=== PATIENT | female | born 1965 | race Caucasian/White ===

== ENCOUNTER 2016-04-07 19:09 | Inpatient (IN) | payer MEDICARE, MEDICAID ==
[2016-04-07] MEDS ORDERED: NS 0.9% 1000 ML* 1,000 ML IV ONE (19:46)
[2016-04-07 20:11] LABS: Hematocrit 33 % (35-47); Hemoglobin 10.7 g/dl (12.0-16.0); Mean Corpuscular HGB Conc 33 g/dl (31-36); Mean Corpuscular Hemoglobin 26 pg (27-31); Mean Corpuscular Volume 81 fL (80-97); Mean Platelet Volume 9 um3 (7.4-10.4); Red Blood Count 4.06 10^6/ul (4.0-5.4); Red Cell Distribution Width 18 % (10.5-15); White Blood Count 7.2 10^3/ul (3.5-10.8)
[2016-04-07 20:27] LABS: Albumin 3.9 g/dL (3.2-5.2); BUN/Creatinine Ratio 15.9 (8-20); C Reactive Protein 21.51 mg/L (< 5.00); EGFR African American 42.6 (>60); EGFR Non-African American 33.2 (>60); Globulin 3.1 g/dL (2-4); Magnesium 1.8 mg/dL (1.9-2.7); Potassium 4.2 mmol/L (3.5-5.0)
[2016-04-07 20:31] LABS: Troponin I 0.07 ng/mL (<0.04)
[2016-04-07 20:59] LABS: TSH (Thyroid Stimulating Horm) 7.36 mcIU/mL (0.34-5.60)
--- NOTE | 2016-04-07 21:09 | ED ---
Complex/Multi-Sys Presentation - HPI Summary HPI Summary: Patient is a resident at the [facility] and presents after falling. She says she got up to get some water and her legs "just gave out on her" and no one would help her. She fell onto her knees and has some bruising on the knee caps. She is being treated for what appears to be a cellulitis with central necrosis on the left inner thigh. She says she is thirsty but denies other complaints. No recent illness, fever, CP, SOB or abdominal pain. She does feel like she is very shaky, which is not normal for her. - History Of Current Complaint Chief Complaint: EDExtremityLower Time Seen by Provider: 04/07/16 19:19 Hx Obtained From: Patient - Patient has mild MR and therefore her history is incomplete Onset/Duration: Sudden Onset, Still Present Timing: Constant Severity Currently: Moderate Severity Initially: Severe Character: Dull - bilateral knees Associated Signs And Symptoms: Positive: Weakness - Allergies/Home Medications Allergies/Adverse Reactions: Allergies Allergy/AdvReac Type Severity Reaction Status Date / Time No Known Allergies Allergy Verified 04/07/16 19:32 Home Medications: Home Medications Acetaminophen TAB* [Tylenol TAB*] 650 mg PO Q6HR PRN 04/07/16 [History Confirmed 04/07/16] Amantadine CAP* [Symmetrel CAP*] 1 tab PO DAILY 04/07/16 [History Confirmed 09/16] Aspirin [Aspirin Adult Low Dose] 81 mg PO DAILY 04/07/16 [History Confirmed 09/16] Atorvastatin* [Lipitor 40 MG*] 1 tab PO BEDTIME 04/07/16 [History Confirmed 09/16] Clopidogrel TAB* [Plavix TAB*] 1 tab PO DAILY 04/07/16 [History Confirmed ] Insulin Aspart [Novolog Flexpen] 6 units SUBCUT BEDTIME 04/07/16 [History Confirmed 04/07/16] Insulin GLARGINE(*) [Lantus(*)] 35 units SUBCUT BEDTIME 04/07/16 [History Confirmed 04/07/16] LORazepam INJ* [Ativan INJ*] 1 mg IM Q12HR PRN 04/07/16 [History Confirmed 04/07] LORazepam TAB(*) [Ativan TAB(*)] 1 mg PO Q6H PRN 04/07/16 [History Confirmed 09/16] Levothyroxine TAB* [Synthroid TAB*] 1 tab PO DAILY 04/07/16 [History Confirmed 04/07/16] Lisinopril TAB* [Prinivil TAB*] 2.5 mg PO DAILY 04/07/16 [History Confirmed 09/16] Methylcobalamine (NF) [B-12] 1,000 mcg SL DAILY 04/07/16 [History Confirmed 09/16] Metolazone TAB* [Zaroxolyn TAB*] 2.5 mg PO EVERY OTHER DAY 04/07/16 [History Confirmed 04/07/16] Metoprolol Tartrate TAB* [Lopressor TAB*] 1 tab PO BID 04/07/16 [History Confirmed 04/07/16] OLANzapine TAB* [Zyprexa TAB*] 2 tab PO BEDTIME 04/07/16 [History Confirmed 09/16] Potassium Chloride [K-Tab] 1 tab PO DAILY 04/07/16 [History Confirmed 04/07/16] Spironolactone TAB* [Aldactone TAB 25 MG*] 1 tab PO DAILY 04/07/16 [History Confirmed 04/07/16] Torsemide TAB* [Demadex*] 20 mg PO DAILY 04/07/16 [History Confirmed 04/07/16] Venlafaxine ER (NF) [Effexor ER (NF)] 300 mg PO DAILY 04/07/16 [History Confirmed 04/07/16] glipiZIDE TAB* [Glucotrol TAB*] 1 tab PO BID 04/07/16 [History Confirmed ] hydrOXYzine HCL TAB* [Atarax TAB*] 1 tab PO Q8HR 04/07/16 [History Confirmed 09/16] PMH/Surg Hx/FS Hx/Imm Hx Endocrine/Hematology History: Reports: Hx Diabetes, Hx Thyroid Disease Cardiovascular History: Reports: Hx Coronary Artery Disease, Hx Hypertension Psychiatric History: Reports: Hx Anxiety, Hx Depression Infectious Disease History: No Infectious Disease History: Denies: Traveled Outside the [place] in Last 30 Days - Social History Occupation: Disabled Lives: Assisted Living Alcohol Use: None Substance Use Type: Reports: None Smoking Status (MU): Never Smoked Tobacco Review of Systems Negative: Fever, Chills Negative: Chest Pain Negative: Shortness Of Breath Positive: no symptoms reported Positive: Bruising - bilateral knees have mild bruises Positive: Weakness Positive: Anxious All Other Systems Reviewed And Are Negative: Yes Physical Exam Triage Information Reviewed: Yes Vital Signs On Initial Exam: Initial Vitals Temp Pulse Resp BP Pulse Ox 98 F 103 18 119/78 98 04/07/16 19:18 04/07/16 19:18 04/07/16 19:18 04/07/16 19:18 04/07/16 19:18 Vital Signs Reviewed: Yes Appearance: Positive: Well-Appearing, Pain Distress, Obese Skin: Positive: Warm, Skin Color Reflects Adequate Perfusion, Dry, Soft, Erythema @ - left mid inner thigh has 5 cm area of erythema with 2cm central escar without drainage; multiple healing scabs on the patient's back that appear to be healing Head/Face: Positive: Normal Head/Face Inspection Eyes: Positive: EOMI, FELICITA, Conjunctiva Clear ENT: Positive: Hearing grossly normal Neck: Positive: Supple, Nontender, No Lymphadenopathy Respiratory/Lung Sounds: Positive: Clear to Auscultation, Breath Sounds Present Cardiovascular: Positive: Tachycardia Abdomen Description: Positive: Nontender, Soft Bowel Sounds: Positive: Present Musculoskeletal: Positive: Strength/ROM Intact, Pain @ - mild TTP bilateral knee caps with mild bruising. Negative: Edema Left, Edema Right Neurological: Positive: Sensory/Motor Intact, Alert, Oriented to Person Place, Time, NV Bundle Intact Distally Psychiatric: Positive: Affect/Mood Appropriate AVPU Assessment: Alert Diagnostics - Vital Signs Vital Signs Temp Pulse Resp BP Pulse Ox 04/07/16 20:40 103 97 04/07/16 20:39 115/75 04/07/16 19:18 98 F 103 18 119/78 98 - Laboratory Lab Results: Lab Results 04/07/16 04/07/16 04/07/16 Range/Units 19:55 19:55 19:55 WBC 7.2 (3.5-10.8) 10^3/ul RBC 4.06 (4.0-5.4) 10^6/ul Hgb 10.7 L (12.0-16.0) g/dl Hct 33 L (35-47) % MCV 81 (80-97) fL MCH 26 L (27-31) pg MCHC 33 (31-36) g/dl RDW 18 H (10.5-15) % Plt Count 165 (150-450) 10^3/ul MPV 9 (7.4-10.4) um3 Neut % (Auto) 63.5 (38-83) % Lymph % (Auto) 23.7 L (25-47) % Sequoyah % (Auto) 10.2 H (1-9) % Eos % (Auto) 2.1 (0-6) % Baso % (Auto) 0.5 (0-2) % Absolute Neuts (auto) 4.6 (1.5-7.7) 10^3/ul Absolute Lymphs (auto) 1.7 (1.0-4.8) 10^3/ul Absolute Monos (auto) 0.7 (0-0.8) 10^3/ul Absolute Eos (auto) 0.2 (0-0.6) 10^3/ul Absolute Basos (auto) 0 (0-0.2) 10^3/ul Absolute Nucleated RBC 0 10^3/ul Nucleated RBC % 0 Sodium 135 (133-145) mmol/L Potassium 4.2 (3.5-5.0) mmol/L Chloride 104 (101-111) mmol/L Carbon Dioxide 22 (22-32) mmol/L Anion Gap 9 (2-11) mmol/L BUN 26 H (6-24) mg/dL Creatinine 1.64 H (0.51-0.95) mg/dL Est GFR ( Amer) 42.6 (>60) Est GFR (Non-Af Amer) 33.2 (>60) BUN/Creatinine Ratio 15.9 (8-20) Glucose 186 H (70-100) mg/dL Lactic Acid 1.7 (0.5-2.0) mmol/L Calcium 10.0 (8.6-10.3) mg/dL Magnesium 1.8 L (1.9-2.7) mg/dL Total Bilirubin 1.00 (0.2-1.0) mg/dL AST 28 (13-39) U/L ALT 18 (7-52) U/L Alkaline Phosphatase 128 H (34-104) U/L Troponin I 0.07 H* (<0.04) ng/mL C-Reactive Protein 21.51 H (< 5.00) mg/L Total Protein 7.0 (6.4-8.9) g/dL Albumin 3.9 (3.2-5.2) g/dL Globulin 3.1 (2-4) g/dL Albumin/Globulin Ratio 1.3 (1-3) TSH Pending Result Diagrams: 04/07/16 19:55 04/07/16 19:55 Lab Statement: Any lab studies that have been ordered have been reviewed, and results considered in the medical decision making process. - EKG No standard instances Cardiac Rate: NL EKG Rhythm: Sinus Rhythm ST Segment: Normal Ectopy: None Complex Multi-Symp Course/Dx - Diagnoses Differential Diagnoses/HQI/PQRI: Aspiration, Cardiac Ischemia, Closed Cranial Trauma, CVA, Metabolic Abnormality, Sepsis, Urinary Tract Infection Provider Diagnoses: Weakness, Elevated troponin - Physician Notifications Discussed Care Of Patient With: Dr. Joseph, hospitalist Time Discussed With Above Provider: 09:20 Instructed by Provider To: Admit As Inpatient Discharge - Discharge Plan Condition: Good Disposition: ADMITTED TO [facility]
[2016-04-07] MEDS ORDERED: CMCS: Melatonin (NF) 3 MG TAB PO PRN (21:48)
[2016-04-07] MEDS ORDERED: traMADol TAB* 50 MG PO PRN (21:48)
[2016-04-07] MEDS ORDERED: Ondansetron INJ* 2 MG/ML VIAL IV PRN (21:48)
[2016-04-07] MEDS ORDERED: LORazepam INJ* 2 MG/ML 1 ML VIAL IM PRN (21:50)
[2016-04-07] MEDS ORDERED: hydrOXYzine HCL TAB* 25 MG ONE (21:59)
[2016-04-07] MEDS ORDERED: Magnesium Sulfate 2 GM IV* 2 GM/50 ML BAG IVPB ONE (21:59)
[2016-04-07] MEDS ORDERED: Aspirin TAB* 325 MG ONE (21:59)
[2016-04-07] MEDS: hydrOXYzine HCL TAB* 25 MG PO SCH (22:00)
[2016-04-07] MEDS: Aspirin TAB* 325 MG PO SCH (22:01)
--- NOTE | 2016-04-07 22:02 | HP ---
H&P (Free Text) History and Physical: PCP: unknown Date/Time of Evaluation: 04/07/20152114 CC: generalized weakness & falls HPI: Mrs Thao is a 51F mentally challenged female resident of [facility] who is a very non-specific poor historian. She reports several days of generalized weakness and recurrent falls. She states her legs "just give out". She reports feeling hot & shaky, but denies chills, sweats, cough, congestion, chest pain, SOB, palpitations, light-headedness, changes in bowel/bladder, headache, sore throat, earache, or other issues. Work up is notable for normocytic anemia (? baseline), CKD stg 3b (? baseline), magnesium 1.8, & troponin of 0.07 (no comparison). ECG is sinus tachycardia rate 103, old anterior Q-waves, non-specific diffuse ST-T changes. PMedHx mentally challenged HTN HLD DM2 hypothyroidism Allergies No Known Allergies Allergy (Verified 04/07/16 19:32) Ambulatory Orders Acetaminophen TAB* [Tylenol TAB*] 650 mg PO Q6HR PRN 04/07/16 Amantadine CAP* [Symmetrel CAP*] 1 tab PO DAILY 04/07/16 Aspirin [Aspirin Adult Low Dose] 81 mg PO DAILY 04/07/16 Atorvastatin* [Lipitor 40 MG*] 1 tab PO BEDTIME 04/07/16 Clopidogrel TAB* [Plavix TAB*] 1 tab PO DAILY 04/07/16 Insulin Aspart [Novolog Flexpen] 6 units SUBCUT BEDTIME 04/07/16 Insulin GLARGINE(*) [Lantus(*)] 35 units SUBCUT BEDTIME 04/07/16 LORazepam INJ* [Ativan INJ*] 1 mg IM Q12HR PRN 04/07/16 LORazepam TAB(*) [Ativan TAB(*)] 1 mg PO Q6H PRN 04/07/16 Levothyroxine TAB* [Synthroid TAB*] 1 tab PO DAILY 04/07/16 Lisinopril TAB* [Prinivil TAB*] 2.5 mg PO DAILY 04/07/16 Methylcobalamine (NF) [B-12] 1,000 mcg SL DAILY 04/07/16 Metolazone TAB* [Zaroxolyn TAB*] 2.5 mg PO EVERY OTHER DAY 04/07/16 Metoprolol Tartrate TAB* [Lopressor TAB*] 1 tab PO BID 04/07/16 OLANzapine TAB* [Zyprexa TAB*] 2 tab PO BEDTIME 04/07/16 Potassium Chloride [K-Tab] 1 tab PO DAILY 04/07/16 Spironolactone TAB* [Aldactone TAB 25 MG*] 1 tab PO DAILY 04/07/16 Torsemide TAB* [Demadex*] 20 mg PO DAILY 04/07/16 Venlafaxine ER (NF) [Effexor ER (NF)] 300 mg PO DAILY 04/07/16 glipiZIDE TAB* [Glucotrol TAB*] 1 tab PO BID 04/07/16 hydrOXYzine HCL TAB* [Atarax TAB*] 1 tab PO Q8HR 04/07/16 SocHx: no tobacco, alcohol, or recreational drugs; lives at [facility]; full code status FamHx: reviewed, patient uncertain ROS: as above, otherwise reviewed and all were negative Constitutional: NAD, normally developed, obese white female vitals: Vital Signs Temp 36.6 C 04/07/16 19:18 Pulse 103 04/07/16 20:40 Resp 18 04/07/16 19:18 BP 115/75 04/07/16 20:39 Pulse Ox 97 04/07/16 20:40 Intake & Output 04/06/16 04/07/16 04/07/16 23:59 11:59 23:59 Weight 240 lb HEENM: atraumatic; sclera/conjunctiva: non-icteric/clear; blephara: normal; hearing: intact; oropharynx: clear, mucosa moist Neck: soft tissue: non-tender; thyroid: normal Pulmonary: clear to auscultation bilaterally, good aeration, no accessory muscle use CV: RR/RR, normal S1S2, no carotid bruit, no jugular venous distention, 2+ B DP/ PT, 1+ BLE edema Abdominal: soft, non-distended, non-tender, no rebound/guarding/rigidity, normoactive bowel sounds, no hepatosplenomegaly or masses, no costovertebral angle tenderness Musculoskeletal: general: grossly intact; gait: steady Integumental: normal appearance & texture Psychiatric orientation: AA&O to PPS affect: anxious mood: cooperative eye contact: good content: unreliable responses: timely insight: fair, limited by cognitive impairment Testing: Lab Results 04/07/16 04/07/16 04/07/16 Range/Units 19:55 19:55 19:55 WBC 7.2 (3.5-10.8) 10^3/ul RBC 4.06 (4.0-5.4) 10^6/ul Hgb 10.7 L (12.0-16.0) g/dl Hct 33 L (35-47) % MCV 81 (80-97) fL MCH 26 L (27-31) pg MCHC 33 (31-36) g/dl RDW 18 H (10.5-15) % Plt Count 165 (150-450) 10^3/ul MPV 9 (7.4-10.4) um3 Neut % (Auto) 63.5 (38-83) % Lymph % (Auto) 23.7 L (25-47) % Lewis % (Auto) 10.2 H (1-9) % Eos % (Auto) 2.1 (0-6) % Baso % (Auto) 0.5 (0-2) % Absolute Neuts (auto) 4.6 (1.5-7.7) 10^3/ul Absolute Lymphs (auto) 1.7 (1.0-4.8) 10^3/ul Absolute Monos (auto) 0.7 (0-0.8) 10^3/ul Absolute Eos (auto) 0.2 (0-0.6) 10^3/ul Absolute Basos (auto) 0 (0-0.2) 10^3/ul Absolute Nucleated RBC 0 10^3/ul Nucleated RBC % 0 Sodium 135 (133-145) mmol/L Potassium 4.2 (3.5-5.0) mmol/L Chloride 104 (101-111) mmol/L Carbon Dioxide 22 (22-32) mmol/L Anion Gap 9 (2-11) mmol/L BUN 26 H (6-24) mg/dL Creatinine 1.64 H (0.51-0.95) mg/dL Est GFR ( Amer) 42.6 (>60) Est GFR (Non-Af Amer) 33.2 (>60) BUN/Creatinine Ratio 15.9 (8-20) Glucose 186 H (70-100) mg/dL Lactic Acid 1.7 (0.5-2.0) mmol/L Calcium 10.0 (8.6-10.3) mg/dL Magnesium 1.8 L (1.9-2.7) mg/dL Total Bilirubin 1.00 (0.2-1.0) mg/dL AST 28 (13-39) U/L ALT 18 (7-52) U/L Alkaline Phosphatase 128 H (34-104) U/L Troponin I 0.07 H* (<0.04) ng/mL C-Reactive Protein 21.51 H (< 5.00) mg/L Total Protein 7.0 (6.4-8.9) g/dL Albumin 3.9 (3.2-5.2) g/dL Globulin 3.1 (2-4) g/dL Albumin/Globulin Ratio 1.3 (1-3) TSH 7.36 H (0.34-5.60) mcIU/mL ECG, personally reviewed: sinus tachycardia rate 103, anterior Q-waves, non- specific diffuse ST-T changes CXR, personally reviewed: ordered, pending Impression: 51F presenting with generalized weakness, falls, indeterminate troponin, & abnormal ECG DIAGNOSIS & PLAN Primary generalized weakness, elevated troponin, r/o ACS : telemetry : check 2vCXR in AM : trend troponin : aspirin : beta-iva (took already today) : supplemental oxygen : obtain old records : supportive care CKD stg 3b, ? baseline : IVFs, trend : continue spironolactone, K Cl, metolazone, & torsemide anemia, normocytic : check anemia labs : check stool for occult blood hypoMagnesemia : replace & recheck Secondary mentally challenged : continue amantadine, olanzapine, & venlafaxine HTN : continue lisinopril & metoprolol HLD : continue atorvastatin DM2 : check A1c : insulin carb ratio diet : basal/bolus/correctional protocol hypothyroidism : continue levothyroxine anxiety : continue lorazepam Admission Rational: observation for elevated troponin, generalized weakness DVTp: SCDs Code Status: full HCP: uncertain
[2016-04-07 22:11] LABS: Corrected Retic Count 0.5 % (0.5-1.5); Maturation Factor Retic 1.5
[2016-04-07] MEDS: NS 0.9% 1000 ML* 1,000 ML IV SCH (22:16)
[2016-04-08 00:14] LABS: Folate 14.2 ng/mL (>3.99)
[2016-04-08] MEDS: Acetaminophen TAB* 325 MG PO PRN (01:25)
[2016-04-08] MEDS: LORazepam TAB(*) 1 MG PO PRN ×4 (01:25→23:14)
[2016-04-08 01:46] LABS: Urine Bilirubin Negative (Negative); Urine Glucose Negative (Negative); Urine Nitrite Negative (Negative)
[2016-04-08 05:09] LABS: Hematocrit 32 % (35-47); Hemoglobin 10.3 g/dl (12.0-16.0); Mean Corpuscular HGB Conc 32 g/dl (31-36); Mean Corpuscular Hemoglobin 26 pg (27-31); Mean Corpuscular Volume 81 fL (80-97); Mean Platelet Volume 9 um3 (7.4-10.4); Red Blood Count 3.97 10^6/ul (4.0-5.4); Red Cell Distribution Width 19 % (10.5-15); White Blood Count 6.6 10^3/ul (3.5-10.8)
[2016-04-08 05:21] LABS: Calcium 9.4 mg/dL (8.6-10.3); EGFR African American 45.2 (>60); EGFR Non-African American 35.1 (>60); Magnesium 2.1 mg/dL (1.9-2.7)
[2016-04-08 05:25] LABS: Troponin I 0.07 ng/mL (<0.04)
[2016-04-08] MEDS: hydrOXYzine HCL TAB* 25 MG PO SCH ×3 (05:31→21:20)
[2016-04-08] MEDS ORDERED: CMCS: Pantoprazole TAB (NF) 40 MG TAB PO SCH (06:00)
[2016-04-08] MEDS ORDERED: Levothyroxine TAB* 50 MCG TAB PO SCH (06:00)
--- NOTE | 2016-04-08 08:06 | RAD ---
HISTORY: Fever, malaise COMPARISONS: None VIEWS: 2: Frontal and lateral views of the chest. FINDINGS: CARDIOMEDIASTINAL SILHOUETTE: The cardiomediastinal silhouette is normal. CARLOS: The carlos are normal. PLEURA: The costophrenic angles are sharp. No pleural abnormalities are noted. LUNG PARENCHYMA: The lungs are clear. ABDOMEN: The upper abdomen is clear. There is no subphrenic gas. BONES AND SOFT TISSUES: No bone or soft tissue abnormalities are noted. OTHER: None. IMPRESSION: NO ACTIVE CARDIOPULMONARY DISEASE.
[2016-04-08] MEDS: Amantadine CAP* 100 MG PO SCH (08:52)
[2016-04-08] MEDS: Aspirin TAB* 325 MG PO SCH (08:52)
[2016-04-08] MEDS: Lisinopril TAB* 5 MG PO SCH (08:52)
[2016-04-08] MEDS: Spironolactone TAB* 25 MG PO SCH (08:54)
[2016-04-08] MEDS: Venlafaxine EXT RELEASE CAP* 75 MG PO SCH (08:54)
[2016-04-08] MEDS: Potassium Chlor TAB* 20 MEQ TAB.ER PO SCH (08:54)
[2016-04-08] MEDS: Torsemide TAB* 20 MG PO SCH (08:54)
[2016-04-08] MEDS: Clopidogrel TAB* 75 MG PO SCH (08:54)
[2016-04-08] MEDS: glipiZIDE TAB* 5 MG PO SCH ×2 (08:55→21:20)
[2016-04-08] MEDS: Metoprolol Tartrate TAB* 50 mg PO SCH ×2 (08:55→21:20)
[2016-04-08] MEDS ORDERED: Docusate CAP* 100 MG PO SCH (09:00)
--- NOTE | 2016-04-08 13:00 | PN ---
Subjective Date of Service: 04/08/16 Interval History: Pt is feeling ok. She states her L thigh is hurting her. She also c/o SOB but can not elaborate any further. Objective Active Medications: Acetaminophen (Tylenol Tab*) 650 mg PO Q6H PRN PRN Reason: FEVER/PAIN Last Admin: 04/08/16 01:25 Dose: 650 mg Amantadine HCl (Symmetrel Cap*) 100 mg PO DAILY [facility] Last Admin: 04/08/16 08:52 Dose: 100 mg Aspirin (Aspirin Tab*) 325 mg PO DAILY [facility] Last Admin: 04/08/16 08:52 Dose: 325 mg Atorvastatin Calcium (Lipitor*) 40 mg PO BEDTIME [facility] Clopidogrel Bisulfate (Plavix Tab*) 75 mg PO DAILY [facility] Last Admin: 04/08/16 08:54 Dose: 75 mg Docusate Sodium (Colace Cap*) 200 mg PO BID [facility] Last Admin: 04/08/16 08:54 Dose: 200 mg Glipizide (Glucotrol Tab*) 5 mg PO BID [facility] Last Admin: 04/08/16 08:55 Dose: 5 mg Hydroxyzine HCl (Atarax Tab*) 25 mg PO Q8HR [facility] Last Admin: 04/08/16 05:31 Dose: 25 mg Sodium Chloride (Ns 0.9% 1000 Ml*) 1,000 mls @ 100 mls/hr IV PER RATE [facility] Last Admin: 04/07/16 22:16 Dose: 100 mls/hr Levothyroxine Sodium (Synthroid Tab*) 50 mcg PO 0600 [facility] Last Admin: 04/08/16 05:32 Dose: 50 mcg Lisinopril (Prinivil Tab*) 2.5 mg PO DAILY [facility] Last Admin: 04/08/16 08:52 Dose: 2.5 mg Lorazepam (Ativan Inj*) 1 mg IM Q12HR PRN PRN Reason: ANXIETY Lorazepam (Ativan Tab(*)) 1 mg PO Q6H PRN PRN Reason: ANXIETY Last Admin: 04/08/16 08:55 Dose: 1 mg Melatonin (Melatonin (Nf)) 3 mg PO BEDTIME PRN; Protocol PRN Reason: Sleep Metolazone (Zaroxolyn Tab*) 2.5 mg PO EVERY OTHER DAY [facility] Metoprolol Tartrate (Lopressor Tab*) 50 mg PO BID [facility] Last Admin: 04/08/16 08:55 Dose: 50 mg Olanzapine (Zyprexa Tab*) 20 mg PO BEDTIME [facility] Ondansetron HCl (Zofran Inj*) 4 mg IV Q6H PRN PRN Reason: NAUSEA Pantoprazole Sodium (Protonix Tab (Nf)) 40 mg PO DAILY@0600 [facility] Last Admin: 04/08/16 05:32 Dose: 40 mg Potassium Chloride (Klor Con Er Tab*) 20 meq PO DAILY [facility] Last Admin: 04/08/16 08:54 Dose: 20 meq Spironolactone (Aldactone Tab*) 25 mg PO DAILY [facility] Last Admin: 04/08/16 08:54 Dose: 25 mg Torsemide (Demadex*) 20 mg PO DAILY [facility] Last Admin: 04/08/16 08:54 Dose: 20 mg Tramadol HCl (Ultram*) 50 mg PO Q6H PRN PRN Reason: PAIN Venlafaxine HCl (Effexor Xr Cap*) 300 mg PO DAILY [facility] Last Admin: 04/08/16 08:54 Dose: 300 mg Vital Signs 04/07/16 04/07/16 04/07/16 22:00 22:36 23:05 Temperature 97.1 F 97.8 F Pulse Rate 104 101 103 Respiratory 16 20 Rate Blood Pressure 124/76 119/77 139/72 (mmHg) O2 Sat by Pulse 97 98 Oximetry 04/08/16 04/08/16 04/08/16 01:25 03:01 03:25 Temperature 98.1 F Pulse Rate 103 Respiratory 20 20 20 Rate Blood Pressure 128/80 (mmHg) O2 Sat by Pulse 100 Oximetry 04/08/16 04/08/16 04/08/16 07:36 08:00 08:55 Temperature 97.9 F Pulse Rate 101 Respiratory 16 18 18 Rate Blood Pressure 127/78 (mmHg) O2 Sat by Pulse 95 Oximetry 04/08/16 04/08/16 10:55 11:12 Temperature 97.8 F Pulse Rate 94 Respiratory 16 16 Rate Blood Pressure 119/75 (mmHg) O2 Sat by Pulse 100 Oximetry Oxygen Devices in Use Now: None Appearance: Middle aged obese female lying in bed, NAD Eyes: No Scleral Icterus Ears/Nose/Mouth/Throat: - - tongue is wet but lips are crusted Respiratory: Symmetrical Chest Expansion and Respiratory Effort, Clear to Auscultation Cardiovascular: NL Sounds; No Murmurs; No JVD, RRR, No Edema Abdominal: NL Sounds; No Tenderness; No Distention Extremities: No Clubbing, Cyanosis Skin: No Nodules or Sclerosis, - - + scabbed over lesion L upper medial thigh with mild induration and erythema, not hot to touch Neurological: - - alert oriented to being in the hospital, very simple responses to questions Result Diagrams: 04/08/16 04:52 04/08/16 04:52 Additional Lab and Data: Lab Results 04/07/16 04/07/16 04/07/16 Range/Units 19:55 19:55 19:55 WBC 7.2 (3.5-10.8) 10^3/ul RBC 4.06 (4.0-5.4) 10^6/ul Hgb 10.7 L (12.0-16.0) g/dl Hct 33 L (35-47) % MCV 81 (80-97) fL MCH 26 L (27-31) pg MCHC 33 (31-36) g/dl RDW 18 H (10.5-15) % Plt Count 165 (150-450) 10^3/ul MPV 9 (7.4-10.4) um3 Neut % (Auto) 63.5 (38-83) % Lymph % (Auto) 23.7 L (25-47) % Andrew % (Auto) 10.2 H (1-9) % Eos % (Auto) 2.1 (0-6) % Baso % (Auto) 0.5 (0-2) % Absolute Neuts (auto) 4.6 (1.5-7.7) 10^3/ul Absolute Lymphs (auto) 1.7 (1.0-4.8) 10^3/ul Absolute Monos (auto) 0.7 (0-0.8) 10^3/ul Absolute Eos (auto) 0.2 (0-0.6) 10^3/ul Absolute Basos (auto) 0 (0-0.2) 10^3/ul Absolute Nucleated RBC 0 10^3/ul Nucleated RBC % 0 Sodium 135 (133-145) mmol/L Potassium 4.2 (3.5-5.0) mmol/L Chloride 104 (101-111) mmol/L Carbon Dioxide 22 (22-32) mmol/L Anion Gap 9 (2-11) mmol/L BUN 26 H (6-24) mg/dL Creatinine 1.64 H (0.51-0.95) mg/dL Est GFR ( Amer) 42.6 (>60) Est GFR (Non-Af Amer) 33.2 (>60) BUN/Creatinine Ratio 15.9 (8-20) Glucose 186 H (70-100) mg/dL Lactic Acid 1.7 (0.5-2.0) mmol/L Calcium 10.0 (8.6-10.3) mg/dL Magnesium 1.8 L (1.9-2.7) mg/dL Total Bilirubin 1.00 (0.2-1.0) mg/dL AST 28 (13-39) U/L ALT 18 (7-52) U/L Alkaline Phosphatase 128 H (34-104) U/L Troponin I 0.07 H* (<0.04) ng/mL C-Reactive Protein 21.51 H (< 5.00) mg/L Total Protein 7.0 (6.4-8.9) g/dL Albumin 3.9 (3.2-5.2) g/dL Globulin 3.1 (2-4) g/dL Albumin/Globulin Ratio 1.3 (1-3) TSH Pending Microbiology and Other Data: Microbiology 04/07/16 22:25 Nasal Screen MRSA (PCR)(DARRYL) - Final Nasal Mrsa Negative Assess/Plan/Problems-Billing Ms Thao is a 51 yo F who has a h/o HTN, hyperlipidemia, type II DM and hypothyroidism who presented to the ER with c/o weakness and falls and was found to have an elevated troponin. - Patient Problems (1) Weakness Current Visit: Yes Status: Acute Code(s): R53.1 - WEAKNESS SNOMED Code(s) : 24324359 Comment: PT eval is pending. No clear source of weakness identified on labs. Her troponin is elevated though no acute WI. Will get echo tomorrow. (2) Falls Current Visit: Yes Status: Acute Comment: PT kiara. (3) Elevated troponin Current Visit: Yes Status: Acute Code(s): R79.89 - OTHER SPECIFIED ABNORMAL FINDINGS OF BLOOD CHEMISTRY SNOMED Code(s): 701640800 Comment: I suspect this is chronic. Her EKG is abnormal though not acutely. Will plan on stress test 04/10/16. Monitor for symptoms. (4) Iron deficiency anemia Current Visit: Yes Status: Acute Code(s): D50.9 - IRON DEFICIENCY ANEMIA, UNSPECIFIED SNOMED Code(s): 41204226 Comment: THe patient appears to be iron deficient. Start ferrous sulfate 325mg daily. Monitor H/H intermittently. (5) Stage III chronic kidney disease Current Visit: Yes Status: Acute Code(s): N18.3 - CHRONIC KIDNEY DISEASE, STAGE 3 (MODERATE) SNOMED Code(s): 407567136 Comment: The patient's creatinine remains elevated today. I suspect this is chronic. Will repeat labs 04/10/16. (6) HTN (hypertension) Current Visit: Yes Status: Acute Code(s): I10 - ESSENTIAL (PRIMARY) HYPERTENSION SNOMED Code(s): 43997776 Comment: BP is under good control. Continue to monitor. (7) Type II diabetes mellitus Current Visit: Yes Status: Acute Comment: Check A1c. Sugars are mildly elevated. Will check finger sticks AC and continue with glipizide for now. (8) Hypothyroidism Current Visit: Yes Status: Acute Code(s): E03.9 - HYPOTHYROIDISM, UNSPECIFIED SNOMED Code(s): 87525582 Comment: TSH is elevated. Check Free T4. Reduce synthroid to 37.5mg daily. (9) DVT prophylaxis Current Visit: Yes Status: Acute Code(s): GPU0175 - SNOMED Code(s): 726656008 (10) Full code status Current Visit: Yes Status: Acute Code(s): Z78.9 - OTHER SPECIFIED HEALTH STATUS SNOMED Code(s): 466167302
[2016-04-08] MEDS: NS 0.9% 1000 ML* 1,000 ML IV SCH (13:08)
[2016-04-08 13:25] LABS: Free T4 1.23 ng/dL (0.61-1.12)
[2016-04-08] MEDS: Atorvastatin* 40 MG TAB PO SCH (21:20)
[2016-04-08] MEDS: OLANzapine TAB* 10 MG PO SCH (21:20)
[2016-04-09] MEDS ORDERED: Ziprasidone IM INJ* 20 MG/ML VIAL IM PRN (03:54)
[2016-04-09] MEDS: Levothyroxine TAB* 25 MCG TAB PO SCH (05:49)
[2016-04-09] MEDS: hydrOXYzine HCL TAB* 25 MG PO SCH ×3 (05:49→21:24)
[2016-04-09] MEDS ORDERED: LORazepam INJ* 2 MG/ML 1 ML VIAL IV PUSH ONE (10:27)
[2016-04-09] MEDS: Lisinopril TAB* 5 MG PO SCH (10:29)
[2016-04-09] MEDS: Amantadine CAP* 100 MG PO SCH (10:29)
[2016-04-09] MEDS: glipiZIDE TAB* 5 MG PO SCH ×2 (10:30→17:41)
[2016-04-09] MEDS: Metolazone TAB* 5 MG PO SCH (10:30)
[2016-04-09] MEDS: Metoprolol Tartrate TAB* 50 mg PO SCH ×2 (10:30→21:25)
[2016-04-09] MEDS ORDERED: LORazepam INJ* 2 MG/ML 1 ML VIAL ONE (10:31)
--- NOTE | 2016-04-09 10:31 | PN ---
Subjective Date of Service: 04/09/16 Interval History: Pt is very restless currently. She is unable to participate in any history. Objective Active Medications: Acetaminophen (Tylenol Tab*) 650 mg PO Q6H PRN PRN Reason: FEVER/PAIN Last Admin: 04/08/16 01:25 Dose: 650 mg Amantadine HCl (Symmetrel Cap*) 100 mg PO DAILY [facility] Last Admin: 04/08/16 08:52 Dose: 100 mg Aspirin (Aspirin Low Dose Tab*) 81 mg PO DAILY [facility] Atorvastatin Calcium (Lipitor*) 40 mg PO BEDTIME [facility] Last Admin: 04/08/16 21:20 Dose: 40 mg Clopidogrel Bisulfate (Plavix Tab*) 75 mg PO DAILY [facility] Last Admin: 04/08/16 08:54 Dose: 75 mg Glipizide (Glucotrol Tab*) 5 mg PO BID [facility] Last Admin: 04/08/16 21:20 Dose: 5 mg Hydroxyzine HCl (Atarax Tab*) 25 mg PO Q8HR [facility] Last Admin: 04/09/16 05:49 Dose: 25 mg Levothyroxine Sodium (Synthroid Tab*) 37.5 mcg PO 0600 [facility] Last Admin: 04/09/16 05:49 Dose: 37.5 mcg Lisinopril (Prinivil Tab*) 2.5 mg PO DAILY [facility] Last Admin: 04/08/16 08:52 Dose: 2.5 mg Lorazepam (Ativan Inj*) 1 mg IM Q12HR PRN PRN Reason: ANXIETY Last Admin: 04/09/16 04:00 Dose: 1 mg Lorazepam (Ativan Tab(*)) 1 mg PO Q6H PRN PRN Reason: ANXIETY Last Admin: 04/08/16 23:14 Dose: 1 mg Melatonin (Melatonin (Nf)) 3 mg PO BEDTIME PRN; Protocol PRN Reason: Sleep Last Admin: 04/08/16 23:17 Dose: 3 mg Metolazone (Zaroxolyn Tab*) 2.5 mg PO EVERY OTHER DAY [facility] Metoprolol Tartrate (Lopressor Tab*) 50 mg PO BID [facility] Last Admin: 04/08/16 21:20 Dose: 50 mg Olanzapine (Zyprexa Tab*) 20 mg PO BEDTIME [facility] Last Admin: 04/08/16 21:20 Dose: 20 mg Ondansetron HCl (Zofran Inj*) 4 mg IV Q6H PRN PRN Reason: NAUSEA Potassium Chloride (Klor Con Er Tab*) 20 meq PO DAILY [facility] Last Admin: 04/08/16 08:54 Dose: 20 meq Spironolactone (Aldactone Tab*) 25 mg PO DAILY [facility] Last Admin: 04/08/16 08:54 Dose: 25 mg Torsemide (Demadex*) 20 mg PO DAILY [facility] Last Admin: 04/08/16 08:54 Dose: 20 mg Venlafaxine HCl (Effexor Xr Cap*) 300 mg PO DAILY [facility] Last Admin: 04/08/16 08:54 Dose: 300 mg Ziprasidone (Geodon Im Inj*) 10 mg IM ONCE PRN PRN Reason: SEVERE AGITATION Stop: 04/10/16 03:53 Vital Signs 04/08/16 04/08/16 04/08/16 17:44 19:39 20:00 Temperature 97.7 F Pulse Rate 95 Respiratory 20 17 18 Rate Blood Pressure 147/69 (mmHg) O2 Sat by Pulse 98 Oximetry 04/08/16 04/08/16 04/09/16 23:14 23:53 01:14 Temperature 97.9 F Pulse Rate 138 Respiratory 22 20 18 Rate Blood Pressure 92/62 (mmHg) O2 Sat by Pulse 95 Oximetry 04/09/16 04/09/16 04/09/16 03:38 04:00 05:00 Temperature 98.0 F Pulse Rate 82 Respiratory 20 24 20 Rate Blood Pressure 100/82 (mmHg) O2 Sat by Pulse 95 Oximetry 04/09/16 07:23 Temperature 97.4 F Pulse Rate 78 Respiratory 16 Rate Blood Pressure 115/98 (mmHg) O2 Sat by Pulse 97 Oximetry Oxygen Devices in Use Now: None Appearance: Middle aged obese female lying in bed, restless, pulling off her gown multiple times while I was in the room, NAD Eyes: No Scleral Icterus Ears/Nose/Mouth/Throat: - - dry oral mucosa Respiratory: Symmetrical Chest Expansion and Respiratory Effort, Clear to Auscultation - anteriorly Cardiovascular: NL Sounds; No Murmurs; No JVD, RRR, No Edema Abdominal: NL Sounds; No Tenderness; No Distention Extremities: No Clubbing, Cyanosis Skin: - - scabbed lesion to medial L thigh, no significant surrounding erythema Neurological: - - pt keeps eyes closed during my entire history/exam, very agitated, pressured speech when she does attempt to answer questions Result Diagrams: 04/08/16 04:52 04/08/16 04:52 Additional Lab and Data: Lab Results 04/07/16 04/07/16 04/07/16 Range/Units 19:55 19:55 19:55 WBC 7.2 (3.5-10.8) 10^3/ul RBC 4.06 (4.0-5.4) 10^6/ul Hgb 10.7 L (12.0-16.0) g/dl Hct 33 L (35-47) % MCV 81 (80-97) fL MCH 26 L (27-31) pg MCHC 33 (31-36) g/dl RDW 18 H (10.5-15) % Plt Count 165 (150-450) 10^3/ul MPV 9 (7.4-10.4) um3 Neut % (Auto) 63.5 (38-83) % Lymph % (Auto) 23.7 L (25-47) % [place] % (Auto) 10.2 H (1-9) % Eos % (Auto) 2.1 (0-6) % Baso % (Auto) 0.5 (0-2) % Absolute Neuts (auto) 4.6 (1.5-7.7) 10^3/ul Absolute Lymphs (auto) 1.7 (1.0-4.8) 10^3/ul Absolute Monos (auto) 0.7 (0-0.8) 10^3/ul Absolute Eos (auto) 0.2 (0-0.6) 10^3/ul Absolute Basos (auto) 0 (0-0.2) 10^3/ul Absolute Nucleated RBC 0 10^3/ul Nucleated RBC % 0 Sodium 135 (133-145) mmol/L Potassium 4.2 (3.5-5.0) mmol/L Chloride 104 (101-111) mmol/L Carbon Dioxide 22 (22-32) mmol/L Anion Gap 9 (2-11) mmol/L BUN 26 H (6-24) mg/dL Creatinine 1.64 H (0.51-0.95) mg/dL Est GFR ( Amer) 42.6 (>60) Est GFR (Non-Af Amer) 33.2 (>60) BUN/Creatinine Ratio 15.9 (8-20) Glucose 186 H (70-100) mg/dL Lactic Acid 1.7 (0.5-2.0) mmol/L Calcium 10.0 (8.6-10.3) mg/dL Magnesium 1.8 L (1.9-2.7) mg/dL Total Bilirubin 1.00 (0.2-1.0) mg/dL AST 28 (13-39) U/L ALT 18 (7-52) U/L Alkaline Phosphatase 128 H (34-104) U/L Troponin I 0.07 H* (<0.04) ng/mL C-Reactive Protein 21.51 H (< 5.00) mg/L Total Protein 7.0 (6.4-8.9) g/dL Albumin 3.9 (3.2-5.2) g/dL Globulin 3.1 (2-4) g/dL Albumin/Globulin Ratio 1.3 (1-3) TSH Pending Microbiology and Other Data: Microbiology 04/07/16 22:25 Nasal Screen MRSA (PCR)(DARRYL) - Final Nasal Mrsa Negative Assess/Plan/Problems-Billing Ms Thao is a 51 yo F who has a h/o HTN, hyperlipidemia, type II DM and hypothyroidism who presented to the ER with c/o weakness and falls and was found to have an elevated troponin. - Patient Problems (1) Agitation Current Visit: Yes Status: Acute Code(s): R45.1 - RESTLESSNESS AND AGITATION SNOMED Code(s): 99219028 Comment: The patient is severely agitated at this time. Will try 1mg IV ativan to see if she can settle down. She reportedly is able to function pretty well at the [facility]. She does have issues with anxiety. Will try to get records from [facility] ([place] told us that she has been treated there previously). (2) Weakness Current Visit: Yes Status: Acute Code(s): R53.1 - WEAKNESS SNOMED Code(s) : 53061489 Comment: PT showed that the patient was abrupt in her movements and unsafe because of that. Continue nursing help with transfers ambulation. Echo pending. Will also get CT brain given her new severe agitation. (3) Falls Current Visit: Yes Status: Acute Comment: PT and nursing mobilization once agitation improved. (4) Elevated troponin Current Visit: Yes Status: Acute Code(s): R79.89 - OTHER SPECIFIED ABNORMAL FINDINGS OF BLOOD CHEMISTRY SNOMED Code(s): 889583951 Comment: I suspect this is chronic. Her EKG is abnormal though not acutely. Will plan on stress test 04/10/16. Monitor for symptoms. (5) Iron deficiency anemia Current Visit: Yes Status: Acute Code(s): D50.9 - IRON DEFICIENCY ANEMIA, UNSPECIFIED SNOMED Code(s): 46169394 Comment: Stool guaiac is negative. Continue ferrous sulfate. (6) Stage III chronic kidney disease Current Visit: Yes Status: Acute Code(s): N18.3 - CHRONIC KIDNEY DISEASE, STAGE 3 (MODERATE) SNOMED Code(s): 921927242 Comment: The patient's creatinine remains elevated today. I suspect this is chronic. Will repeat labs 04/10/16. (7) HTN (hypertension) Current Visit: Yes Status: Acute Code(s): I10 - ESSENTIAL (PRIMARY) HYPERTENSION SNOMED Code(s): 53636443 Comment: BP is under good control. Continue to monitor. (8) Type II diabetes mellitus Current Visit: Yes Status: Acute Comment: A1c is pending. Continue glipizide and consistent carb diet. (9) Hypothyroidism Current Visit: Yes Status: Acute Code(s): E03.9 - HYPOTHYROIDISM, UNSPECIFIED SNOMED Code(s): 64262331 Comment: TSH is elevated. Free T4 is also elevated- continue reduced synthroid dose for now and she will need recheck of TSH/Free T4 in the next 4-6 weeks. (10) DVT prophylaxis Current Visit: Yes Status: Acute Code(s): BXA0544 - SNOMED Code(s): 281278525 Comment: SQ heparin (11) Full code status Current Visit: Yes Status: Acute Code(s): Z78.9 - OTHER SPECIFIED HEALTH STATUS SNOMED Code(s): 893438137
--- NOTE | 2016-04-09 10:36 | ECHO ---
Patient: MAGO GÓMEZ [facility] Rec#: [id number] : 1965 Date: 04/09/2016 Age: 51y Height: 172.72 cm / 68.0 in Weight: 113.85 kg / 250.9 lbs Sex: F BSA: 2.25 Room#: 437 Admit Date#: 04/07/2016 Type: Inpatient Referring: Tasneem Reyes DO Reading: Simone Monsivais MD Chief Client Officer: Yelitza Kdid [facility] Transthoracic Echocardiogram Indication: Abn EKG BP: 100/82 HR: 86 Rhythm: NSR Findings History: Mentally challenged,sinus tach,nonspecific ST-T changes,HTN,HLD,DM,hypothyroid, CKD stage III,anemia. Technical Comments: The study is technically difficult. Pt agitated , combative and uncooperative. Left Ventricle: The left ventricular chamber size is normal. There is a focal wall motion abnormality present. There is mild to moderately decreased left ventricular systolic function. The estimated ejection fraction is 35-40%. The patient was unable to perform a Valsalva maneuver. The mid inferoseptal wall segment is hypokinetic (score 2). The apical septal, and apical lateral wall segments are akinetic (score 3). Overall wallmotion score index is 2.67 Left Atrium: The left atrium is mild to moderately dilated. Right Ventricle: The right ventricle is mild to moderately dilated. The right ventricular global systolic function is normal. Right Atrium: The right atrium is mildly dilated. Aortic Valve: The aortic valve is trileaflet. There is no evidence of aortic regurgitation. There is no evidence of aortic stenosis. Mitral Valve: The mitral valve leaflets are mildly thickened. There is mild to moderate mitral regurgitation. There is no evidence of mitral stenosis. Tricuspid Valve: The tricuspid valve leaflets are mildly thickened. There is moderate tricuspid regurgitation. There is evidence of mild pulmonary hypertension. There is no tricuspid stenosis. Pulmonic Valve: The pulmonic valve appears normal. There is trace to mild pulmonic regurgitation. There is no pulmonic stenosis. Pericardium: The pericardium appears normal. A pericardial fat pad is visualized. Aorta: There is no dilatation of the ascending aorta. There is no dilatation of the aortic arch. There is no dilation of the aortic root. Pulmonary Artery: The main pulmonary artery appears normal. Venous: The venous system is not well visualized. Conclusions There is a focal wall motion abnormality present. There is mild to moderately decreased left ventricular systolic function. The mid inferoseptal wall segment is hypokinetic (score 2). The apical septal, and apical lateral wall segments are akinetic (score 3). The right ventricular global systolic function is normal. There is no evidence of aortic regurgitation. There is mild to moderate mitral regurgitation. There is moderate tricuspid regurgitation. There is evidence of mild pulmonary hypertension. The pericardium appears normal. Measurements Name Value Normal Range RVIDd (AP) 2D 3.7 cm (0.9 - 2.6) RVDdMajor (2D) 5.2 cm (2.2 - 4.4) RAd ISD 4CH 6.1 cm (3.4 - 4.9) RA (A4C)W 4.3 cm (2.9 - 4.6) IVSd (2D) 1 cm (0.6 - 1) LVPWd (2D) 1 cm (0.6 - 1) LVIDd (2D) 4.7 cm (3.6 - 5.4) LVIDs (2D) 3.3 cm - LV FS (2D) 30 % (25 - 45) Aortic Annulus 2.1 cm (1.4 - 2.6) Ao root diameter (2D) 3 cm (2.1 - 3.5) Ascending Ao 3.1 cm (2.1 - 3.4) Aortic arch 2.6 cm (1.8 - 3.4) Descending Ao 0.5 cm - LA dimension (AP) 2D 4.6 cm (2.3 - 3.8) LAd ISD 4CH 6.2 cm (2.9 - 5.3) LA ISD 4CH W 3.7 cm (2.5 - 4.5) Name Value Normal Range LA ESV SP 4CH (A/L) 64 ml - LA ESV SP 2CH (A/L) 80 ml - LA ESV BP (A/L) 75 ml - LA ESV BP (A/L) index 33.3 ml/m2 - LA ESV SP 4CH (MOD) 62 ml - LA ESV SP 2CH (MOD) 77 ml - Name Value Normal Range MV E-wave Vmax 1.2 m/sec - MV deceleration time 165 msec - MV A-wave Vmax 0.6 m/sec - MV E:A ratio 1.84 ratio - LV septal e' Vmax 0.07 m/sec - LV lateral e' Vmax 0.1 m/sec - LV E:e' septal ratio 17.14 ratio - LV E:e' lateral ratio 12 ratio - Name Value Normal Range AV Vmax 1.4 m/sec - AV VTI 25.9 cm - AV peak gradient 7.97 mmHg - AV mean gradient 4 mmHg - LVOT Vmax 0.8 m/sec - LVOT VTI 14.1 cm - LVOT peak gradient 2.63 mmHg - LVOT mean gradient 1.22 mmHg - Name Value Normal Range TR Vmax 2.4 m/sec - TR peak gradient 25 mmHg - RAP 8 mmHg - RVSP 33 mmHg - Name Value Normal Range PV Vmax 0.5 m/sec - PV peak gradient 1.15 mmHg - Wallmotion BAS Not Seen BA Not Seen BAL Not Seen MYRNA Not Seen BI Not Seen BIS Not Seen MAS Not Seen MA Not Seen MAL Not Seen MIL Not Seen ND Not Seen MIS Hypokinetic Akinetic AA Not Seen AL Akinetic AI Not Seen APEX Akinetic
[2016-04-09] MEDS: Clopidogrel TAB* 75 MG PO SCH (10:43)
[2016-04-09] MEDS: Spironolactone TAB* 25 MG PO SCH (10:43)
[2016-04-09] MEDS: Potassium Chlor TAB* 20 MEQ TAB.ER PO SCH (10:43)
[2016-04-09] MEDS: Aspirin Low Dose CHEW TAB* 81 MG PO SCH (10:43)
[2016-04-09] MEDS: Torsemide TAB* 20 MG PO SCH (10:43)
[2016-04-09] MEDS: Venlafaxine EXT RELEASE CAP* 75 MG PO SCH (10:43)
--- NOTE | 2016-04-09 12:04 | RAD ---
HISTORY: Altered mental status COMPARISONS: None TECHNIQUE: Multiple contiguous axial CT scans were obtained of the head without intravenous contrast. FINDINGS: The study is limited by patient motion artifact. HEMORRHAGE/INFARCT: There is no hemorrhage or acute infarct. MASSES/SHIFT: There is no mass or shift. EXTRA-AXIAL SPACES: There are no extra-axial fluid collections. SULCI AND VENTRICLES: The sulci and ventricles are normal in size and position for the patient's stated age. CEREBRUM: There are no focal parenchymal abnormalities. BRAINSTEM: There are no focal parenchymal abnormalities. CEREBELLUM: There are no focal parenchymal abnormalities. VESSELS: The vessels are grossly normal. PARANASAL SINUSES: The paranasal sinuses are clear. ORBITS: The orbits are unremarkable. BONES AND SOFT TISSUE: No bone or soft tissue abnormalities are noted. OTHER: None IMPRESSION: NO ACUTE INTRACRANIAL PATHOLOGY.
[2016-04-09] MEDS: Heparin VIAL(*) 5000 UNITS/ML VIAL (FIVE THOUSAND) SUBCUT SCH ×2 (14:50→21:33)
[2016-04-09] MEDS: Atorvastatin* 40 MG TAB PO SCH (21:24)
[2016-04-09] MEDS: OLANzapine TAB* 10 MG PO SCH (21:25)
[2016-04-10] MEDS: Heparin VIAL(*) 5000 UNITS/ML VIAL (FIVE THOUSAND) SUBCUT SCH ×3 (05:23→20:22)
[2016-04-10] MEDS: Levothyroxine TAB* 25 MCG TAB PO SCH (05:23)
[2016-04-10] MEDS: hydrOXYzine HCL TAB* 25 MG PO SCH ×3 (05:25→20:21)
--- NOTE | 2016-04-10 08:25 | PN ---
Subjective Date of Service: 04/10/16 Interval History: Pt is still very somnolent. She does awaken to voice and light touch. Once awake she is able to states she is hungry and that she is not in pain. Objective Active Medications: Acetaminophen (Tylenol Tab*) 650 mg PO Q6H PRN PRN Reason: FEVER/PAIN Last Admin: 04/08/16 01:25 Dose: 650 mg Amantadine HCl (Symmetrel Cap*) 100 mg PO DAILY [facility] Last Admin: 04/09/16 10:29 Dose: 100 mg Aspirin (Aspirin Low Dose Tab*) 81 mg PO DAILY [facility] Last Admin: 04/09/16 10:43 Dose: 81 mg Atorvastatin Calcium (Lipitor*) 40 mg PO BEDTIME [facility] Last Admin: 04/09/16 21:24 Dose: 40 mg Clopidogrel Bisulfate (Plavix Tab*) 75 mg PO DAILY [facility] Last Admin: 04/09/16 10:43 Dose: 75 mg Ferrous Sulfate (Ferrous Sulfate Tab*) 325 mg PO DAILY [facility] Glipizide (Glucotrol Tab*) 5 mg PO BID WITH MEALS [facility] Last Admin: 04/09/16 17:41 Dose: Not Given Heparin Sodium (Porcine) (Heparin Vial(*)) 5,000 units SUBCUT Q8HR [facility] Last Admin: 04/10/16 05:23 Dose: 5,000 units Hydroxyzine HCl (Atarax Tab*) 25 mg PO Q8HR [facility] Last Admin: 04/10/16 05:25 Dose: 25 mg Sodium Chloride (Ns 0.9% 1000 Ml*) 1,000 mls @ 60 mls/hr IV .PER RATE [facility] Levothyroxine Sodium (Synthroid Tab*) 37.5 mcg PO 0600 [facility] Last Admin: 04/10/16 05:23 Dose: 37.5 mcg Lisinopril (Prinivil Tab*) 2.5 mg PO DAILY [facility] Last Admin: 04/09/16 10:29 Dose: 2.5 mg Metolazone (Zaroxolyn Tab*) 2.5 mg PO EVERY OTHER DAY [facility] Last Admin: 04/09/16 10:30 Dose: 2.5 mg Metoprolol Tartrate (Lopressor Tab*) 50 mg PO BID [facility] Last Admin: 04/09/16 21:25 Dose: 50 mg Olanzapine (Zyprexa Tab*) 20 mg PO BEDTIME [facility] Last Admin: 04/09/16 21:25 Dose: 20 mg Ondansetron HCl (Zofran Inj*) 4 mg IV Q6H PRN PRN Reason: NAUSEA Potassium Chloride (Klor Con Er Tab*) 20 meq PO DAILY [facility] Last Admin: 04/09/16 10:43 Dose: 20 meq Spironolactone (Aldactone Tab*) 25 mg PO DAILY [facility] Last Admin: 04/09/16 10:43 Dose: 25 mg Torsemide (Demadex*) 20 mg PO DAILY [facility] Last Admin: 04/09/16 10:43 Dose: 20 mg Venlafaxine HCl (Effexor Xr Cap*) 300 mg PO DAILY [facility] Last Admin: 04/09/16 10:43 Dose: 300 mg Vital Signs 04/09/16 04/09/16 04/09/16 10:35 11:17 11:35 Temperature 98.1 F Pulse Rate 82 Respiratory 20 16 24 Rate Blood Pressure 127/64 (mmHg) O2 Sat by Pulse 81 Oximetry 04/09/16 04/09/16 04/09/16 15:37 19:57 20:00 Temperature 98.0 F 97.6 F Pulse Rate 118 Respiratory 20 16 28 Rate Blood Pressure 129/92 (mmHg) O2 Sat by Pulse 90 Oximetry 04/09/16 04/10/16 04/10/16 21:25 00:08 04:03 Temperature 96.8 F Pulse Rate 76 65 110 Respiratory 30 20 20 Rate Blood Pressure 120/84 96/50 107/81 (mmHg) O2 Sat by Pulse 99 96 91 Oximetry 04/10/16 04:59 Temperature 97.6 F Pulse Rate Respiratory Rate Blood Pressure (mmHg) O2 Sat by Pulse Oximetry Oxygen Devices in Use Now: None Appearance: Middle aged female sitting up in bed, awakens to voice and light touch but then falls back asleep easily, NAD Eyes: No Scleral Icterus Ears/Nose/Mouth/Throat: - - dry oral mucosa Respiratory: Symmetrical Chest Expansion and Respiratory Effort, Clear to Auscultation - anteriorly Cardiovascular: NL Sounds; No Murmurs; No JVD, RRR, No Edema Abdominal: NL Sounds; No Tenderness; No Distention Extremities: No Clubbing, Cyanosis Skin: No Nodules or Sclerosis, - - L medial thigh lesion unchanged Neurological: - - somnolent but arousable Result Diagrams: 04/08/16 04:52 04/08/16 04:52 Additional Lab and Data: Lab Results 04/07/16 04/07/16 04/07/16 Range/Units 19:55 19:55 19:55 WBC 7.2 (3.5-10.8) 10^3/ul RBC 4.06 (4.0-5.4) 10^6/ul Hgb 10.7 L (12.0-16.0) g/dl Hct 33 L (35-47) % MCV 81 (80-97) fL MCH 26 L (27-31) pg MCHC 33 (31-36) g/dl RDW 18 H (10.5-15) % Plt Count 165 (150-450) 10^3/ul MPV 9 (7.4-10.4) um3 Neut % (Auto) 63.5 (38-83) % Lymph % (Auto) 23.7 L (25-47) % [place] % (Auto) 10.2 H (1-9) % Eos % (Auto) 2.1 (0-6) % Baso % (Auto) 0.5 (0-2) % Absolute Neuts (auto) 4.6 (1.5-7.7) 10^3/ul Absolute Lymphs (auto) 1.7 (1.0-4.8) 10^3/ul Absolute Monos (auto) 0.7 (0-0.8) 10^3/ul Absolute Eos (auto) 0.2 (0-0.6) 10^3/ul Absolute Basos (auto) 0 (0-0.2) 10^3/ul Absolute Nucleated RBC 0 10^3/ul Nucleated RBC % 0 Sodium 135 (133-145) mmol/L Potassium 4.2 (3.5-5.0) mmol/L Chloride 104 (101-111) mmol/L Carbon Dioxide 22 (22-32) mmol/L Anion Gap 9 (2-11) mmol/L BUN 26 H (6-24) mg/dL Creatinine 1.64 H (0.51-0.95) mg/dL Est GFR ( Amer) 42.6 (>60) Est GFR (Non-Af Amer) 33.2 (>60) BUN/Creatinine Ratio 15.9 (8-20) Glucose 186 H (70-100) mg/dL Lactic Acid 1.7 (0.5-2.0) mmol/L Calcium 10.0 (8.6-10.3) mg/dL Magnesium 1.8 L (1.9-2.7) mg/dL Total Bilirubin 1.00 (0.2-1.0) mg/dL AST 28 (13-39) U/L ALT 18 (7-52) U/L Alkaline Phosphatase 128 H (34-104) U/L Troponin I 0.07 H* (<0.04) ng/mL C-Reactive Protein 21.51 H (< 5.00) mg/L Total Protein 7.0 (6.4-8.9) g/dL Albumin 3.9 (3.2-5.2) g/dL Globulin 3.1 (2-4) g/dL Albumin/Globulin Ratio 1.3 (1-3) TSH Pending Microbiology and Other Data: Microbiology 04/07/16 22:25 Nasal Screen MRSA (PCR)(DARRYL) - Final Nasal Mrsa Negative Assess/Plan/Problems-Billing Ms Thao is a 51 yo F who has a h/o HTN, hyperlipidemia, type II DM and hypothyroidism who presented to the ER with c/o weakness and falls and was found to have an elevated troponin. - Patient Problems (1) Agitation Current Visit: Yes Status: Acute Code(s): R45.1 - RESTLESSNESS AND AGITATION SNOMED Code(s): 86671826 Comment: Agitation has improved though overnight she reportedly pulled off the tele monitor several times. She received a dose of geodon yesterday and is still somnolent. Records were obtained from the [facility] ([facility] facility) indicate that the patient had an episode of psychosis while residing there. I will try to touch base with the patient's usual psychiatrist Dr. Chao. (2) Weakness Current Visit: Yes Status: Acute Code(s): R53.1 - WEAKNESS SNOMED Code(s) : 20537595 Comment: THe patient was unable to get up yesterday due to somnolence secondary to geodon administration. Echo shows an EF of 35-40%, a focal wall motion abnormalilty (apical septal and apical lateral saha are akinetic and mid inferoseptal wall is hypokinetic) and no significant valvular issues were noted. Records from [facility] indicate the patient has baseline ataxia and went to rehab there secondary to recurrent falls. I suspect she is not going to be able to return to the [facility] at this time. CT brain yeterday was negative for any acute findings. (3) Falls Current Visit: Yes Status: Acute Comment: Chronic issue per previous records. Continue PT/nursing mobilization. (4) Elevated troponin Current Visit: Yes Status: Acute Code(s): R79.89 - OTHER SPECIFIED ABNORMAL FINDINGS OF BLOOD CHEMISTRY SNOMED Code(s): 244329178 Comment: I suspect this is chronic. She reportedly has a h/o CAD and ischemic CM, hyperlipidemia and HTN. Her EKG is abnormal though not acutely. I am cancelling the stress test at this time as the patient is too somnolent to participate and I will try to get records from [facility] (that is the hospital the patient was discharged from when she went to [facility]) . (5) Iron deficiency anemia Current Visit: Yes Status: Acute Code(s): D50.9 - IRON DEFICIENCY ANEMIA, UNSPECIFIED SNOMED Code(s): 13481341 Comment: Stool guaiac is negative. Continue ferrous sulfate. Will try to get old lab records from prior hospitalizations. (6) Stage III chronic kidney disease Current Visit: Yes Status: Acute Code(s): N18.3 - CHRONIC KIDNEY DISEASE, STAGE 3 (MODERATE) SNOMED Code(s): 412381133 Comment: The patient's creatinine remains elevated today. I suspect this is chronic-will ask for records from prior hospitalizations. (7) HTN (hypertension) Current Visit: Yes Status: Acute Code(s): I10 - ESSENTIAL (PRIMARY) HYPERTENSION SNOMED Code(s): 74123345 Comment: BP is under good control. Continue to monitor. (8) Type II diabetes mellitus Current Visit: Yes Status: Acute Comment: A1c is elevated at 8.3%. Continue glipizide (if eating and able to swallow) and consistent carb diet. Will likely increase glipizide for better control once it is clear she is eating well. (9) Hypothyroidism Current Visit: Yes Status: Acute Code(s): E03.9 - HYPOTHYROIDISM, UNSPECIFIED SNOMED Code(s): 27707742 Comment: TSH is elevated. Free T4 is also elevated- continue reduced synthroid dose for now and she will need recheck of TSH/Free T4 in the next 4-6 weeks. (10) DVT prophylaxis Current Visit: Yes Status: Acute Code(s): DYS0588 - SNOMED Code(s): 890111246 Comment: SQ heparin (11) Full code status Current Visit: Yes Status: Acute Code(s): Z78.9 - OTHER SPECIFIED HEALTH STATUS SNOMED Code(s): 377651091
[2016-04-10] MEDS: NS 0.9% 1000 ML* 1,000 ML IV SCH (09:45)
[2016-04-10] MEDS: Venlafaxine EXT RELEASE CAP* 75 MG PO SCH (09:47)
[2016-04-10] MEDS: Amantadine CAP* 100 MG PO SCH (09:48)
[2016-04-10] MEDS: Clopidogrel TAB* 75 MG PO SCH (10:02)
[2016-04-10] MEDS: glipiZIDE TAB* 5 MG PO SCH ×2 (10:03→20:21)
[2016-04-10] MEDS: Torsemide TAB* 20 MG PO SCH (10:28)
[2016-04-10] MEDS: Aspirin Low Dose CHEW TAB* 81 MG PO SCH (10:28)
[2016-04-10] MEDS: Acetaminophen TAB* 325 MG PO PRN (10:28)
[2016-04-10] MEDS: Lisinopril TAB* 5 MG PO SCH (10:29)
[2016-04-10] MEDS: Metoprolol Tartrate TAB* 50 mg PO SCH ×2 (10:29→20:21)
[2016-04-10] MEDS: Spironolactone TAB* 25 MG PO SCH (10:29)
[2016-04-10] MEDS: Ferrous Sulfate TAB* 325 MG PO SCH (10:29)
[2016-04-10] MEDS: Potassium Chlor TAB* 20 MEQ TAB.ER PO SCH (10:29)
[2016-04-10 11:28] LABS: Hematocrit 35 % (35-47); Hemoglobin 10.9 g/dl (12.0-16.0); Mean Corpuscular HGB Conc 31 g/dl (31-36); Mean Corpuscular Hemoglobin 26 pg (27-31); Mean Corpuscular Volume 83 fL (80-97); Mean Platelet Volume 10 um3 (7.4-10.4); Red Blood Count 4.22 10^6/ul (4.0-5.4); Red Cell Distribution Width 18 % (10.5-15); White Blood Count 13.2 10^3/ul (3.5-10.8)
[2016-04-10 11:44] LABS: BUN/Creatinine Ratio 16.6 (8-20); Calcium 9.3 mg/dL (8.6-10.3); EGFR African American 22.7 (>60); EGFR Non-African American 17.7 (>60); Potassium 5.1 mmol/L (3.5-5.0)
[2016-04-10] MEDS: Atorvastatin* 40 MG TAB PO SCH (20:21)
[2016-04-10] MEDS: OLANzapine TAB* 10 MG PO SCH (20:22)
[2016-04-11] MEDS: hydrOXYzine HCL TAB* 25 MG PO SCH ×3 (05:30→20:05)
[2016-04-11] MEDS: Levothyroxine TAB* 25 MCG TAB PO SCH (05:30)
[2016-04-11] MEDS: Heparin VIAL(*) 5000 UNITS/ML VIAL (FIVE THOUSAND) SUBCUT SCH ×3 (05:30→20:05)
[2016-04-11] MEDS: Potassium Chlor TAB* 20 MEQ TAB.ER PO SCH (08:39)
[2016-04-11] MEDS: Torsemide TAB* 20 MG PO SCH (08:39)
[2016-04-11] MEDS: Metolazone TAB* 5 MG PO SCH (08:39)
[2016-04-11] MEDS: Lisinopril TAB* 5 MG PO SCH (08:39)
[2016-04-11] MEDS: Metoprolol Tartrate TAB* 50 mg PO SCH ×2 (08:39→20:45)
[2016-04-11] MEDS: Spironolactone TAB* 25 MG PO SCH (08:39)
[2016-04-11] MEDS: Venlafaxine EXT RELEASE CAP* 75 MG PO SCH (08:47)
[2016-04-11] MEDS: Amantadine CAP* 100 MG PO SCH (08:47)
[2016-04-11] MEDS: Aspirin Low Dose CHEW TAB* 81 MG PO SCH (08:48)
[2016-04-11] MEDS: glipiZIDE TAB* 5 MG PO SCH (08:48)
[2016-04-11] MEDS: Clopidogrel TAB* 75 MG PO SCH (08:48)
[2016-04-11] MEDS: Ferrous Sulfate TAB* 325 MG PO SCH (08:48)
[2016-04-11] MEDS: NS 0.9% 1000 ML* 1,000 ML IV SCH ×2 (10:57→13:45)
--- NOTE | 2016-04-11 11:55 | PN ---
Subjective Date of Service: 04/11/16 Interval History: Pt is sleepy this AM but arousable. She states she has no pain and no SOB. Objective Active Medications: Acetaminophen (Tylenol Tab*) 650 mg PO Q6H PRN PRN Reason: FEVER/PAIN Last Admin: 04/10/16 10:28 Dose: 650 mg Amantadine HCl (Symmetrel Cap*) 100 mg PO DAILY [facility] Last Admin: 04/11/16 08:47 Dose: 100 mg Aspirin (Aspirin Low Dose Tab*) 81 mg PO DAILY [facility] Last Admin: 04/11/16 08:48 Dose: 81 mg Atorvastatin Calcium (Lipitor*) 40 mg PO BEDTIME [facility] Last Admin: 04/10/16 20:21 Dose: 40 mg Clopidogrel Bisulfate (Plavix Tab*) 75 mg PO DAILY [facility] Last Admin: 04/11/16 08:48 Dose: 75 mg Ferrous Sulfate (Ferrous Sulfate Tab*) 325 mg PO DAILY [facility] Last Admin: 04/11/16 08:48 Dose: 325 mg Heparin Sodium (Porcine) (Heparin Vial(*)) 5,000 units SUBCUT Q8HR [facility] Last Admin: 04/11/16 05:30 Dose: 5,000 units Hydroxyzine HCl (Atarax Tab*) 25 mg PO Q8HR [facility] Last Admin: 04/11/16 05:30 Dose: 25 mg Sodium Chloride (Ns 0.9% 1000 Ml*) 1,000 mls @ 100 mls/hr IV .PER RATE [facility] Levothyroxine Sodium (Synthroid Tab*) 37.5 mcg PO 0600 [facility] Last Admin: 04/11/16 05:30 Dose: 37.5 mcg Metoprolol Tartrate (Lopressor Tab*) 50 mg PO BID [facility] Last Admin: 04/11/16 08:39 Dose: Not Given Olanzapine (Zyprexa Tab*) 20 mg PO BEDTIME [facility] Last Admin: 04/10/16 20:22 Dose: 20 mg Ondansetron HCl (Zofran Inj*) 4 mg IV Q6H PRN PRN Reason: NAUSEA Venlafaxine HCl (Effexor Xr Cap*) 300 mg PO DAILY [facility] Last Admin: 04/11/16 08:47 Dose: 300 mg Vital Signs 04/10/16 04/10/16 04/10/16 16:14 20:00 20:25 Temperature 97.5 F 97.5 F Pulse Rate 58 55 Respiratory 16 17 16 Rate Blood Pressure 94/64 129/112 (mmHg) O2 Sat by Pulse 100 100 Oximetry 04/10/16 04/11/16 04/11/16 23:05 03:30 07:43 Temperature 97.5 F 97.4 F Pulse Rate 58 62 64 Respiratory 18 16 Rate Blood Pressure 88/66 93/60 93/63 (mmHg) O2 Sat by Pulse 98 98 Oximetry 04/11/16 08:15 Temperature Pulse Rate Respiratory 20 Rate Blood Pressure (mmHg) O2 Sat by Pulse Oximetry Oxygen Devices in Use Now: None Appearance: Middle aged female lying in bed, awakens to voice, NAD Eyes: No Scleral Icterus Ears/Nose/Mouth/Throat: Mucous Membranes Moist Respiratory: Symmetrical Chest Expansion and Respiratory Effort, Clear to Auscultation - anteriorly, diminished at the posterior bases but pt gives poor effort Cardiovascular: NL Sounds; No Murmurs; No JVD, RRR, - - trace LE edema Abdominal: NL Sounds; No Tenderness; No Distention Extremities: No Clubbing, Cyanosis Skin: No Nodules or Sclerosis Neurological: - - sleepy-tells me it is 2015 and March but states "oh yeah" when I tell her we just celebrated the new year Result Diagrams: 04/10/16 11:21 04/10/16 11:21 Additional Lab and Data: Lab Results 04/07/16 04/07/16 04/07/16 Range/Units 19:55 19:55 19:55 WBC 7.2 (3.5-10.8) 10^3/ul RBC 4.06 (4.0-5.4) 10^6/ul Hgb 10.7 L (12.0-16.0) g/dl Hct 33 L (35-47) % MCV 81 (80-97) fL MCH 26 L (27-31) pg MCHC 33 (31-36) g/dl RDW 18 H (10.5-15) % Plt Count 165 (150-450) 10^3/ul MPV 9 (7.4-10.4) um3 Neut % (Auto) 63.5 (38-83) % Lymph % (Auto) 23.7 L (25-47) % [place] % (Auto) 10.2 H (1-9) % Eos % (Auto) 2.1 (0-6) % Baso % (Auto) 0.5 (0-2) % Absolute Neuts (auto) 4.6 (1.5-7.7) 10^3/ul Absolute Lymphs (auto) 1.7 (1.0-4.8) 10^3/ul Absolute Monos (auto) 0.7 (0-0.8) 10^3/ul Absolute Eos (auto) 0.2 (0-0.6) 10^3/ul Absolute Basos (auto) 0 (0-0.2) 10^3/ul Absolute Nucleated RBC 0 10^3/ul Nucleated RBC % 0 Sodium 135 (133-145) mmol/L Potassium 4.2 (3.5-5.0) mmol/L Chloride 104 (101-111) mmol/L Carbon Dioxide 22 (22-32) mmol/L Anion Gap 9 (2-11) mmol/L BUN 26 H (6-24) mg/dL Creatinine 1.64 H (0.51-0.95) mg/dL Est GFR ( Amer) 42.6 (>60) Est GFR (Non-Af Amer) 33.2 (>60) BUN/Creatinine Ratio 15.9 (8-20) Glucose 186 H (70-100) mg/dL Lactic Acid 1.7 (0.5-2.0) mmol/L Calcium 10.0 (8.6-10.3) mg/dL Magnesium 1.8 L (1.9-2.7) mg/dL Total Bilirubin 1.00 (0.2-1.0) mg/dL AST 28 (13-39) U/L ALT 18 (7-52) U/L Alkaline Phosphatase 128 H (34-104) U/L Troponin I 0.07 H* (<0.04) ng/mL C-Reactive Protein 21.51 H (< 5.00) mg/L Total Protein 7.0 (6.4-8.9) g/dL Albumin 3.9 (3.2-5.2) g/dL Globulin 3.1 (2-4) g/dL Albumin/Globulin Ratio 1.3 (1-3) TSH Pending Microbiology and Other Data: Microbiology 04/07/16 22:25 Nasal Screen MRSA (PCR)(DARRYL) - Final Nasal Mrsa Negative Assess/Plan/Problems-Billing Ms Thao is a 51 yo F who has a h/o HTN, hyperlipidemia, type II DM and hypothyroidism who presented to the ER with c/o weakness and falls and was found to have an elevated troponin. - Patient Problems (1) Acute renal failure Current Visit: Yes Status: Acute Comment: The patient's previous creatinine was found to be around 1-1.3. She now has a creatinine of 2.83. She was taking her medications intermittently over the weekend but not really eating. I suspect she is pre-renal. Will increase IVF rate to 100ml/hr after a midline gets placed. Her PIV access is poor. Will repeat labs today (fluids were started yestserday and creatinine read was from yesterday). (2) Agitation Current Visit: Yes Status: Acute Code(s): R45.1 - RESTLESSNESS AND AGITATION SNOMED Code(s): 50057166 Comment: Agitation has resolved. She is still sleepy today but awakens and interacts appropriately. She follow commands appropriately. Holding ativan for now. Monitor mental status-overall trending towards improvment. (3) Weakness Current Visit: Yes Status: Acute Code(s): R53.1 - WEAKNESS SNOMED Code(s) : 34295165 Comment: The patient did not work with PT yesterday. Try again today. She is needing 3 assist by nursing to get up. Piter is interested in the patient but we have not been able to get ahold of him for guidance. (4) Falls Current Visit: Yes Status: Acute Comment: Chronic issue per previous records. Continue PT/nursing mobilization. 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 She was found to have single vessel CAD based on cath and she had a drug eluting stent placed. She was hospitalized 01/13/16-01/20/16 for an acute on chronic congestive heart failure exacerbation. Echo from that admission showed an EF of 30-35% with the mid-distal anterior septum and entire apex are severely hypokinetic. Diastolic function was also moderately impaired. No further testing at this time. (6) Iron deficiency anemia Current Visit: Yes Status: Acute Code(s): D50.9 - IRON DEFICIENCY ANEMIA, UNSPECIFIED SNOMED Code(s): 41861227 Comment: Pt has not been anemic routinely in the past. Will continue to follow. (7) HTN (hypertension) Current Visit: Yes Status: Acute Code(s): I10 - ESSENTIAL (PRIMARY) HYPERTENSION SNOMED Code(s): 87307319 Comment: BP is under good control. Continue to monitor. (8) Type II diabetes mellitus Current Visit: Yes Status: Acute Comment: A1c is elevated at 8.3%. Continue glipizide (if eating and able to swallow) and consistent carb diet. Will likely increase glipizide for better control once it is clear she is eating well. (9) Hypothyroidism Current Visit: Yes Status: Acute Code(s): E03.9 - HYPOTHYROIDISM, UNSPECIFIED SNOMED Code(s): 84746852 Comment: TSH is elevated. Free T4 is also elevated- continue reduced synthroid dose for now and she will need recheck of TSH/Free T4 in the next 4-6 weeks. (10) DVT prophylaxis Current Visit: Yes Status: Acute Code(s): YNP8805 - SNOMED Code(s): 250139528 Comment: SQ heparin (11) Full code status Current Visit: Yes Status: Acute Code(s): Z78.9 - OTHER SPECIFIED HEALTH STATUS SNOMED Code(s): 237141042
[2016-04-11 14:17] LABS: BUN/Creatinine Ratio 15.4 (8-20); Calcium 8.9 mg/dL (8.6-10.3); EGFR African American 16.3 (>60); EGFR Non-African American 12.7 (>60); Potassium 4.6 mmol/L (3.5-5.0)
[2016-04-11] MEDS: OLANzapine TAB* 10 MG PO SCH (20:05)
[2016-04-11] MEDS: Atorvastatin* 40 MG TAB PO SCH (20:05)
[2016-04-11] MEDS: Acetaminophen TAB* 325 MG PO PRN (21:42)
[2016-04-12] MEDS: NS 0.9% 1000 ML* 1,000 ML IV SCH ×2 (02:14→13:02)
[2016-04-12] MEDS: Heparin VIAL(*) 5000 UNITS/ML VIAL (FIVE THOUSAND) SUBCUT SCH ×3 (05:28→21:44)
[2016-04-12] MEDS: hydrOXYzine HCL TAB* 25 MG PO SCH ×3 (05:28→21:44)
[2016-04-12] MEDS: Levothyroxine TAB* 25 MCG TAB PO SCH (05:28)
[2016-04-12 06:43] LABS: BUN/Creatinine Ratio 17.4 (8-20); Calcium 8.7 mg/dL (8.6-10.3); EGFR African American 16.8 (>60); EGFR Non-African American 13.1 (>60); Potassium 4.5 mmol/L (3.5-5.0)
[2016-04-12] MEDS: Amantadine CAP* 100 MG PO SCH (10:33)
[2016-04-12] MEDS: Aspirin Low Dose CHEW TAB* 81 MG PO SCH (10:33)
[2016-04-12] MEDS: Clopidogrel TAB* 75 MG PO SCH (10:33)
[2016-04-12] MEDS: Ferrous Sulfate TAB* 325 MG PO SCH (10:33)
[2016-04-12] MEDS: Venlafaxine EXT RELEASE CAP* 75 MG PO SCH (10:34)
[2016-04-12] MEDS ORDERED: LORazepam TAB(*) 0.5 MG PO PRN (12:13)
--- NOTE | 2016-04-12 12:14 | PN ---
Subjective Date of Service: 04/12/16 Interval History: Pt is feeling well. No pain or SOB. Objective Active Medications: Acetaminophen (Tylenol Tab*) 650 mg PO Q6H PRN PRN Reason: FEVER/PAIN Last Admin: 04/11/16 21:42 Dose: 650 mg Amantadine HCl (Symmetrel Cap*) 100 mg PO DAILY [facility] Last Admin: 04/12/16 10:33 Dose: 100 mg Aspirin (Aspirin Low Dose Tab*) 81 mg PO DAILY [facility] Last Admin: 04/12/16 10:33 Dose: 81 mg Atorvastatin Calcium (Lipitor*) 40 mg PO BEDTIME [facility] Last Admin: 04/11/16 20:05 Dose: 40 mg Clopidogrel Bisulfate (Plavix Tab*) 75 mg PO DAILY [facility] Last Admin: 04/12/16 10:33 Dose: 75 mg Ferrous Sulfate (Ferrous Sulfate Tab*) 325 mg PO DAILY [facility] Last Admin: 04/12/16 10:33 Dose: 325 mg Heparin Sodium (Porcine) (Heparin Vial(*)) 5,000 units SUBCUT Q8HR [facility] Last Admin: 04/12/16 05:28 Dose: 5,000 units Hydroxyzine HCl (Atarax Tab*) 25 mg PO Q8HR ON [facility] Last Admin: 04/12/16 05:28 Dose: 25 mg Sodium Chloride (Ns 0.9% 1000 Ml*) 1,000 mls @ 100 mls/hr IV .PER RATE [facility] Last Admin: 04/12/16 02:14 Dose: 100 mls/hr Levothyroxine Sodium (Synthroid Tab*) 37.5 mcg PO 0600 [facility] Last Admin: 04/12/16 05:28 Dose: 37.5 mcg Metoprolol Tartrate (Lopressor Tab*) 50 mg PO BID [facility] Last Admin: 04/11/16 20:45 Dose: Not Given Olanzapine (Zyprexa Tab*) 20 mg PO BEDTIME ON [facility] Last Admin: 04/11/16 20:05 Dose: 20 mg Ondansetron HCl (Zofran Inj*) 4 mg IV Q6H PRN PRN Reason: NAUSEA Venlafaxine HCl (Effexor Xr Cap*) 300 mg PO DAILY [facility] Last Admin: 04/12/16 10:34 Dose: 300 mg Vital Signs 04/11/16 04/11/16 04/11/16 15:20 15:27 19:43 Temperature 97.1 F 97.8 F Pulse Rate 145 70 72 Respiratory 20 24 Rate Blood Pressure 64/42 100/51 93/63 (mmHg) O2 Sat by Pulse 98 95 95 Oximetry 04/11/16 04/11/16 04/12/16 20:00 23:58 00:00 Temperature 97.5 F Pulse Rate 75 Respiratory 17 20 Rate Blood Pressure 97/75 (mmHg) O2 Sat by Pulse 94 95 Oximetry 04/12/16 04/12/16 04/12/16 03:31 07:32 08:00 Temperature 97.7 F 97.5 F Pulse Rate 76 77 Respiratory 20 16 16 Rate Blood Pressure 101/55 102/60 (mmHg) O2 Sat by Pulse 96 100 Oximetry 04/12/16 11:19 Temperature 97.4 F Pulse Rate 74 Respiratory 16 Rate Blood Pressure 103/64 (mmHg) O2 Sat by Pulse 92 Oximetry Oxygen Devices in Use Now: None Appearance: Middle aged female sitting in a chair, NAD Eyes: No Scleral Icterus Ears/Nose/Mouth/Throat: Mucous Membranes Moist Respiratory: Symmetrical Chest Expansion and Respiratory Effort, Clear to Auscultation - decreased at the bases, otherwise clear Cardiovascular: NL Sounds; No Murmurs; No JVD, RRR, No Edema Abdominal: NL Sounds; No Tenderness; No Distention Extremities: No Clubbing, Cyanosis Skin: No Nodules or Sclerosis, - - scabbed over lesion medial L thigh unchanged , still with mild surrounding erythema Neurological: - - oriented to being in the hospital, thought it was 2016 Result Diagrams: 04/10/16 11:21 04/12/16 05:40 Additional Lab and Data: Lab Results 04/07/16 04/07/16 04/07/16 Range/Units 19:55 19:55 19:55 WBC 7.2 (3.5-10.8) 10^3/ul RBC 4.06 (4.0-5.4) 10^6/ul Hgb 10.7 L (12.0-16.0) g/dl Hct 33 L (35-47) % MCV 81 (80-97) fL MCH 26 L (27-31) pg MCHC 33 (31-36) g/dl RDW 18 H (10.5-15) % Plt Count 165 (150-450) 10^3/ul MPV 9 (7.4-10.4) um3 Neut % (Auto) 63.5 (38-83) % Lymph % (Auto) 23.7 L (25-47) % [place] % (Auto) 10.2 H (1-9) % Eos % (Auto) 2.1 (0-6) % Baso % (Auto) 0.5 (0-2) % Absolute Neuts (auto) 4.6 (1.5-7.7) 10^3/ul Absolute Lymphs (auto) 1.7 (1.0-4.8) 10^3/ul Absolute Monos (auto) 0.7 (0-0.8) 10^3/ul Absolute Eos (auto) 0.2 (0-0.6) 10^3/ul Absolute Basos (auto) 0 (0-0.2) 10^3/ul Absolute Nucleated RBC 0 10^3/ul Nucleated RBC % 0 Sodium 135 (133-145) mmol/L Potassium 4.2 (3.5-5.0) mmol/L Chloride 104 (101-111) mmol/L Carbon Dioxide 22 (22-32) mmol/L Anion Gap 9 (2-11) mmol/L BUN 26 H (6-24) mg/dL Creatinine 1.64 H (0.51-0.95) mg/dL Est GFR ( Amer) 42.6 (>60) Est GFR (Non-Af Amer) 33.2 (>60) BUN/Creatinine Ratio 15.9 (8-20) Glucose 186 H (70-100) mg/dL Lactic Acid 1.7 (0.5-2.0) mmol/L Calcium 10.0 (8.6-10.3) mg/dL Magnesium 1.8 L (1.9-2.7) mg/dL Total Bilirubin 1.00 (0.2-1.0) mg/dL AST 28 (13-39) U/L ALT 18 (7-52) U/L Alkaline Phosphatase 128 H (34-104) U/L Troponin I 0.07 H* (<0.04) ng/mL C-Reactive Protein 21.51 H (< 5.00) mg/L Total Protein 7.0 (6.4-8.9) g/dL Albumin 3.9 (3.2-5.2) g/dL Globulin 3.1 (2-4) g/dL Albumin/Globulin Ratio 1.3 (1-3) TSH Pending Microbiology and Other Data: Microbiology 04/07/16 22:25 Nasal Screen MRSA (PCR)(DARRYL) - Final Nasal Mrsa Negative Assess/Plan/Problems-Billing Ms Thao is a 51 yo F who has a h/o HTN, hyperlipidemia, type II DM and hypothyroidism who presented to the ER with c/o weakness and falls and was found to have an elevated troponin. - Patient Problems (1) Acute renal failure Current Visit: Yes Status: Acute Comment: Creatinine was up to 3.77 yesterday and now down to 3.67. Continue gentle IVF hydration. Need to monitor for signs of fluid overload given her reduced EF. I suspect her renal failure is on the basis of not eating/drinking and receiving her diuretics. (2) Agitation Current Visit: Yes Status: Acute Code(s): R45.1 - RESTLESSNESS AND AGITATION SNOMED Code(s): 14144797 Comment: Resolved and pt is much more alert today. (3) Weakness Current Visit: Yes Status: Acute Code(s): R53.1 - WEAKNESS SNOMED Code(s) : 88355868 Comment: The patient did not work with PT yesterday. Try again today. She is needing 3 assist by nursing to get up. Piter is interested in the patient but we have not been able to get ahold of him for guidance. (4) Falls Current Visit: Yes Status: Acute Comment: Chronic issue per previous records. Continue PT/nursing mobilization. 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 She was found to have single vessel CAD based on cath and she had a drug eluting stent placed. She was hospitalized 01/13/16-01/20/16 for an acute on chronic congestive heart failure exacerbation. Echo from that admission showed an EF of 30-35% with the mid-distal anterior septum and entire apex are severely hypokinetic. Diastolic function was also moderately impaired. No further testing at this time. (6) Iron deficiency anemia Current Visit: Yes Status: Acute Code(s): D50.9 - IRON DEFICIENCY ANEMIA, UNSPECIFIED SNOMED Code(s): 14102842 Comment: Pt has not been anemic routinely in the past. Repeat labs tomorrow AM. (7) HTN (hypertension) Current Visit: Yes Status: Acute Code(s): I10 - ESSENTIAL (PRIMARY) HYPERTENSION SNOMED Code(s): 77893014 Comment: BP was quite soft yesterday but somewhat improved today. Continue IVF-hold meds for now. (8) Type II diabetes mellitus Current Visit: Yes Status: Acute Comment: Sugars yesterday and this AM were very low-glipizide stopped. Monitor sugars and resume if they become elevated. (9) Hypothyroidism Current Visit: Yes Status: Acute Code(s): E03.9 - HYPOTHYROIDISM, UNSPECIFIED SNOMED Code(s): 67302066 Comment: TSH is elevated. Free T4 is also elevated- continue reduced synthroid dose for now and she will need recheck of TSH/Free T4 in the next 4-6 weeks. (10) DVT prophylaxis Current Visit: Yes Status: Acute Code(s): NCI4074 - SNOMED Code(s): 992606065 Comment: SQ heparin (11) Full code status Current Visit: Yes Status: Acute Code(s): Z78.9 - OTHER SPECIFIED HEALTH STATUS SNOMED Code(s): 080143625 Status and Disposition: d/c once renal failure resolved
[2016-04-12] MEDS: Metoprolol Tartrate TAB* 50 mg PO SCH ×2 (12:31→20:45)
[2016-04-12] MEDS: Atorvastatin* 40 MG TAB PO SCH (20:44)
[2016-04-12] MEDS: OLANzapine TAB* 10 MG PO SCH (20:45)
[2016-04-13] MEDS: Levothyroxine TAB* 25 MCG TAB PO SCH (05:37)
[2016-04-13] MEDS: hydrOXYzine HCL TAB* 25 MG PO SCH ×3 (05:38→21:21)
[2016-04-13] MEDS: Heparin VIAL(*) 5000 UNITS/ML VIAL (FIVE THOUSAND) SUBCUT SCH ×3 (05:40→21:26)
[2016-04-13 05:48] LABS: Hematocrit 31 % (35-47); Hemoglobin 9.9 g/dl (12.0-16.0); Mean Corpuscular HGB Conc 32 g/dl (31-36); Mean Corpuscular Hemoglobin 27 pg (27-31); Mean Corpuscular Volume 83 fL (80-97); Mean Platelet Volume 10 um3 (7.4-10.4); Red Blood Count 3.71 10^6/ul (4.0-5.4); Red Cell Distribution Width 19 % (10.5-15)
[2016-04-13 06:06] LABS: Comments Flag Yes
[2016-04-13 06:07] LABS: Add Diff/Slide Review? Slide Review Added; BUN/Creatinine Ratio 23.4 (8-20); Calcium 8.8 mg/dL (8.6-10.3); EGFR African American 20.9 (>60); EGFR Non-African American 16.3 (>60); Potassium 4.8 mmol/L (3.5-5.0)
[2016-04-13] MEDS: Clopidogrel TAB* 75 MG PO SCH (08:30)
[2016-04-13] MEDS: Amantadine CAP* 100 MG PO SCH (08:30)
[2016-04-13] MEDS: Ferrous Sulfate TAB* 325 MG PO SCH (08:30)
[2016-04-13] MEDS: Aspirin Low Dose CHEW TAB* 81 MG PO SCH (08:30)
[2016-04-13] MEDS: Venlafaxine EXT RELEASE CAP* 75 MG PO SCH (08:31)
[2016-04-13] MEDS: Metoprolol Tartrate TAB* 50 mg PO SCH ×2 (08:31→23:13)
[2016-04-13] MEDS ORDERED: Dextrose 50% Syringe 50 ML* 25 GM/50 ML SYRINGE IV PUSH PRN (09:29)
[2016-04-13] MEDS: Insulin LISPRO* 1 UNITS UNIT SUBCUT SCH ×3 (12:33→21:24)
--- NOTE | 2016-04-13 15:07 | PN ---
Subjective Date of Service: 04/13/16 Interval History: HOSPITALIST PROGRESS NOTE Patient seen and examined at bedside. She offers no complaints today. Family History: Unchanged from Admission Social History: Unchanged from Admission Past Medical History: Unchanged from Admission Objective Active Medications: Acetaminophen (Tylenol Tab*) 650 mg PO Q6H PRN PRN Reason: FEVER/PAIN Last Admin: 04/11/16 21:42 Dose: 650 mg Amantadine HCl (Symmetrel Cap*) 100 mg PO DAILY [facility] Last Admin: 04/13/16 08:30 Dose: 100 mg Aspirin (Aspirin Low Dose Tab*) 81 mg PO DAILY [facility] Last Admin: 04/13/16 08:30 Dose: 81 mg Atorvastatin Calcium (Lipitor*) 40 mg PO BEDTIME [facility] Last Admin: 04/12/16 20:44 Dose: 40 mg Clopidogrel Bisulfate (Plavix Tab*) 75 mg PO DAILY [facility] Last Admin: 04/13/16 08:30 Dose: 75 mg Dextrose (D50w Syringe 50 Ml*) 12.5 gm IV PUSH .FOR FS < 60 - SS PRN PRN Reason: FS < 60 Ferrous Sulfate (Ferrous Sulfate Tab*) 325 mg PO DAILY [facility] Last Admin: 04/13/16 08:30 Dose: 325 mg Heparin Sodium (Porcine) (Heparin Vial(*)) 5,000 units SUBCUT Q8HR [facility] Last Admin: 04/13/16 13:56 Dose: 5,000 units Hydroxyzine HCl (Atarax Tab*) 25 mg PO Q8HR [facility] Last Admin: 04/13/16 13:57 Dose: 25 mg Insulin Human Lispro (Humalog*) 0 units SUBCUT ACHS [facility] PRN Reason: Protocol Last Admin: 04/13/16 12:33 Dose: 8 units Levothyroxine Sodium (Synthroid Tab*) 37.5 mcg PO 0600 [facility] Last Admin: 04/13/16 05:37 Dose: 37.5 mcg Lorazepam (Ativan Tab(*)) 0.5 mg PO Q6H PRN PRN Reason: ANXIETY Metoprolol Tartrate (Lopressor Tab*) 50 mg PO BID [facility] Last Admin: 04/13/16 08:31 Dose: 50 mg Olanzapine (Zyprexa Tab*) 20 mg PO BEDTIME [facility] Last Admin: 04/12/16 20:45 Dose: 20 mg Venlafaxine HCl (Effexor Xr Cap*) 300 mg PO DAILY [facility] Last Admin: 04/13/16 08:31 Dose: 300 mg Vital Signs 04/13/16 04/13/16 04/13/16 00:00 03:49 07:40 Temperature 97.6 F 98.1 F Pulse Rate 79 72 Respiratory 20 16 Rate Blood Pressure 100/59 123/65 (mmHg) O2 Sat by Pulse 98 100 98 Oximetry Oxygen Devices in Use Now: None Appearance: Middle aged female sitting up in a chair in [facility]. Eyes: No Scleral Icterus Ears/Nose/Mouth/Throat: Mucous Membranes Moist Neck: Trachea Midline Respiratory: Symmetrical Chest Expansion and Respiratory Effort, Clear to Auscultation Cardiovascular: RRR - Normal S1 and S2 Abdominal: NL Sounds; No Tenderness; No Distention Skin: - - Left medial thigh scabbed lesion with mild surrounding erythema. Neurological: - - AAOx2 (self and place) Lines/Tubes/Other Access: Clean, Dry and Intact Peripheral IV Nutrition: Taking PO's Result Diagrams: 04/13/16 04:56 04/13/16 04:56 Assess/Plan/Problems-Billing Ms Thao is a 51 yo F who has a h/o HTN, hyperlipidemia, type II DM, CAD, and hypothyroidism who presented to the ER with c/o weakness and falls and was found to have an elevated troponin. - Patient Problems (1) Acute renal failure Comment: - Likely pre renal in the setting of poor PO intake and diuretic use. - Creatinine is trending down - continue to monitor. (2) Weakness Comment: - Continue PT as tolerated. (3) Falls Comment: - Chronic issue per previous records. Continue PT/nursing mobilization. (4) Elevated troponin Comment: - Records from the patient's tube drawer reveal she had a stent to her LAD 10/2015 when she presented with an anterior wall STEMI to [facility]. She was found to have single vessel CAD based on cath and she had a drug eluting stent placed. She was hospitalized 01/13/16-01/20/16 for an acute on chronic congestive heart failure exacerbation. Echo from that admission showed an EF of 30-35% with the mid-distal anterior septum and entire apex are severely hypokinetic. Diastolic function was also moderately impaired. - No further work up indicated at this time. (5) HTN (hypertension) Comment: - Continue Metoprolol. (6) Type II diabetes mellitus Comment: - Glipizide discontinued due to hypoglycemia and FS now >300. - Start Lantus and Lispro SS. (7) DVT prophylaxis Comment: - SQ heparin. (8) Full code status Status and Disposition: Inpatient. Will need [place].
[2016-04-13] MEDS ORDERED: Insulin GLARGINE(*) 1 UNITS UNIT SUBCUT SCH (16:00)
[2016-04-13] MEDS: Atorvastatin* 40 MG TAB PO SCH (21:22)
[2016-04-13] MEDS: OLANzapine TAB* 10 MG PO SCH (21:31)
[2016-04-14] MEDS: Heparin VIAL(*) 5000 UNITS/ML VIAL (FIVE THOUSAND) SUBCUT SCH (05:57)
[2016-04-14] MEDS: Levothyroxine TAB* 25 MCG TAB PO SCH (05:57)
[2016-04-14] MEDS: hydrOXYzine HCL TAB* 25 MG PO SCH ×2 (05:57→12:33)
[2016-04-14] MEDS: Ferrous Sulfate TAB* 325 MG PO SCH (08:37)
[2016-04-14] MEDS: Aspirin Low Dose CHEW TAB* 81 MG PO SCH (08:37)
[2016-04-14] MEDS: Amantadine CAP* 100 MG PO SCH (08:37)
[2016-04-14] MEDS: Clopidogrel TAB* 75 MG PO SCH (08:37)
[2016-04-14] MEDS: Venlafaxine EXT RELEASE CAP* 75 MG PO SCH (08:37)
[2016-04-14] MEDS: Metoprolol Tartrate TAB* 50 mg PO SCH (08:37)
[2016-04-14] MEDS: Insulin LISPRO* 1 UNITS UNIT SUBCUT SCH ×2 (08:38→12:32)
[2016-04-14 08:48] VITALS: BP 108/62
[2016-04-14] MEDS ORDERED: glipiZIDE TAB.XL* 2.5 MG PO SCH (09:00)
[2016-04-14 10:11] LABS: BUN/Creatinine Ratio 28.3 (8-20); Calcium 9.3 mg/dL (8.6-10.3); EGFR African American 24.1 (>60); EGFR Non-African American 18.7 (>60); Potassium 4.8 mmol/L (3.5-5.0)
--- NOTE | 2016-04-14 14:17 | DS ---
CC: Dr. Karine Patel; Dr. Benito Scales; Dr. Haim Vernon; [facility] DISCHARGE SUMMARY: DATE OF ADMISSION: 04/07/16 DATE OF DISCHARGE: 04/14/16 PRIMARY CARE PROVIDER: Dr. Karine Patel, [facility], [place], phone number is [phone]. NEUROLOGIST: Dr. Benito Scales, [facility], [place], phone number is . MOISTURE METER READER: Dr. Haim Vernon, [facility], [place], phone number is [phone]. DISCHARGE DIAGNOSES: 1. Acute kidney injury, likely prerenal in the setting of poor oral intake and diuretic use. 2. Weakness with frequent falls. 3. Possible multiple sclerosis. 4. Systolic congestive heart failure. 5. Type 2 diabetes with hypoglycemia. 6. Mild hyperkalemia. 7. Mildly elevated troponins. 8. Psychiatric disorder (the patient is on antidepressant and antipsychotics as outpatient and she is followed by a psychiatrist named Dr. Chao, but I was unable to find any specific diagnosis beyond d epression in her records). SECONDARY DIAGNOSES: 1. Hypertension. 2. Hyperlipidemia. 3. Type 2 diabetes. 4. Coronary artery disease. 5. Hypothyroidism. 6. Eschar to inner left thigh, present on admission, with no signs of current infection. MEDICATION LIST: 1. Atorvastatin 40 mg p.o. daily. 2. Olanzapine 20 mg p.o. at bedtime. 3. Metoprolol tartrate 50 mg p.o. b.i.d. 4. Amantadine 100 mg p.o. daily. 5. Vitamin B12 1000 mcg sublingual daily. 6. Levothyroxine 50 mcg p.o. daily. 7. Plavix 75 mg p.o. daily. 8. Effexor 300 mg p.o. daily. 9. Aspirin 81 mg p.o. daily. 10. Lorazepam 1 mg p.o. q.6 hours p.r.n. anxiety. 11. Acetaminophen 650 mg p.o. q.6 hours p.r.n. pain or fever. 12. Hydroxyzine 25 mg p.o. q.8 hours. Medication change: 1. Glipizide was reduced to 2.5 mg p.o. daily. 2. Lantus was reduced to 10 units subcutaneously daily. 3. Ferrous sulfate 325 mg p.o. daily. 4. Lispro sliding scale as follows, fingersticks 131 to 150, 1 unit; 151 to 200, 2 units; 201 to 25 0, 4 units; 251 to 300, 6 units; 301 to 350, 8 units; 351 to 400, 10 units; greater than 400, call M D. Her diuretics (metolazone, spironolactone, and torsemide) and lisinopril were held in the setting of acute kidney injury. HOSPITAL COURSE: Ms. Castorena is a 51-year-old lady with the past medical history as stated above that resides at [facility], who was referred to the emergency room for generalized weakness and recurre nt falls. For more details about her presentation, I refer you to her history and physical. She had initial CT of the brain that showed no acute intracranial pathology and a transthoracic echo cardiogram that showed mild to moderately decreased left ventricular systolic function with mid infe rior septal wall segment hypokinesis, apical septal and apical lateral wall akinesis, moderate TR, m [id number] MR, and ejection fraction of 35% to 40%. Records were obtained from the patient's c ardiologist and the patient has a known history of coronary artery disease. An echo done in January 2016 showed similar findings with ejection fraction of 30% to 35% with [id number] anterior septu m and entire apex severely hypokinetic with no LV thrombus. She had been seen in December by a [facility] ologist and at that time, her issue seemed to be fluid overload. Weight at that time was 266 pounds . The impression was that she had persistent and progressive fluid retention and the decision at at time was for admission at [facility] for IV dieresis and she seems to be on a hefty diuretic regimen as outpatient including metolazone 2.5 mg every other day, spironolactone 25 mg p.o. daily, and torsemide 20 mg p.o. daily. On this admission, the patient was found to have a creatinine of 1. 6 that peaked at 3.7. This was felt to be prerenal in the setting of diuretic use. On her records, her creatinine in December was 1.4. Her diuretics and DENISE inhibitor were held and she received gent le IV hydration and her creatinine on the day of discharge is 2.69. At this point, her medications continued to be on hold and she should have another BMP checked on April 17. If her creatinine continues to trend down, I believe at least one of her diuretics should be resumed to try and avoid an episode of congestive heart failure exacerbation. Her records also included a cardiac cath report done at [facility] in August 2015. He r echo showed the LAD had 100% occlusion and 70% disease was seen at the distal segment after establ ishing flow. The patient had a stent placed to the LAD at that time. It appears that the patient's weakness and frequent falls are a chronic issue. Actually, when she wa s admitted to [facility] in January 2016, she had an MRI of the brain that showed few areas of abnormal increased T2 signal and FLAIR hyperintensity in the periventricular and deep white matter, some of which are perpendicular to the callososeptal interface with no associated enhancements. Find ings were suspicious for auto-demyelinating process such as multiple sclerosis. At that time, neurol ogist, Dr. Scales, was consulted and the plan was to evaluate as outpatient about the suspicious f or MS and I believe this should be pursued after she is done with her rehabilitation process. While at [facility], the patient was noted to have a troponin of 0.07 that stayed flat for 3 measurements. This is likely associated with her history of CAD and CHF. It was felt that she did not have acute coronary syndrome at this time. The patient also had episodes of hypoglycemia down to 43, so her glipizide was initially stopped and was now resumed at a lower dose. Her Lantus was also reduced from 35 to 10 units a day but her fin gersticks should be monitored and her medications should be adjusted accordingly. The patient was seen by Physical Therapy and felt to have acute needs. [facility] has offered a bed, so she can continue her rehabilitation process and the patient was felt to be medically stable for discharge at this time but she will need followup as outpatient with her primary care doctor, with h [employer], and her neurologist to continue her workup. PHYSICAL EXAMINATION: Vital Signs: Temperature 97.3, heart rate is 70, respiratory rate is 16, oxy gen saturation is 100% on room air, blood pressure is 108/62. General: The patient is a middle-age d, obese lady, sitting up in the chair in no acute distress. CVS: Normal S1, S2. Regular rate and rhythm. Chest: Breath sounds present bilaterally, decreased in based but no added sounds. Abdomen: Soft, obese, bowel sounds are present. Extremities: There is mild bilateral lower extremity lencho a. The patient has eschar to the left inner thigh but no erythema or drainage. Neuro: She is aler t, awake, oriented x2 to self and place. She is able to move all 4 extremities. DIET: Heart-healthy diet. ACTIVITIES: Continue PT as tolerated. DISPOSITION: To [facility]. STATUS WHILE IN THE HOSPITAL: Inpatient. Please keep in mind that this is a summarized version of this patient's hospital stay. She has a co mplex past medical history and has received most of her care in [place] and she will need follow up especially with Neurology, considering this possible diagnosis of multiple sclerosis that could e xplain her gait changes and frequent falls. She will also need followup with her [employer] as it appears her fluid balance has been an issue. So, she has had issues with CHF/fluid overload at [facility] since December but I believe this regime of metolazone, spironolactone, and torsemide although eff ective for her fluid overload is likely the cause of this episode of acute kidney injury. Her fluid status and renal function will have to be closely monitored as outpatient. As mentioned above, [place] up a BMP is indicated on April 17 and if her creatinine continues to trend down, I believe a t least one of those diuretics should be resumed to try and avoid an episode of CHF exacerbation. If you need more information about this case, please feel free to call me at [phone] or please obtain the full medical records. TIME SPENT: Approximately 50 minutes was spent to complete this discharge. [id number]/[facility] #: [id number]
== END 2016-04-14 14:24 | DRG 948 ==
LOC: ED 19:09 → MEDTELE 21:45 → OBSVTOIN 04-08 17:40
PROVIDERS: ADMIT Hospitalist; ATTEND Internal Medicine
PROC: 05H633Z Insertion of Infusion Device into Left Subclavian Vein, Percutaneous Approach (ICD-10-PCS; principal; 2016-04-11)
DX: R53.1 Weakness (principal); E11.22 Type 2 diabetes mellitus with diabetic chronic kidney disease; N17.9 Acute kidney failure, unspecified; I13.0 Hypertensive heart and chronic kidney disease with heart failure and stage 1 through stage 4 chronic kidney disease, or unspecified chronic kidney disease; E83.42 Hypomagnesemia; I50.20 Unspecified systolic (congestive) heart failure; I08.1 Rheumatic disorders of both mitral and tricuspid valves; N18.3 Chronic kidney disease, stage 3 (moderate); I25.10 Atherosclerotic heart disease of native coronary artery without angina pectoris; I10 Essential (primary) hypertension; D50.9 Iron deficiency anemia, unspecified; F41.9 Anxiety disorder, unspecified; F32.9 Major depressive disorder, single episode, unspecified; D64.9 Anemia, unspecified; E78.5 Hyperlipidemia, unspecified; E03.9 Hypothyroidism, unspecified; W19.XXXA Unspecified fall, initial encounter; R79.89 Other specified abnormal findings of blood chemistry; F79 Unspecified intellectual disabilities; R45.1 Restlessness and agitation; T50.2X5A Adverse effect of carbonic-anhydrase inhibitors, benzothiadiazides and other diuretics, initial encounter; R29.6 Repeated falls; G35 Multiple sclerosis; E11.649 Type 2 diabetes mellitus with hypoglycemia without coma; E87.5 Hyperkalemia; Y92.199 Unspecified place in other specified residential institution as the place of occurrence of the external cause; Z79.02 Long term (current) use of antithrombotics/antiplatelets; Z79.82 Long term (current) use of aspirin; Z79.4 Long term (current) use of insulin; Z95.5 Presence of coronary angioplasty implant and graft
CPT/HCPCS: 36415; 70450; 71020; 80048; 80053; 81003; 82272; 82607; 82728; 82746; 82947; 83036; 83540; 83550; 83605; 83615; 83735; 84439; 84443; 84484; 85025; 85027; 85045; 86140; 87641; 93005; 93306; A9270-GY; G8978-GP-CM; G8979-GP-CI; J1644; J2060; J3475

== ENCOUNTER 2016-06-16 16:00 | Inpatient (IN) | payer MEDICARE, MEDICAID ==
--- NOTE | 2016-06-16 17:26 | RAD ---
INDICATION: Shortness of breath. COMPARISON: Comparison is made with a prior chest x-ray study from April 08, 2016. TECHNIQUE: AP and lateral views of the chest were obtained. FINDINGS: The heart is moderately enlarged and unchanged from the prior study. The lungs are clear. No pleural effusion is present. IMPRESSION: CARDIOMEGALY, NO EVIDENCE FOR ACUTE FINDING.
[2016-06-16 18:13] LABS: Hematocrit 35 % (35-47); Mean Corpuscular HGB Conc 32 g/dl (31-36); Mean Corpuscular Hemoglobin 26 pg (27-31); Mean Corpuscular Volume 83 fL (80-97); Mean Platelet Volume 9 um3 (7.4-10.4); Red Cell Distribution Width 17 % (10.5-15)
[2016-06-16 18:31] LABS: Albumin 3.4 g/dL (3.2-5.2); BUN/Creatinine Ratio 12.1 (8-20); Calcium 8.9 mg/dL (8.6-10.3); EGFR African American 63.6 (>60); EGFR Non-African American 49.5 (>60); Globulin 3.4 g/dL (2-4); Potassium 3.4 mmol/L (3.5-5.0); Total Bilirubin 1.2 mg/dL (0.2-1.0); Total Protein 6.8 g/dL (6.4-8.9)
[2016-06-16 18:32] LABS: Troponin I 0.01 ng/mL (<0.04)
[2016-06-16] MEDS ORDERED: Acetaminophen TAB* 325 MG PO ONE (18:40)
[2016-06-16] MEDS ORDERED: Iodixanol* (CONTRAST) 320 MG/ML 100 ML SDV IV ONE (19:17)
--- NOTE | 2016-06-16 22:36 | RAD ---
INDICATION: Shortness of breath and abdominal distention. COMPARISON: Comparison is made with a prior chest x-ray study from June 16, 2016. TECHNIQUE: A CT angiogram of the chest and a CT of the abdomen and pelvis was performed with intravenous contrast following intravenous injection of 100 ml of Visipaque 320 nonionic contrast. Contiguous axial sections were obtained from the lung apices through the symphysis pubis. Images were reconstructed in the coronal and sagittal planes. The study is limited due to the patient's body habitus. FINDINGS: CT ANGIOGRAM OF THE CHEST: Examination of the pulmonary arteries is limited due to motion artifact especially at the lung bases. No central pulmonary embolism is seen. The heart is moderately enlarged. No pericardial effusion is seen. The thoracic aorta is normal in caliber and demonstrates homogeneous contrast opacification without evidence for dissection. There are enlarged mediastinal lymph nodes in the pretracheal and subcarinal regions measuring up to 1.6 cm in size. There is an enlarged right hilar lymph node measuring 1.8 cm in size. There is diffuse prominence of the interstitial markings and small bilateral pleural effusions suggestive of congestive heart failure. There are mild dependent bilateral lower lobe infiltrates most consistent with subsegmental atelectasis. CT OF THE ABDOMEN AND PELVIS: The liver and spleen are moderately enlarged. The liver is decreased in attenuation consistent with fatty infiltration. No significant focal abnormality is seen. No calcified gallstones are noted. The pancreas appears to be within normal limits. The kidneys and adrenal glands are normal in size. No hydronephrosis is seen. There are a couple small subcentimeter cysts present within the left kidney. The abdominal aorta is normal in caliber. There is mild calcific plaque present. No significant enlarged retroperitoneal lymph nodes are seen. The stomach, small and large bowel appear nondistended. The appendix appears to be within normal limits. There is a moderate to large amount retained stool. There is no evidence for diverticulitis or colitis. The uterus is anteverted and normal in size. There is a moderate to large amount of free intraperitoneal fluid present throughout the abdomen and pelvis. There is also diffuse body wall edema. There is more prominent edema within the left breast and axilla compared to the right side. Recommend clinical correlation. No free intraperitoneal air is seen. No significant focal osseous abnormality is seen. IMPRESSION: 1. LIMITED STUDY, NO EVIDENCE FOR CENTRAL PULMONARY EMBOLISM. 2. MEDIASTINAL AND RIGHT HILAR LYMPHADENOPATHY. 3. FINDINGS SUGGESTIVE OF CONGESTIVE HEART FAILURE. 4. MODERATE TO LARGE AMOUNT OF ASCITES. 5. HEPATOSPLENOMEGALY AND HEPATIC STEATOSIS. 6. ANASARCA.
[2016-06-16] MEDS ORDERED: Furosemide IV* 10 MG/ML VIAL (40 MG) IV SLOW PU ONE (23:17)
[2016-06-16] MEDS ORDERED: Nitroglycerin TAB 0.4 MG* 0.4 MG TAB SL ONE (23:22)
[2016-06-16] MEDS ORDERED: Dextrose 50% Syringe 50 ML* 25 GM/50 ML SYRINGE IV PUSH PRN (23:36)
[2016-06-17] MEDS ORDERED: Insulin GLARGINE(*) 1 UNITS UNIT ONE (06:31)
[2016-06-17] MEDS: Insulin GLARGINE(*) 1 UNITS UNIT SUBCUT SCH (06:32)
[2016-06-17] MEDS: Heparin VIAL(*) 5000 UNITS/ML VIAL (FIVE THOUSAND) SUBCUT SCH ×3 (06:33→21:05)
--- NOTE | 2016-06-17 08:40 | ED ---
Joselito Pinzon Matthew, scribed for Hugo Sanders MD on 06/16/16 at 1631 . Shortness of Breath - HPI Summary HPI Summary: A 51 y/o female presents to the ED with gradually worsening SOB since a week ago. The pain is rated 4/10 in severity. Associated symptoms include dizziness and pedal edema. The patient denies pain. Today, the patient couldn't get out of bed, because every time she sat up she felt dizzy. The patient also c/o of right leg pain. - History of Current Complaint Time Seen by Provider: 06/16/16 16:21 Hx Obtained From: Patient Onset/Duration: Gradual Onset, Lasting Weeks - 1, Still Present Timing: Constant Current Severity: Moderate Dyspnea At: Rest Associated Signs & Symptoms: Edema - pedal Related History: Obesity - Allergy/Home Medications Allergies/Adverse Reactions: Allergies Allergy/AdvReac Type Severity Reaction Status Date / Time No Known Allergies Allergy Verified 04/07/16 19:32 PMH/Surg Hx/FS Hx/Imm Hx Endocrine/Hematology History: Reports: Hx Diabetes, Hx Thyroid Disease Cardiovascular History: Reports: Hx Coronary Artery Disease, Hx Hypercholesterolemia, Hx Hypertension Sensory History: Reports: Hx Contacts or Glasses Opthamlomology History: Reports: Hx Contacts or Glasses Neurological History: Reports: Other Neuro Impairments/Disorders - Mentally challenged Psychiatric History: Reports: Hx Anxiety, Hx Depression - Family History Known Family History: Positive: Unknown - The patient is a poor historian - Social History Alcohol Use: None Substance Use Type: Reports: None Smoking Status (MU): Never Smoked Tobacco Review of Systems Constitutional: Negative Eyes: Negative ENT: Negative Cardiovascular: Negative Positive: Shortness Of Breath Gastrointestinal: Negative Genitourinary: Negative Positive: Myalgia - right leg pain Skin: Negative Neurological: Other - Dizziness Psychological: Normal All Other Systems Reviewed And Are Negative: Yes Physical Exam Triage Information Reviewed: Yes Vital Signs On Initial Exam: Initial Vitals Temp Pulse Resp BP Pulse Ox 97.9 F 73 18 108/59 98 06/16/16 16:26 06/16/16 16:26 06/16/16 16:26 06/16/16 16:26 06/16/16 16:26 Vital Signs Reviewed: Yes Appearance: Positive: Obese Skin: Positive: Warm, Dry Head/Face: Positive: Normal Head/Face Inspection Eyes: Positive: Normal ENT: Positive: Normal ENT inspection Neck: Positive: Supple, Nontender, Other: - No JVD Respiratory/Lung Sounds: Positive: Other - unable to hear breath sounds Cardiovascular: Positive: RRR Abdomen Description: Positive: Nontender, Other: - distended and tense abdomen Bowel Sounds: Positive: Present Musculoskeletal: Positive: Other - Pitting edema of the LE Neurological: Positive: Alert, Oriented to Person Place, Time Psychiatric: Positive: Affect/Mood Appropriate Diagnostics - Vital Signs Vital Signs Temp Pulse Resp BP Pulse Ox 06/17/16 00:00 78 121/72 97 06/16/16 23:56 117/68 06/16/16 23:00 78 97 06/16/16 22:20 79 20 97 06/16/16 21:30 78 25 133/83 99 06/16/16 21:20 25 124/70 06/16/16 21:00 21 06/16/16 20:00 75 21 99 06/16/16 19:00 18 138/81 06/16/16 18:30 104 18 132/74 82 06/16/16 18:00 71 17 132/77 99 06/16/16 17:30 17 124/74 06/16/16 17:19 71 97 06/16/16 17:18 71 100 06/16/16 17:17 132/57 06/16/16 16:26 97.9 F 73 18 108/59 98 - Laboratory Lab Results: Lab Results 06/16/16 06/16/16 06/16/16 Range/Units 18:00 18:00 18:00 WBC 6.0 (3.5-10.8) 10^3/ul RBC 4.20 (4.0-5.4) 10^6/ul Hgb 11.0 L (12.0-16.0) g/dl Hct 35 (35-47) % MCV 83 (80-97) fL MCH 26 L (27-31) pg MCHC 32 (31-36) g/dl RDW 17 H (10.5-15) % Plt Count 174 (150-450) 10^3/ul MPV 9 (7.4-10.4) um3 Neut % (Auto) 55.8 (38-83) % Lymph % (Auto) 28.8 (25-47) % [place] % (Auto) 11.1 H (1-9) % Eos % (Auto) 3.6 (0-6) % Baso % (Auto) 0.7 (0-2) % Absolute Neuts (auto) 3.3 (1.5-7.7) 10^3/ul Absolute Lymphs (auto) 1.7 (1.0-4.8) 10^3/ul Absolute Monos (auto) 0.7 (0-0.8) 10^3/ul Absolute Eos (auto) 0.2 (0-0.6) 10^3/ul Absolute Basos (auto) 0 (0-0.2) 10^3/ul Absolute Nucleated RBC 0.01 10^3/ul Nucleated RBC % 0.1 D-Dimer, Quantitative (Less Than 230) ng/mL Sodium 135 (133-145) mmol/L Potassium 3.4 L (3.5-5.0) mmol/L Chloride 100 L (101-111) mmol/L Carbon Dioxide 30 (22-32) mmol/L Anion Gap 5 (2-11) mmol/L BUN 14 (6-24) mg/dL Creatinine 1.16 H (0.51-0.95) mg/dL Est GFR ( Amer) 63.6 (>60) Est GFR (Non-Af Amer) 49.5 (>60) BUN/Creatinine Ratio 12.1 (8-20) Glucose 146 H (70-100) mg/dL Lactic Acid 1.7 (0.5-2.0) mmol/L Calcium 8.9 (8.6-10.3) mg/dL Total Bilirubin 1.20 H (0.2-1.0) mg/dL AST 13 (13-39) U/L ALT 8 (7-52) U/L Alkaline Phosphatase 139 H (34-104) U/L Troponin I 0.01 (<0.04) ng/mL B-Natriuretic Peptide ( - 100) pg/mL Total Protein 6.8 (6.4-8.9) g/dL Albumin 3.4 (3.2-5.2) g/dL Globulin 3.4 (2-4) g/dL Albumin/Globulin Ratio 1.0 (1-3) 06/16/16 06/16/16 Range/Units 18:00 18:00 WBC (3.5-10.8) 10^3/ul RBC (4.0-5.4) 10^6/ul Hgb (12.0-16.0) g/dl Hct (35-47) % MCV (80-97) fL MCH (27-31) pg MCHC (31-36) g/dl RDW (10.5-15) % Plt Count (150-450) 10^3/ul MPV (7.4-10.4) um3 Neut % (Auto) (38-83) % Lymph % (Auto) (25-47) % [place] % (Auto) (1-9) % Eos % (Auto) (0-6) % Baso % (Auto) (0-2) % Absolute Neuts (auto) (1.5-7.7) 10^3/ul Absolute Lymphs (auto) (1.0-4.8) 10^3/ul Absolute Monos (auto) (0-0.8) 10^3/ul Absolute Eos (auto) (0-0.6) 10^3/ul Absolute Basos (auto) (0-0.2) 10^3/ul Absolute Nucleated RBC 10^3/ul Nucleated RBC % D-Dimer, Quantitative 487 H (Less Than 230) ng/mL Sodium (133-145) mmol/L Potassium (3.5-5.0) mmol/L Chloride (101-111) mmol/L Carbon Dioxide (22-32) mmol/L Anion Gap (2-11) mmol/L BUN (6-24) mg/dL Creatinine (0.51-0.95) mg/dL Est GFR ( Amer) (>60) Est GFR (Non-Af Amer) (>60) BUN/Creatinine Ratio (8-20) Glucose (70-100) mg/dL Lactic Acid (0.5-2.0) mmol/L Calcium (8.6-10.3) mg/dL Total Bilirubin (0.2-1.0) mg/dL AST (13-39) U/L ALT (7-52) U/L Alkaline Phosphatase (34-104) U/L Troponin I (<0.04) ng/mL B-Natriuretic Peptide 268 H ( - 100) pg/mL Total Protein (6.4-8.9) g/dL Albumin (3.2-5.2) g/dL Globulin (2-4) g/dL Albumin/Globulin Ratio (1-3) Result Diagrams: 06/16/16 18:00 06/16/16 18:00 Lab Statement: Any lab studies that have been ordered have been reviewed, and results considered in the medical decision making process. - Radiology CXR Xray Interpretation: No Acute Changes - IMPRESSION: CARDIOMEGALY, NO EVIDENCE FOR ACUTE FINDING. Radiology Interpretation Completed By: Radiologist - EKG 16:26 Cardiac Rate: NL - ~75 bpm EKG Rhythm: Sinus Rhythm EKG Interpretation: Low voltage EKG Re-Evaluation - Re-Evaluation First Eval Re-Evaluation Time: 18:42 Change: Improved Comment: The patient states that she is breathing fine. Course/Dx - Course Course Of Treatment: Ms. Thao with a reported C/O SOB but denied it for me here Here labs were good except a slightly elevated d-dimer and BNP. I ordered a CTA (her GFR is about 50). - Diagnoses Provider Diagnoses: Bronchospasm - Physician Notifications Discussed Care of Patient With: Dr. Sandoval Time Discussed With Above Provider: 19:00 - change of shift Discharge - Discharge Plan Condition: Stable Disposition: ADMITTED TO [facility] The documentation as recorded by the Joselito mercer Matthew accurately reflects the service I personally performed and the decisions made by me, Hugo Sanders MD.
--- NOTE | 2016-06-17 08:51 | HP ---
HISTORY AND PHYSICAL: DATE OF ADMISSION: 06/17/16 PRIMARY CARE PHYSICIAN: The patient does not know the exact name of her PCP. CHIEF COMPLAINT: Shortness of breath. HISTORY OF PRESENT ILLNESS: The patient is a 51-year-old woman who says she is a resident of [facility] and had increased shortness of breath today and increased swelling in her legs. The swelling has been going on for some time, approximately a week. She denies any chest pain. She has no cough. She thinks her sugars have been going up as well but have been mostly in the 100s. She says [facility], so she does not have a lot salt in her diet. She noticed an increased weight gain as well today. She, otherwise, feels well but was found to be somewhat hypoxic in the ED. PAST MEDICAL HISTORY: Mental disability, hypertension, hyperlipidemia, type 2 diabetes, hypothyroidism. CURRENT MEDICATIONS: 1. Torsemide 20 mg twice daily. 2. Lantus insulin 10 units subcu q.24. 3. Glipizide 2.5 mg daily. 4. Effexor ER 300 mg daily. 5. Zyprexa 2 tabs at bedtime. 6. Metoprolol tartrate 1 tablet twice daily. 7. Levothyroxine 1 tablet daily. 8. Ferrous sulfate 325 mg daily. 9. Plavix 75 mg daily. 10. Lipitor 40 mg daily. 11. Aspirin 81 mg daily. 12. Amantadine 1 tablet daily. 13. Acetaminophen 650 mg every 6 hours as needed. ALLERGIES: She has no known drug allergies. FAMILY HISTORY: The patient does not know. SOCIAL HISTORY: No tobacco, alcohol, or recreational drugs. Resident of [facility]. Unknown healthcare proxy. REVIEW OF SYSTEMS: A 14-point review of systems is completed with the patient as best as possible. All pertinent positives and negatives are in the history of present illness, otherwise negative. PHYSICAL EXAMINATION GENERAL: A very pleasant woman lying in bed, in no acute distress. VITAL SIGNS: Temperature is 97.9 degrees, heart rate 78 beats per minute, respiratory rate 20 breaths per minute, pulse ox 97%. HEENT: Normocephalic and atraumatic. Pupils are equal, round, and reactive to light. Moist mucous membranes. NECK: Supple. No JVD, bruits, palpable thyroid, or lymphadenopathy. CHEST: Clear to auscultation and percussion bilaterally. CARDIOVASCULAR: S1, S2 appreciated. ABDOMEN: Positive bowel sounds in all 4 quadrants. Soft, nontender, and nondistended. EXTREMITIES: No cyanosis or clubbing. She has got bilateral edema. +2 pulses bilaterally. NEURO: Alert and oriented x3. Moves all extremities. SKIN: No distinct rashes, no abnormalities. DIAGNOSTIC STUDIES/LAB DATA: White count 6, hemoglobin 11, hematocrit 35, platelets 174. Sodium is 135, potassium 3.4, chloride 100, CO2 30, BUN 14, creat 1.16, glucose 146. BNP is 268. D-dimer is 487. Chest x-ray was interpreted by Radiology as cardiomegaly, no evidence for acute findings. CTA of the chest, abdomen, and pelvis was interpreted as limited study, no evidence for essential pulmonary embolism, mediastinal right hilar lymphadenopathy, findings suggestive of congestive heart failure, moderate-to- large amount of ascites, hepatomegaly, and hepatic steatosis, anasarca. EKG showed accelerated junctional rhythm, low voltage, normal axis. ASSESSMENT AND PLAN: 1. Possible congestive heart failure exacerbation. BNP is not that elevated but is somewhat elevated, signs and symptoms and she has an ejection fraction of 35% to 40% on the last echo done in April. She is supposed to have torsemide 20 mg twice a day, but I questioned if she is getting this appropriately. I will put her on Lasix 40 mg IV q.12, strict I's and O's, daily weights, low-salt diet, and I will repeat her echocardiogram. 2. Hypothyroidism. Stable. Continue Synthroid. We will check TSH. 3. Diabetes mellitus. Continue Lantus insulin, glipizide, fingersticks with sliding scale insulin. 4. Hypertension. Adequately controlled. Monitor and adjust any medications accordingly. 5. FEN. Consistent carb diet. 6. DVT prophylaxis. Heparin subcu. 7. The patient is a full code. TIME SPENT: Over 75 minutes was spent on this H and P; more than 40 minutes was spent in direct [id number] contact with the patient in evaluation, physical exam, counseling, and coordination of care. [id number]/[facility] #: [id number]
[2016-06-17] MEDS: Ferrous Sulfate TAB* 325 MG PO SCH (09:02)
[2016-06-17] MEDS: Venlafaxine EXT RELEASE CAP* 75 MG PO SCH (09:02)
[2016-06-17] MEDS: Clopidogrel TAB* 75 MG PO SCH (09:02)
[2016-06-17] MEDS: Aspirin EC Low Dose* 81 MG TAB.EC PO SCH (09:02)
[2016-06-17] MEDS: Metoprolol Tartrate TAB* 50 mg PO SCH ×2 (09:02→21:05)
[2016-06-17] MEDS: Furosemide IV* 10 MG/ML VIAL (40 MG) IV SLOW PU SCH ×2 (09:03→18:46)
[2016-06-17] MEDS: Levothyroxine TAB* 50 MCG TAB PO SCH (09:03)
[2016-06-17] MEDS: Insulin LISPRO* 1 UNITS UNIT SUBCUT SCH ×4 (09:03→22:34)
[2016-06-17] MEDS: Amantadine CAP* 100 MG PO SCH (09:15)
--- NOTE | 2016-06-17 13:50 | PN ---
Subjective Date of Service: 06/17/16 Interval History: pt c/o leg edema and SOB for several days prirot o admission. Unaware of weight increase. Fell 2 weeks ago and injured her nose. She has been "picking at" her wound on nose. Objective Active Medications: Acetaminophen (Tylenol Tab*) 650 mg PO Q6HR PRN PRN Reason: FEVER/PAIN Amantadine HCl (Symmetrel Cap*) 100 mg PO DAILY [facility] Last Admin: 06/17/16 09:15 Dose: 100 mg Aspirin (Aspirin Ec Low Dose*) 81 mg PO DAILY [facility] Last Admin: 06/17/16 09:02 Dose: 81 mg Atorvastatin Calcium (Lipitor*) 40 mg PO BEDTIME [facility] Clopidogrel Bisulfate (Plavix Tab*) 75 mg PO DAILY [facility] Last Admin: 06/17/16 09:02 Dose: 75 mg Dextrose (D50w Syringe 50 Ml*) 12.5 gm IV PUSH .FOR FS < 60 - SS PRN PRN Reason: FS < 60 Ferrous Sulfate (Ferrous Sulfate Tab*) 325 mg PO DAILY [facility] Last Admin: 06/17/16 09:02 Dose: 325 mg Furosemide (Lasix Iv*) 40 mg IV SLOW PU 0800,1700 [facility] Last Admin: 06/17/16 09:03 Dose: 40 mg Heparin Sodium (Porcine) (Heparin Vial(*)) 5,000 units SUBCUT Q8HR [facility] Last Admin: 06/17/16 13:04 Dose: 5,000 units Insulin Glargine (Lantus(*)) 10 units SUBCUT Q24H [facility] Last Admin: 06/17/16 06:32 Dose: 10 units Insulin Human Lispro (Humalog*) 0 units SUBCUT ACHS [facility] PRN Reason: Protocol Last Admin: 06/17/16 13:03 Dose: 3 units Levothyroxine Sodium (Synthroid Tab*) 50 mcg PO 0600 [facility] Last Admin: 06/17/16 09:03 Dose: 50 mcg Metoprolol Tartrate (Lopressor Tab*) 50 mg PO BID [facility] Last Admin: 06/17/16 09:02 Dose: 50 mg Olanzapine (Zyprexa Tab*) 20 mg PO BEDTIME [facility] Pneumococcal Polyvalent Vaccine (Pneumococcal Vac Polyvalent*) 0.5 ml IM .ONCE ONE Stop: 06/18/16 09:01 Venlafaxine HCl (Effexor Xr Cap*) 300 mg PO DAILY [facility] Last Admin: 06/17/16 09:02 Dose: 300 mg Vital Signs 06/17/16 06/17/16 06/17/16 00:05 00:10 00:13 Temperature Pulse Rate 80 82 82 Respiratory Rate Blood Pressure 113/63 124/72 (mmHg) O2 Sat by Pulse 99 95 95 Oximetry 06/17/16 06/17/16 06/17/16 00:30 01:00 02:31 Temperature 96.7 F Pulse Rate 81 81 82 Respiratory 16 Rate Blood Pressure 125/63 135/83 117/60 (mmHg) O2 Sat by Pulse 98 97 100 Oximetry 06/17/16 06/17/16 06/17/16 02:36 02:53 07:41 Temperature 96.7 F 97.4 F Pulse Rate 82 84 Respiratory 16 16 16 Rate Blood Pressure 117/60 122/84 (mmHg) O2 Sat by Pulse 100 97 Oximetry 06/17/16 08:00 Temperature Pulse Rate Respiratory 20 Rate Blood Pressure (mmHg) O2 Sat by Pulse Oximetry Oxygen Devices in Use Now: Nasal Cannula Appearance: 51 yo F in nAd, AAOx3, poor historian Eyes: No Scleral Icterus, PERRLA Ears/Nose/Mouth/Throat: NL Teeth, Lips, Gums, Mucous Membranes Moist Neck: NL Appearance and Movements; NL JVP, Trachea Midline Respiratory: Symmetrical Chest Expansion and Respiratory Effort, Clear to Auscultation Cardiovascular: NL Sounds; No Murmurs; No JVD, RRR Abdominal: NL Sounds; No Tenderness; No Distention, No Hepatosplenomegaly Lymphatic: No Cervical Adenopathy Extremities: No Clubbing, Cyanosis, - - +2 pitting pedal edema b/l Skin: No Nodules or Sclerosis, - - abrasion on nose, covered with eschar Neurological: NL Muscle Strength and Tone Result Diagrams: 06/16/16 18:00 06/16/16 18:00 Additional Lab and Data: Lab Results 06/16/16 06/16/16 06/16/16 Range/Units 18:00 18:00 18:00 WBC 6.0 (3.5-10.8) 10^3/ul RBC 4.20 (4.0-5.4) 10^6/ul Hgb 11.0 L (12.0-16.0) g/dl Hct 35 (35-47) % MCV 83 (80-97) fL MCH 26 L (27-31) pg MCHC 32 (31-36) g/dl RDW 17 H (10.5-15) % Plt Count 174 (150-450) 10^3/ul MPV 9 (7.4-10.4) um3 Neut % (Auto) 55.8 (38-83) % Lymph % (Auto) 28.8 (25-47) % [place] % (Auto) 11.1 H (1-9) % Eos % (Auto) 3.6 (0-6) % Baso % (Auto) 0.7 (0-2) % Absolute Neuts (auto) 3.3 (1.5-7.7) 10^3/ul Absolute Lymphs (auto) 1.7 (1.0-4.8) 10^3/ul Absolute Monos (auto) 0.7 (0-0.8) 10^3/ul Absolute Eos (auto) 0.2 (0-0.6) 10^3/ul Absolute Basos (auto) 0 (0-0.2) 10^3/ul Absolute Nucleated RBC 0.01 10^3/ul Nucleated RBC % 0.1 D-Dimer, Quantitative (Less Than 230) ng/mL Sodium 135 (133-145) mmol/L Potassium 3.4 L (3.5-5.0) mmol/L Chloride 100 L (101-111) mmol/L Carbon Dioxide 30 (22-32) mmol/L Anion Gap 5 (2-11) mmol/L BUN 14 (6-24) mg/dL Creatinine 1.16 H (0.51-0.95) mg/dL Est GFR ( Amer) 63.6 (>60) Est GFR (Non-Af Amer) 49.5 (>60) BUN/Creatinine Ratio 12.1 (8-20) Glucose 146 H (70-100) mg/dL Lactic Acid 1.7 (0.5-2.0) mmol/L Calcium 8.9 (8.6-10.3) mg/dL Total Bilirubin 1.20 H (0.2-1.0) mg/dL AST 13 (13-39) U/L ALT 8 (7-52) U/L Alkaline Phosphatase 139 H (34-104) U/L Troponin I 0.01 (<0.04) ng/mL B-Natriuretic Peptide ( - 100) pg/mL Total Protein 6.8 (6.4-8.9) g/dL Albumin 3.4 (3.2-5.2) g/dL Globulin 3.4 (2-4) g/dL Albumin/Globulin Ratio 1.0 (1-3) 06/16/16 06/16/16 Range/Units 18:00 18:00 WBC (3.5-10.8) 10^3/ul RBC (4.0-5.4) 10^6/ul Hgb (12.0-16.0) g/dl Hct (35-47) % MCV (80-97) fL MCH (27-31) pg MCHC (31-36) g/dl RDW (10.5-15) % Plt Count (150-450) 10^3/ul MPV (7.4-10.4) um3 Neut % (Auto) (38-83) % Lymph % (Auto) (25-47) % [place] % (Auto) (1-9) % Eos % (Auto) (0-6) % Baso % (Auto) (0-2) % Absolute Neuts (auto) (1.5-7.7) 10^3/ul Absolute Lymphs (auto) (1.0-4.8) 10^3/ul Absolute Monos (auto) (0-0.8) 10^3/ul Absolute Eos (auto) (0-0.6) 10^3/ul Absolute Basos (auto) (0-0.2) 10^3/ul Absolute Nucleated RBC 10^3/ul Nucleated RBC % D-Dimer, Quantitative 487 H (Less Than 230) ng/mL Sodium (133-145) mmol/L Potassium (3.5-5.0) mmol/L Chloride (101-111) mmol/L Carbon Dioxide (22-32) mmol/L Anion Gap (2-11) mmol/L BUN (6-24) mg/dL Creatinine (0.51-0.95) mg/dL Est GFR ( Amer) (>60) Est GFR (Non-Af Amer) (>60) BUN/Creatinine Ratio (8-20) Glucose (70-100) mg/dL Lactic Acid (0.5-2.0) mmol/L Calcium (8.6-10.3) mg/dL Total Bilirubin (0.2-1.0) mg/dL AST (13-39) U/L ALT (7-52) U/L Alkaline Phosphatase (34-104) U/L Troponin I (<0.04) ng/mL B-Natriuretic Peptide 268 H ( - 100) pg/mL Total Protein (6.4-8.9) g/dL Albumin (3.2-5.2) g/dL Globulin (2-4) g/dL Albumin/Globulin Ratio (1-3) Assess/Plan/Problems-Billing Assessment: Ms Thao is a 51 yo F who has a h/o HTN, hyperlipidemia, type II DM , CAD, and hypothyroidism who presented to the ER with c/o leg edema and SOB with acute CHF - Patient Problems (1) Acute systolic (congestive) heart failure Comment: on chronic CHF. H/o low EF, Echo pending cont daily weights and IV Lasix. Pt has limited understanding of her castro issues and may not be able to follow with recommendations to check her weight daily. will ask SW to see pt. (2) CAD (coronary artery disease) Comment: Records from the patient's quality control microbiologist reveal she had a stent to her LAD 10/2015 when she presented with an anterior wall STEMI to [facility]. She was found to have single vessel CAD based on cath and she had a drug eluting stent placed. She was hospitalized 01/13/16-01/20/16 for an acute on chronic congestive heart failure exacerbation. Echo from that admission showed an EF of 30-35% with the mid-distal anterior septum and entire apex are severely hypokinetic. Diastolic function was also moderately impaired. - No further work up indicated at this time. (3) Falls Comment: - Chronic issue per previous records. Continue PT/nursing mobilization. (4) Hypothyroidism Comment: continue synthroid, will check TSH (5) HTN (hypertension) Comment: Continue Metoprolol, controlled (6) Type II diabetes mellitus Comment: Glipizide held at admission cont Lantus and Lispro SS. (7) DVT prophylaxis Comment: - SQ heparin.
[2016-06-17] MEDS: OLANzapine TAB* 10 MG PO SCH (21:05)
[2016-06-17] MEDS: Atorvastatin* 40 MG TAB PO SCH (21:05)
[2016-06-18] MEDS: Acetaminophen TAB* 325 MG PO PRN (00:51)
[2016-06-18] MEDS: Levothyroxine TAB* 50 MCG TAB PO SCH (06:02)
[2016-06-18] MEDS: Insulin GLARGINE(*) 1 UNITS UNIT SUBCUT SCH (06:03)
[2016-06-18] MEDS: Heparin VIAL(*) 5000 UNITS/ML VIAL (FIVE THOUSAND) SUBCUT SCH ×3 (06:04→21:07)
[2016-06-18 07:58] LABS: BUN/Creatinine Ratio 14.3 (8-20); EGFR African American 77.3 (>60); EGFR Non-African American 60.1 (>60); Potassium 3.2 mmol/L (3.5-5.0)
[2016-06-18] MEDS ORDERED: Potassium Chlor TAB* 20 MEQ TAB.ER PO ONE (08:09)
[2016-06-18 08:20] LABS: TSH (Thyroid Stimulating Horm) 12.64 mcIU/mL (0.34-5.60)
[2016-06-18] MEDS ORDERED: Pneumococcal Vac Polyvalent* 0.5 ML VIAL IM ONE (09:00)
--- NOTE | 2016-06-18 09:27 | ED ---
Rupesh Pinzon Aidan, scribed for Davonte Sandoval MD on 06/16/16 at 2329 . Progress - Progress Note Progress Note: 51 y/o female presents to the ED with SOB and CHF exacerbation. She notices weight gain. On examination by Dr. Sandoval, she had rales and wheezes. Course/Dx - Diagnoses Provider Diagnoses: Acute exacerbation of CHF (congestive heart failure) The documentation as recorded by the Rupesh mercer Aidan accurately reflects the service I personally performed and the decisions made by Lori modi Jerry, MD.
[2016-06-18] MEDS: Insulin LISPRO* 1 UNITS UNIT SUBCUT SCH ×4 (10:37→21:07)
[2016-06-18] MEDS: Furosemide IV* 10 MG/ML VIAL (40 MG) IV SLOW PU SCH ×3 (11:13→16:33)
[2016-06-18] MEDS: Venlafaxine EXT RELEASE CAP* 75 MG PO SCH (11:14)
[2016-06-18] MEDS: Ferrous Sulfate TAB* 325 MG PO SCH (11:14)
[2016-06-18] MEDS: Metoprolol Tartrate TAB* 50 mg PO SCH ×2 (11:14→21:07)
[2016-06-18] MEDS: Amantadine CAP* 100 MG PO SCH (11:14)
[2016-06-18] MEDS: Aspirin EC Low Dose* 81 MG TAB.EC PO SCH (11:15)
[2016-06-18] MEDS: Clopidogrel TAB* 75 MG PO SCH (11:15)
--- NOTE | 2016-06-18 14:33 | ECHO ---
Patient: MAGO GÓMEZ [facility] Rec#: [id number] : 1965 Date: 06/18/2016 Age: 51y Height: 170.18 cm / 67.0 in Weight: 132.9 kg / 292.9 lbs Sex: F BSA: 2.38 Room#: 444 Admit Date#: 06/17/2016 Type: Inpatient Referring: Jakob Dominguez MD Reading: Crescencio Banuelos DO Installment Dealer: Yelitza Kidd [facility] Transthoracic Echocardiogram Indication: CHF BP: 115/70 HR: 78 Rhythm: NSR with PACs Findings History: Obesity,mental disability,HTN,HLD,DM. Technical Comments: The study is technically limited due to patient body habitus. Completed at 1135. Left Ventricle: The left ventricular chamber size is normal. Mild concentric left ventricular hypertrophy is observed. There is moderately decreased left ventricular systolic function. Left Atrium: The left atrium is mild to moderately dilated. Right Ventricle: The right ventricle is mildly dilated. The right ventricular global systolic function is mildly to moderately reduced. Right Atrium: The right atrium is mildly dilated. Aortic Valve: The aortic valve is trileaflet. There is no evidence of aortic regurgitation. There is no evidence of aortic stenosis. Mitral Valve: The mitral valve leaflets are mildly thickened. There is mild mitral regurgitation. There is no evidence of mitral stenosis. Tricuspid Valve: The tricuspid valve leaflets are normal. There is mild to moderate tricuspid regurgitation. There is evidence of mild pulmonary hypertension. There is no tricuspid stenosis. Pulmonic Valve: The pulmonic valve appears normal. There is a trace pulmonic regurgitation. There is no pulmonic stenosis. Pericardium: There is no significant pericardial effusion. Aorta: There is no dilatation of the ascending aorta. There is no dilatation of the aortic arch. There is no dilation of the aortic root. Pulmonary Artery: The main pulmonary artery is not well visualized. Venous: The venous system is not well visualized. Conclusions The left ventricular chamber size is normal. Mild concentric left ventricular hypertrophy is observed. There is probably at least mild to moderately decreased left ventricular systolic function. This study is non-diagnostic to evaluate for LVEF or segmental wall motion abnormalities due to poor endocardial visualization. If clinically indicated, would repeat limited study with echo imaging enhancement agent definity or optison. The left atrium is mild to moderately dilated. The right ventricle is mildly dilated. The right ventricular global systolic function is mildly to moderately reduced. There is mild to moderate tricuspid regurgitation. There is evidence of mild pulmonary hypertension. There is no significant pericardial effusion. Compared to prior study from 04/2016, this study is now non-diagnostic (previously LVEF was 35-40% with segmental wall motion abnormalities) Measurements Name Value Normal Range RVIDd (AP) 2D 4.4 cm (0.9 - 2.6) RVDdMajor (2D) 4.7 cm (2.2 - 4.4) RAd ISD 4CH 6.6 cm (3.4 - 4.9) RA (A4C)W 3.9 cm (2.9 - 4.6) IVSd (2D) 1.1 cm (0.6 - 1) LVPWd (2D) 1.1 cm (0.6 - 1) LVIDd (2D) 4.4 cm (3.6 - 5.4) LVIDs (2D) 3.3 cm - LV FS (2D) 25 % (25 - 45) Aortic Annulus 2 cm (1.4 - 2.6) Ao root diameter (2D) 3.2 cm (2.1 - 3.5) Ascending Ao 3.1 cm (2.1 - 3.4) Aortic arch 2.7 cm (1.8 - 3.4) Descending Ao 0.7 cm - LA dimension (AP) 2D 5 cm (2.3 - 3.8) LAd ISD 4CH 7.2 cm (2.9 - 5.3) LA ISD 4CH W 5.1 cm (2.5 - 4.5) Name Value Normal Range LA ESV SP 4CH (A/L) 80 ml - LA ESV SP 2CH (A/L) 47 ml - LA ESV BP (A/L) 64 ml - LA ESV BP (A/L) index 26.81 ml/m2 - LA ESV SP 4CH (MOD) 74 ml - LA ESV SP 2CH (MOD) 44 ml - Name Value Normal Range MV E-wave Vmax 1.1 m/sec - MV deceleration time 149 msec - MV A-wave Vmax 0.7 m/sec - MV E:A ratio 1.67 ratio - LV septal e' Vmax 0.07 m/sec - LV lateral e' Vmax 0.1 m/sec - LV E:e' septal ratio 15.71 ratio - LV E:e' lateral ratio 11 ratio - Name Value Normal Range AV Vmax 1.3 m/sec - AV VTI 26.9 cm - AV peak gradient 7.13 mmHg - AV mean gradient 4.8 mmHg - LVOT diameter 2 cm - LVOT Vmax 0.8 m/sec - LVOT VTI 17.1 cm - LVOT peak gradient 2.46 mmHg - LVOT mean gradient 1.25 mmHg - Name Value Normal Range TR Vmax 2.6 m/sec - TR peak gradient 28 mmHg - RAP 8 mmHg - RVSP 36 mmHg - Name Value Normal Range PV Vmax 0.5 m/sec - PV peak gradient 1 mmHg -
--- NOTE | 2016-06-18 14:59 | PN ---
Subjective Date of Service: 06/18/16 Interval History: pt feels better. Leg edema less prominent. Still requires 02. Objective Active Medications: Acetaminophen (Tylenol Tab*) 650 mg PO Q6HR PRN PRN Reason: FEVER/PAIN Last Admin: 06/18/16 00:51 Dose: 650 mg Amantadine HCl (Symmetrel Cap*) 100 mg PO DAILY [facility] Last Admin: 06/18/16 11:14 Dose: 100 mg Aspirin (Aspirin Ec Low Dose*) 81 mg PO DAILY [facility] Last Admin: 06/18/16 11:15 Dose: 81 mg Atorvastatin Calcium (Lipitor*) 40 mg PO BEDTIME [facility] Last Admin: 06/17/16 21:05 Dose: 40 mg Clopidogrel Bisulfate (Plavix Tab*) 75 mg PO DAILY [facility] Last Admin: 06/18/16 11:15 Dose: 75 mg Dextrose (D50w Syringe 50 Ml*) 12.5 gm IV PUSH .FOR FS < 60 - SS PRN PRN Reason: FS < 60 Ferrous Sulfate (Ferrous Sulfate Tab*) 325 mg PO DAILY [facility] Last Admin: 06/18/16 11:14 Dose: 325 mg Furosemide (Lasix Iv*) 60 mg IV SLOW PU 0800,1700 [facility] Last Admin: 06/18/16 11:13 Dose: 60 mg Heparin Sodium (Porcine) (Heparin Vial(*)) 5,000 units SUBCUT Q8HR [facility] Last Admin: 06/18/16 13:48 Dose: 5,000 units Insulin Glargine (Lantus(*)) 10 units SUBCUT Q24H [facility] Last Admin: 06/18/16 06:03 Dose: 10 units Insulin Human Lispro (Humalog*) 0 units SUBCUT ACHS [facility] PRN Reason: Protocol Last Admin: 06/18/16 12:07 Dose: Not Given Levothyroxine Sodium (Synthroid Tab*) 50 mcg PO 0600 [facility] Last Admin: 06/18/16 06:02 Dose: 50 mcg Metoprolol Tartrate (Lopressor Tab*) 50 mg PO BID [facility] Last Admin: 06/18/16 11:14 Dose: 50 mg Olanzapine (Zyprexa Tab*) 20 mg PO BEDTIME [facility] Last Admin: 06/17/16 21:05 Dose: 20 mg Venlafaxine HCl (Effexor Xr Cap*) 300 mg PO DAILY [facility] Last Admin: 06/18/16 11:14 Dose: 300 mg Vital Signs 06/17/16 06/17/16 06/17/16 15:11 19:18 19:49 Temperature 97.4 F 97.3 F Pulse Rate 78 82 Respiratory 17 19 19 Rate Blood Pressure 116/64 107/67 (mmHg) O2 Sat by Pulse 99 100 Oximetry 06/17/16 06/18/16 06/18/16 23:44 02:57 07:32 Temperature 97.9 F 98.4 F 97.9 F Pulse Rate 72 24 77 Respiratory 18 16 20 Rate Blood Pressure 100/56 115/70 107/65 (mmHg) O2 Sat by Pulse 100 95 95 Oximetry 06/18/16 06/18/16 08:00 11:37 Temperature Pulse Rate 80 Respiratory 18 18 Rate Blood Pressure 125/73 (mmHg) O2 Sat by Pulse 100 Oximetry Oxygen Devices in Use Now: Nasal Cannula - at 2l Appearance: 51 yo F in nAD, AAOx3, poor historian Eyes: No Scleral Icterus, PERRLA Ears/Nose/Mouth/Throat: NL Teeth, Lips, Gums, Mucous Membranes Moist Neck: NL Appearance and Movements; NL JVP, Trachea Midline Respiratory: Symmetrical Chest Expansion and Respiratory Effort, Clear to Auscultation Cardiovascular: NL Sounds; No Murmurs; No JVD, RRR Abdominal: NL Sounds; No Tenderness; No Distention Lymphatic: No Cervical Adenopathy Extremities: No Clubbing, Cyanosis, - - +2 pitting pedal edema Skin: No Nodules or Sclerosis, - - eschar on nose Neurological: Alert and Oriented x 3, NL Muscle Strength and Tone Result Diagrams: 06/16/16 18:00 06/18/16 07:17 Additional Lab and Data: Lab Results 06/16/16 06/16/16 06/16/16 Range/Units 18:00 18:00 18:00 WBC 6.0 (3.5-10.8) 10^3/ul RBC 4.20 (4.0-5.4) 10^6/ul Hgb 11.0 L (12.0-16.0) g/dl Hct 35 (35-47) % MCV 83 (80-97) fL MCH 26 L (27-31) pg MCHC 32 (31-36) g/dl RDW 17 H (10.5-15) % Plt Count 174 (150-450) 10^3/ul MPV 9 (7.4-10.4) um3 Neut % (Auto) 55.8 (38-83) % Lymph % (Auto) 28.8 (25-47) % [place] % (Auto) 11.1 H (1-9) % Eos % (Auto) 3.6 (0-6) % Baso % (Auto) 0.7 (0-2) % Absolute Neuts (auto) 3.3 (1.5-7.7) 10^3/ul Absolute Lymphs (auto) 1.7 (1.0-4.8) 10^3/ul Absolute Monos (auto) 0.7 (0-0.8) 10^3/ul Absolute Eos (auto) 0.2 (0-0.6) 10^3/ul Absolute Basos (auto) 0 (0-0.2) 10^3/ul Absolute Nucleated RBC 0.01 10^3/ul Nucleated RBC % 0.1 D-Dimer, Quantitative (Less Than 230) ng/mL Sodium 135 (133-145) mmol/L Potassium 3.4 L (3.5-5.0) mmol/L Chloride 100 L (101-111) mmol/L Carbon Dioxide 30 (22-32) mmol/L Anion Gap 5 (2-11) mmol/L BUN 14 (6-24) mg/dL Creatinine 1.16 H (0.51-0.95) mg/dL Est GFR ( Amer) 63.6 (>60) Est GFR (Non-Af Amer) 49.5 (>60) BUN/Creatinine Ratio 12.1 (8-20) Glucose 146 H (70-100) mg/dL Lactic Acid 1.7 (0.5-2.0) mmol/L Calcium 8.9 (8.6-10.3) mg/dL Total Bilirubin 1.20 H (0.2-1.0) mg/dL AST 13 (13-39) U/L ALT 8 (7-52) U/L Alkaline Phosphatase 139 H (34-104) U/L Troponin I 0.01 (<0.04) ng/mL B-Natriuretic Peptide ( - 100) pg/mL Total Protein 6.8 (6.4-8.9) g/dL Albumin 3.4 (3.2-5.2) g/dL Globulin 3.4 (2-4) g/dL Albumin/Globulin Ratio 1.0 (1-3) 06/16/16 06/16/16 Range/Units 18:00 18:00 WBC (3.5-10.8) 10^3/ul RBC (4.0-5.4) 10^6/ul Hgb (12.0-16.0) g/dl Hct (35-47) % MCV (80-97) fL MCH (27-31) pg MCHC (31-36) g/dl RDW (10.5-15) % Plt Count (150-450) 10^3/ul MPV (7.4-10.4) um3 Neut % (Auto) (38-83) % Lymph % (Auto) (25-47) % [place] % (Auto) (1-9) % Eos % (Auto) (0-6) % Baso % (Auto) (0-2) % Absolute Neuts (auto) (1.5-7.7) 10^3/ul Absolute Lymphs (auto) (1.0-4.8) 10^3/ul Absolute Monos (auto) (0-0.8) 10^3/ul Absolute Eos (auto) (0-0.6) 10^3/ul Absolute Basos (auto) (0-0.2) 10^3/ul Absolute Nucleated RBC 10^3/ul Nucleated RBC % D-Dimer, Quantitative 487 H (Less Than 230) ng/mL Sodium (133-145) mmol/L Potassium (3.5-5.0) mmol/L Chloride (101-111) mmol/L Carbon Dioxide (22-32) mmol/L Anion Gap (2-11) mmol/L BUN (6-24) mg/dL Creatinine (0.51-0.95) mg/dL Est GFR ( Amer) (>60) Est GFR (Non-Af Amer) (>60) BUN/Creatinine Ratio (8-20) Glucose (70-100) mg/dL Lactic Acid (0.5-2.0) mmol/L Calcium (8.6-10.3) mg/dL Total Bilirubin (0.2-1.0) mg/dL AST (13-39) U/L ALT (7-52) U/L Alkaline Phosphatase (34-104) U/L Troponin I (<0.04) ng/mL B-Natriuretic Peptide 268 H ( - 100) pg/mL Total Protein (6.4-8.9) g/dL Albumin (3.2-5.2) g/dL Globulin (2-4) g/dL Albumin/Globulin Ratio (1-3) Assess/Plan/Problems-Billing Assessment: Ms Thao is a 51 yo F who has a h/o HTN, hyperlipidemia, type II DM , CAD, and hypothyroidism who presented to the ER with c/o leg edema and SOB with acute CHF - Patient Problems (1) Acute systolic (congestive) heart failure Comment: on chronic CHF. H/o low EF, Echo poor quality, unable to estimate EF. cont daily weights and IV Lasix. Pt has limited understanding of her castro issues and may not be able to follow with recommendations to check her weight daily. SW consult pending (2) CAD (coronary artery disease) Comment: Records from the patient's photo engraver reveal she had a stent to her LAD 10/2015 when she presented with an anterior wall STEMI to [facility]. She was found to have single vessel CAD based on cath and she had a drug eluting stent placed. She was hospitalized 01/13/16-01/20/16 for an acute on chronic congestive heart failure exacerbation. Echo from that admission showed an EF of 30-35% with the mid-distal anterior septum and entire apex are severely hypokinetic. Diastolic function was also moderately impaired. - No further work up indicated at this time. cont ASA/Plavix, statin (3) Falls Comment: - Chronic issue per previous records. Continue PT/nursing mobilization. (4) Hypothyroidism Comment: TSH high. will increase synthroid from 50 to 75 mcg. (5) HTN (hypertension) Comment: Continue Metoprolol, controlled (6) Type II diabetes mellitus Comment: Glipizide held at admission cont Lantus and Lispro SS. (7) DVT prophylaxis Comment: - SQ heparin. Status and Disposition: inpatient, cont IV diuresis for CHF
[2016-06-18] MEDS: Atorvastatin* 40 MG TAB PO SCH (21:07)
[2016-06-18] MEDS: OLANzapine TAB* 10 MG PO SCH (21:07)
[2016-06-19] MEDS: Heparin VIAL(*) 5000 UNITS/ML VIAL (FIVE THOUSAND) SUBCUT SCH ×3 (05:27→21:23)
[2016-06-19] MEDS: Insulin GLARGINE(*) 1 UNITS UNIT SUBCUT SCH (05:27)
[2016-06-19] MEDS: Levothyroxine TAB* 75 MCG TAB PO SCH (05:27)
[2016-06-19 06:41] LABS: BUN/Creatinine Ratio 15.5 (8-20); EGFR African American 72.9 (>60); EGFR Non-African American 56.7 (>60); Potassium 3.5 mmol/L (3.5-5.0)
[2016-06-19] MEDS: Insulin LISPRO* 1 UNITS UNIT SUBCUT SCH ×4 (08:28→21:22)
[2016-06-19] MEDS: Furosemide IV* 10 MG/ML VIAL (40 MG) IV SLOW PU SCH ×2 (08:51→17:10)
[2016-06-19] MEDS: Amantadine CAP* 100 MG PO SCH (08:51)
[2016-06-19] MEDS: Aspirin EC Low Dose* 81 MG TAB.EC PO SCH (08:51)
[2016-06-19] MEDS: Metoprolol Tartrate TAB* 50 mg PO SCH ×2 (08:52→21:22)
[2016-06-19] MEDS: Clopidogrel TAB* 75 MG PO SCH (08:52)
[2016-06-19] MEDS: Venlafaxine EXT RELEASE CAP* 75 MG PO SCH (08:52)
[2016-06-19] MEDS: Ferrous Sulfate TAB* 325 MG PO SCH (08:52)
--- NOTE | 2016-06-19 14:56 | PN ---
Subjective Date of Service: 06/19/16 Interval History: Pt accidentally took off her 02 and became quite dyspneic. overall feels well. Leg edema slowly improving Objective Active Medications: Acetaminophen (Tylenol Tab*) 650 mg PO Q6HR PRN PRN Reason: FEVER/PAIN Last Admin: 06/18/16 00:51 Dose: 650 mg Amantadine HCl (Symmetrel Cap*) 100 mg PO DAILY [facility] Last Admin: 06/19/16 08:51 Dose: 100 mg Aspirin (Aspirin Ec Low Dose*) 81 mg PO DAILY [facility] Last Admin: 06/19/16 08:51 Dose: 81 mg Atorvastatin Calcium (Lipitor*) 40 mg PO BEDTIME [facility] Last Admin: 06/18/16 21:07 Dose: 40 mg Clopidogrel Bisulfate (Plavix Tab*) 75 mg PO DAILY [facility] Last Admin: 06/19/16 08:52 Dose: 75 mg Dextrose (D50w Syringe 50 Ml*) 12.5 gm IV PUSH .FOR FS < 60 - SS PRN PRN Reason: FS < 60 Ferrous Sulfate (Ferrous Sulfate Tab*) 325 mg PO DAILY [facility] Last Admin: 06/19/16 08:52 Dose: 325 mg Furosemide (Lasix Iv*) 60 mg IV SLOW PU 0800,1700 [facility] Last Admin: 06/19/16 08:51 Dose: 60 mg Heparin Sodium (Porcine) (Heparin Vial(*)) 5,000 units SUBCUT Q8HR [facility] Last Admin: 06/19/16 14:33 Dose: 5,000 units Insulin Glargine (Lantus(*)) 8 units SUBCUT Q24H [facility] Insulin Human Lispro (Humalog*) 0 units SUBCUT ACHS [facility] PRN Reason: Protocol Last Admin: 06/19/16 12:53 Dose: 3 units Levothyroxine Sodium (Synthroid Tab*) 75 mcg PO DAILY@0600 [facility] Last Admin: 06/19/16 05:27 Dose: 75 mcg Metoprolol Tartrate (Lopressor Tab*) 50 mg PO BID [facility] Last Admin: 06/19/16 08:52 Dose: 50 mg Olanzapine (Zyprexa Tab*) 20 mg PO BEDTIME [facility] Last Admin: 06/18/16 21:07 Dose: 20 mg Venlafaxine HCl (Effexor Xr Cap*) 300 mg PO DAILY [facility] Last Admin: 06/19/16 08:52 Dose: 300 mg Vital Signs 06/18/16 06/18/16 06/18/16 15:04 19:28 20:00 Temperature 97.7 F 96.5 F Pulse Rate 76 79 Respiratory 20 18 18 Rate Blood Pressure 108/68 121/71 (mmHg) O2 Sat by Pulse 94 93 Oximetry 06/18/16 06/19/16 06/19/16 23:47 03:31 07:31 Temperature 98.2 F 98.3 F Pulse Rate 76 72 76 Respiratory 18 Rate Blood Pressure 105/59 103/67 127/66 (mmHg) O2 Sat by Pulse 98 98 79 Oximetry 06/19/16 06/19/16 06/19/16 08:00 08:02 11:22 Temperature 97.8 F Pulse Rate 79 72 Respiratory 20 18 Rate Blood Pressure 125/75 (mmHg) O2 Sat by Pulse 95 95 71 Oximetry 06/19/16 12:07 Temperature Pulse Rate Respiratory Rate Blood Pressure (mmHg) O2 Sat by Pulse 97 Oximetry Oxygen Devices in Use Now: Nasal Cannula - at 2l Appearance: 51 yo F in nAd, aAOx3, poor historian Eyes: No Scleral Icterus, PERRLA Ears/Nose/Mouth/Throat: NL Teeth, Lips, Gums, Mucous Membranes Moist Neck: NL Appearance and Movements; NL JVP, Trachea Midline Respiratory: Symmetrical Chest Expansion and Respiratory Effort, Clear to Auscultation, - - crackles at b/l bases Cardiovascular: NL Sounds; No Murmurs; No JVD, RRR Lymphatic: No Cervical Adenopathy Extremities: No Clubbing, Cyanosis, - - entire b/l LE edema +2 Skin: No Nodules or Sclerosis, - - eschar on nose Neurological: Alert and Oriented x 3, NL Muscle Strength and Tone Result Diagrams: 06/16/16 18:00 06/19/16 05:27 Additional Lab and Data: Lab Results 06/16/16 06/16/16 06/16/16 Range/Units 18:00 18:00 18:00 WBC 6.0 (3.5-10.8) 10^3/ul RBC 4.20 (4.0-5.4) 10^6/ul Hgb 11.0 L (12.0-16.0) g/dl Hct 35 (35-47) % MCV 83 (80-97) fL MCH 26 L (27-31) pg MCHC 32 (31-36) g/dl RDW 17 H (10.5-15) % Plt Count 174 (150-450) 10^3/ul MPV 9 (7.4-10.4) um3 Neut % (Auto) 55.8 (38-83) % Lymph % (Auto) 28.8 (25-47) % Lyman % (Auto) 11.1 H (1-9) % Eos % (Auto) 3.6 (0-6) % Baso % (Auto) 0.7 (0-2) % Absolute Neuts (auto) 3.3 (1.5-7.7) 10^3/ul Absolute Lymphs (auto) 1.7 (1.0-4.8) 10^3/ul Absolute Monos (auto) 0.7 (0-0.8) 10^3/ul Absolute Eos (auto) 0.2 (0-0.6) 10^3/ul Absolute Basos (auto) 0 (0-0.2) 10^3/ul Absolute Nucleated RBC 0.01 10^3/ul Nucleated RBC % 0.1 D-Dimer, Quantitative (Less Than 230) ng/mL Sodium 135 (133-145) mmol/L Potassium 3.4 L (3.5-5.0) mmol/L Chloride 100 L (101-111) mmol/L Carbon Dioxide 30 (22-32) mmol/L Anion Gap 5 (2-11) mmol/L BUN 14 (6-24) mg/dL Creatinine 1.16 H (0.51-0.95) mg/dL Est GFR ( Amer) 63.6 (>60) Est GFR (Non-Af Amer) 49.5 (>60) BUN/Creatinine Ratio 12.1 (8-20) Glucose 146 H (70-100) mg/dL Lactic Acid 1.7 (0.5-2.0) mmol/L Calcium 8.9 (8.6-10.3) mg/dL Total Bilirubin 1.20 H (0.2-1.0) mg/dL AST 13 (13-39) U/L ALT 8 (7-52) U/L Alkaline Phosphatase 139 H (34-104) U/L Troponin I 0.01 (<0.04) ng/mL B-Natriuretic Peptide ( - 100) pg/mL Total Protein 6.8 (6.4-8.9) g/dL Albumin 3.4 (3.2-5.2) g/dL Globulin 3.4 (2-4) g/dL Albumin/Globulin Ratio 1.0 (1-3) 06/16/16 06/16/16 Range/Units 18:00 18:00 WBC (3.5-10.8) 10^3/ul RBC (4.0-5.4) 10^6/ul Hgb (12.0-16.0) g/dl Hct (35-47) % MCV (80-97) fL MCH (27-31) pg MCHC (31-36) g/dl RDW (10.5-15) % Plt Count (150-450) 10^3/ul MPV (7.4-10.4) um3 Neut % (Auto) (38-83) % Lymph % (Auto) (25-47) % Lyman % (Auto) (1-9) % Eos % (Auto) (0-6) % Baso % (Auto) (0-2) % Absolute Neuts (auto) (1.5-7.7) 10^3/ul Absolute Lymphs (auto) (1.0-4.8) 10^3/ul Absolute Monos (auto) (0-0.8) 10^3/ul Absolute Eos (auto) (0-0.6) 10^3/ul Absolute Basos (auto) (0-0.2) 10^3/ul Absolute Nucleated RBC 10^3/ul Nucleated RBC % D-Dimer, Quantitative 487 H (Less Than 230) ng/mL Sodium (133-145) mmol/L Potassium (3.5-5.0) mmol/L Chloride (101-111) mmol/L Carbon Dioxide (22-32) mmol/L Anion Gap (2-11) mmol/L BUN (6-24) mg/dL Creatinine (0.51-0.95) mg/dL Est GFR ( Amer) (>60) Est GFR (Non-Af Amer) (>60) BUN/Creatinine Ratio (8-20) Glucose (70-100) mg/dL Lactic Acid (0.5-2.0) mmol/L Calcium (8.6-10.3) mg/dL Total Bilirubin (0.2-1.0) mg/dL AST (13-39) U/L ALT (7-52) U/L Alkaline Phosphatase (34-104) U/L Troponin I (<0.04) ng/mL B-Natriuretic Peptide 268 H ( - 100) pg/mL Total Protein (6.4-8.9) g/dL Albumin (3.2-5.2) g/dL Globulin (2-4) g/dL Albumin/Globulin Ratio (1-3) Assess/Plan/Problems-Billing Assessment: Ms Thao is a 51 yo F who has a h/o HTN, hyperlipidemia, type II DM , CAD, and hypothyroidism who presented to the ER with c/o leg edema and SOB with acute CHF - Patient Problems (1) Acute systolic (congestive) heart failure Comment: on chronic CHF. H/o low EF, Echo poor quality, unable to estimate EF. cont daily weights and IV Lasix. Pt has limited understanding of her castro issues and may not be able to follow with recommendations . apparently a resident of [facility] where they will be able to to follow recommendations to check weight daily (2) CAD (coronary artery disease) Comment: Records from the patient's cad application support specialist reveal she had a stent to her LAD 10/2015 when she presented with an anterior wall STEMI to [facility]. She was found to have single vessel CAD based on cath and she had a drug eluting stent placed. She was hospitalized 01/13/16-01/20/16 for an acute on chronic congestive heart failure exacerbation. Echo from that admission showed an EF of 30-35% with the mid-distal anterior septum and entire apex are severely hypokinetic. Diastolic function was also moderately impaired. - No further work up indicated at this time. cont ASA/Plavix, statin (3) Falls Comment: - Chronic issue per previous records. Continue PT/nursing mobilization. (4) Hypothyroidism Comment: TSH high. Synthroid from 50 to 75 mcg on 06/18/16 (5) HTN (hypertension) Comment: Continue Metoprolol, controlled (6) Type II diabetes mellitus Comment: Glipizide held at admission cont Lantus (due to BG at 52 this AM, will lower the dose to 8 U from 10) cont Lispro SS. (7) DVT prophylaxis Comment: - SQ heparin. Status and Disposition: inpatient, cont IV diuresis for CHF
[2016-06-19] MEDS: Atorvastatin* 40 MG TAB PO SCH (21:21)
[2016-06-19] MEDS: OLANzapine TAB* 10 MG PO SCH (21:22)
[2016-06-20] MEDS: Levothyroxine TAB* 75 MCG TAB PO SCH (05:55)
[2016-06-20] MEDS: Heparin VIAL(*) 5000 UNITS/ML VIAL (FIVE THOUSAND) SUBCUT SCH ×3 (05:55→20:33)
[2016-06-20] MEDS: Insulin LISPRO* 1 UNITS UNIT SUBCUT SCH ×4 (07:14→20:33)
[2016-06-20] MEDS: Aspirin EC Low Dose* 81 MG TAB.EC PO SCH (07:25)
[2016-06-20] MEDS: Venlafaxine EXT RELEASE CAP* 75 MG PO SCH (07:26)
[2016-06-20] MEDS: Amantadine CAP* 100 MG PO SCH (07:27)
[2016-06-20] MEDS: Clopidogrel TAB* 75 MG PO SCH (07:27)
[2016-06-20] MEDS: Metoprolol Tartrate TAB* 50 mg PO SCH ×2 (07:27→20:32)
[2016-06-20] MEDS: Ferrous Sulfate TAB* 325 MG PO SCH (07:27)
[2016-06-20] MEDS: Furosemide IV* 10 MG/ML VIAL (40 MG) IV SLOW PU SCH ×2 (07:28→16:08)
[2016-06-20] MEDS: Insulin GLARGINE(*) 1 UNITS UNIT SUBCUT SCH (08:44)
--- NOTE | 2016-06-20 11:30 | PN ---
Subjective Date of Service: 06/20/16 Interval History: Patient seen this morning. Says she feels SOB after just returning from the bathroom. Notes edema is asymmetric as she lays on her R side at all times. Thinks LE edema is about the same. Family History: Unchanged from Admission Social History: Unchanged from Admission Past Medical History: Unchanged from Admission Objective Active Medications: Acetaminophen (Tylenol Tab*) 650 mg PO Q6HR PRN Amantadine HCl (Symmetrel Cap*) 100 mg PO DAILY [facility] Aspirin (Aspirin Ec Low Dose*) 81 mg PO DAILY [facility] Atorvastatin Calcium (Lipitor*) 40 mg PO BEDTIME [facility] Clopidogrel Bisulfate (Plavix Tab*) 75 mg PO DAILY [facility] Dextrose (D50w Syringe 50 Ml*) 12.5 gm IV PUSH .FOR FS < 60 - SS PRN Ferrous Sulfate (Ferrous Sulfate Tab*) 325 mg PO DAILY [facility] Furosemide (Lasix Iv*) 60 mg IV SLOW PU 0800,1700 [facility] Heparin Sodium (Porcine) (Heparin Vial(*)) 5,000 units SUBCUT Q8HR [facility] Insulin Glargine (Lantus(*)) 8 units SUBCUT Q24H [facility] Insulin Human Lispro (Humalog*) 0 units SUBCUT ACHS [facility] Levothyroxine Sodium (Synthroid Tab*) 75 mcg PO DAILY@0600 [facility] Metoprolol Tartrate (Lopressor Tab*) 50 mg PO BID [facility] Olanzapine (Zyprexa Tab*) 20 mg PO BEDTIME [facility] Venlafaxine HCl (Effexor Xr Cap*) 300 mg PO DAILY [facility] Vital Signs 06/19/16 06/19/16 06/19/16 12:07 15:12 19:41 Temperature 97.5 F 98.2 F Pulse Rate 74 77 Respiratory 26 16 Rate Blood Pressure 106/81 127/84 (mmHg) O2 Sat by Pulse 97 100 93 Oximetry 06/19/16 06/19/16 06/20/16 20:00 23:24 03:23 Temperature 97.8 F 98.2 F Pulse Rate 79 75 Respiratory 16 22 18 Rate Blood Pressure 115/63 149/85 (mmHg) O2 Sat by Pulse 99 97 Oximetry 06/20/16 06/20/16 06:41 07:23 Temperature 98.1 F Pulse Rate 77 Respiratory 18 18 Rate Blood Pressure 134/80 (mmHg) O2 Sat by Pulse 98 Oximetry Oxygen Devices in Use Now: None Appearance: Middle-aged, obese, F, laying in bed in mild distress Eyes: No Scleral Icterus Ears/Nose/Mouth/Throat: Mucous Membranes Moist Neck: NL Appearance and Movements; NL JVP Respiratory: Symmetrical Chest Expansion and Respiratory Effort, - - Diminshed BS in B/L bases Cardiovascular: NL Sounds; No Murmurs; No JVD, RRR Abdominal: - - Tense edema, BS+, no tenderness to palpation Lymphatic: No Cervical Adenopathy Extremities: - - Tense B/L LE edema to below knees Skin: No Rash or Ulcers Neurological: Alert and Oriented x 3 Result Diagrams: 06/16/16 18:00 06/19/16 05:27 Assess/Plan/Problems-Billing Assessment: Ms Thao is a 51 yo F who has a h/o HTN, hyperlipidemia, type II DM , CAD, and hypothyroidism who presented to the ER with c/o leg edema and SOB with acute CHF - Patient Problems (1) Acute systolic (congestive) heart failure Current Visit: Yes Comment: on chronic CHF. H/o low EF, Echo poor quality, unable to estimate EF. cont daily weights and IV Lasix 60 mg BID Has had significant weight gain from 04/2016 Pt has limited understanding of her castro issues and may not be able to follow with recommendations . 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 She was found to have single vessel CAD based on cath and she had a drug eluting stent placed. She was hospitalized 01/13/16-01/20/16 for an acute on chronic congestive heart failure exacerbation. Echo from that admission showed an EF of 30-35% with the mid-distal anterior septum and entire apex are severely hypokinetic. Diastolic function was also moderately impaired. - No further work up indicated at this time. cont ASA/Plavix, statin (3) Falls Current Visit: No Comment: - Chronic issue per previous records. Continue PT/ nursing mobilization. (4) HTN (hypertension) Current Visit: No Comment: Continue Metoprolol, controlled (5) Hypothyroidism Current Visit: No Comment: TSH high. Synthroid from 50 to 75 mcg on 06/18/16 (6) Type II diabetes mellitus Current Visit: No Comment: Glipizide held at admission cont Lantus 8 units cont Lispro SS. (7) DVT prophylaxis Current Visit: No Comment: - SQ heparin. Status and Disposition: inpatient, cont IV diuresis for CHF
[2016-06-20] MEDS: Atorvastatin* 40 MG TAB PO SCH (20:32)
[2016-06-20] MEDS: OLANzapine TAB* 10 MG PO SCH (20:33)
[2016-06-20] MEDS: Acetaminophen TAB* 325 MG PO PRN (22:36)
[2016-06-21] MEDS: Levothyroxine TAB* 75 MCG TAB PO SCH (05:46)
[2016-06-21] MEDS: Heparin VIAL(*) 5000 UNITS/ML VIAL (FIVE THOUSAND) SUBCUT SCH ×3 (05:46→20:35)
[2016-06-21 07:29] LABS: EGFR African American 69.8 (>60); EGFR Non-African American 54.3 (>60); Potassium 3.5 mmol/L (3.5-5.0)
[2016-06-21] MEDS: Insulin LISPRO* 1 UNITS UNIT SUBCUT SCH ×4 (07:53→20:02)
[2016-06-21] MEDS: Ferrous Sulfate TAB* 325 MG PO SCH (08:12)
[2016-06-21] MEDS: Metoprolol Tartrate TAB* 50 mg PO SCH ×2 (08:12→20:01)
[2016-06-21] MEDS: Venlafaxine EXT RELEASE CAP* 75 MG PO SCH (08:12)
[2016-06-21] MEDS: Amantadine CAP* 100 MG PO SCH (08:12)
[2016-06-21] MEDS: Aspirin EC Low Dose* 81 MG TAB.EC PO SCH (08:12)
[2016-06-21] MEDS: Insulin GLARGINE(*) 1 UNITS UNIT SUBCUT SCH (08:13)
[2016-06-21] MEDS: Furosemide IV* 10 MG/ML VIAL (40 MG) IV SLOW PU SCH ×2 (08:13→18:02)
[2016-06-21] MEDS: Clopidogrel TAB* 75 MG PO SCH (08:13)
--- NOTE | 2016-06-21 13:25 | PN ---
Subjective Date of Service: 06/21/16 Interval History: Patient seen early afternoon. Says she has noted improvement in LE edema. Feels that she has been urinating frequently. Still gets [place] to bathroom and back. Family History: Unchanged from Admission Social History: Unchanged from Admission Past Medical History: Unchanged from Admission Objective Active Medications: Acetaminophen (Tylenol Tab*) 650 mg PO Q6HR PRN Amantadine HCl (Symmetrel Cap*) 100 mg PO DAILY [facility] Aspirin (Aspirin Ec Low Dose*) 81 mg PO DAILY [facility] Atorvastatin Calcium (Lipitor*) 40 mg PO BEDTIME [facility] Clopidogrel Bisulfate (Plavix Tab*) 75 mg PO DAILY [facility] Dextrose (D50w Syringe 50 Ml*) 12.5 gm IV PUSH .FOR FS < 60 - SS PRN Ferrous Sulfate (Ferrous Sulfate Tab*) 325 mg PO DAILY [facility] Furosemide (Lasix Iv*) 60 mg IV SLOW PU 0800,1700 [facility] Heparin Sodium (Porcine) (Heparin Vial(*)) 5,000 units SUBCUT Q8HR [facility] Insulin Glargine (Lantus(*)) 8 units SUBCUT Q24H [facility] Insulin Human Lispro (Humalog*) 0 units SUBCUT ACHS [facility] Levothyroxine Sodium (Synthroid Tab*) 75 mcg PO DAILY@0600 [facility] Metoprolol Tartrate (Lopressor Tab*) 50 mg PO BID [facility] Olanzapine (Zyprexa Tab*) 20 mg PO BEDTIME [facility] Venlafaxine HCl (Effexor Xr Cap*) 300 mg PO DAILY [facility] Vital Signs 06/20/16 06/20/16 06/21/16 15:36 20:00 00:22 Temperature 97.6 F 97.4 F Pulse Rate 75 73 Respiratory 16 22 Rate Blood Pressure 102/72 108/59 (mmHg) O2 Sat by Pulse 98 100 Oximetry 06/21/16 00:50 Temperature 97.4 F Pulse Rate 73 Respiratory 22 Rate Blood Pressure 108/59 (mmHg) O2 Sat by Pulse 100 Oximetry Oxygen Devices in Use Now: None Appearance: Middle-aged, obese, F, laying in bed in NAD Eyes: No Scleral Icterus Ears/Nose/Mouth/Throat: Mucous Membranes Moist Neck: NL Appearance and Movements; NL JVP Respiratory: Symmetrical Chest Expansion and Respiratory Effort, - - Diminshed BS in bases Cardiovascular: NL Sounds; No Murmurs; No JVD, RRR Abdominal: - - Tense edema in abdomen, soft, non-tender, BS+ Lymphatic: No Cervical Adenopathy Extremities: - - tense B/L LE edema, seems to be some improvement Skin: No Rash or Ulcers Neurological: Alert and Oriented x 3 Result Diagrams: 06/16/16 18:00 06/21/16 06:17 Additional Lab and Data: Lab Results 06/16/16 06/16/16 06/16/16 Range/Units 18:00 18:00 18:00 WBC 6.0 (3.5-10.8) 10^3/ul RBC 4.20 (4.0-5.4) 10^6/ul Hgb 11.0 L (12.0-16.0) g/dl Hct 35 (35-47) % MCV 83 (80-97) fL MCH 26 L (27-31) pg MCHC 32 (31-36) g/dl RDW 17 H (10.5-15) % Plt Count 174 (150-450) 10^3/ul MPV 9 (7.4-10.4) um3 Neut % (Auto) 55.8 (38-83) % Lymph % (Auto) 28.8 (25-47) % Early % (Auto) 11.1 H (1-9) % Eos % (Auto) 3.6 (0-6) % Baso % (Auto) 0.7 (0-2) % Absolute Neuts (auto) 3.3 (1.5-7.7) 10^3/ul Absolute Lymphs (auto) 1.7 (1.0-4.8) 10^3/ul Absolute Monos (auto) 0.7 (0-0.8) 10^3/ul Absolute Eos (auto) 0.2 (0-0.6) 10^3/ul Absolute Basos (auto) 0 (0-0.2) 10^3/ul Absolute Nucleated RBC 0.01 10^3/ul Nucleated RBC % 0.1 D-Dimer, Quantitative (Less Than 230) ng/mL Sodium 135 (133-145) mmol/L Potassium 3.4 L (3.5-5.0) mmol/L Chloride 100 L (101-111) mmol/L Carbon Dioxide 30 (22-32) mmol/L Anion Gap 5 (2-11) mmol/L BUN 14 (6-24) mg/dL Creatinine 1.16 H (0.51-0.95) mg/dL Est GFR ( Amer) 63.6 (>60) Est GFR (Non-Af Amer) 49.5 (>60) BUN/Creatinine Ratio 12.1 (8-20) Glucose 146 H (70-100) mg/dL Lactic Acid 1.7 (0.5-2.0) mmol/L Calcium 8.9 (8.6-10.3) mg/dL Total Bilirubin 1.20 H (0.2-1.0) mg/dL AST 13 (13-39) U/L ALT 8 (7-52) U/L Alkaline Phosphatase 139 H (34-104) U/L Troponin I 0.01 (<0.04) ng/mL B-Natriuretic Peptide ( - 100) pg/mL Total Protein 6.8 (6.4-8.9) g/dL Albumin 3.4 (3.2-5.2) g/dL Globulin 3.4 (2-4) g/dL Albumin/Globulin Ratio 1.0 (1-3) 06/16/16 06/16/16 Range/Units 18:00 18:00 WBC (3.5-10.8) 10^3/ul RBC (4.0-5.4) 10^6/ul Hgb (12.0-16.0) g/dl Hct (35-47) % MCV (80-97) fL MCH (27-31) pg MCHC (31-36) g/dl RDW (10.5-15) % Plt Count (150-450) 10^3/ul MPV (7.4-10.4) um3 Neut % (Auto) (38-83) % Lymph % (Auto) (25-47) % Early % (Auto) (1-9) % Eos % (Auto) (0-6) % Baso % (Auto) (0-2) % Absolute Neuts (auto) (1.5-7.7) 10^3/ul Absolute Lymphs (auto) (1.0-4.8) 10^3/ul Absolute Monos (auto) (0-0.8) 10^3/ul Absolute Eos (auto) (0-0.6) 10^3/ul Absolute Basos (auto) (0-0.2) 10^3/ul Absolute Nucleated RBC 10^3/ul Nucleated RBC % D-Dimer, Quantitative 487 H (Less Than 230) ng/mL Sodium (133-145) mmol/L Potassium (3.5-5.0) mmol/L Chloride (101-111) mmol/L Carbon Dioxide (22-32) mmol/L Anion Gap (2-11) mmol/L BUN (6-24) mg/dL Creatinine (0.51-0.95) mg/dL Est GFR ( Amer) (>60) Est GFR (Non-Af Amer) (>60) BUN/Creatinine Ratio (8-20) Glucose (70-100) mg/dL Lactic Acid (0.5-2.0) mmol/L Calcium (8.6-10.3) mg/dL Total Bilirubin (0.2-1.0) mg/dL AST (13-39) U/L ALT (7-52) U/L Alkaline Phosphatase (34-104) U/L Troponin I (<0.04) ng/mL B-Natriuretic Peptide 268 H ( - 100) pg/mL Total Protein (6.4-8.9) g/dL Albumin (3.2-5.2) g/dL Globulin (2-4) g/dL Albumin/Globulin Ratio (1-3) Assess/Plan/Problems-Billing Assessment: Ms Thao is a 51 yo F who has a h/o HTN, hyperlipidemia, type II DM , CAD, and hypothyroidism who presented to the ER with c/o leg edema and SOB with acute CHF - Patient Problems (1) Acute systolic (congestive) heart failure Current Visit: Yes Comment: on chronic CHF. Has had significant weight gain from 04/2016 H/o low EF, Echo poor quality, unable to estimate EF. Weight down a bit today cont daily weights and IV Lasix 60 mg BID, strict I/Os. Creatinine stable Pt has limited understanding of her castro issues and may not be able to follow with recommendations . apparently a resident of [facility] where they will be able to to follow recommendations to check weight daily (2) CAD (coronary artery disease) Current Visit: Yes Comment: Records from the patient's reveal she had a stent to her LAD 10/2015 when she presented with an anterior wall STEMI to [facility]. She was found to have single vessel CAD based on cath and she had a drug eluting stent placed. She was hospitalized 01/13/16-01/20/16 for an acute on chronic congestive heart failure exacerbation. Echo from that admission showed an EF of 30-35% with the mid-distal anterior septum and entire apex are severely hypokinetic. Diastolic function was also moderately impaired. - No further work up indicated at this time. cont ASA/Plavix, statin (3) Falls Current Visit: No Comment: - Chronic issue per previous records. Continue PT/ nursing mobilization. (4) HTN (hypertension) Current Visit: No Comment: Continue Metoprolol, controlled (5) Hypothyroidism Current Visit: No Comment: TSH high. Synthroid from 50 to 75 mcg on 06/18/16 (6) Type II diabetes mellitus Current Visit: No Comment: Glipizide held at admission cont Lantus 8 units cont Lispro SS. (7) DVT prophylaxis Current Visit: No Comment: - SQ heparin. Status and Disposition: inpatient, cont IV diuresis for CHF
[2016-06-21] MEDS: Atorvastatin* 40 MG TAB PO SCH (20:00)
[2016-06-21] MEDS: Acetaminophen TAB* 325 MG PO PRN (20:00)
[2016-06-21] MEDS: OLANzapine TAB* 10 MG PO SCH (20:01)
[2016-06-22] MEDS: Levothyroxine TAB* 75 MCG TAB PO SCH (05:37)
[2016-06-22] MEDS: Heparin VIAL(*) 5000 UNITS/ML VIAL (FIVE THOUSAND) SUBCUT SCH ×3 (05:37→21:55)
[2016-06-22 07:16] LABS: BUN/Creatinine Ratio 15.2 (8-20); EGFR African American 71.3 (>60); EGFR Non-African American 55.5 (>60); Potassium 3.7 mmol/L (3.5-5.0)
[2016-06-22] MEDS: Furosemide IV* 10 MG/ML VIAL (40 MG) IV SLOW PU SCH ×2 (07:42→17:47)
[2016-06-22] MEDS: Insulin LISPRO* 1 UNITS UNIT SUBCUT SCH ×4 (07:43→21:55)
[2016-06-22] MEDS: Metolazone TAB* 5 MG PO SCH (08:54)
[2016-06-22] MEDS: Clopidogrel TAB* 75 MG PO SCH (08:54)
[2016-06-22] MEDS: Aspirin EC Low Dose* 81 MG TAB.EC PO SCH (08:54)
[2016-06-22] MEDS: Ferrous Sulfate TAB* 325 MG PO SCH (08:54)
[2016-06-22] MEDS: Metoprolol Tartrate TAB* 50 mg PO SCH ×2 (08:55→21:52)
[2016-06-22] MEDS: Venlafaxine EXT RELEASE CAP* 75 MG PO SCH (08:55)
[2016-06-22] MEDS: Insulin GLARGINE(*) 1 UNITS UNIT SUBCUT SCH (08:56)
--- NOTE | 2016-06-22 09:42 | PN ---
Subjective Date of Service: 06/22/16 Interval History: Patient seen this morning. Continues to have DE LA PAZ although feels like it is improving. Feels LE edema is also improving. Looks more comfortable today. Family History: Unchanged from Admission Social History: Unchanged from Admission Past Medical History: Unchanged from Admission Objective Active Medications: Acetaminophen (Tylenol Tab*) 650 mg PO Q6HR PRN Amantadine HCl (Symmetrel Cap*) 100 mg PO DAILY [facility] Aspirin (Aspirin Ec Low Dose*) 81 mg PO DAILY [facility] Atorvastatin Calcium (Lipitor*) 40 mg PO BEDTIME [facility] Clopidogrel Bisulfate (Plavix Tab*) 75 mg PO DAILY [facility] Dextrose (D50w Syringe 50 Ml*) 12.5 gm IV PUSH .FOR FS < 60 - SS PRN Ferrous Sulfate (Ferrous Sulfate Tab*) 325 mg PO DAILY [facility] Furosemide (Lasix Iv*) 60 mg IV SLOW PU 0800,1700 [facility] Heparin Sodium (Porcine) (Heparin Vial(*)) 5,000 units SUBCUT Q8HR [facility] Insulin Glargine (Lantus(*)) 8 units SUBCUT Q24H [facility] Insulin Human Lispro (Humalog*) 0 units SUBCUT ACHS [facility] Levothyroxine Sodium (Synthroid Tab*) 75 mcg PO DAILY@0600 [facility] Metolazone (Zaroxolyn Tab*) 5 mg PO DAILY [facility] Metoprolol Tartrate (Lopressor Tab*) 50 mg PO BID [facility] Olanzapine (Zyprexa Tab*) 20 mg PO BEDTIME [facility] Venlafaxine HCl (Effexor Xr Cap*) 300 mg PO DAILY [facility] Vital Signs 06/21/16 06/21/16 06/21/16 15:59 19:57 20:15 Temperature 97.3 F 97.9 F 97.3 F Pulse Rate 70 74 106 Respiratory 20 24 26 Rate Blood Pressure 107/62 127/65 148/91 (mmHg) O2 Sat by Pulse 99 99 86 Oximetry 06/21/16 06/21/16 06/21/16 20:42 21:52 22:46 Temperature 97.4 F 97.0 F 96.3 F Pulse Rate 72 65 67 Respiratory 16 24 16 Rate Blood Pressure 100/61 112/94 104/61 (mmHg) O2 Sat by Pulse 100 82 94 Oximetry 06/21/16 06/22/16 06/22/16 23:32 00:32 02:39 Temperature 97.3 F 97.4 F Pulse Rate 69 67 Respiratory 18 18 18 Rate Blood Pressure 109/76 103/71 (mmHg) O2 Sat by Pulse 98 99 Oximetry 06/22/16 06/22/16 06:34 07:33 Temperature 97.5 F Pulse Rate 71 68 Respiratory 20 18 Rate Blood Pressure 109/66 123/75 (mmHg) O2 Sat by Pulse 99 99 Oximetry Oxygen Devices in Use Now: None Appearance: Middle-aged, obese, F, laying in bed in NAD Eyes: No Scleral Icterus Ears/Nose/Mouth/Throat: Mucous Membranes Moist Neck: NL Appearance and Movements; NL JVP Respiratory: Symmetrical Chest Expansion and Respiratory Effort, - - Diminshed BS in bases Cardiovascular: NL Sounds; No Murmurs; No JVD, RRR Abdominal: NL Sounds; No Tenderness; No Distention Lymphatic: No Cervical Adenopathy Extremities: - - Diffuse tense edema to low back Neurological: Alert and Oriented x 3 Result Diagrams: 06/16/16 18:00 06/22/16 06:02 Additional Lab and Data: Lab Results 06/16/16 06/16/16 06/16/16 Range/Units 18:00 18:00 18:00 WBC 6.0 (3.5-10.8) 10^3/ul RBC 4.20 (4.0-5.4) 10^6/ul Hgb 11.0 L (12.0-16.0) g/dl Hct 35 (35-47) % MCV 83 (80-97) fL MCH 26 L (27-31) pg MCHC 32 (31-36) g/dl RDW 17 H (10.5-15) % Plt Count 174 (150-450) 10^3/ul MPV 9 (7.4-10.4) um3 Neut % (Auto) 55.8 (38-83) % Lymph % (Auto) 28.8 (25-47) % [place] % (Auto) 11.1 H (1-9) % Eos % (Auto) 3.6 (0-6) % Baso % (Auto) 0.7 (0-2) % Absolute Neuts (auto) 3.3 (1.5-7.7) 10^3/ul Absolute Lymphs (auto) 1.7 (1.0-4.8) 10^3/ul Absolute Monos (auto) 0.7 (0-0.8) 10^3/ul Absolute Eos (auto) 0.2 (0-0.6) 10^3/ul Absolute Basos (auto) 0 (0-0.2) 10^3/ul Absolute Nucleated RBC 0.01 10^3/ul Nucleated RBC % 0.1 D-Dimer, Quantitative (Less Than 230) ng/mL Sodium 135 (133-145) mmol/L Potassium 3.4 L (3.5-5.0) mmol/L Chloride 100 L (101-111) mmol/L Carbon Dioxide 30 (22-32) mmol/L Anion Gap 5 (2-11) mmol/L BUN 14 (6-24) mg/dL Creatinine 1.16 H (0.51-0.95) mg/dL Est GFR ( Amer) 63.6 (>60) Est GFR (Non-Af Amer) 49.5 (>60) BUN/Creatinine Ratio 12.1 (8-20) Glucose 146 H (70-100) mg/dL Lactic Acid 1.7 (0.5-2.0) mmol/L Calcium 8.9 (8.6-10.3) mg/dL Total Bilirubin 1.20 H (0.2-1.0) mg/dL AST 13 (13-39) U/L ALT 8 (7-52) U/L Alkaline Phosphatase 139 H (34-104) U/L Troponin I 0.01 (<0.04) ng/mL B-Natriuretic Peptide ( - 100) pg/mL Total Protein 6.8 (6.4-8.9) g/dL Albumin 3.4 (3.2-5.2) g/dL Globulin 3.4 (2-4) g/dL Albumin/Globulin Ratio 1.0 (1-3) 06/16/16 06/16/16 Range/Units 18:00 18:00 WBC (3.5-10.8) 10^3/ul RBC (4.0-5.4) 10^6/ul Hgb (12.0-16.0) g/dl Hct (35-47) % MCV (80-97) fL MCH (27-31) pg MCHC (31-36) g/dl RDW (10.5-15) % Plt Count (150-450) 10^3/ul MPV (7.4-10.4) um3 Neut % (Auto) (38-83) % Lymph % (Auto) (25-47) % Oxford % (Auto) (1-9) % Eos % (Auto) (0-6) % Baso % (Auto) (0-2) % Absolute Neuts (auto) (1.5-7.7) 10^3/ul Absolute Lymphs (auto) (1.0-4.8) 10^3/ul Absolute Monos (auto) (0-0.8) 10^3/ul Absolute Eos (auto) (0-0.6) 10^3/ul Absolute Basos (auto) (0-0.2) 10^3/ul Absolute Nucleated RBC 10^3/ul Nucleated RBC % D-Dimer, Quantitative 487 H (Less Than 230) ng/mL Sodium (133-145) mmol/L Potassium (3.5-5.0) mmol/L Chloride (101-111) mmol/L Carbon Dioxide (22-32) mmol/L Anion Gap (2-11) mmol/L BUN (6-24) mg/dL Creatinine (0.51-0.95) mg/dL Est GFR ( Amer) (>60) Est GFR (Non-Af Amer) (>60) BUN/Creatinine Ratio (8-20) Glucose (70-100) mg/dL Lactic Acid (0.5-2.0) mmol/L Calcium (8.6-10.3) mg/dL Total Bilirubin (0.2-1.0) mg/dL AST (13-39) U/L ALT (7-52) U/L Alkaline Phosphatase (34-104) U/L Troponin I (<0.04) ng/mL B-Natriuretic Peptide 268 H ( - 100) pg/mL Total Protein (6.4-8.9) g/dL Albumin (3.2-5.2) g/dL Globulin (2-4) g/dL Albumin/Globulin Ratio (1-3) Assess/Plan/Problems-Billing Assessment: Ms Thao is a 51 yo F who has a h/o HTN, hyperlipidemia, type II DM , CAD, and hypothyroidism who presented to the ER with c/o leg edema and SOB with acute CHF - Patient Problems (1) Acute systolic (congestive) heart failure Current Visit: Yes Comment: on chronic CHF. Has had significant weight gain from 04/2016 H/o low EF, Echo poor quality, unable to estimate EF. Weight trending down cont daily weights and IV Lasix 60 mg BID, will add metolazone 5 mg daily, strict I/Os. Creatinine stable Pt has limited understanding of her castro issues and may not be able to follow with recommendations . 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 She was found to have single vessel CAD based on cath and she had a drug eluting stent placed. She was hospitalized 01/13/16-01/20/16 for an acute on chronic congestive heart failure exacerbation. Echo from that admission showed an EF of 30-35% with the mid-distal anterior septum and entire apex are severely hypokinetic. Diastolic function was also moderately impaired. - No further work up indicated at this time. cont ASA/Plavix, statin (3) Falls Current Visit: No Comment: - Chronic issue per previous records. Continue PT/ nursing mobilization. (4) HTN (hypertension) Current Visit: No Comment: Continue Metoprolol, controlled (5) Hypothyroidism Current Visit: No Comment: TSH high. Synthroid from 50 to 75 mcg on 06/18/16 (6) Type II diabetes mellitus Current Visit: No Comment: Glipizide held at admission cont Lantus 8 units cont Lispro SS. (7) DVT prophylaxis Current Visit: No Comment: - SQ heparin. Status and Disposition: inpatient, cont IV diuresis for CHF
[2016-06-22] MEDS: Amantadine CAP* 100 MG PO SCH (09:50)
[2016-06-22] MEDS: Atorvastatin* 40 MG TAB PO SCH (21:52)
[2016-06-22] MEDS: OLANzapine TAB* 10 MG PO SCH (22:04)
[2016-06-23] MEDS: Levothyroxine TAB* 75 MCG TAB PO SCH (05:44)
[2016-06-23] MEDS: Heparin VIAL(*) 5000 UNITS/ML VIAL (FIVE THOUSAND) SUBCUT SCH ×2 (05:45→14:30)
[2016-06-23 07:38] LABS: BUN/Creatinine Ratio 14.7 (8-20); Calcium 9.2 mg/dL (8.6-10.3); EGFR African American 68.3 (>60); EGFR Non-African American 53.1 (>60); Potassium 3.6 mmol/L (3.5-5.0)
[2016-06-23] MEDS: Insulin GLARGINE(*) 1 UNITS UNIT SUBCUT SCH (09:03)
[2016-06-23] MEDS: Insulin LISPRO* 1 UNITS UNIT SUBCUT SCH ×2 (09:04→13:23)
[2016-06-23] MEDS: Amantadine CAP* 100 MG PO SCH (09:07)
[2016-06-23] MEDS: Venlafaxine EXT RELEASE CAP* 75 MG PO SCH (09:07)
[2016-06-23] MEDS: Metolazone TAB* 5 MG PO SCH (09:08)
[2016-06-23] MEDS: Clopidogrel TAB* 75 MG PO SCH (09:09)
[2016-06-23] MEDS: Aspirin EC Low Dose* 81 MG TAB.EC PO SCH (09:09)
[2016-06-23] MEDS: Ferrous Sulfate TAB* 325 MG PO SCH (09:09)
[2016-06-23] MEDS: Metoprolol Tartrate TAB* 50 mg PO SCH (09:16)
[2016-06-23] MEDS: Furosemide IV* 10 MG/ML VIAL (40 MG) IV SLOW PU SCH (10:41)
--- NOTE | 2016-06-23 13:03 | PN ---
Subjective Date of Service: 06/23/16 Interval History: Patient seen this afternoon. Feels like she has improved, not noticing DE LA PAZ any longer. Has been urinating frequently. No fever or chills, no cough. Family History: Unchanged from Admission Social History: Unchanged from Admission Past Medical History: Unchanged from Admission Objective Active Medications: Acetaminophen (Tylenol Tab*) 650 mg PO Q6HR PRN Amantadine HCl (Symmetrel Cap*) 100 mg PO DAILY [facility] Aspirin (Aspirin Ec Low Dose*) 81 mg PO DAILY [facility] Atorvastatin Calcium (Lipitor*) 40 mg PO BEDTIME [facility] Clopidogrel Bisulfate (Plavix Tab*) 75 mg PO DAILY [facility] Dextrose (D50w Syringe 50 Ml*) 12.5 gm IV PUSH .FOR FS < 60 - SS PRN Ferrous Sulfate (Ferrous Sulfate Tab*) 325 mg PO DAILY [facility] Furosemide (Lasix Iv*) 60 mg IV SLOW PU 0800,1700 [facility] Heparin Sodium (Porcine) (Heparin Vial(*)) 5,000 units SUBCUT Q8HR [facility] Insulin Glargine (Lantus(*)) 8 units SUBCUT Q24H [facility] Insulin Human Lispro (Humalog*) 0 units SUBCUT ACHS [facility] Levothyroxine Sodium (Synthroid Tab*) 75 mcg PO DAILY@0600 [facility] Metolazone (Zaroxolyn Tab*) 5 mg PO DAILY [facility] Metoprolol Tartrate (Lopressor Tab*) 50 mg PO BID [facility] Olanzapine (Zyprexa Tab*) 20 mg PO BEDTIME [facility] Venlafaxine HCl (Effexor Xr Cap*) 300 mg PO DAILY [facility] Vital Signs 06/22/16 06/22/16 06/22/16 15:49 20:00 21:52 Temperature 97.4 F Pulse Rate 69 73 Respiratory 20 18 Rate Blood Pressure 124/65 125/111 (mmHg) O2 Sat by Pulse 98 99 Oximetry 06/22/16 06/23/16 06/23/16 23:52 03:03 03:21 Temperature Pulse Rate 72 71 76 Respiratory 16 20 Rate Blood Pressure 105/50 99/52 102/59 (mmHg) O2 Sat by Pulse 98 94 Oximetry 06/23/16 07:37 Temperature 97.5 F Pulse Rate 143 Respiratory 18 Rate Blood Pressure 102/61 (mmHg) O2 Sat by Pulse 100 Oximetry Oxygen Devices in Use Now: None Appearance: Middle-aged, F, sitting in chair in NAD Eyes: No Scleral Icterus Ears/Nose/Mouth/Throat: Mucous Membranes Moist Neck: NL Appearance and Movements; NL JVP Respiratory: Symmetrical Chest Expansion and Respiratory Effort, Clear to Auscultation Cardiovascular: NL Sounds; No Murmurs; No JVD, RRR Abdominal: - - Tense abdomen, no tenderness, BS+ Lymphatic: No Cervical Adenopathy Extremities: - - Tense B/L LE edema, slowly improving Skin: No Rash or Ulcers Neurological: Alert and Oriented x 3 Result Diagrams: 06/16/16 18:00 06/23/16 06:48 Assess/Plan/Problems-Billing Assessment: Ms Thao is a 51 yo F who has a h/o HTN, hyperlipidemia, type II DM , CAD, and hypothyroidism who presented to the ER with c/o leg edema and SOB with acute CHF - Patient Problems (1) Acute systolic (congestive) heart failure Current Visit: Yes Comment: on chronic CHF. Has had significant weight gain from 04/2016 H/o low EF, Echo poor quality, unable to estimate EF. Weight trending down Check ambulatory O2 Consider discharge on Torsemide with addition of metolazone. strict I/Os. Creatinine stable Pt has limited understanding of her castro issues and may not be able to follow with recommendations . apparently a resident of [facility] where they will be able to to follow recommendations to check weight daily. 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 She was found to have single vessel CAD based on cath and she had a drug eluting stent placed. She was hospitalized 01/13/16-01/20/16 for an acute on chronic congestive heart failure exacerbation. Echo from that admission showed an EF of 30-35% with the mid-distal anterior septum and entire apex are severely hypokinetic. Diastolic function was also moderately impaired. - No further work up indicated at this time. cont ASA/Plavix, statin (3) Falls Current Visit: No Comment: - Chronic issue per previous records. Continue PT/ nursing mobilization. (4) HTN (hypertension) Current Visit: No Comment: Continue Metoprolol, controlled (5) Hypothyroidism Current Visit: No Comment: TSH high. Synthroid from 50 to 75 mcg on 06/18/16 (6) Type II diabetes mellitus Current Visit: No Comment: Glipizide held at admission cont Lantus 8 units cont Lispro SS. (7) DVT prophylaxis Current Visit: No Comment: - SQ heparin. Status and Disposition: inpatient, cont IV diuresis for CHF
--- NOTE | 2016-06-23 14:51 | DS ---
DATE OF ADMISSION: 06/16/2016. DATE OF DISCHARGE: 06/23/2016. Patient is a resident of [facility]. PRINCIPAL DISCHARGE DIAGNOSIS: CHF exacerbation. SECONDARY DIAGNOSES: Hypothyroidism, diabetes, hypertension, underlying psych diagnoses. STUDIES DONE DURING HOSPITALIZATION: 1. Chest x-ray: Impression: Cardiomegaly. No evidence for acute finding. 2. CTA chest, abdomen and pelvis with contrast: Impression: Limited study. No evidence for centr al pulmonary embolism. Mediastinal and right hilar lymphadenopathy. Findings suggestive of congest hunter heart failure. Moderate to large amount of ascites. Hepatosplenomegaly and hepatic steatosis. Anasarca. 3. Transthoracic echocardiogram: Conclusion: The left ventricular chamber size is normal. Mild c oncentric LVH. Probably at least mild to moderately decreased LV systolic function. This study is non-diagnostic due to poor endocardial visualization. The left atrium is mild to moderately dilated . The right ventricle is mildly dilated. The right ventricular global systolic function is mildly to moderately reduced. Mild to moderate tricuspid regurgitation. Mild pulmonary hypertension. No significant pericardial effusion. Previously EF from April 2016 was 35 to 40 percent. DISCHARGE MEDICATION REGIMEN: 1. Synthroid 75 mcg by mouth daily which is an increase in dose from 50. 2. Metolazone 5 mg by mouth 3 times weekly. 3. Tylenol 650 mg by mouth every 6 hours as needed for pain. 4. Amantadine one tablet by mouth daily. 5. Aspirin 81 mg by mouth daily. 6. Atorvastatin one tablet by mouth at bedtime. 7. Plavix one tablet by mouth daily. 8. Ferrous Sulfate 325 mg by mouth daily. 9. Metoprolol Tartrate one tablet by mouth 2 times daily. 10. Zyprexa two tablets by mouth at bedtime. 11. Effexor 300 mg by mouth daily. 12. Glipizide 2.5 mg by mouth daily. 13. Lantus 10 units subcutaneous daily. 14. Torsemide 20 mg by mouth 2 times daily. HISTORY OF PRESENT ILLNESS AND HOSPITAL SUMMARY: Please see the full history and physical by Dr. Itz Dominguez for full details. Briefly, Ms. Thao is a 51-year-old female with the past medical histo ry as above who presented to the hospital with increased lower extremity swelling and some shortness of breath. The patient was found to be significantly fluid overloaded on admission and was started on IV Lasix. Echo was done as above that was nondiagnostic. CT chest, abdomen and pelvis showed n o evidence of PE, but did show some significant ascites. Attempts were made to manage this with diu retics alone. During the hospitalization the patient was diuresed quite a bit and felt that her sym ptoms have improved significantly. She had dyspnea on exertion which resolved by the day of dischar ge. She has ambulated with no decrease in oxygen. The patient will need continued diuresis as an ou tpatient. I will add Metolazone to her previous regimen to be taken three times weeks. Will need t o keep an eye on her basic metabolic panel, may need increase in her dose of diuretics as an outpati ent, and a close eye on her weights, but also ensure that the patient is on a low sodium diet. Total time spent on this discharge was 45 minutes. This is a summary of the hospitalization. Torrie shelton see the full medical record for further details. [id number]/[id number] #: [id number]
[2016-06-23 16:08] VITALS: BP 127/79
== END 2016-06-23 16:00 | DRG 292 ==
LOC: ED 16:00 → MEDTELE 06-17 00:01 → MED 06-21 00:20
PROVIDERS: ADMIT Internal Medicine; ATTEND Hospitalist
DX: I11.0 Hypertensive heart disease with heart failure (principal); Z68.42 Body mass index [BMI] 45.0-49.9, adult; I50.23 Acute on chronic systolic (congestive) heart failure; E03.9 Hypothyroidism, unspecified; I25.10 Atherosclerotic heart disease of native coronary artery without angina pectoris; E78.5 Hyperlipidemia, unspecified; E66.9 Obesity, unspecified; I25.2 Old myocardial infarction; E11.9 Type 2 diabetes mellitus without complications; Z91.81 History of falling; Z95.5 Presence of coronary angioplasty implant and graft; Z79.82 Long term (current) use of aspirin; Z79.4 Long term (current) use of insulin; Z23 Encounter for immunization
CPT/HCPCS: 36415; 71020; 71275; 74177; 80048; 80053; 83605; 83880; 84443; 84484; 85025; 85379; 90732; 93005; 93306; A9270-GY; J1644; J1940; Q9967

== ENCOUNTER → 2016-09-21 13:20 | Emergency (ER) | payer MEDICARE, MEDICAID ==
[~2016-09-21 13:20] MED LIST: Iodixanol* (CONTRAST) 320 MG/ML 100 ML SDV IV ONE; NS 0.9% 1000 ML* 1,000 ML IV SCH
--- NOTE | 2016-09-21 15:20 | RAD ---
INDICATION: Epigastric and lower chest pain. COMPARISON: Comparison is made with a prior chest x-ray study from June 16, 2016. TECHNIQUE: A portable view of the chest was obtained. FINDINGS: The heart appears mildly prominent for this portable study and unchanged from the prior exam. The lungs are clear. No pleural effusion is seen. IMPRESSION: MILD CARDIOMEGALY, UNCHANGED.
[2016-09-21 15:24] LABS: Hematocrit 35 % (35-47); Hemoglobin 11.2 g/dl (12.0-16.0); Mean Corpuscular HGB Conc 32 g/dl (31-36); Mean Corpuscular Hemoglobin 28 pg (27-31); Mean Corpuscular Volume 85 fL (80-97); Mean Platelet Volume 9 um3 (7.4-10.4); Red Blood Count 4.08 10^6/ul (4.0-5.4); Red Cell Distribution Width 16 % (10.5-15); White Blood Count 5.9 10^3/ul (3.5-10.8)
--- NOTE | 2016-09-21 15:27 | RAD ---
Indication: Epigastric pain. Real-time sonography of the right upper quadrant was performed. Liver measures 16 cm in length in width heterogeneous echotexture. Ascites is noted. The hepatic vein demonstrates bidirectional flow which may be due to vascular congestion. The portal vein appears patent with hepatopedal flow. The gallbladder demonstrates nonshadowing echogenic foci consistent with a gallbladder polyp. Gallbladder wall measures 3.5 mm. Right kidney measures 10.6 x 6.3 x 5.6 cm with no hydronephrosis. The pancreas head, neck and proximal body demonstrates no mass or pancreatic duct dilatation. IMPRESSION: Ascites. Bidirectional flow in the hepatic veins may represent CHF. Likely gallbladder polyp.
[2016-09-21 15:42] LABS: Troponin I 0.02 ng/mL (<0.04)
[2016-09-21 15:47] LABS: Albumin 3.8 g/dL (3.2-5.2); BUN/Creatinine Ratio 31.2 (8-20); C Reactive Protein 15.81 mg/L (< 5.00); Calcium 9.4 mg/dL (8.6-10.3); EGFR Non-African American 40.5 (>60); Globulin 3.7 g/dL (2-4); Magnesium 2.2 mg/dL (1.9-2.7); Total Bilirubin 0.9 mg/dL (0.2-1.0); Total Protein 7.5 g/dL (6.4-8.9)
[2016-09-21 16:08] LABS: TSH (Thyroid Stimulating Horm) 7.3 mcIU/mL (0.34-5.60)
--- NOTE | 2016-09-21 19:26 | RAD ---
Indication: Abdominal pain, elevated d-dimer. CT of the abdomen and pelvis was performed without oral or IV contrast menstruation. No prior study is available for comparison. Prior ultrasound was reviewed. Lung bases demonstrate no pleural fluid, nodules or masses. The heart demonstrates no prior cardiac perfusion. Liver is normal in size. No focal lesions or intrahepatic ductal dilatation is noted. The spleen is normal in size. The pancreas where visualized is unremarkable. The stomach demonstrates contrast. Small bowel demonstrates no abnormal dilatation. Contrast is noted in the descending colon. No adrenal masses are noted. The kidneys demonstrates no hydronephrosis of either kidney. Atherosclerotic aorta is noted. Vena cava is unremarkable. No retroperitoneal adenopathy is noted. CT of the pelvis demonstrates uterus and ovaries to be unremarkable. There is a large amount of ascites noted. There is diffuse subcutaneous edema noted. This is especially true in the left lower quadrant of the abdomen wall. This is consistent with cellulitis. IMPRESSION: LARGE AMOUNT OF ASCITES IS NOTED. THERE IS DIFFUSE SUBCUTANEOUS EDEMA IN THE LOWER ABDOMEN INVOLVING THE SUBCUTANEOUS FAT. INDURATION IS NOTED. THIS IS SUSPICIOUS FOR CELLULITIS. NO DRAINABLE FLUID COLLECTIONS ARE NOTED IN THE SUBCUTANEOUS FAT.
--- NOTE | 2016-09-21 19:29 | ED ---
Jemima Pinzon Edward, scribed for Benito Dixon MD on 09/21/16 at 1415 . HPI Chest Pain - HPI Summary HPI Summary: 51 y/o female presents to ED c/o intermittent CP in the patient's mid-chest. Pain started 2 days ago, rated at a 5/10, with no radiation. Pain is aggravated by deep breaths but not by touch. Associated sx: bilateral LE edema. Denies nausea, SOB, diaphoresis, and ABD pain. PMHx stent (last year). Patient was recommended to come to the ED by her nurse at the [facility]. - History of Current Complaint Chief Complaint: EDChestPainROMI Time Seen by Provider: 09/21/16 14:09 Hx Obtained From: Patient Onset/Duration: Started Days Ago - 2 days ago Timing: Intermittent Initial Severity: Moderate Current Severity: Moderate Pain Intensity: 5 Pain Scale Used: 0-10 Numeric Chest Pain Location: Diffuse Chest Pain Radiates: No Aggravating Factor(s): Deep Breaths, Other: - Touch does not aggravate pain Associated Signs and Symptoms: Positive: Chest Pain, Edema - Bilateral LE. Negative: Shortness of Breath, Diaphoresis, Nausea, Abdominal Pain - Additional Pertinent History Primary Care Physician: [id number] - Allergy/Home Medications Allergies/Adverse Reactions: Allergies Allergy/AdvReac Type Severity Reaction Status Date / Time Adhesive Tape Allergy Rash Verified 06/23/16 13:54 Home Medications: Home Medications Acetaminophen [Acetaminophen Extra Stren] 1,000 mg PO BID PRN 09/21/16 [History Confirmed 09/21/16] Aluminum & Magnesium Hydroxide [Mag-Al] 30 ml PO Q4HR PRN 09/21/16 [History Confirmed 09/21/16] Aspirin EC Low Dose* [Ecotrin EC Low Dose 81 MG*] 81 mg PO DAILY 09/21/16 [ History Confirmed 09/21/16] Cephalexin CAP* [Keflex CAP*] 500 mg PO TID 09/21/16 [History Confirmed 09/21/16 ] Cetirizine* [ZyrTEC 10 MG TAB*] 10 mg PO DAILY 09/21/16 [History Confirmed 09/21] Clopidogrel TAB* [Plavix TAB*] 75 mg PO QAM 09/21/16 [History Confirmed 09/21/16 ] Cyanocobalamin [Vitamin B-12] 1,000 mcg SL QAM 09/21/16 [History Confirmed 09/21] Insulin GLARGINE(*) [Lantus(*)] 10 units SUBCUT QAM 09/21/16 [History Confirmed 09/21/16] Levothyroxine TAB* [Synthroid TAB*] 100 mcg PO DAILY 09/21/16 [History Confirmed 09/21/16] Metolazone TAB* [Zaroxolyn TAB*] 5 mg PO MOWEFR 09/21/16 [History Confirmed ] Miconazole Nitrate (Topical) [Athletes Foot Powder] 2 % TOPICAL DAILY PRN [History Confirmed 09/21/16] Olanzapine [Zyprexa Zydis 20 MG] 40 mg PO BEDTIME 09/21/16 [History Confirmed ] Torsemide TAB* [Demadex*] 20 mg PO BID 09/21/16 [History Confirmed 09/21/16] Venlafaxine EXT RELEASE CAP* [Effexor Xr CAP*] 150 mg PO QAM 09/21/16 [History Confirmed 09/21/16] PMH/Surg Hx/FS Hx/Imm Hx Previously Healthy: No Endocrine/Hematology History: Reports: Hx Diabetes, Hx Thyroid Disease Cardiovascular History: Reports: Hx Coronary Artery Disease, Hx Hypercholesterolemia, Hx Hypertension Musculoskeletal History: Reports: Hx Arthritis - knees Sensory History: Reports: Hx Contacts or Glasses Opthamlomology History: Reports: Hx Contacts or Glasses Neurological History: Reports: Other Neuro Impairments/Disorders - Mentally challenged Psychiatric History: Reports: Hx Anxiety, Hx Depression Infectious Disease History: No Infectious Disease History: Denies: Traveled Outside the [place] in Last 30 Days - Family History Known Family History: Positive: Unknown - The patient is a poor historian - Social History Alcohol Use: None Substance Use Type: Reports: None Smoking Status (MU): Never Smoked Tobacco Review of Systems Constitutional: Negative Negative: Fever, Skin Diaphoresis Eyes: Negative ENT: Negative Positive: Chest Pain Respiratory: Negative Negative: Shortness Of Breath Gastrointestinal: Negative Negative: Abdominal Pain, Nausea Genitourinary: Negative Positive: Edema - Bilateral LE Skin: Negative Neurological: Negative Psychological: Normal All Other Systems Reviewed And Are Negative: Yes Physical Exam Triage Information Reviewed: Yes Vital Signs On Initial Exam: Initial Vitals Temp Pulse Resp BP Pulse Ox 96.9 F 65 19 128/65 100 09/21/16 13:31 09/21/16 13:31 09/21/16 13:31 09/21/16 13:31 09/21/16 13:31 Vital Signs Reviewed: Yes Appearance: Positive: Well-Appearing, No Pain Distress, Well-Nourished Skin: Positive: Warm, Skin Color Reflects Adequate Perfusion, Dry Head/Face: Positive: Normal Head/Face Inspection Eyes: Positive: Normal, EOMI, FELICITA ENT: Positive: Normal ENT inspection Neck: Positive: Supple, Nontender Respiratory/Lung Sounds: Positive: Clear to Auscultation, Breath Sounds Present Cardiovascular: Positive: RRR Abdomen Description: Positive: Soft, Other: - Mildly tender in the epigastrium Bowel Sounds: Positive: Present Musculoskeletal: Positive: Strength/ROM Intact, Other - Bilateral pedal edema Neurological: Positive: Normal, Sensory/Motor Intact, Alert, Oriented to Person Place, Time Psychiatric: Positive: Normal, Affect/Mood Appropriate Diagnostics - Vital Signs Vital Signs Temp Pulse Resp BP Pulse Ox 09/21/16 13:31 96.9 F 65 19 128/65 100 - Laboratory Lab Results: Lab Results 09/21/16 09/21/16 09/21/16 Range/Units 15:15 15:15 15:15 WBC 5.9 (3.5-10.8) 10^3/ul RBC 4.08 (4.0-5.4) 10^6/ul Hgb 11.2 L (12.0-16.0) g/dl Hct 35 (35-47) % MCV 85 (80-97) fL MCH 28 (27-31) pg MCHC 32 (31-36) g/dl RDW 16 H (10.5-15) % Plt Count 150 (150-450) 10^3/ul MPV 9 (7.4-10.4) um3 Neut % (Auto) 48.5 (38-83) % Lymph % (Auto) 37.4 (25-47) % [place] % (Auto) 9.9 H (1-9) % Eos % (Auto) 2.8 (0-6) % Baso % (Auto) 1.4 (0-2) % Absolute Neuts (auto) 2.8 (1.5-7.7) 10^3/ul Absolute Lymphs (auto) 2.2 (1.0-4.8) 10^3/ul Absolute Monos (auto) 0.6 (0-0.8) 10^3/ul Absolute Eos (auto) 0.2 (0-0.6) 10^3/ul Absolute Basos (auto) 0.1 (0-0.2) 10^3/ul Absolute Nucleated RBC 0 10^3/ul Nucleated RBC % 0 INR (Anticoag Therapy) 1.22 H (0.89-1.11) APTT 17.4 L (26.0-36.3) seconds D-Dimer, Quantitative 310 H (Less Than 230) ng/mL Sodium (133-145) mmol/L Potassium (3.5-5.0) mmol/L Chloride (101-111) mmol/L Carbon Dioxide (22-32) mmol/L Anion Gap (2-11) mmol/L BUN (6-24) mg/dL Creatinine (0.51-0.95) mg/dL Est GFR ( Amer) (>60) Est GFR (Non-Af Amer) (>60) BUN/Creatinine Ratio (8-20) Glucose (70-100) mg/dL Lactic Acid (0.5-2.0) mmol/L Calcium (8.6-10.3) mg/dL Magnesium (1.9-2.7) mg/dL Total Bilirubin (0.2-1.0) mg/dL AST (13-39) U/L ALT (7-52) U/L Alkaline Phosphatase (34-104) U/L Total Creatine Kinase (10-223) U/L CK-MB (CK-2) (0.6-6.3) ng/mL Troponin I (<0.04) ng/mL C-Reactive Protein (< 5.00) mg/L B-Natriuretic Peptide 137 H ( - 100) pg/mL Total Protein (6.4-8.9) g/dL Albumin (3.2-5.2) g/dL Globulin (2-4) g/dL Albumin/Globulin Ratio (1-3) Lipase (11.0-82.0) U/L TSH (0.34-5.60) mcIU/mL 09/21/16 09/21/16 Range/Units 15:15 15:15 WBC (3.5-10.8) 10^3/ul RBC (4.0-5.4) 10^6/ul Hgb (12.0-16.0) g/dl Hct (35-47) % MCV (80-97) fL MCH (27-31) pg MCHC (31-36) g/dl RDW (10.5-15) % Plt Count (150-450) 10^3/ul MPV (7.4-10.4) um3 Neut % (Auto) (38-83) % Lymph % (Auto) (25-47) % [place] % (Auto) (1-9) % Eos % (Auto) (0-6) % Baso % (Auto) (0-2) % Absolute Neuts (auto) (1.5-7.7) 10^3/ul Absolute Lymphs (auto) (1.0-4.8) 10^3/ul Absolute Monos (auto) (0-0.8) 10^3/ul Absolute Eos (auto) (0-0.6) 10^3/ul Absolute Basos (auto) (0-0.2) 10^3/ul Absolute Nucleated RBC 10^3/ul Nucleated RBC % INR (Anticoag Therapy) (0.89-1.11) APTT (26.0-36.3) seconds D-Dimer, Quantitative (Less Than 230) ng/mL Sodium 137 (133-145) mmol/L Potassium 3.0 L (3.5-5.0) mmol/L Chloride 98 L (101-111) mmol/L Carbon Dioxide 29 (22-32) mmol/L Anion Gap 10 (2-11) mmol/L BUN 43 H (6-24) mg/dL Creatinine 1.38 H (0.51-0.95) mg/dL Est GFR ( Amer) 52.0 (>60) Est GFR (Non-Af Amer) 40.5 (>60) BUN/Creatinine Ratio 31.2 H (8-20) Glucose 83 (70-100) mg/dL Lactic Acid 1.7 (0.5-2.0) mmol/L Calcium 9.4 (8.6-10.3) mg/dL Magnesium 2.2 (1.9-2.7) mg/dL Total Bilirubin 0.90 (0.2-1.0) mg/dL AST 20 (13-39) U/L ALT 14 (7-52) U/L Alkaline Phosphatase 141 H (34-104) U/L Total Creatine Kinase 39 (10-223) U/L CK-MB (CK-2) 1.5 (0.6-6.3) ng/mL Troponin I 0.02 (<0.04) ng/mL C-Reactive Protein 15.81 H (< 5.00) mg/L B-Natriuretic Peptide ( - 100) pg/mL Total Protein 7.5 (6.4-8.9) g/dL Albumin 3.8 (3.2-5.2) g/dL Globulin 3.7 (2-4) g/dL Albumin/Globulin Ratio 1.0 (1-3) Lipase 47 (11.0-82.0) U/L TSH 7.30 H (0.34-5.60) mcIU/mL Result Diagrams: 09/21/16 15:15 09/21/16 15:15 Lab Statement: Any lab studies that have been ordered have been reviewed, and results considered in the medical decision making process. - Radiology CHEST XRAY Xray Interpretation: No Acute Changes - MILD CARDIOMEGALY, UNCHANGED Radiology Interpretation Completed By: Radiologist - Ultrasound No standard instances Ultrasound Interpretation: Positive (See Comments) - GALLBLADDER US - Ascites. Bidirectional flow in the hepatic veins may represent CHF. Likely gallbladder polyp. Ultrasound Interpretation Completed By: Radiologist - EKG 1 EKG Interpretation: 13:41 - NSR @ 92 bpm. Diffuse low voltage EKG Comparison: No Significant Change - from EKG on 06/16/16 Chest Pain Course/Dx - Course Course Of Treatment: NO CRITICAL CARE TIME. PPOSITIVE DDIMER; 310. THIS IS LOWER THAN THE 06/16 DDIMER WHEN NO PE WAS FOUND ON CTA. TODAY NO TACHYCARDIA, NO HYPOXIA. RATHER THAN RE CTA HER, PATIENT IS A DIFFICULT IV ACCESS, WILL B/L VENOUS DOPPLER HER LEGS AND RE CHECK A TROPONIN. DISPOSITION PENDING AT SHIFT CHANGE, STABLE. - Diagnoses Provider Diagnoses: Chest pain, Abdominal pain Discharge - Discharge Plan Condition: Stable Disposition: HOME Discharge Disposition Comment: Patient is signed out from Dr. Dixon to Dr. Fraser at 19:15. Patient Education Materials: Chest Pain (ED), Acute Abdominal Pain (ED) Referrals: Piter, [Primary Care Provider] - Additional Instructions: FOLLOW UP WITH YOUR DOCTOR. RETURN TO THE EMERGENCY DEPARTMENT FOR ANY WORSENING OF YOUR CONDITION OR QUESTIONS OR CONCERNS. The documentation as recorded by the Jemima mercer Edward accurately reflects the service I personally performed and the decisions made by me, Benito Dixon MD.
--- NOTE | 2016-09-21 20:36 | RAD ---
Indication: Bilateral leg edema. Duplex Doppler sonography of the deep venous system of both lower extremities was performed. Bilaterally the common femoral veins, proximal greater saphenous veins, proximal deep femoral veins, femoral veins, popliteal veins, appear patent and compressible. Limited evaluation of the calf vessels due to edema. IMPRESSION: NO EVIDENCE OF DEEP VENOUS THROMBOSIS OF EITHER LOWER EXTREMITY IS PRESENT. POSTERIOR TIBIAL AND PERONEAL VEINS ARE NOT VISUALIZED BILATERALLY.
[2016-09-21 21:13] LABS: Urine Bacteria Absent (Absent); Urine Bilirubin Negative (Negative); Urine Glucose Negative (Negative); Urine Nitrite Negative (Negative)
[2016-09-21 21:39] VITALS: BP 123/82
== END | disposition home or self-care (01) ==
LOC: ED 13:20
DX: R07.9 Chest pain, unspecified (principal); R10.9 Unspecified abdominal pain; R60.9 Edema, unspecified
CPT/HCPCS: 36415; 71010; 74176; 76705; 80053; 81003; 81015; 82550; 82553; 83605; 83690; 83735; 83880; 84443; 84484; 85025; 85379; 85610; 85730; 86140; 87086; 93005; 93970; 99284

== ENCOUNTER 2017-02-12 14:07 | Inpatient (IN) | payer MEDICARE, MEDICAID ==
--- NOTE | 2017-02-12 15:38 | RAD ---
Indication: Increased shortness of breath and increased ascites. Abdominal pain RIGHT upper quadrant. Multiple falls. Comparison: September 21, 2016 CT abdomen. Technique: Sitting AP and lateral chest views. Report: Suboptimal inspiration versus elevation of the diaphragm due to abdominal distention. Morbid obesity limits assessment. Bilateral pulmonary opacities may represent atelectasis however inflammatory infiltrates or pulmonary edema is not excluded. Cardiomegaly. Ill-defined central pulmonary vasculature. Grossly clear pleural spaces. Negative for pneumothorax. No thoracic fractures evident. IMPRESSION: Limited exam due to morbid obesity and suboptimal inspiration or diaphragmatic elevation. Bilateral pulmonary opacities may represent atelectasis however inflammatory infiltrates or pulmonary edema is not excluded.
[2017-02-12] MEDS ORDERED: Vancomycin(*) 1,000 MG in NS 0.9% 250 ML* 250 ML IVPB ONE (16:44)
--- NOTE | 2017-02-12 17:02 | RAD ---
Indication: RIGHT upper quadrant abdominal pain. Comparison: September 21, 2016 CT and ultrasound. Technique: RIGHT upper quadrant ultrasound. Report: Bidirectional flow visualized at the hepatic veins as on the prior exam indicating elevated RIGHT atrial pressures/passive congestion. Appropriate direction flow documented at the portal vein. 14.6 cm liver is mildly increased in echogenicity. Negative for focal hepatic lesions. Negative for intrahepatic biliary dilatation. 2.8 mm common bile duct. The gallbladder is largely decompressed limiting assessment. Suggestion of calcification of the gallbladder wall. The gallbladder wall measures 3.8 mm mildly thickened however this may reflect incomplete distention. Approximate 1.0 cm isoechoic nodular shadowing polypoid lesion at the neck of the gallbladder similar to the prior exam. No visualized gallstones. Negative for sonographic Williamson's sign. The pancreas could not be visualized due to body habitus and bowel gas limiting acoustic window. Large volume of diffuse ascites. 10.4 cm RIGHT kidney is unremarkable. IMPRESSION: 1. Bidirectional flow visualized at the hepatic veins as on the prior exam indicating elevated RIGHT atrial pressures/passive congestion. Appropriate direction flow documented at the portal vein. 2. Increased echogenicity of the liver consistent with fatty infiltration. 3. No significant change in 1 cm probable gallbladder polyp at the neck of the gallbladder. 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 In absence of cholecystectomy reassessment with ultrasound in 6 months time would be suggested. 4. Large ascites.
[2017-02-12 17:10] LABS: ABS Basophils 0.1 10^3/ul (0-0.2); ABS Eosinophils 0.2 10^3/ul (0-0.6); ABS Lymphocytes 1.5 10^3/ul (1.0-4.8); ABS Monocytes 0.6 10^3/ul (0-0.8); ABS Nucleated RBC 0 10^3/ul; Eosinophil % 2.9 % (0-6); Hematocrit 34 % (35-47); Hemoglobin 10.9 g/dl (12.0-16.0); Mean Corpuscular HGB Conc 32 g/dl (31-36); Mean Corpuscular Hemoglobin 29 pg (27-31); Mean Corpuscular Volume 88 fL (80-97); Mean Platelet Volume 9 um3 (7.4-10.4); Nucleated Red Blood Cells % 0.1; Platelet Count 145 10^3/ul (150-450); Red Blood Count 3.81 10^6/ul (4.0-5.4); Red Cell Distribution Width 16 % (10.5-15); White Blood Count 6.4 10^3/ul (3.5-10.8)
[2017-02-12 17:22] LABS: INR 1.23 (0.89-1.11)
[2017-02-12 17:25] LABS: EGFR Non-African American 37.6 (>60)
[2017-02-12] MEDS ORDERED: Potassium Chlor TAB* 20 MEQ TAB.ER PO ONE ×2 (17:45→19:45)
[2017-02-12 17:56] LABS: Urine Appearance Cloudy; Urine Blood 3+ (Negative); Urine Color Yellow; Urine Ketones Negative (Negative); Urine Protein Negative (Negative); Urine Specific Gravity 1.009 (1.010-1.030); Urine Urobilinogen Negative (Negative)
--- NOTE | 2017-02-12 18:26 | RAD ---
Indication: Increased shortness of breath and increased ascites. RIGHT upper quadrant pain. Multiple falls this week. Comparison: 1530 hours exam of the same date. Technique: Upright AP chest 1800 hours Report: Low lung volumes as on the prior exam resulting crowding of the pulmonary markings and subsegmental atelectasis. Cardiomegaly. Prominent ill-defined central pulmonary vasculature. While low lung volumes limits assessment pulmonary vascular congestion and interstitial edema is not excluded. Grossly clear pleural spaces. IMPRESSION: Limited exam due to low lung volumes. Pulmonary edema not excluded. Correlate with clinical assessment.
--- NOTE | 2017-02-12 18:39 | ED ---
Compa Pinzon Angela, scribed for Ashlee Alcala MD on 02/12/17 at 1643 . Shortness of Breath - HPI Summary HPI Summary: This pt is a 51 y/o female presenting to [facility] via EMS from [place] c/o increased SOB. Pt has a PMHx of ascites. Pt reports she has increased SOB with ambulation. She states that she fell today at 1500. Per EMS, pt has had increased falls recently. Pt additionally c/o left leg pain. Pt was put on 4 L NC of O2 as pt is SOB. Pt is currently on 97-100%. - History of Current Complaint Chief Complaint: EDAbdPain Hx Obtained From: Patient Onset/Duration: Lasting Hours, Still Present Timing: Constant Dyspnea At: Exertion Aggrevating Factors: Other - ambulating Alleviating Factors: Oxygen - Allergy/Home Medications Allergies/Adverse Reactions: Allergies Allergy/AdvReac Type Severity Reaction Status Date / Time Adhesive Tape Allergy Rash Verified 06/23/16 13:54 Home Medications: Home Medications Ferrous Sulfate TAB* 325 mg PO QAM 02/12/17 [History Confirmed 02/12/17] Magnesium Oxide TAB* [MagOx 400 TAB*] 400 mg PO QAM 02/12/17 [History Confirmed 02/12/17] Metoprolol Tartrate TAB* [Lopressor TAB*] 50 mg PO Q12HR 02/12/17 [History Confirmed 02/12/17] Potassium Chlor TAB* [Klor Con ER TAB*] 20 meq PO BID 02/12/17 [History Confirmed 02/12/17] Senna/Docusate (NF) [Sennokot-S] 1 tab PO BEDTIME 02/12/17 [History Confirmed ] Venlafaxine ER (NF) [Effexor ER (NF)] 300 mg PO QAM 02/12/17 [History Confirmed 02/12/17] PMH/Surg Hx/FS Hx/Imm Hx Endocrine/Hematology History: Reports: Hx Diabetes, Hx Thyroid Disease Cardiovascular History: Reports: Hx Coronary Artery Disease, Hx Hypercholesterolemia, Hx Hypertension Musculoskeletal History: Reports: Hx Arthritis - knees Sensory History: Reports: Hx Contacts or Glasses Opthamlomology History: Reports: Hx Contacts or Glasses Neurological History: Reports: Other Neuro Impairments/Disorders - Mentally challenged Psychiatric History: Reports: Hx Anxiety, Hx Depression Infectious Disease History: No Infectious Disease History: Denies: Traveled Outside the [place] in Last 30 Days - Family History Known Family History: Positive: Unknown - The patient is a poor historian - Social History Alcohol Use: None Substance Use Type: Reports: None Smoking Status (MU): Never Smoked Tobacco Review of Systems Negative: Fever, Chills Positive: Shortness Of Breath Musculoskeletal: Other - left leg pain Neurological: Other - increased falls All Other Systems Reviewed And Are Negative: Yes Physical Exam Triage Information Reviewed: Yes Vital Signs On Initial Exam: Initial Vitals Temp Pulse Resp BP Pulse Ox 97.7 F 65 22 113/68 98 02/12/17 14:30 02/12/17 14:30 02/12/17 14:30 02/12/17 14:30 02/12/17 14:30 Vital Signs Reviewed: Yes Appearance: Positive: Obese Skin: Positive: Warm, Dry, Other - Left thigh: 2 inches x 3 inches area of induration and erythema. Head/Face: Positive: Normal Head/Face Inspection Eyes: Positive: Normal ENT: Positive: Normal ENT inspection, Hearing grossly normal Neck: Positive: Nontender, Other: - JVD bilaterally up to her neck Respiratory/Lung Sounds: Positive: Clear to Auscultation, Decreased Breath Sounds - bilaterally Cardiovascular: Positive: Normal, RRR Abdomen Description: Positive: Soft, Distended Musculoskeletal: Positive: Strength/ROM Intact, Edema Left - +1-2, Edema Right - +1-2 Neurological: Positive: Normal, Sensory/Motor Intact, Alert, Oriented to Person Place, Time Psychiatric: Positive: Normal Diagnostics - Vital Signs Vital Signs Temp Pulse Resp BP Pulse Ox 02/12/17 14:30 97.7 F 65 22 113/68 98 - Laboratory Result Diagrams: 02/12/17 16:55 02/12/17 16:55 Lab Statement: Any lab studies that have been ordered have been reviewed, and results considered in the medical decision making process. - Radiology Chest XR Xray Interpretation: Positive (See Comments) - IMPRESSION: Limited exam due to morbid obesity and suboptimal inspiration or diaphragmatic elevation. Bilateral pulmonary opacities may represent atelectasis however inflammatory infiltrates or pulmonary edema is not excluded. ED physician has reviewed this radiology report and agrees. Radiology Interpretation Completed By: Radiologist Chest XR 1 view Xray Interpretation: Positive (See Comments) - IMPRESSION: Limited exam due to low lung volumes. Pulmonary edema not excluded. Correlate with clinical assessment. ED physician has reviewed this radiology report and agrees. Radiology Interpretation Completed By: Radiologist - Ultrasound No standard instances Ultrasound Interpretation: Positive (See Comments) - Abdomen US IMPRESSION: 1. Bidirectional flow visualized at the hepatic veins as on the prior exam indicating elevated RIGHT atrial pressures/passive congestion. Appropriate direction flow documented at the portal vein. 2. Increased echogenicity of the liver consistent with fatty infiltration. 3. No significant change in 1 cm probably gallbladder polyp at the neck of the gallbladder. 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 In absence of cholecystectomy reassessment with ultrasound in 6 months time would be suggested. 4. Large ascites. ED physician has reviewed this radiology report and agrees. Ultrasound Interpretation Completed By: Radiologist - EKG 1726 Cardiac Rate: NL EKG Rhythm: Sinus Rhythm - at 65 bpm EKG Interpretation: Normal axis, normal interval. No acute ischemic changes. Low voltage Course/Dx - Course Assessment/Plan: Pt is a 51 y/o female, with PMHx of ascites, who presents with increased SOB and falls. Blood work, chest XR, abdomen US, and EKG were obtained. Lab work shows INR of 1.23, creatinine of 1.47, glucose of 115, CRP of 21.89, BNP of 336. Abdomen US shows 1. Bidirectional flow visualized at the hepatic veins as on the prior exam indicating elevated RIGHT atrial pressures/ passive congestion. Appropriate direction flow documented at the portal vein. 2. Increased echogenicity of the liver consistent with fatty infiltration. 3. No significant change in 1 cm probably gallbladder polyp at the neck of the gallbladder. 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 In absence of cholecystectomy reassessment with ultrasound in 6 months time would be suggested. 4. Large ascites. Chest XR reveals Limited exam due to morbid obesity and suboptimal inspiration or diaphragmatic elevation. Bilateral pulmonary opacities may represent atelectasis however inflammatory infiltrates or pulmonary edema is not excluded. In the ED course, the pt was given potassium chloride and vancomycin. I discussed the case with Dr. Bahena, hospitalist, who admitted the pt. - Diagnoses Provider Diagnoses: Cellulitis of left thigh, large ascites - Physician Notifications Discussed Care of Patient With: Chana Bahena Time Discussed With Above Provider: 17:55 Instructed by Provider To: Other - I discussed the pt's case with Dr. Bahena, who accepted the pt for admission. Discharge - Discharge Plan Condition: Stable Disposition: ADMITTED TO [facility] Referrals: No Primary Care Phys,NOPCP [Primary Care Provider] - The documentation as recorded by the Compa mercer Angela accurately reflects the service I personally performed and the decisions made by me, Ashlee Alcala MD.
[2017-02-12] MEDS ORDERED: Furosemide IV* 10 MG/ML VIAL (40 MG) IV SLOW PU ONE (19:37)
[2017-02-12] MEDS ORDERED: Dextrose 50% Syringe 50 ML* 25 GM/50 ML SYRINGE IV PUSH PRN (19:43)
[2017-02-12] MEDS: Docusate CAP* 100 MG PO SCH (21:59)
[2017-02-12] MEDS: Heparin VIAL(*) 5000 UNITS/ML VIAL (FIVE THOUSAND) SUBCUT SCH (21:59)
[2017-02-12] MEDS: Metoprolol Tartrate TAB* 50 mg PO SCH (21:59)
[2017-02-12] MEDS: Senna TAB PO SCH (21:59)
[2017-02-12] MEDS: OLANzapine TAB*ODT* 10 MG TAB PO SCH (22:00)
[2017-02-12] MEDS: Insulin LISPRO* 1 UNITS UNIT SUBCUT SCH (22:00)
--- NOTE | 2017-02-12 23:28 | HP ---
CC: [facility]* HISTORY AND PHYSICAL: DATE OF ADMISSION: 02/12/17 PRIMARY CARE PROVIDER: [facility]. CHIEF COMPLAINT: Fall and abdominal pain. HISTORY OF PRESENT ILLNESS: Ms. Thao is a 51-year-old female who has a history of systolic CHF, coronary artery disease, type 2 diabetes, hyperlipidemia, hypertension, hypothyroidism, and possibly intellectual developmental delay, who is currently residing at [facility], who presents to the emergency room after sustaining a fall at [facility] on the day of admission. The patient states that she was walking to the bathroom and her walker got too far out ahead of her and she fell. She states that she fell and hit her bottom. The patient states in general she feels like she always does. When probing further, she does admit to abdominal pain and increased abdominal girth as well as increased lower extremity edema. The patient also admits to shortness of breath that is worse than usual. PAST MEDICAL HISTORY: 1. Hypertension. 2. Intellectual developmental delay. 3. Hyperlipidemia. 4. Type 2 diabetes. 5. Hypothyroidism. 6. Coronary artery disease. 7. History of breast cancer. MEDICATIONS: 1. Effexor ER 300 mg p.o. daily. 2. Levothyroxine 100 mcg p.o. daily. 3. Amantadine 100 mg p.o. daily. 4. Magnesium oxide 400 mg p.o. daily. 5. Potassium chloride 20 mEq p.o. b.i.d. 6. Torsemide 20 mg p.o. b.i.d. 7. Senna/docusate 1 tab p.o. q.h.s. 8. Zyprexa 240 mg p.o. q.h.s. 9. Cetirizine 10 mg p.o. daily. 10. Metolazone 5 mg p.o. Sunday, Sunday, Sunday. 11. Acetaminophen 1000 mg p.o. b.i.d. p.r.n. pain. 12. Glipizide XL 2.5 mg p.o. daily. 13. Lantus 10 units subcutaneous daily. 14. Metoprolol tartrate 50 mg p.o. twice daily. 15. Ferrous sulfate 325 mg p.o. daily. 16. Vitamin B12, 1000 mcg p.o., try to change it to SL daily. 17. Plavix 75 mg p.o. daily. 18. Aspirin 81 mg p.o. daily. ALLERGIES: No known drug allergies. FAMILY HISTORY: Both parents are . The patient states her mom had Alzheimer's and her dad her diabetes. SOCIAL HISTORY: The patient is a lifelong nonsmoker. She does not drink alcohol. She states that she works at the [employer]. She is not . She has no children. She indicates that her brother, Kedar, is her healthcare proxy. REVIEW OF SYSTEMS: The patient denies any fevers, chills, or anorexia. No chest pain. She admits to chronic lower extremity edema that is perhaps slightly worse than usual. No significant cough. She does admit to shortness of breath that is worse than usual. No nausea or vomiting. She does have abdominal pain and increased abdominal girth. No diarrhea, constipation, or hematochezia. No hematuria or dysuria. No focal weakness or sensory loss. No sudden changes in vision. She states that she occasionally has issues with swallowing pills. No joints pains or muscle pains out of the ordinary. No rashes. No anxiety or depression. PHYSICAL EXAMINATION GENERAL: The patient is a well-developed middle-aged obese female, lying in the stretcher, in no acute distress. VITAL SIGNS: Blood pressure 121/76, pulse 25, respirations 17, temp 97.7, O2 sat 100% on room air. HEENT: Pupils are equal. They are round. There is evidence of prior cataract extraction. Extraocular muscles are intact. Oropharynx is clear. Oral mucosa is moist. There is no submandibular, cervical or supraclavicular adenopathy. Thyroid is not enlarged. No thyroid nodules are noted, but again this is a difficult exam. NECK: Exam is difficult due to the patient's body habitus. PULMONARY: Lungs are clear to auscultation anteriorly and at the lateral bases. CARDIAC: Normal S1, S2. Regular rate and rhythm. I do not appreciate any murmurs. There is 1 to 2+ bilateral lower extremity pitting edema. ABDOMEN: Bowel sounds present. Abdomen is markedly distended, it is tense, it is nontender to palpation. MUSCULOSKELETAL: There is no cyanosis or clubbing in the digits. There is full active range of motion of upper extremities, lower extremity range of motion is limited due to her massive abdominal girth and lower extremity edema. NEURO: Cranial nerves II through XII are grossly intact. Sensation is intact to light touch throughout. Strength is 5/5 and symmetric in the upper extremities. Lower extremity strength is slightly reduced due to her edema. PSYCH: The patient is alert. She is oriented x3. Affect appears appropriate. SKIN: Warm and dry. There are no rashes. The patient does have what appears to be several groupings of petechiae on her upper chest. She has an area of bruising to her right upper chest. She has a small scabbed over ulceration to the left medial thigh. DIAGNOSTIC STUDIES/LAB DATA: WBC 6.4, hemoglobin 10.9, hematocrit 34, platelets 145,000. INR 1.23. Sodium 138, potassium 3.1, chloride 97, CO2 32, BUN 41, creatinine 1.47, glucose 115, lactic acid 2.0, calcium 9.6, bilirubin 0.9, AST 13, ALT 9, alk phos 120. Troponin 0.03. CRP 21.89. BNP 336. Albumin 3.7. Lipase 43. Urinalysis reveals cloudy urine with a specific gravity of 1.009, 3+ blood, 2+ leukocyte esterase, 3+ wbc's, absent bacteria, positive for hyaline casts. EKG is being read as atrial fibrillation, but appears to be regular and I suspect normal sinus rhythm. She has low voltage. Chest x-ray is a limited exam due to low lung volumes, pulmonary edema is not excluded. Abdominal ultrasound reveals bidirectional flow, visualized at the hepatic veins indicating elevated right atrial pressure/passive congestion. Appropriate direction flow documented at the portal vein. Increased echogenicity of the liver consistent with fatty infiltration. 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 Reassessment with ultrasound in 6 months' time will be suggested. Large ascites is noted. ASSESSMENT AND PLAN: Ms. Thao is a 51-year-old female, who has a known history of systolic congestive heart failure with the last documented EF of 35% to 40% in April 2016, coronary artery disease, hypertension, type 2 diabetes and hypothyroidism as well as past history of breast cancer who presented to the emergency room with complaints of fall at [facility], but is noted to have increased abdominal girth and lower extremity edema as well and therefore, the hospitalist services was asked to admit the patient for evaluation and management. 1. Fall. This sounds to be purely mechanical. The patient denies hitting her head. She did not lose consciousness. PT eval will be requested; however, she is already at [facility] where she can receive physical therapy services. 2. Increasing ascites. The differential diagnosis is broad for this. I suspect the patient's systolic congestive heart failure may be playing a role. Her BNP is higher than usual. She has known reduced EF. Unfortunately, her last echo in May of this year was nondiagnostic for determining her ejection fraction. I will go ahead and order repeat echo for now. Echo contrast will be utilized to improve the quality of the study. She will receive Lasix 40 mg IV x1 tonight and again 40 mg in the morning. Decision after that dose will need to be made on whether or not to continue the IV Lasix. Other potential causes would be liver disease. The patient's LFTs (AST, ALT and bilirubin) are normal; however, her alkaline phosphatase is mildly elevated. It has been chronically elevated since April 2016, which was the first time we had labs on this patient. She does not give a history of significant alcohol use, therefore I suspect this is not alcoholic liver disease. Fatty infiltration of the liver was noted on abdominal ultrasound, so perhaps this could be leading to her ascites. The patient's albumin level is normal making hypoalbuminemia unlikely. I am concerned that this could be malignant ascites. I will go ahead and check a TSH level. For now, we will attempt diuresis; however, she may require a diagnostic paracentesis to better identify the cause of her significant ascites. While the patient states that she is in pain from this, she does not appear to be in overt pain. I am concerned; however, that her massive ascites is impairing her ability to walk safely. 3. Type 2 diabetes. The patient will be maintained on her usual dose of Lantus and I will add a lispro sliding scale with fingersticks a.c. and h.s. A hemoglobin A1c has been added to the labs drawn in the emergency room. Her last A1c was in April of this year and mildly elevated at 8.0%. 4. Coronary artery disease. The patient will be maintained on her usual doses of metoprolol, aspirin, and Plavix. She denies any cardiac complaints at this point and her troponin is normal. 5. Hypertension. The patient's blood pressure is under good control on her usual home medication regimen, which will be continued. 6. Hypothyroidism. The patient will continue on her usual dose of Synthroid and again the TSH level is pending. 7. DVT prophylaxis. According to the Adult Thrombosis Prophylaxis Risk Factor Assessment Guide, the patient has a total risk factor score of 4 making her high risk. She will be placed on heparin 5000 units subcutaneous q.8 hours. 8. Code status is full and again the patient indicates that her brother, Kedar , is her surrogate decision maker. TIME SPENT: 65 minutes was spent admitting this patient. [id number]/[facility] #: [id number] AZEEM
[2017-02-13] MEDS: Heparin VIAL(*) 5000 UNITS/ML VIAL (FIVE THOUSAND) SUBCUT SCH ×3 (05:40→21:58)
[2017-02-13] MEDS: Levothyroxine TAB* 100 MCG TAB PO SCH (05:40)
[2017-02-13 07:10] LABS: EGFR Non-African American 40.8 (>60)
[2017-02-13] MEDS ORDERED: Furosemide IV* 10 MG/ML VIAL (40 MG) IV SLOW PU SCH ×2 (08:00)
[2017-02-13] MEDS ORDERED: Perflutren Lipid Microsphere* 3 ML VIAL ONE (08:02)
[2017-02-13] MEDS ORDERED: Pneumococcal *Vac Polyvalent 0.5 ML VIAL IM ONE (09:00)
[2017-02-13] MEDS ORDERED: Influenza VAC *QUAD* 2017-18* 0.5 ML SYRINGE IM ONE (09:00)
[2017-02-13] MEDS: Venlafaxine EXT RELEASE CAP* 75 MG PO SCH (09:33)
[2017-02-13] MEDS: Metoprolol Tartrate TAB* 50 mg PO SCH ×2 (09:33→21:57)
[2017-02-13] MEDS: Aspirin EC Low Dose* 81 MG TAB.EC PO SCH (09:33)
[2017-02-13] MEDS: Clopidogrel TAB* 75 MG PO SCH (09:33)
[2017-02-13] MEDS: Amantadine CAP* 100 MG PO SCH (09:33)
[2017-02-13] MEDS: Metolazone TAB* 5 MG PO SCH (09:33)
[2017-02-13] MEDS: Magnesium Oxide TAB* 400 MG PO SCH (09:34)
[2017-02-13] MEDS: Insulin LISPRO* 1 UNITS UNIT SUBCUT SCH ×4 (09:34→22:14)
[2017-02-13] MEDS: Insulin GLARGINE(*) 1 UNITS UNIT SUBCUT SCH (09:34)
[2017-02-13] MEDS ORDERED: Potassium Chlor TAB* 20 MEQ TAB.ER PO ONE (10:03)
--- NOTE | 2017-02-13 10:58 | ECHO ---
Patient: MAGO GÓMEZ [facility] Rec#: [id number] : 1965 Date: 02/13/2017 Age: 51y Height: 157.48 cm / 62.0 in Weight: 136.08 kg / 299.9 lbs Sex: F BSA: 2.27 Room#: [facility] Admit Date#: 02/12/2017 Type: Inpatient Referring: Tasneem Reyes DO Reading: Simone Monsivais MD Managing Partner: [facility] Transthoracic Echocardiogram Indication: CHF BP: 127/68 HR: 73 Rhythm: NSR Findings History: Morbid obesity, CHF, CAD, DM, HTN, HLD, breast cancer Technical Comments: The study is technically limited due to poor acoustic windows. Completed 0910 Left Ventricle: The left ventricular chamber size is normal. There is no left ventricular hypertrophy. There is global hypokinesis of the left ventricle with minor regional variation. There is moderately decreased left ventricular systolic function. The estimated ejection fraction is 35-40%. There is septal flattening of the interventricular septum consistent with right ventricular volume or pressure overload. There is a left ventricular septal wall motion abnormality observed, possibly due to the presence of a left bundle branch block. Abnormal left ventricular diastolic function is observed. Left Atrium: The left atrium is mild to moderately dilated. Right Ventricle: The right ventricle is moderately dilated. The right ventricular global systolic function is mildly to moderately reduced. Right Atrium: The right atrium is mild to moderately dilated. Aortic Valve: The aortic valve is trileaflet. The aortic valve leaflets are mildly thickened. There is no evidence of aortic regurgitation. There is no evidence of aortic stenosis. Mitral Valve: There is mitral annular calcification. The mitral valve leaflets are mildly thickened. There is mild mitral regurgitation. There is mild mitral stenosis. Tricuspid Valve: The tricuspid valve leaflets are not thickened. There is mild to moderate tricuspid regurgitation. Unable to estimate the right ventricular systolic pressure. Pulmonic Valve: There is no evidence of pulmonic valve thickening. There is trace to mild pulmonic regurgitation. Pericardium: There is no significant pericardial effusion. Aorta: The aortic root appears normal. The aortic arch is not well visualized. Pulmonary Artery: The main pulmonary artery appears normal. Venous: The inferior vena cava is not visualized. Contrast: Definity was used to optimize study. A total of 3 ml was used Conclusions There is moderately decreased left ventricular systolic function. The estimated ejection fraction is 35-40%. There is global hypokinesis of the left ventricle with minor regional variation. There is a left ventricular septal wall motion abnormality observed, possibly due to the presence of a left bundle branch block. The right ventricular global systolic function is mildly to moderately reduced. The aortic valve leaflets are mildly thickened. There is no evidence of aortic stenosis. There is mild mitral regurgitation. There is mild to moderate tricuspid regurgitation. Unable to estimate the right ventricular systolic pressure. There is no significant pericardial effusion. Measurements Name Value Normal Range RVIDd (AP) 2D 4 cm (0.9 - 2.6) RVDdMajor (2D) 3.5 cm (2.2 - 4.4) RAd ISD 4CH 6.5 cm (3.4 - 4.9) RA (A4C)W 4.6 cm (2.9 - 4.6) IVSd (2D) 0.9 cm (0.6 - 1) LVPWd (2D) 0.9 cm (0.6 - 1) LVIDd (2D) 4.5 cm (3.6 - 5.4) LVIDs (2D) 3.5 cm - LV FS (2D) 22 % (25 - 45) Aortic Annulus 1.8 cm (1.4 - 2.6) Ao root diameter (2D) 2.9 cm (2.1 - 3.5) Ascending Ao 2.9 cm (2.1 - 3.4) LA dimension (AP) 2D 4.7 cm (2.3 - 3.8) LAd ISD 4CH 6.5 cm (2.9 - 5.3) LA ISD 4CH W 4.2 cm (2.5 - 4.5) Name Value Normal Range MV E-wave Vmax 1.3 m/sec - MV deceleration time 200 msec - MV A-wave Vmax 0.6 m/sec - MV E:A ratio 2.2 ratio - LV septal e' Vmax 0.06 m/sec - LV lateral e' Vmax 0.09 m/sec - LV E:e' septal ratio 22 ratio - LV E:e' lateral ratio 14.4 ratio - Name Value Normal Range AV Vmax 1.3 m/sec - AV VTI 30 cm - AV peak gradient 7 mmHg - AV mean gradient 4.6 mmHg - LVOT diameter 2 cm - LVOT Vmax 0.6 m/sec - LVOT VTI 11 cm - LVOT peak gradient 1.4 mmHg - LVOT mean gradient 0.8 mmHg - Name Value Normal Range MV Vmax 1.6 m/sec - MV VTI 35 cm - MV peak gradient 10 mmHg - MV mean gradient 3 mmHg - MV PHT 83 msec - MVA (PHT) 2.7 cm2 - MVA (continuity VTI) 1 cm2 - Name Value Normal Range TR Vmax 2.3 m/sec - TR peak gradient 21 mmHg - RAP 8 mmHg - RVSP 29 mmHg - Name Value Normal Range PV Vmax 0.6 m/sec - PV peak gradient 1.4 mmHg -
[2017-02-13] MEDS ORDERED: Lidocaine 1% INJ* 10 MG/ML 30 ML SDV ONE (13:42)
[2017-02-13] MEDS: Sulfamethox/Trimethoprim DS 800/160* TAB PO SCH ×2 (13:48→21:57)
--- NOTE | 2017-02-13 15:50 | PN ---
Progress Note - Progress Note Date of Service: 02/13/17 Note: PRE/POST DX: ASCITES PROC: PARACENTESIS SURG: MECENAS ANES: LOCAL EBL: MIN SPEC: ASCITES DRAIN/COMPL: NONE COND: STABLE FINDINGS: 2.3 L CLEAR, STRAW COLORED ASCITES REMOVED. SPECIMEN SENT TO LAB.
[2017-02-13] MEDS: Furosemide IV* 10 MG/ML VIAL (40 MG) IV SLOW PU SCH (17:26)
--- NOTE | 2017-02-13 17:27 | PN ---
Subjective Date of Service: 02/13/17 Interval History: Patient complains of a decrease in SOB and abdominal pain with diuresis. Patient also complains of pain in the left medial thigh corresponding to an open are with a crust and surrounding erythema consistent with staphylococcal cellulitis. Patient states this has been going on for months and that they only treat it with medihoney and dressing changes at [facility]. Patient denies and other complaints including CP, N/V, F/C, diarrhea, constipation, dysuria, or other pain. Family History: Unchanged from Admission Social History: Unchanged from Admission Past Medical History: Unchanged from Admission Objective Active Medications: Amantadine HCl (Symmetrel Cap*) 100 mg PO DAILY@0800 [facility] Last Admin: 02/13/17 09:33 Dose: 100 mg Aspirin (Aspirin Ec Low Dose*) 81 mg PO DAILY [facility] Last Admin: 02/13/17 09:33 Dose: 81 mg Clopidogrel Bisulfate (Plavix Tab*) 75 mg PO QAM [facility] Last Admin: 02/13/17 09:33 Dose: 75 mg Dextrose (D50w Syringe 50 Ml*) 12.5 gm IV PUSH .FOR FS < 60 - SS PRN PRN Reason: FS < 60 Docusate Sodium (Colace Cap*) 100 mg PO BEDTIME [facility] Last Admin: 02/12/17 21:59 Dose: 100 mg Furosemide (Lasix Iv*) 40 mg IV SLOW PU 0800,1700 [facility] Heparin Sodium (Porcine) (Heparin Vial(*)) 5,000 units SUBCUT Q8HR [facility] Last Admin: 02/13/17 13:48 Dose: 5,000 units Insulin Glargine (Lantus(*)) 10 units SUBCUT [facility] Last Admin: 02/13/17 09:34 Dose: 10 unit Insulin Human Lispro (Humalog*) 0 units SUBCUT ACHS [facility] PRN Reason: Protocol Last Admin: 02/13/17 11:40 Dose: Not Given Levothyroxine Sodium (Synthroid Tab*) 100 mcg PO 0600 [facility] Last Admin: 02/13/17 05:40 Dose: 100 mcg Magnesium Oxide (Magox 400 Tab*) [facility] Last Admin: 02/13/17 09:34 Dose: 400 mg Metolazone (Zaroxolyn Tab*) 5 mg PO DAILY [facility] Last Admin: 02/13/17 09:33 Dose: 5 mg Metoprolol Tartrate (Lopressor Tab*) 50 mg PO Q12HR [facility] Last Admin: 02/13/17 09:33 Dose: 50 mg Olanzapine (Zyprexa *Odt*) 40 mg PO BEDTIME [facility] Last Admin: 02/12/17 22:00 Dose: 40 mg Senna (Senokot Tab*) 1 tab PO BEDTIME [facility] Last Admin: 02/12/17 21:59 Dose: 1 tab Trimethoprim/Sulfamethoxazole (Bactrim Ds 800/160 Tab*) 1 tab PO BID [facility] Last Admin: 02/13/17 13:48 Dose: 1 tab Venlafaxine HCl (Effexor Xr Cap*) 300 mg PO QAM [facility] Last Admin: 02/13/17 09:33 Dose: 300 mg Vital Signs 02/12/17 02/12/17 02/12/17 20:00 20:16 20:45 Temperature 98.9 F 97.6 F Pulse Rate 70 70 Respiratory 17 18 Rate Blood Pressure 123/80 132/78 (mmHg) O2 Sat by Pulse 100 100 Oximetry 02/12/17 02/12/17 02/12/17 20:55 23:27 23:37 Temperature 97.6 F 97.3 F 97.3 F Pulse Rate 70 73 73 Respiratory 18 16 16 Rate Blood Pressure 132/78 102/65 102/65 (mmHg) O2 Sat by Pulse 100 100 100 Oximetry 02/13/17 02/13/17 02/13/17 03:09 08:00 09:31 Temperature 97.2 F Pulse Rate 73 88 Respiratory 16 20 22 Rate Blood Pressure 127/68 116/64 (mmHg) O2 Sat by Pulse 100 Oximetry 02/13/17 02/13/17 02/13/17 10:09 11:18 15:48 Temperature 97.4 F 97.5 F Pulse Rate 72 68 Respiratory 20 22 Rate Blood Pressure 115/70 110/53 (mmHg) O2 Sat by Pulse 92 100 99 Oximetry Oxygen Devices in Use Now: Nasal Cannula - 4L Appearance: Patient is a 51yo female who appears stated age and is sitting in the bed in NAD. Eyes: No Scleral Icterus, PERRLA Ears/Nose/Mouth/Throat: NL Teeth, Lips, Gums, Clear Oropharnyx, Mucous Membranes Moist Neck: NL Appearance and Movements; NL JVP, Trachea Midline Respiratory: Symmetrical Chest Expansion and Respiratory Effort, - - Decreased BS in B/L LL. Dull to percussion in lower lobes. Crackles in lower lobes B/L. Cardiovascular: NL Sounds; No Murmurs; No JVD, RRR, - - 3+ pitting edema in B/L LE. Abdominal: - - Normal sounds, No tenderness. Tense and very protruberant abdomen , tympanic to percussion throughout. Unable to palpate liver or spleen. Lymphatic: No Cervical Adenopathy Extremities: - - Azlu's Nails. Skin: - - Approximately 4cm/4cm area of erythema with induration on left medial thigh with scabbed area in the center. Neurological: Alert and Oriented x 3, NL Muscle Strength and Tone, - - CN II- XII intact. Answers to questions show lack of insight consistent with developmental delay. Result Diagrams: 02/12/17 16:55 02/13/17 06:28 Assess/Plan/Problems-Billing Assessment: Patient is a 51yo female with a PMH significant for CHF, CKD, DMII, CAD, Breast Cancer, Hypothyroidism, and developmental delay who presents with worsening SOB and ascites. SOB is improving on diuretics and had a paracentesis with 2.3L removed with chemistries and cytology pending. - Patient Problems (1) CHF (congestive heart failure) Current Visit: Yes Status: Acute Code(s): I50.9 - HEART FAILURE, UNSPECIFIED SNOMED Code(s): 55366392 Comment: Patient presents with SOB, lower leg edema, and anasarca consistent with CHF exacerbation. Lasix at 40mg IV BID Increased from Torsemide 20mg BID at home and Metolazone Daily up from home every other day. Edema likely contributing to fall risk. Legs Wrapped and elevated. Strict I/O and Daily Weights. (2) Ascites Current Visit: Yes Status: Acute Code(s): R18.8 - OTHER ASCITES SNOMED Code(s): 797232342 Comment: Ascites increased per patient. Present on CT scan from previous admission. Concern for Possible malignant ascites due to disproportion with other edema. Appreciate Surgery performing Paracentesis. 2.7L removed and pending chemistries and cytology. (3) Falls Current Visit: No Status: Acute Comment: Patient presented with mechanical fall. Chronic issue per previous records. Did not hit head, no evidence of injury. (4) CAD (coronary artery disease) Current Visit: No Status: Acute Code(s): I25.10 - ATHSCL HEART DISEASE OF [place] CORONARY ARTERY W/O ANG PCTRS SNOMED Code(s): 27587814 Comment: Records from the patient's dredge engineer reveal she had a stent to her LAD 10/2015 post STEMI. Troponin Negative at admission. EF 35-40 on Echo. No further work up indicated at this time. cont ASA/Plavix Will investigate why patient is not on a statin. (5) HTN (hypertension) Current Visit: No Status: Acute Code(s): I10 - ESSENTIAL (PRIMARY) HYPERTENSION SNOMED Code(s): 47723346 Comment: Continue Metoprolol, controlled (6) Hypothyroidism Current Visit: No Status: Acute Code(s): E03.9 - HYPOTHYROIDISM, UNSPECIFIED SNOMED Code(s): 49581693 Comment: TSH 10.91. Will check T3/T4 in morning and increase levothyroxine if indicated. (7) Iron deficiency anemia Current Visit: No Status: Acute Code(s): D50.9 - IRON DEFICIENCY ANEMIA, UNSPECIFIED SNOMED Code(s): 32706913 Comment: Chronic anemia with elevated RDW, on Iron. Will continue to monitor. (8) Stage III chronic kidney disease Current Visit: No Status: Acute Code(s): N18.3 - CHRONIC KIDNEY DISEASE, STAGE 3 (MODERATE) SNOMED Code(s): 476948408 Comment: Creatinine elevated, at baseline from previous hospitalizations. Will monitor due to high dose lasix. (9) Type II diabetes mellitus Current Visit: No Status: Acute Comment: Hold glipizide, Lantus 10u and SSI. Good control in hospital, HbA1c 5.8%. Consider decreasing basal insulin at discharge if hypoglycemic outpatient. 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 Pending cytology for ascites. LFTs normal except for elevated Alkaline Phosphatase at 120. Concern for predisposition to gall bladder cancer and ascites. Consider cholecystectomy pending ascites evaluation. (11) Gallbladder polyp Current Visit: Yes Status: Acute Code(s): K82.4 - CHOLESTEROLOSIS OF GALLBLADDER SNOMED Code(s): 153629119 Comment: Detected on Gallbladder US from August,. (12) DVT prophylaxis Current Visit: No Status: Acute Code(s): QHC5675 - SNOMED Code(s): 265931106 Comment: - SQ heparin. (13) Full code status Current Visit: No Status: Acute Code(s): Z78.9 - OTHER SPECIFIED HEALTH STATUS SNOMED Code(s): 795107832 Status and Disposition: Patient is admitted inpatient, will discharge when medically stable.
[2017-02-13] MEDS: OLANzapine TAB*ODT* 10 MG TAB PO SCH (21:57)
[2017-02-13] MEDS: Docusate CAP* 100 MG PO SCH (21:57)
[2017-02-13] MEDS: Senna TAB PO SCH (21:57)
--- NOTE | 2017-02-13 22:10 | RAD ---
Indication: Pulmonary edema. Systolic congestive heart failure. Comparison: February 12, 2017 Technique: Upright AP 2146 hours Report: Cardiomegaly. Diffuse prominence of interstitial markings prominent central pulmonary vasculature. Small RIGHT pleural effusion. Negative for pneumothorax. IMPRESSION: Pulmonary vascular congestion and interstitial edema improving compared with the February 12, 2017 exam. Probable small associated RIGHT pleural effusion.
--- NOTE | 2017-02-14 06:00 | OP ---
DATE OF OPERATION: 02/13/17 - ROOM #411 DATE OF : 67 SURGEON: Taz Bernstein MD. ELASTIC TAPE INSERTER: None. ANESTHESIA: 1% lidocaine plain, local. PREPROCEDURE DIAGNOSIS: Ascites. POSTOPERATIVE DIAGNOSIS: Ascites. OPERATIVE PROCEDURE: Paracentesis. ESTIMATED BLOOD LOSS: Minimal. SPECIMENS: Peritoneal fluid. DRAINS: None. COMPLICATIONS: None. DESCRIPTION OF PROCEDURE: The patient was positioned on the stretcher, supine. She was marked under ultra-sound guidance in the accessible area in the left upper quadrant. A time-out was performed. The site was prepped and draped in sterile fashion and local anesthetic was infiltrated into the skin and soft tissue. Aspiration confirmed clear straw-colored ascites fluid. The 8-Czech paracentesis catheter over needle was advanced into the peritoneal cavity. The catheter was advanced and needle withdrawn and fluid was aspirated. A total of 2.3 L of fluid was able to be removed before the patient started to complain of discomfort due to her position and therefore the procedure was concluded. The catheter was removed. Direct pressure was applied to the site to achieve hemostasis and dressing applied. The patient tolerated this well. The specimen was submitted to Pathology. I confirmed with hospitalist service that appropriate testing would be ordered by them. [id number]/[id number] #: [id number] MTDD
[2017-02-14] MEDS: Levothyroxine TAB* 100 MCG TAB PO SCH (06:19)
[2017-02-14] MEDS: Heparin VIAL(*) 5000 UNITS/ML VIAL (FIVE THOUSAND) SUBCUT SCH (06:19)
[2017-02-14 07:53] LABS: ABS Basophils 0 10^3/ul (0-0.2); ABS Eosinophils 0.2 10^3/ul (0-0.6); ABS Lymphocytes 1.4 10^3/ul (1.0-4.8); ABS Monocytes 0.8 10^3/ul (0-0.8); ABS Neutrophils 3.1 10^3/ul (1.5-7.7); ABS Nucleated RBC 0.01 10^3/ul; Eosinophil % 3.1 % (0-6); Hematocrit 31 % (35-47); Lymphocyte % 25.2 % (25-47); Mean Corpuscular HGB Conc 33 g/dl (31-36); Mean Corpuscular Hemoglobin 29 pg (27-31); Mean Corpuscular Volume 88 fL (80-97); Mean Platelet Volume 8 um3 (7.4-10.4); Nucleated Red Blood Cells % 0.1; Platelet Count 120 10^3/ul (150-450); Red Blood Count 3.51 10^6/ul (4.0-5.4); Red Cell Distribution Width 17 % (10.5-15); White Blood Count 5.6 10^3/ul (3.5-10.8)
[2017-02-14 07:59] LABS: EGFR Non-African American 41.9 (>60)
[2017-02-14] MEDS: Insulin LISPRO* 1 UNITS UNIT SUBCUT SCH ×4 (08:10→22:49)
[2017-02-14] MEDS: Venlafaxine EXT RELEASE CAP* 75 MG PO SCH (09:45)
[2017-02-14] MEDS: Metoprolol Tartrate TAB* 50 mg PO SCH ×2 (09:46→22:49)
[2017-02-14] MEDS: Amantadine CAP* 100 MG PO SCH (09:46)
[2017-02-14] MEDS: Aspirin EC Low Dose* 81 MG TAB.EC PO SCH (09:46)
[2017-02-14] MEDS: Magnesium Oxide TAB* 400 MG PO SCH (09:46)
[2017-02-14] MEDS: Sulfamethox/Trimethoprim DS 800/160* TAB PO SCH ×2 (09:46→22:49)
[2017-02-14] MEDS: Clopidogrel TAB* 75 MG PO SCH (09:46)
[2017-02-14] MEDS: Metolazone TAB* 5 MG PO SCH (09:46)
[2017-02-14] MEDS: Insulin GLARGINE(*) 1 UNITS UNIT SUBCUT SCH (09:47)
[2017-02-14] MEDS: Furosemide IV* 10 MG/ML VIAL (40 MG) IV SLOW PU SCH ×2 (09:47→17:14)
[2017-02-14 11:49] LABS: ABS Basophils 0 10^3/ul (0-0.2); ABS Eosinophils 0.2 10^3/ul (0-0.6); ABS Lymphocytes 1.5 10^3/ul (1.0-4.8); ABS Monocytes 0.7 10^3/ul (0-0.8); ABS Neutrophils 3.3 10^3/ul (1.5-7.7); ABS Nucleated RBC 0 10^3/ul; Eosinophil % 3.2 % (0-6); Hematocrit 32 % (35-47); Hemoglobin 10.3 g/dl (12.0-16.0); Lymphocyte % 26.3 % (25-47); Mean Corpuscular HGB Conc 32 g/dl (31-36); Mean Corpuscular Hemoglobin 28 pg (27-31); Mean Corpuscular Volume 88 fL (80-97); Mean Platelet Volume 9 um3 (7.4-10.4); Nucleated Red Blood Cells % 0; Platelet Count 124 10^3/ul (150-450); Red Blood Count 3.62 10^6/ul (4.0-5.4); Red Cell Distribution Width 17 % (10.5-15); White Blood Count 5.6 10^3/ul (3.5-10.8)
[2017-02-14 11:59] LABS: EGFR Non-African American 42.2 (>60)
--- NOTE | 2017-02-14 16:32 | PN ---
Subjective Date of Service: 02/14/17 Interval History: Patient states that pain from cellulitis is decreasing, as are abdominal pain and SOB. Patient has large area of ecchymosis on right shoulder that was not present yesterday. Patient also has numerous small non-blanching purple spots on back consistent with petichiae. Patient also developed a nose bleed this morning and had clots in urinary bag which is now draining orange. Patient had 3 + blood in urine yesterday as well. Platelet count 120 and 124 on lab work. ASA , Plavix and heparin stopped for now. Patient denies any pain from area of ecchymosis or anywhere besides inner thigh. Patient denies constipation, diarrhea, F/C, N/V or other complaints. Patient is A/Ox3 but exhibits limited insight. Patient had 7 beat run of Vtach while sleeping and hypoxic at 89%. Oxygen reapplied. Family History: Unchanged from Admission Social History: Unchanged from Admission Past Medical History: Unchanged from Admission Objective Active Medications: Amantadine HCl (Symmetrel Cap*) 100 mg PO DAILY@0800 [facility] Last Admin: 02/14/17 09:46 Dose: 100 mg Dextrose (D50w Syringe 50 Ml*) 12.5 gm IV PUSH .FOR FS < 60 - SS PRN PRN Reason: FS < 60 Docusate Sodium (Colace Cap*) 100 mg PO BEDTIME [facility] Last Admin: 02/13/17 21:57 Dose: 100 mg Furosemide (Lasix Iv*) 40 mg IV SLOW PU 0800,1700 [facility] Last Admin: 02/14/17 09:47 Dose: 40 mg Insulin Glargine (Lantus(*)) [facility] [place] [facility] [place] Admin: 02/14/17 09:47 Dose: 10 unit Insulin Human Lispro (Humalog*) 0 units SUBCUT ACHS [facility] PRN Reason: Protocol Last Admin: 02/14/17 12:27 Dose: 2 units Levothyroxine Sodium (Synthroid Tab*) 100 mcg PO 0600 [facility] Last Admin: 02/14/17 06:19 Dose: 100 mcg Magnesium Oxide (Magox 400 Tab*) 400 mg PO QAM [facility] Last Admin: 02/14/17 09:46 Dose: 400 mg Metolazone (Zaroxolyn Tab*) 5 mg PO DAILY [facility] Last Admin: 02/14/17 09:46 Dose: 5 mg Metoprolol Tartrate (Lopressor Tab*) 50 mg PO Q12HR [facility] Last Admin: 02/14/17 09:46 Dose: 50 mg Olanzapine (Zyprexa *Odt*) 40 mg PO BEDTIME [facility] Last Admin: 02/13/17 21:57 Dose: 40 mg Senna (Senokot Tab*) 1 tab PO BEDTIME [facility] Last Admin: 02/13/17 21:57 Dose: 1 tab Trimethoprim/Sulfamethoxazole (Bactrim Ds 800/160 Tab*) 1 tab PO BID [facility] Last Admin: 02/14/17 09:46 Dose: 1 tab Venlafaxine HCl (Effexor Xr Cap*) 300 mg PO QAM [facility] Last Admin: 02/14/17 09:45 Dose: 300 mg Vital Signs 02/13/17 02/13/17 02/14/17 19:41 20:00 00:15 Temperature 97.8 F 97.6 F Pulse Rate 74 73 Respiratory 24 23 18 Rate Blood Pressure 118/63 90/42 (mmHg) O2 Sat by Pulse 97 100 Oximetry 02/14/17 02/14/17 02/14/17 00:35 04:03 08:00 Temperature 97.2 F Pulse Rate 73 Respiratory 16 22 Rate Blood Pressure 92/50 96/57 (mmHg) O2 Sat by Pulse 98 Oximetry 02/14/17 02/14/17 02/14/17 08:06 11:43 11:55 Temperature 97.4 F Pulse Rate 73 69 Respiratory 18 14 Rate Blood Pressure 108/54 119/81 (mmHg) O2 Sat by Pulse 97 89 94 Oximetry 02/14/17 02/14/17 14:43 15:00 Temperature 97.7 F Pulse Rate 69 Respiratory Rate Blood Pressure 102/58 (mmHg) O2 Sat by Pulse 90 100 Oximetry Oxygen Devices in Use Now: Nasal Cannula Appearance: Patient is a 51yo female who appears stated age and is sitting in the bad in [facility]. Eyes: No Scleral Icterus, PERRLA Ears/Nose/Mouth/Throat: NL Teeth, Lips, Gums, Clear Oropharnyx, Mucous Membranes Moist Neck: NL Appearance and Movements; NL JVP, Trachea Midline Respiratory: Symmetrical Chest Expansion and Respiratory Effort, - - Slight crackles in LL. Dramatically improved aeration and decreased crackles from previous exam. Percussion resonant almost down to CVA. Cardiovascular: NL Sounds; No Murmurs; No JVD, RRR, No Edema Abdominal: - - Dramatically rotund abdomen not visibly decreased from previous day. Tense, non-tender. Unable to palpate liver or spleen. Exam limited by body habitus. Lymphatic: No Cervical Adenopathy Extremities: - - 1+ edema in B/L LE. Azul's nails. Skin: - - Large area of eccymosis on left anterior chest. Slightly decreased area of erythma consistent with cellulitis on left thigh. Petechial rash over entire back but not elsewhere. Neurological: Alert and Oriented x 3, NL Sensation, NL Muscle Strength and Tone Lines/Tubes/Other Access: Clean, Dry and Intact Wade - Draining orange urine with clots that improved over the course of the day. Result Diagrams: 02/14/17 11:28 02/14/17 11:28 Microbiology and Other Data: Microbiology 02/13/17 15:08 Sterile Body Fluid Culture - Preliminary Ascites Fluid No Growth Day 1 Sterile Body Fluid Culture - Preliminary No Growth Day 1 Assess/Plan/Problems-Billing Assessment: Patient is a 51yo female with a PMH significant for CHF, CKD, DMII, CAD, Breast Cancer, Hypothyroidism, and developmental delay who presents with worsening SOB and ascites. SOB is improving on diuretics and had a paracentesis with 2.3L removed and cytology pending. - Patient Problems (1) CHF (congestive heart failure) Current Visit: Yes Status: Acute Code(s): I50.9 - HEART FAILURE, UNSPECIFIED SNOMED Code(s): 59445388 Comment: Patient presents with SOB, lower leg edema, and anasarca consistent with CHF exacerbation. Lasix at 40mg IV BID Increased from Torsemide 20mg BID at home and Metolazone Daily up from home every other day. Edema likely contributing to fall risk. Legs Wrapped and elevated. 1500mL Fluid restriction. Strict I/O and Daily Weights. Only slightly negative urinary fluid balance. Down 2.7L from paracentesis. (2) Ascites Current Visit: Yes Status: Acute Code(s): R18.8 - OTHER ASCITES SNOMED Code(s): 598846068 Comment: Ascites increased per patient. Present on CT scan from previous admission. Concern for Possible malignant ascites due to disproportion with other edema. Appreciate Surgery performing Paracentesis. 2.7L removed, cytology pending. Chemistries and cell counts unremarkable except slightly elevated protein at 4.2 and slightly elevated cholesterol at 50. Albumin pending for SAAG. LDH pending. Triglycerides pending. Indicative of possible malignant effusion pending complete laboratory results. (3) Falls Current Visit: No Status: Acute Comment: Patient presented with mechanical fall. Chronic issue per previous records. Did not hit head. Bruise today on shoulder may be a consequence of most recent fall, though does not match mechanism of fall described by patient. Patient denies other trauma. 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 Troponin Negative at admission. EF 35-40 on Echo. No further work up indicated at this time. Stop ASA/plavix due to bleeding. Consider resuming tomorrow. Will check lipid panel. Recommend starting on Statin therapy outpatient. (5) HTN (hypertension) Current Visit: No Status: Acute Code(s): I10 - ESSENTIAL (PRIMARY) HYPERTENSION SNOMED Code(s): 36947494 Comment: Continue Metoprolol, controlled (6) Hypothyroidism Current Visit: No Status: Acute Code(s): E03.9 - HYPOTHYROIDISM, UNSPECIFIED SNOMED Code(s): 86130253 Comment: TSH 10.91. Will check T3/T4 in morning and increase levothyroxine if indicated. (7) Iron deficiency anemia Current Visit: No Status: Acute Code(s): D50.9 - IRON DEFICIENCY ANEMIA, UNSPECIFIED SNOMED Code(s): 06521871 Comment: Chronic anemia with elevated RDW, on Iron. Will continue to monitor. (8) Stage III chronic kidney disease Current Visit: No Status: Acute Code(s): N18.3 - CHRONIC KIDNEY DISEASE, STAGE 3 (MODERATE) SNOMED Code(s): 791814253 Comment: Creatinine elevated, at baseline from previous hospitalizations. Will monitor due to high dose lasix. (9) Type II diabetes mellitus Current Visit: No Status: Acute Comment: Hold glipizide, Lantus 10u and SSI. Good control in hospital, HbA1c 5.8%. Consider decreasing basal insulin at discharge if hypoglycemic outpatient. 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 Pending cytology for ascites. LFTs normal except for elevated Alkaline Phosphatase at 120. Concern for predisposition to gall bladder cancer and ascites. Consider cholecystectomy pending ascites evaluation. (11) Gallbladder polyp Current Visit: Yes Status: Acute Code(s): K82.4 - CHOLESTEROLOSIS OF GALLBLADDER SNOMED Code(s): 977780529 Comment: Detected on Gallbladder US from August,. (12) DVT prophylaxis Current Visit: No Status: Acute Code(s): FBY7317 - SNOMED Code(s): 548665976 Comment: - SQ heparin. (13) Full code status Current Visit: No Status: Acute Code(s): Z78.9 - OTHER SPECIFIED HEALTH STATUS SNOMED Code(s): 954003245 Status and Disposition: Patient is admitted inpatient, will discharge when medically stable.
[2017-02-14] MEDS: Docusate CAP* 100 MG PO SCH (22:49)
[2017-02-14] MEDS: OLANzapine TAB*ODT* 10 MG TAB PO SCH (22:49)
[2017-02-14] MEDS: Senna TAB PO SCH (22:49)
[2017-02-15] MEDS: Levothyroxine TAB* 100 MCG TAB PO SCH (05:34)
[2017-02-15 06:31] LABS: ABS Basophils 0 10^3/ul (0-0.2); ABS Eosinophils 0.2 10^3/ul (0-0.6); ABS Lymphocytes 1.5 10^3/ul (1.0-4.8); ABS Monocytes 0.6 10^3/ul (0-0.8); ABS Neutrophils 2.9 10^3/ul (1.5-7.7); ABS Nucleated RBC 0 10^3/ul; Eosinophil % 3.5 % (0-6); Hematocrit 30 % (35-47); Hemoglobin 9.9 g/dl (12.0-16.0); Lymphocyte % 28.9 % (25-47); Mean Corpuscular HGB Conc 33 g/dl (31-36); Mean Corpuscular Hemoglobin 29 pg (27-31); Mean Corpuscular Volume 87 fL (80-97); Mean Platelet Volume 8 um3 (7.4-10.4); Nucleated Red Blood Cells % 0.1; Platelet Count 119 10^3/ul (150-450); Red Blood Count 3.37 10^6/ul (4.0-5.4); Red Cell Distribution Width 16 % (10.5-15); White Blood Count 5.2 10^3/ul (3.5-10.8)
[2017-02-15 06:44] LABS: EGFR Non-African American 44.9 (>60)
--- NOTE | 2017-02-15 07:35 | PN ---
Subjective Date of Service: 02/15/17 Interval History: Ms. Thao states that she is feeling a bit better today though she remains short of breath and her abdomen is distended. She denies nausea or abdominal pain. She denies chest pain. Family History: Unchanged from Admission Social History: Unchanged from Admission Past Medical History: Unchanged from Admission Objective Active Medications: Amantadine HCl (Symmetrel Cap*) 100 mg PO DAILY@0800 [facility] Dextrose (D50w Syringe 50 Ml*) 12.5 gm IV PUSH .FOR FS < 60 - SS PRN Docusate Sodium (Colace Cap*) 100 mg PO BEDTIME [facility] Furosemide (Lasix Iv*) 40 mg IV SLOW PU 0800,1700 [facility] Insulin Glargine (Lantus(*)) 10 units SUBCUT QAM [facility] Insulin Human Lispro (Humalog*) 0 units SUBCUT ACHS [facility] Levothyroxine Sodium (Synthroid Tab*) 100 mcg PO 0600 [facility] Magnesium Oxide (Magox 400 Tab*) 400 mg PO QAM [facility] Metolazone (Zaroxolyn Tab*) 5 mg PO DAILY [facility] Metoprolol Tartrate (Lopressor Tab*) 50 mg PO Q12HR [facility] Olanzapine (Zyprexa *Odt*) 40 mg PO BEDTIME [facility] Senna (Senokot Tab*) 1 tab PO BEDTIME [facility] Trimethoprim/Sulfamethoxazole (Bactrim Ds 800/160 Tab*) 1 tab PO BID [facility] Venlafaxine HCl (Effexor Xr Cap*) 300 mg PO QAM [facility] Vital Signs: Temp Pulse Resp BP Pulse Ox 97.6 F 72 20 102/59 99 02/14/17 23:13 02/14/17 23:13 02/14/17 23:13 02/14/17 23:13 02/14/17 23:13 Oxygen Devices in Use Now: Nasal Cannula Appearance: Female lying in bed in NAD Eyes: No Scleral Icterus Ears/Nose/Mouth/Throat: Mucous Membranes Moist Neck: NL Appearance and Movements; NL JVP Respiratory: Symmetrical Chest Expansion and Respiratory Effort, Clear to Auscultation Cardiovascular: NL Sounds; No Murmurs; No JVD, No Edema Abdominal: - - Severe abd distention, no tenderness Lymphatic: No Cervical Adenopathy Extremities: No Edema Skin: No Rash or Ulcers Neurological: Alert and Oriented x 3, NL Muscle Strength and Tone Nutrition: Taking PO's Result Diagrams: 02/15/17 06:13 02/15/17 06:13 Microbiology and Other Data: Microbiology 02/13/17 15:08 Sterile Body Fluid Culture - Preliminary Ascites Fluid No Growth Day 1 Sterile Body Fluid Culture - Preliminary No Growth Day 1 Assess/Plan/Problems-Billing Assessment: Ms. Thao is a 51yo female with a PMH significant for CHF, CKD, DMII, CAD, Breast Cancer, Hypothyroidism, and developmental delay who presents with worsening SOB and ascites suspected to be secondary to CHF but with concern for malignancy now s/p paracentesis with removal of 2.3L, cytology pending. - Patient Problems (1) Ascites Comment: - Concern for possible malignant ascites due to disproportion with other edema. - Appreciate Surgery performing Paracentesis. 2.7L removed, cytology pending. Chemistries and cell counts unremarkable except slightly elevated protein at 4.2 and slightly elevated cholesterol at 50. Albumin pending for SAAG. LDH pending. Triglycerides pending. (2) CHF (congestive heart failure) SNOMED Code(s): 38269759 Comment: - I/Os down by 1.2 L. Remains on 2L NC and SOB at rest, appears LE edema has improved. Persistent significant abdominal distention s/p paracentesis for 2.7 L. - Continue lasix at 40mg IV BID Increased from Torsemide 20mg BID at home and Metolazone Daily up from home every other day. Legs Wrapped and elevated. 1500mL Fluid restriction. Strict I/O and Daily Weights. (3) Gallbladder polyp Comment: Detected on Gallbladder US from August,. (4) Porcelain gallbladder Comment: - Possible porcelain gallbladder on US. Pending cytology for ascites. LFTs normal except for elevated Alkaline Phosphatase at 120. Concern for predisposition to gall bladder cancer and ascites. Consider cholecystectomy pending ascites evaluation. (5) Hypothyroidism Comment: - TSH 10.91 but T4 normal. - Continue levothyroxine. (6) CAD (coronary artery disease) Comment: - Troponin negative at admission. EF 35-40 on Echo. - Stent to her LAD 10/2015 post STEMI. - Stop ASA/plavix due to bleeding. - Lipids at goal. (7) HTN (hypertension) Comment: - Continue Metoprolol, controlled. (8) Falls Comment: - Patient presented with mechanical fall. Chronic issue per previous records. Did not hit head. Bruise today on shoulder may be a consequence of most recent fall, though does not match mechanism of fall described by patient. Patient denies other trauma. (9) Iron deficiency anemia Comment: - Chronic anemia at baseline. - Continue iron supplementation. (10) Stage III chronic kidney disease Comment: - Creatinine at baseline. Will monitor due to high dose lasix. (11) Type II diabetes mellitus Comment: - BGs well controlled. - Hold glipizide. Continue lantus 10u and SSI. HbA1c 5.8%. (12) DVT prophylaxis Comment: - SQ heparin. (13) Full code status Status and Disposition: Patient is admitted inpatient, will discharge when medically stable.
[2017-02-15] MEDS: Insulin LISPRO* 1 UNITS UNIT SUBCUT SCH ×4 (07:40→21:40)
[2017-02-15] MEDS: Amantadine CAP* 100 MG PO SCH (08:45)
[2017-02-15] MEDS: Metolazone TAB* 5 MG PO SCH (08:45)
[2017-02-15] MEDS: Magnesium Oxide TAB* 400 MG PO SCH (08:46)
[2017-02-15] MEDS: Metoprolol Tartrate TAB* 50 mg PO SCH ×2 (08:46→21:40)
[2017-02-15] MEDS: Venlafaxine EXT RELEASE CAP* 75 MG PO SCH (08:46)
[2017-02-15] MEDS: Furosemide IV* 10 MG/ML VIAL (40 MG) IV SLOW PU SCH ×2 (08:46→17:32)
[2017-02-15] MEDS: Sulfamethox/Trimethoprim DS 800/160* TAB PO SCH ×2 (08:46→21:40)
[2017-02-15] MEDS: Insulin GLARGINE(*) 1 UNITS UNIT SUBCUT SCH (08:47)
[2017-02-15] MEDS: Heparin VIAL(*) 5000 UNITS/ML VIAL (FIVE THOUSAND) SUBCUT SCH ×2 (15:10→21:41)
[2017-02-15] MEDS ORDERED: oxyCODONE/Acetamin 5/325 MG* TAB PO ONE (21:22)
[2017-02-15] MEDS: Senna TAB PO SCH (21:40)
[2017-02-15] MEDS: OLANzapine TAB*ODT* 10 MG TAB PO SCH (21:40)
[2017-02-15] MEDS: Docusate CAP* 100 MG PO SCH (21:40)
[2017-02-16 02:32] LABS: Hematocrit 25 % (35-47); Hemoglobin 8.4 g/dl (12.0-16.0)
[2017-02-16 02:46] LABS: EGFR Non-African American 44.5 (>60)
[2017-02-16] MEDS: Levothyroxine TAB* 100 MCG TAB PO SCH (05:41)
[2017-02-16] MEDS: Heparin VIAL(*) 5000 UNITS/ML VIAL (FIVE THOUSAND) SUBCUT SCH (05:41)
[2017-02-16] MEDS: Acetaminophen TAB* 325 MG PO PRN (05:46)
[2017-02-16 06:33] LABS: Hematocrit 26 % (35-47); Hemoglobin 8.7 g/dl (12.0-16.0)
--- NOTE | 2017-02-16 07:19 | RAD ---
INDICATION: Trauma, bruising to flank. COMPARISON: Comparison is made with a prior CT of the abdomen and pelvis from June 16, 2016. TECHNIQUE: A CT scan of the abdomen and pelvis was performed without intravenous or oral contrast. Contiguous axial sections were obtained from the lung bases through the symphysis pubis. Images were reconstructed in the coronal and sagittal planes. FINDINGS: There is mild dependent bilateral lower lobe subsegmental atelectasis. No pleural effusion is present. The heart is enlarged. There are calcifications within the coronary arteries. The liver and spleen are within normal limits in size without significant focal abnormality on this noncontrast study. No calcified gallstones are seen. The pancreas appears to be within normal limits in size. The adrenal glands and kidneys are normal in size. No renal calculi or hydronephrosis is seen. There is a Wade catheter within the urinary bladder. The aorta is normal in caliber without significant calcific plaque. No significant enlarged retroperitoneal lymph nodes are seen. The stomach, small and large bowel appear nondistended. The appendix is within normal limits. There is no evidence for diverticulitis or colitis. The uterus is normal in size and shape. There is a large amount of ascites present throughout the abdomen and pelvis which is increased in amount from the prior study. No free intraperitoneal air is seen. There is a hematoma in the subcutaneous tissues in the right flank measuring 14.0 x 3.1 x 12.4 cm in size. There is edema throughout the subcutaneous tissues most consistent with anasarca. No fracture or significant focal osseous abnormality is seen. IMPRESSION: 1. HEMATOMA IN THE SUBCUTANEOUS TISSUES IN THE RIGHT FLANK REGION. 2. LARGE AMOUNT OF ASCITES INCREASED FROM THE PRIOR STUDY. 3. ANASARCA.
[2017-02-16] MEDS: Insulin LISPRO* 1 UNITS UNIT SUBCUT SCH ×4 (07:31→21:57)
[2017-02-16] MEDS: Metoprolol Tartrate TAB* 50 mg PO SCH (07:57)
[2017-02-16] MEDS: Metolazone TAB* 5 MG PO SCH (08:21)
[2017-02-16] MEDS: Furosemide IV* 10 MG/ML VIAL (40 MG) IV SLOW PU SCH (08:21)
[2017-02-16] MEDS: Amantadine CAP* 100 MG PO SCH (08:21)
[2017-02-16] MEDS: Venlafaxine EXT RELEASE CAP* 75 MG PO SCH (08:21)
[2017-02-16] MEDS: Magnesium Oxide TAB* 400 MG PO SCH (08:21)
[2017-02-16] MEDS: Sulfamethox/Trimethoprim DS 800/160* TAB PO SCH ×2 (08:21→22:00)
[2017-02-16] MEDS: Insulin GLARGINE(*) 1 UNITS UNIT SUBCUT SCH (08:22)
[2017-02-16] MEDS ORDERED: Metoprolol Tartrate TAB* 50 mg PO SCH (09:26)
--- NOTE | 2017-02-16 09:30 | PN ---
Subjective Date of Service: 02/16/17 Interval History: Ms. Thao complains of right sided abdominal pain but otherwise feels that she is doing well. She denies chest pain or SOB. She continues to have significant abdominal distention. Family History: Unchanged from Admission Social History: Unchanged from Admission Past Medical History: Unchanged from Admission Objective Active Medications: Acetaminophen (Tylenol Tab*) 650 mg PO Q6H PRN Amantadine HCl (Symmetrel Cap*) 100 mg PO DAILY@0800 [facility] Dextrose (D50w Syringe 50 Ml*) 12.5 gm IV PUSH .FOR FS < 60 - SS PRN Docusate Sodium (Colace Cap*) 100 mg PO BEDTIME [facility] Furosemide (Lasix Iv*) 40 mg IV SLOW PU 0800,1700 [facility] Insulin Glargine (Lantus(*)) 10 units SUBCUT QAM [facility] Insulin Human Lispro (Humalog*) 0 units SUBCUT ACHS [facility] Levothyroxine Sodium (Synthroid Tab*) 100 mcg PO 0600 [facility] Magnesium Oxide (Magox 400 Tab*) 400 mg PO QAM [facility] Metolazone (Zaroxolyn Tab*) 5 mg PO DAILY [facility] Metoprolol Tartrate (Lopressor Tab*) 50 mg PO Q12HR [facility] Olanzapine (Zyprexa *Odt*) 40 mg PO BEDTIME [facility] Senna (Senokot Tab*) 1 tab PO BEDTIME [facility] Trimethoprim/Sulfamethoxazole (Bactrim Ds 800/160 Tab*) 1 tab PO BID [facility] Venlafaxine HCl (Effexor Xr Cap*) 300 mg PO QAM [facility] Vital Signs: Temp Pulse Resp BP Pulse Ox 97.6 F 80 16 103/44 100 02/16/17 07:43 02/16/17 11:11 02/16/17 08:00 02/16/17 07:43 02/16/17 07:43 Oxygen Devices in Use Now: Nasal Cannula Appearance: Female sitting up in chair in NAD Eyes: No Scleral Icterus Ears/Nose/Mouth/Throat: Mucous Membranes Moist Neck: Trachea Midline Respiratory: Symmetrical Chest Expansion and Respiratory Effort, Clear to Auscultation Cardiovascular: NL Sounds; No Murmurs; No JVD, - - Minimal LE edema Abdominal: - - Severe abdominal distention, BS + Extremities: - - Minimal LE edema Skin: No Rash or Ulcers, No Nodules or Sclerosis Neurological: Alert and Oriented x 3, NL Muscle Strength and Tone Nutrition: Taking PO's Result Diagrams: 02/16/17 06:11 02/16/17 02:17 Microbiology and Other Data: Microbiology 02/13/17 15:08 Sterile Body Fluid Culture - Preliminary Ascites Fluid No Growth Day 1 Sterile Body Fluid Culture - Preliminary No Growth Day 1 Assess/Plan/Problems-Billing Assessment: Ms. Thao is a 51yo female with a PMH significant for CHF, CKD, DMII, CAD, Breast Cancer, Hypothyroidism, and developmental delay who presents with worsening SOB and ascites suspected to be secondary to CHF but with concern for malignancy now s/p paracentesis with removal of 2.3L, cytology pending. - Patient Problems (1) CHF (congestive heart failure) Comment: - Patient with minimal improvement overall. Note is made of two other admissions this year for CHF. - Appreciate cardiology consultation. Dr. Banuelos interprets the echo to show severe restrictive diastolic dysfunction with moderate to severe reduction in RV function and EF 30%. - Optimizing medication regimen now with increase of lasix to 80mg BID, continuing metolazone, adding spironolactone, reducing metoprolol. Not adding at ACEI at this point due to relative hypotension and need for further diuresis. - Continue 1.5 L fluid restriction, I/Os and daily weights. - Concern for FOREST as contributor to heart failure, overnight pulse oximetry ordered. - Dr. Banuelos notes a poor prognosis, palliative consult appreciated. (2) Ascites Comment: - Initial concern for possible malignant ascites due to disproportion with other edema, however at this point, I suspect that it is likely related to CHF with noted severe right heart failure. Also supported by ascitic fluid analysis , based on SAAG < 1.4 and total protein > 4. - Appreciate Surgery performing Paracentesis. 2.7L removed, cytology pending. (3) Stage III chronic kidney disease Comment: - Creatinine at baseline now. - Will monitor due to need for high dose lasix. (4) HTN (hypertension) Comment: - SBP 90-100s. - Continue to monitor closely with additional diuretics for CHF. (5) CAD (coronary artery disease) Comment: - Troponin negative at admission. EF 35-40 on Echo. - Stent to her LAD 10/2015 post STEMI. - Hold plavix but resume aspirin. - Lipids at goal, atorvastatin added per cardiology. (6) Type II diabetes mellitus Comment: - BGs well controlled. - Hold glipizide. Continue lantus 10u and SSI. HbA1c 5.8%. (7) Gallbladder polyp Comment: - Detected on Gallbladder US from August,. 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 - Patient asymptomatic but severely ill from end stage CHF, surgery not indicated. (8) Iron deficiency anemia Comment: - Chronic anemia at baseline. - Continue iron supplementation. (9) Hypothyroidism Comment: - TSH 10.91 but T4 normal. - Continue levothyroxine. (10) Falls Comment: - Patient had fall prior to arrival and another witnessed fall last evening where she slid from the bed on to the floor. - CT abd ordered as patient complaint of R flank pain, shows R flank hematoma only. (11) DVT prophylaxis Comment: - SCDs given hematoma and hematuria for now. (12) Full code status Status and Disposition: Patient is admitted inpatient. Patient with poor prognosis. Requesting psych consult for evaluation of capacity regarding resuscitation status and overall plan of care. Palliative care consult appreciated. SW also providing support.
[2017-02-16] MEDS ORDERED: Digoxin IV* 0.5 MG/2 ML AMP (0.25 MG/ML) IV SLOW PU ONE ×2 (09:43→16:00)
[2017-02-16] MEDS ORDERED: Furosemide IV* 10 MG/ML VIAL (40 MG) IV ONE (10:05)
[2017-02-16] MEDS ORDERED: Potassium Chlor TAB* 10 MEQ TAB.ER PO ONE (10:08)
--- NOTE | 2017-02-16 10:21 | CONSULT ---
Subjective Date of Service: 02/16/17 Interval History: Admission Date: 02/12/17 consult date 02/16/2018 Service: Hospitalist PRIMARY CARE PROVIDER: [facility]. CHIEF COMPLAINT: Fall and abdominal pain. Reason for consult: Decompensated R>L congestive heart failure HISTORY OF PRESENT ILLNESS: Ms. Thao is a 51-year-old woman who has a history of diabetes and an anterior wall STEMI 08/2015 s/p PCI to LAD with resultant ischemic cardiomyopathy and systolic heart failure LVEF 30-35% and subsequent development of right sided heart failure with ascites, hypothyroidism, CKD and intellectual disability. She was admitted for ADHF 01/2016. She was admitted to [facility] 04/2015 [facility] weakness and falls (which she is very prone to) and found with acute kidney injury with a peak creatinine of 3.7 while taking torsemide 20 mg PO daily, aldactone 25 mg po dialy and metolazone 2.5 mg every other day. She was re-admitted 05/2016 with chf exacerbation. I think last saw her manager analytical Dr. Haim Vernon 2015 and was noted to have primarily intra-abdominal accumulation of fluid which prompted that hospital admission. She currently residing at [facility]. Does not eat any food other than what is provided there. Does not use salt shaker. Was admitted with worsening abdomen distension, edema, dyspnea and a fall. She says she will not be short of breath while sitting still but is dyspneic with any activity. She had an over 2 liter paracentesis this admission. Echo done 02/13/2017 I reviewed: LVEF 30% Moderate LA dilation Grade III restrictive severe diastolic dysfunction. Mild-moderate TR Moderate RV dilation with moderate-severe reduced function Abnormal septal motion appears more consistent with RV pressure/volume overload than conduction system disease. Unable to estimate PASP PAST MEDICAL HISTORY: 1. Hypertension. 2. Intellectual developmental delay. 3. Hyperlipidemia. 4. Type 2 diabetes. 5. Hypothyroidism. 6. Coronary artery disease/MS/PCI 7. History of breast cancer. 8. Ischemic cardiomyopathy, systolic HF, right sided HF 9. Frequent falls, possibility of multiple sclerosis has been raised in the past. ALLERGIES: No known drug allergies. FAMILY HISTORY: Both parents are . The patient states her mom had Alzheimer's and her dad her diabetes. SOCIAL HISTORY: The patient is a lifelong nonsmoker. She does not drink alcohol. She states that she works at the [employer]. She is not . She has no children. She indicates that her brother, Kdear, is her healthcare proxy. Medications Active Medications: Acetaminophen (Tylenol Tab*) 650 mg PO Q6H PRN PRN Reason: FEVER/PAIN Last Admin: 02/16/17 05:46 Dose: 650 mg Amantadine HCl (Symmetrel Cap*) 100 mg PO DAILY@0800 [facility] Last Admin: 02/16/17 08:21 Dose: 100 mg Atorvastatin Calcium (Lipitor*) 40 mg PO 1700 [facility] Dextrose (D50w Syringe 50 Ml*) 12.5 gm IV PUSH .FOR FS < 60 - SS PRN PRN Reason: FS < 60 Digoxin (Digoxin Iv*) 0.25 mg IV SLOW PU ONCE ONE Stop: 02/16/17 16:01 Digoxin (Lanoxin Tab*) 0.125 mg PO EVERY OTHER DAY [facility] Docusate Sodium (Colace Cap*) 100 mg PO BEDTIME [facility] Last Admin: 02/15/17 21:40 Dose: 100 mg Furosemide (Lasix Iv*) 80 mg IV BID [facility] Insulin Glargine (Lantus(*)) 10 units SUBCUT QAM [facility] Last Admin: 02/16/17 08:22 Dose: 10 unit Insulin Human Lispro (Humalog*) 0 units SUBCUT ACHS [facility] PRN Reason: Protocol Last Admin: 02/16/17 07:31 Dose: Not Given Levothyroxine Sodium (Synthroid Tab*) 100 mcg PO 0600 [facility] Last Admin: 02/16/17 05:41 Dose: 100 mcg Magnesium Oxide (Magox 400 Tab*) 400 mg PO QAM [facility] Last Admin: 02/16/17 08:21 Dose: 400 mg Metolazone (Zaroxolyn Tab*) 5 mg PO DAILY [facility] Last Admin: 02/16/17 08:21 Dose: 5 mg Metoprolol Succinate (Toprol Xl Tab*) 12.5 mg PO DAILY [facility] Olanzapine (Zyprexa *Odt*) 40 mg PO BEDTIME [facility] Last Admin: 02/15/17 21:40 Dose: 40 mg Potassium Chloride (Klor Con Er Tab*) 40 meq PO ONCE ONE Stop: 02/16/17 10:09 Senna (Senokot Tab*) 1 tab PO BEDTIME [facility] Last Admin: 02/15/17 21:40 Dose: 1 tab Spironolactone (Aldactone Tab*) 25 mg PO DAILY [facility] Trimethoprim/Sulfamethoxazole (Bactrim Ds 800/160 Tab*) 1 tab PO BID [facility] Last Admin: 02/16/17 08:21 Dose: 1 tab Venlafaxine HCl (Effexor Xr Cap*) 300 mg PO QAM [facility] Last Admin: 02/16/17 08:21 Dose: 300 mg Home Medications: Amantadine CAP* [Symmetrel CAP*] 100 mg PO DAILY@0800 04/07/16 [History Confirmed 02/12/17] glipiZIDE TAB.XL* [Glucotrol Xl*] 2.5 mg PO DAILY tab.xl 04/14/16 [Rx Confirmed 02/12/17] Acetaminophen [Acetaminophen Extra Stren] 1,000 mg PO BID PRN 09/21/16 [History Confirmed 02/12/17] Aspirin EC Low Dose* [Ecotrin EC Low Dose 81 MG*] 81 mg PO DAILY 09/21/16 [ History Confirmed 02/12/17] Cetirizine* [ZyrTEC 10 MG TAB*] 10 mg PO DAILY 09/21/16 [History Confirmed 02/12] Clopidogrel TAB* [Plavix TAB*] 75 mg PO QAM 09/21/16 [History Confirmed 02/12/17 ] Cyanocobalamin [Vitamin B-12] 1,000 mcg SL QAM 09/21/16 [History Confirmed 02/12] Insulin GLARGINE(*) [Lantus(*)] 10 units SUBCUT QAM 09/21/16 [History Confirmed 02/12/17] Levothyroxine TAB* [Synthroid TAB*] 100 mcg PO DAILY 09/21/16 [History Confirmed 02/12/17] Metolazone TAB* [Zaroxolyn TAB*] 5 mg PO MOWEFR 09/21/16 [History Confirmed ] Olanzapine [Zyprexa Zydis 20 MG] 40 mg PO BEDTIME 09/21/16 [History Confirmed ] Torsemide TAB* [Demadex*] 20 mg PO BID 09/21/16 [History Confirmed 02/12/17] Ferrous Sulfate TAB* 325 mg PO QAM 02/12/17 [History Confirmed 02/12/17] Magnesium Oxide TAB* [MagOx 400 TAB*] 400 mg PO QAM 02/12/17 [History Confirmed 02/12/17] Metoprolol Tartrate TAB* [Lopressor TAB*] 50 mg PO Q12HR 02/12/17 [History Confirmed 02/12/17] Potassium Chlor TAB* [Klor Con ER TAB*] 20 meq PO BID 02/12/17 [History Confirmed 02/12/17] Senna/Docusate (NF) [Sennokot-S] 1 tab PO BEDTIME 02/12/17 [History Confirmed ] Venlafaxine ER (NF) [Effexor ER (NF)] 300 mg PO QAM 02/12/17 [History Confirmed 02/12/17] Review of Systems - Measurements Intake and Output: Intake and Output Last 24 Hours 02/14/17 02/15/17 02/16/17 02/17/17 06:59 06:59 06:59 06:59 Intake Total 2410 1670 990 120 Output Total 2200 2900 1950 1000 Balance 210 -1230 -960 -880 Weight 310 lb 300 lb 11.2 oz 298 lb 8 oz Intake: IV Fluids 0 0 NS (0.9%) 0 0 Oral 2410 1670 990 120 Output: Urine 1000 Wade 1700 2900 1950 Residual 500 Wade 16 Fr 500 Other: Estimated Void Medium Medium # Bowel Movements 0 0 0 # Voids 3 - Review of Systems Constitutional Symptoms: Positive: Weight Gain, Weakness, Fatigue, Unexplained Falls Dermatology: Negative: Rash, Skin Lesions HEENT: Negative: Change in Hearing, Vertigo Eyes: Negative: Change in Vision, Double Vision Thyroid: Positive: Weight Gain Negative: Goiter, Thyroid Nodule, Cold Intolerance, Heat Intolerance, Sweatiness, Tremor, Palpitations Pulmonary: Positive: Respiratory Distress, Shortness of Breath, Exercise Intolerance Negative: Cough, Sputum, Hemoptysis, Wheezing, COPD, Asthma Cardiology: Positive: Shortness of Breath, Swelling of Ankles, Edema, Orthopnea Negative: Chest Pain, Palpitations, Peripheral Vascular Dis, Faintness, Syncope, Claudication Gastroenterology: Negative: Vomiting, Anorexia, Indigestion, Difficulty Swallowing, Heartburn, Constipation, Diarrhea, Blood in Stools, Change in Bowel Habits, Haematemesis, Melena Genital - Urinary: Negative: Dysuria, Hematuria, Nocturia Genitourinay - Female: Negative: Menses Normal, Menopause Musculoskeletal: Negative: Joint Pain, Joint Stiffness, Arthritis Endocrinology: Positive: Obesity, Diabetes Negative: Adrenal Problems, Polydipsia, Polyuria Hematologic/Lymphatic: Positive: Anemia, Easy Brusing, Use of Antiplatelet Drugs Negative: Hx Leukemia, Hx Lymphoma, Use of Anticoagulant Neurology: Negative: Headaches, Migraines, Change in Vision, Diplopia, Dizziness, Change in Speech, Change in Sphincter Function, Numbness\Paresthesiae, Hx of Stroke\TIA, Hx Seizures Psychiatry: Negative: Adhedonia, Tearfulness Allergic/Immunologic: Negative: Hx Anaphylaxis, Hx Angioedema, Hx HIV, Immunocompromise Review of Systems Statement: All other review of systems negative, unless stated above. Objective Vital Signs: Temp Pulse Resp BP Pulse Ox 97.6 F 73 16 103/44 100 02/16/17 07:43 02/16/17 07:43 02/16/17 08:00 02/16/17 07:43 02/16/17 07:43 Oxygen Devices in Use Now: Nasal Cannula Appearance: not acutely distressed, pleasant, Ears/Nose/Mouth/Throat: Clear Oropharnyx Neck: Trachea Midline, - - uncertain jvp Respiratory: Symmetrical Chest Expansion and Respiratory Effort, - - distant breath sounds Cardiovascular: RRR, - - distant heart sounds Abdominal: - - tense ascites, not tender Extremities: No Clubbing, Cyanosis, - - 1+ edema Skin: No Rash or Ulcers Neurological: Alert and Oriented x 3 Laboratory Results: 02/16/17 06:11 02/16/17 02:17 INR (Anticoag Therapy) 1.23 (0.89-1.11) H 02/12/17 16:55 APTT 33.2 seconds (26.0-36.3) 02/12/17 16:55 Total Bilirubin 1.00 mg/dL (0.2-1.0) 02/14/17 07:37 AST 15 U/L (13-39) 02/14/17 07:37 ALT 9 U/L (7-52) 02/14/17 07:37 Alkaline Phosphatase 120 U/L (34-104) H 02/14/17 07:37 B-Natriuretic Peptide 336 pg/mL (-100) H 02/12/17 16:55 Total Protein 6.9 g/dL (6.4-8.9) 02/14/17 07:37 Albumin 3.5 g/dL (3.2-5.2) 02/14/17 07:37 Globulin 3.4 g/dL (2-4) 02/14/17 07:37 Albumin/Globulin Ratio 1.0 (1-3) 02/14/17 07:37 Triglycerides 57 mg/dL 02/15/17 06:13 Cholesterol 90 mg/dL 02/15/17 06:13 LDL Cholesterol 54 mg/dL 02/15/17 06:13 HDL Cholesterol 25.1 mg/dL 02/15/17 06:13 TSH 10.91 mcIU/mL (0.34-5.60) H 02/12/17 16:55 02/12/17 16:55 Troponin I 0.03 02/15/2017: tri 57, tchol 90, ldl 54, hdl 25 t4 7.43, free 53 2.1 02/13/2017: Yellow clear fluid labs 02/12/2017: INR 1.23 PTT 33.2 total protein 7.6, albumin 3.7 hgba1c 5.8 02/16/2017 2L 02: ABG 7.5 ph, pc02 45, -02 104, bicarb 34 Paracentesis this admission SAAG 1.4 with total protein 4.2 g/dl most consistent with cardiac ascites 01/24/2016 hgb 13.1 01/04/2016 creatinine 1.4 01/22/2017: NT-pro BNP 2815 Diagnostic Imaging: TTE 01/2016 (definity used) LVEF 30-35%, RV size and function reportedly normal , unable to estimate PASP EKG 01/2016: NSR, old anterior MS with IVCD 02/12/2017: US abdomen: Findings suggestive of elevated right atrial pressure with passive congestion, large amount of ascites CT abdomen 02/16/2017: right lower flank hematoma, large amount of ascites increased from 06/16/2016 study, anasarca. Lungs with no pleural effusion noted. Cardiac catheterization 08/31/2015 (Anterior wall STEMI at [facility] right femoral) : Non-dominant RCA no significant disease Lcx no significant disease LM patent Occluded prox-mid LAD s/p KRISTINA/PCI (residual 70% distal disease) LVEF 35-40% EKG Data: ekg on admission very low voltage, old anterior mi/ivcd, likely sinus rhythm given telemetry [facility] sinus rhythm Assessment/Plan Ms. Thao is a 51-year-old woman with a history of ischemic cardiomyopathy LVEF 30% with severe right sided heart failure, multiple CHF admissions admitted with severe right sided CHF exacerbation and massive ascites, BP has been on low side. Medication or dietary non-adherence not factors as patient is in a monitored facility. She would not be a good candidate for advanced heart failure treatments due to psychological comorbidities and poor social support. My estimation is that her life expectancy may be less than 6 months. - Will increase lasix from 40 mg IV BID to 80 mg IV bid (ordered). Would transition once more stable back to oral torsemide likely at a higher home dose that what she came in. - Continue metolazone 5 mg PO daily may need to decrease frequency at discharge as had prior overdiuresis episode - Start aldactone 25 mg PO daily (ordered), may be able to increase to 50 mg PO daily pending results of BMP with diuresis. - Would check daily BMP, mg, i/o, weights - Given digoxin IV 500 mg x 1 now and then IV 250 mg later today followed by oral 125 mg PO every other day start tomorrow (ordered) - Change beta-iva to 12.5 mg PO toprol daily (ordered) - Not on AceI due to labile BP and prior acute renal failure - Has been on statin in the past, unsure why not on currently, restart 40 mg of atorvastatin daily, lipid panel noted. - Restart aspirin 81 mg PO daily MAYNOR - Has been a year since PCI, ok to discontinue plavix especially in light of falls and anemia. - Decompensation is mostly right sided. In addtion to LV failure, suspect there may also be an additional component from obesity and/or sleep apnea. ABG without signficant c02 retention or hypoxemia. Would check an overnight nocturnal oximetry. - Check iron studies with AM labs (ordered). If deficient would give IV iron replacement Her creatinine may rise significantly while we remove enough fluid to make her comfortable. Longer term prognosis guarded. I discussed with Dr. Winters from Palliative medicine, at the very least would address code status. I do not think that it would be in patients best interest to receive CPR. She may ultimately benefit from serial paracentesis as an outpatient if ascites cannot be adequately controlled with oral diuretics. Thank you for allowing me to participate in the cardiovascular care of this patient. Please do not hesitate to contact me with questions or concerns.
[2017-02-16] MEDS: Spironolactone TAB* 25 MG PO SCH (11:06)
[2017-02-16] MEDS ORDERED: Polyethylene Glycol 3350* 17 GM PACKET PO PRN (11:19)
[2017-02-16] MEDS: Furosemide IV* 10 MG/ML 10 ML VIAL (100 MG) IV SCH ×2 (16:49→21:55)
[2017-02-16] MEDS: Atorvastatin* 40 MG TAB PO SCH (16:49)
--- NOTE | 2017-02-16 21:44 | CONSULT ---
Consult Consult: Consultation for Medical Decision Making Capacity: S: Psychiatry is asked to see 56yo white female with hx of developmental delay, severe CHF and medical comorbidities to assess capacity to make decisions regarding code status. According to EMR, she is residing at [facility] and is often hospitalized for weakness and fall. She has received an extensive cardiology consult with poor prognosis. At this time, she is full code status. On exam the patient in lying in bed with HOB elevated. She denies pain or discomfort. She states understanding that her heart is "weak" and that much fluid was drained (abdominal ascites) today. She A+Ox3 and is able to give brief social history. She brightens when speaking about her work experience of 18 years through [employer]. She also likes discussing sports, specifically [employer] teams and [place] basketball. When asked about her health and code status, she is able to articulate the desire for resuscitative efforts. She states understanding that palliative care is being discussed by her medical team and expresses interest in hospice. She states understanding that if a patient of hospice, then CPR or intubation is not a part of treatment. Angélica states she will speak with her brother, who is her health care proxy, in the morning. O: mildly developmentally delayed white female, pleasant and cooperative. She is euthymic with bright affect upon approach. She denies passive wish. She is cognitively intact, A+Ox3. Psychiatry feels that the patient is capable to make informed medical decisions.
[2017-02-16] MEDS: OLANzapine TAB*ODT* 10 MG TAB PO SCH (21:59)
[2017-02-16] MEDS: Docusate CAP* 100 MG PO SCH (22:00)
[2017-02-16] MEDS: Senna TAB PO SCH (22:00)
--- NOTE | 2017-02-16 22:23 | CONS ---
CC: Primary Care Physician, [facility]; Margarita Sapp NP; Crescencio Banuelos DO * PALLIATIVE CARE CONSULTATION: REFERRING PHYSICIAN: Margarita Sapp NP DATE OF CONSULT: 02/16/17 REASON FOR CONSULT: Discuss goals of care and hospice eligibility. HOSPITAL COURSE: This is a a 51-year-old female with a past medical history of ischemic cardiomyopathy and coronary artery disease with intellectual developmental disability, who presented from [facility] on 02/12/17 after having a fall with abdominal pain. On admission, it was felt that her fall was secondary to mechanical injury. She was also noted on admission to have an increase in ascites, thought to be secondary to her heart failure and the patient was admitted to telemetry and started on aggressive diuresis. She had a paracentesis done on 02/13/17 and the cytology of her ascitic fluid is pending. She was also consulted by Dr. Banuelos from Cardiology. On my encounter, I asked the patient if she knows why she is here, she states she does not. I asked her if knew where she was, she states she is at [facility]. She denies any pain. No shortness of breath. No nausea. She states she has a good appetite and she is looking for more food currently. She did tell me that her brother, Kedar, is her health care proxy. Otherwise, the patient had little insight into her medical illness and was unable to give me any detailed history of her medical problems; therefore, the review of systems is limited. I did speak with Dr. Banuelos regarding the patient's heart failure issues, predominantly right heart failure with recurrent refractory ascites despite recent paracentesis during this admission and he feels that she is eligible for hospice based on her heart failure. This is also of note her third admission this year for heart failure. The concern with this patient is her history of intellectual developmental disability and if she is within the system of [facility]. I did speak with her brother. The connection was poor, with difficulty understanding him. He was not aware of her developmental disability , states that she has bipolar disorder. However, he has not seen her in over a year and does not seem to be very involved in her care as he was not aware that she was hospitalized. PAST MEDICAL HISTORY: 1. Ischemic cardiomyopathy with an ejection fraction of 35% to 40%. 2. Coronary artery disease, status post PCI. 3. History of right-sided heart failure with recurrent ascites. 4. Diabetes. 5. Hyperlipidemia. 6. Hypertension. 7. Hypothyroidism. 8. Intellectual developmental disability. 9. ? bipolar disorder. 10. This is her third admission for heart failure in 2017. 11. History of breast cancer. INPATIENT MEDICATIONS: 1. Tylenol 650 mg every 6 hours as needed. 2. Amantadine 100 mg p.o. daily. 3. Atorvastatin 40 mg daily. 4. Digoxin 0.125 mg every other day. 5. Colace 100 mg at bedtime. 6. Lasix 80 mg IV b.i.d. 7. Lantus 10 units in the morning. 8. Lispro sliding scale. 9. Synthroid 100 mcg daily. 10. Magnesium oxide 400 mg daily. 11. Metolazone 5 mg daily. 12. Metoprolol succinate 12.5 mg p.o. daily. 13. Zyprexa 40 mg at bedtime. 14. Percocet 1 tab once. 15. Potassium. 16. Senna 1 tab at bedtime. 17. Spironolactone 25 mg p.o. daily. 18. Bactrim 1 tab p.o. b.i.d. 19. Effexor 300 mg p.o. q.a.m. ALLERGIES: ADHESIVE TAPE. FAMILY HISTORY: Mother from Alzheimer's. Father from complications of diabetes. SOCIAL HISTORY: The patient was residing at [place] up until May of 2016. During that admission, she went over to [facility]. Her parents are . As mentioned, her healthcare proxy is her brother, Kedar Thao, who lives in [place]. Currently, her code status is full code. No history of alcohol, tobacco use, or illicit drug use. REVIEW OF SYSTEMS: A 14-point review of systems reviewed. All pertinent positives and negatives as mentioned in the HPI, otherwise negative. PHYSICAL EXAMINATION: Vitals: Temp 97.6, pulse rate 80, respiratory rate 16, oxygen saturation 100% on 2 L, blood pressure 103/44. General: Morbidly obese female in no acute distress. HEENT: Head is normocephalic. Pupils are equal and reactive, anicteric. Oropharynx: Mucous membranes are moist. Neck: Supple. No lymphadenopathy. Cardiac: Regular rate and rhythm. Harsh systolic murmur, most prominently at the right sternal base. Respiratory: Diminished breath sounds. Poor aeration. Abdomen: Hypoactive bowel sounds with a markedly distended abdomen that is tense, nontender. Extremities: +2 pretibial edema, distal pulses. Neurologic: The patient is alert and oriented x1, oriented to self only. No gross focal neurologic deficits. LABORATORY DATA: White count 5.2, hemoglobin 8.7, hematocrit 26. INR is 1.23. Sodium 138, potassium 3.5, chloride 99, bicarb 34, BUN 42, creatinine 1.27. Albumin is 3.7. RADIOGRAPHIC DATA: As mentioned, regarding her echocardiogram, that states an ejection fraction between 35% to 40%. Abdominal and pelvis CT on the shows hematoma in the subcutaneous tissue in the right flank region, large amount of ascites increased from the prior study. ASSESSMENT: This is a 51-year-old female with a past medical history of biventricular heart failure, more prominently right heart failure with refractory ascites despite optimized medical therapy and recent paracentesis, who presents for the third time this year for admission of congestive heart failure decompensation. I spoke with Dr. Banuelos as mentioned who states she is eligible for hospice based on the principal diagnosis of right-sided heart failure, secondary diagnosis of refractory ascites awaiting pathology on her ascitic fluid. I do recommend the patient be discharged back to the [facility] with hospice. I also recommended that she become a DNR/DNI. On my encounter, the patient did not have capacity to make medical decisions. My concern is that with her question of intellectual developmental disability, if she is registered through [facility] and thus would need to get mental health legal services involved to agree with end-of-life decision making. If she is not registered through the [facility], then having a psych eval regardless to determine capacity and having the brother weigh in on medical decision making if psych feels that she does not have the capacity to make these decisions. Due to the fact that she lacks any insight in my discussion, I did not bring up end-of-life decision making with her. I relayed my recommendations to Margarita Sapp. We will have Social Work involved as well. I also put a call out to mental health legal services to see if they were aware of this person. I also increased her bowel regimen as the patient is complaining of constipation. Thank you for this consultation. I will follow along with you. Consider further evaluation for her drop in her H and H. PATIENT TIME: Greater than 90 minutes spent doing the consultation, more than half the time was spent in direct patient contact. [id number]/[facility] #: [id number]
[2017-02-17] MEDS: Acetaminophen TAB* 325 MG PO PRN ×4 (00:40→20:54)
[2017-02-17] MEDS: Levothyroxine TAB* 100 MCG TAB PO SCH (05:44)
[2017-02-17] MEDS: Insulin GLARGINE(*) 1 UNITS UNIT SUBCUT SCH (08:53)
[2017-02-17] MEDS: Insulin LISPRO* 1 UNITS UNIT SUBCUT SCH ×4 (08:53→20:50)
[2017-02-17] MEDS: Furosemide IV* 10 MG/ML 10 ML VIAL (100 MG) IV SCH ×2 (08:55→20:49)
[2017-02-17] MEDS: Amantadine CAP* 100 MG PO SCH (08:55)
[2017-02-17] MEDS ORDERED: Spironolactone TAB* 25 MG PO SCH (09:00)
[2017-02-17] MEDS: Sulfamethox/Trimethoprim DS 800/160* TAB PO SCH ×2 (09:02→20:53)
[2017-02-17] MEDS: Magnesium Oxide TAB* 400 MG PO SCH (09:04)
[2017-02-17] MEDS: Digoxin TAB* 0.125 MG PO SCH (09:04)
[2017-02-17] MEDS: Venlafaxine EXT RELEASE CAP* 75 MG PO SCH (09:04)
[2017-02-17] MEDS: Spironolactone TAB* 25 MG PO SCH (09:05)
[2017-02-17] MEDS: Metoprolol Succinate XL TAB* 25 MG PO SCH (09:05)
[2017-02-17] MEDS: Metolazone TAB* 5 MG PO SCH (09:05)
[2017-02-17] MEDS: Aspirin Low Dose CHEW TAB* 81 MG PO SCH (09:07)
--- NOTE | 2017-02-17 09:51 | PN ---
Subjective Date of Service: 02/17/17 Interval History: Ms. Thao continues to report some pain in her right side at times. She denies other complaint including chest pain, SOB, or nausea. Family History: Unchanged from Admission Social History: Unchanged from Admission Past Medical History: Unchanged from Admission Objective Active Medications: Acetaminophen (Tylenol Tab*) 650 mg PO Q6H PRN Amantadine HCl (Symmetrel Cap*) 100 mg PO DAILY@0800 [facility] Aspirin (Aspirin Low Dose Tab*) 81 mg PO DAILY [facility] Atorvastatin Calcium (Lipitor*) 40 mg PO 1700 [facility] Dextrose (D50w Syringe 50 Ml*) 12.5 gm IV PUSH .FOR FS < 60 - SS PRN Digoxin (Lanoxin Tab*) 0.125 mg PO EVERY OTHER DAY [facility] Docusate Sodium (Colace Cap*) 100 mg PO BEDTIME [facility] Furosemide (Lasix Iv*) 80 mg IV BID [facility] Insulin Glargine (Lantus(*)) 10 units SUBCUT QAM [facility] Insulin Human Lispro (Humalog*) 0 units SUBCUT ACHS [facility] Levothyroxine Sodium (Synthroid Tab*) 100 mcg PO 0600 [facility] Magnesium Oxide (Magox 400 Tab*) 400 mg PO QAM [facility] Metolazone (Zaroxolyn Tab*) 5 mg PO DAILY [facility] Metoprolol Succinate (Toprol Xl Tab*) 12.5 mg PO DAILY [facility] Olanzapine (Zyprexa *Odt*) 40 mg PO BEDTIME [facility] Polyethylene Glycol/Electrolytes (Miralax*) 17 gm PO DAILY PRN Senna (Senokot Tab*) 1 tab PO BEDTIME [facility] Spironolactone (Aldactone Tab*) 25 mg PO DAILY [facility] Trimethoprim/Sulfamethoxazole (Bactrim Ds 800/160 Tab*) 1 tab PO BID [facility] Venlafaxine HCl (Effexor Xr Cap*) 300 mg PO QAM [facility] Vital Signs: Temp Pulse Resp BP Pulse Ox 97.4 F 89 20 107/51 97 02/17/17 06:32 02/17/17 09:04 02/17/17 09:00 02/17/17 06:32 02/17/17 06:32 Oxygen Devices in Use Now: Nasal Cannula Appearance: Female sitting up in chair in NAD Ears/Nose/Mouth/Throat: NL Teeth, Lips, Gums Neck: Trachea Midline Respiratory: Symmetrical Chest Expansion and Respiratory Effort, Clear to Auscultation Cardiovascular: NL Sounds; No Murmurs; No JVD Abdominal: NL Sounds; No Tenderness; No Distention Lymphatic: No Cervical Adenopathy Skin: - - Left mid groin with area of induration, chronic well-healing scabbed area, pink, no drainage Neurological: Alert and Oriented x 3, NL Muscle Strength and Tone Result Diagrams: 02/16/17 06:11 02/17/17 10:04 Microbiology and Other Data: Microbiology 02/13/17 15:08 Sterile Body Fluid Culture - Preliminary Ascites Fluid No Growth Day 1 Sterile Body Fluid Culture - Preliminary No Growth Day 1 Assess/Plan/Problems-Billing Assessment: Ms. Thao is a 51yo female with a PMH significant for CHF, CKD, DMII, CAD, Breast Cancer, Hypothyroidism, and developmental delay who presents with worsening SOB and ascites suspected to be secondary to CHF but with concern for malignancy now s/p paracentesis with removal of 2.3L, cytology pending. - Patient Problems (1) CHF (congestive heart failure) Comment: - Excellent urine output with increase in lasix, > 5000ml. - Patient with minimal improvement overall. Note is made of two other admissions this year for CHF. - Appreciate cardiology consultation. Dr. Banuelos interprets the echo to show severe restrictive diastolic dysfunction with moderate to severe reduction in RV function and EF 30%. - Continue lasix to 80mg BID, metolazone, spironolactone, and metoprolol. Not adding at ACEI at this point due to relative hypotension and need for further diuresis. - Continue 1.5 L fluid restriction, I/Os and daily weights. - Overnight pulse oximetry showed concern for episodes of hypoxia consistent with FOREST. Will try cpap overnight. - Dr. Banuelos notes a poor prognosis overall, palliative consult appreciated. (2) FOREST (obstructive sleep apnea) Comment: - Will discuss trial of CPAP with patient. (3) Ascites Comment: - Initial concern for possible malignant ascites due to disproportion with other edema, however at this point, I suspect that it is likely related to CHF with noted severe right heart failure. Also supported by ascitic fluid analysis , based on SAAG < 1.4 and total protein > 4. - Appreciate Surgery performing paracentesis. 2.7L removed, cytology pending. (4) Stage III chronic kidney disease Comment: - Creatinine remains at baseline now. - Will monitor due to need for high dose lasix. (5) HTN (hypertension) Comment: - SBP remains ~100. - Continue to monitor closely with additional diuretics for CHF. (6) CAD (coronary artery disease) Comment: - Troponin negative at admission. EF 35-40% on Echo. - Stent to her LAD 10/2015 post STEMI. - Hold plavix but continue aspirin in setting of hematoma and hematuria during admission. - Lipids at goal, atorvastatin added per cardiology. (7) Iron deficiency anemia Comment: - Chronic anemia at baseline. - Iron, Vit B12, folate pending. Stool occult blood pending. - Continue iron supplementation. (8) Type II diabetes mellitus Comment: - BGs well controlled. - Hold glipizide. Continue lantus 10u and SSI. HbA1c 5.8%. (9) UTI (urinary tract infection) Comment: - Continue bactrim x 5 days. (10) Gallbladder polyp Comment: - Detected on Gallbladder US from August,. 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 - Patient asymptomatic but severely ill from end stage CHF, surgery not indicated. (11) Hypothyroidism Comment: - TSH 10.91 but T4 normal. - Continue levothyroxine. (12) Falls Comment: - Patient had fall prior to arrival and another witnessed fall last evening where she slid from the bed on to the floor. - CT abd ordered as patient complaint of R flank pain, shows R flank hematoma only. (13) DVT prophylaxis Comment: - Heparin SQ. (14) Full code status Status and Disposition: Patient is admitted inpatient. Poor prognosis. Patient interviewed by psych and found to have capacity to make medical decisions at this point. Appreciate support from palliative care and SW.
[2017-02-17 10:52] LABS: EGFR Non-African American 40.1 (>60)
--- NOTE | 2017-02-17 11:16 | PN ---
Subjective Date of Service: 02/17/17 - CC: abdominal pain and short of breath. Interval History: Admission Date: 02/12/17 Today the patient feels abdominal pain has improved, breathing is still hard. She states she was able to sleep in bed, HOB midway raised, catheter pain ( urinary) kept her awake. Her nurse was at the bedside, states she slept on her right side. ROS revealed pain in left leg above her knee. Medications Active Medications: Acetaminophen (Tylenol Tab*) 650 mg PO Q6H PRN PRN Reason: FEVER/PAIN Last Admin: 02/17/17 05:44 Dose: 650 mg Amantadine HCl (Symmetrel Cap*) 100 mg PO DAILY@0800 [facility] Last Admin: 02/17/17 08:55 Dose: 100 mg Aspirin (Aspirin Low Dose Tab*) 81 mg PO DAILY [facility] Last Admin: 02/17/17 09:07 Dose: 81 mg Atorvastatin Calcium (Lipitor*) 40 mg PO 1700 [facility] Last Admin: 02/16/17 16:49 Dose: 40 mg Dextrose (D50w Syringe 50 Ml*) 12.5 gm IV PUSH .FOR FS < 60 - SS PRN PRN Reason: FS < 60 Digoxin (Lanoxin Tab*) 0.125 mg PO EVERY OTHER DAY [facility] Last Admin: 02/17/17 09:04 Dose: 0.125 mg Docusate Sodium (Colace Cap*) 100 mg PO BEDTIME [facility] Last Admin: 02/16/17 22:00 Dose: 100 mg Ferrous Sulfate (Ferrous Sulfate Tab*) 325 mg PO QAM [facility] Furosemide (Lasix Iv*) 80 mg IV BID [facility] Last Admin: 02/17/17 08:55 Dose: 80 mg Heparin Sodium (Porcine) (Heparin Vial(*)) 5,000 units SUBCUT Q8HR [facility] Insulin Glargine (Lantus(*)) 10 units SUBCUT QAM [facility] Last Admin: 02/17/17 08:53 Dose: 10 unit Insulin Human Lispro (Humalog*) 0 units SUBCUT ACHS [facility] PRN Reason: Protocol Last Admin: 02/17/17 08:53 Dose: 2 units Levothyroxine Sodium (Synthroid Tab*) 100 mcg PO 0600 [facility] Last Admin: 02/17/17 05:44 Dose: 100 mcg Magnesium Oxide (Magox 400 Tab*) 400 mg PO QAM [facility] Last Admin: 02/17/17 09:04 Dose: 400 mg Metolazone (Zaroxolyn Tab*) 5 mg PO DAILY [facility] Last Admin: 02/17/17 09:05 Dose: 5 mg Metoprolol Succinate (Toprol Xl Tab*) 12.5 mg PO DAILY [facility] Last Admin: 02/17/17 09:05 Dose: 12.5 mg Olanzapine (Zyprexa *Odt*) 40 mg PO BEDTIME [facility] Last Admin: 02/16/17 21:59 Dose: 40 mg Polyethylene Glycol/Electrolytes (Miralax*) 17 gm PO DAILY PRN PRN Reason: CONSTIPATION Last Admin: 02/16/17 12:04 Dose: 17 gm Senna (Senokot Tab*) 1 tab PO BEDTIME [facility] Last Admin: 02/16/17 22:00 Dose: 1 tab Spironolactone (Aldactone Tab*) 25 mg PO DAILY [facility] Last Admin: 02/17/17 09:05 Dose: 25 mg Trimethoprim/Sulfamethoxazole (Bactrim Ds 800/160 Tab*) 1 tab PO BID [facility] Stop: 02/17/17 21:01 Last Admin: 02/17/17 09:02 Dose: 1 tab Venlafaxine HCl (Effexor Xr Cap*) 300 mg PO QAM [facility] Last Admin: 02/17/17 09:04 Dose: 300 mg Objective Vital Signs: Temp Pulse Resp BP Pulse Ox 97.4 F 89 20 107/51 97 02/17/17 06:32 02/17/17 09:04 02/17/17 09:00 02/17/17 06:32 02/17/17 06:32 Weight 298# down from 310 # on admission I/O: - 3700 last 24 hours Oxygen Devices in Use Now: Nasal Cannula Appearance: Morbidly obese older middle aged woman lying in chair, appears chronically ill but comfortable at rest, O2 on. Eyes: No Scleral Icterus, PERRLA Ears/Nose/Mouth/Throat: Clear Oropharnyx Neck: Trachea Midline, - - uncertain jvp Respiratory: Symmetrical Chest Expansion and Respiratory Effort, - - Left lung clear, right lung with rhonci, crackles, diminished breathsounds throughout c/w left. Cardiovascular: RRR, - - distant heart sounds, no murmer no rub Abdominal: - - very distended c/w tense ascites, not tender. Stretch scott noted. Mild discoloration of skin at the site of her thoracentesis. Extremities: No Clubbing, Cyanosis, - - 1+ edema. LLE medial thigh has a macular lesion, round area of red induration, not hot, mildly tender and additonal induration supperiorly. Skin: No Rash or Ulcers - Ecchymosis pronounced anterior R shoulder. Neurological: Alert and Oriented x 3 Laboratory Results: 02/16/17 06:11 02/17/17 10:04 INR (Anticoag Therapy) 1.23 (0.89-1.11) H 02/12/17 16:55 APTT 33.2 seconds (26.0-36.3) 02/12/17 16:55 Total Bilirubin 1.00 mg/dL (0.2-1.0) 02/14/17 07:37 AST 15 U/L (13-39) 02/14/17 07:37 ALT 9 U/L (7-52) 02/14/17 07:37 Alkaline Phosphatase 120 U/L (34-104) H 02/14/17 07:37 B-Natriuretic Peptide 336 pg/mL (-100) H 02/12/17 16:55 Total Protein 6.9 g/dL (6.4-8.9) 02/14/17 07:37 Albumin 3.5 g/dL (3.2-5.2) 02/14/17 07:37 Globulin 3.4 g/dL (2-4) 02/14/17 07:37 Albumin/Globulin Ratio 1.0 (1-3) 02/14/17 07:37 Triglycerides 57 mg/dL 02/15/17 06:13 Cholesterol 90 mg/dL 02/15/17 06:13 LDL Cholesterol 54 mg/dL 02/15/17 06:13 HDL Cholesterol 25.1 mg/dL 02/15/17 06:13 TSH 10.91 mcIU/mL (0.34-5.60) H 02/12/17 16:55 Diagnostic Imaging: TTE 01/2016 (definity used) LVEF 30-35%, RV size and function reportedly normal , unable to estimate PASP Monitor: NSR. 02/12/2017: US abdomen: Findings suggestive of elevated right atrial pressure with passive congestion, large amount of ascites CT abdomen 02/16/2017: right lower flank hematoma, large amount of ascites increased from 06/16/2016 study, anasarca. Lungs with no pleural effusion noted. Cardiac catheterization 08/31/2015 (Anterior wall STEMI at [facility] right femoral) : Non-dominant RCA no significant disease Lcx no significant disease LM patent Occluded prox-mid LAD s/p KRISTINA/PCI (residual 70% distal disease) LVEF 35-40% EKG Data: ekg on admission very low voltage, old anterior mi/ivcd, likely sinus rhythm given telemetry [facility] sinus rhythm Assessment/Plan 51yo female with a PMH significant for CHF, CKD, DMII, CAD, STEMI 2016, BiV CM, restrictive filling, Breast Cancer, Hypothyroidism, and developmental delay/ psychiatric hisotry who presents with worsening SOB and ascites suspected to be secondary to CHF with a differential. Today right lung exam abnormal ? fluid/CHF from dependent position or/and atelectasis. Left groin ? superficial phlebitis or other. Dieresing well and BUN/creatinine tolerating. BP tolerating. Patient improving. CHF: - Continue lasix from 40 mg IV BID to 80 mg IV bid - Continue metolazone 5 mg PO daily - Continue aldactone 25 mg PO daily - Continue daily BMP, mg, i/o, weights - Continue Toprol. - Can remain off AceI for now due to labile BP and prior acute renal failure CAD: - Continue 40 mg of atorvastatin daily. -aspirin 81 mg PO daily, Toprol as above. -Heart healthy weight loss diet recommended. Pulmonary: Consider Inspirex Agree with CPAP trial discussed with hospitalist. Leg: Defer to hospitalist. The patient remains very high risk overall. She will be difficult to improve and stabilize and is at potential risk for multiple complications due to obesity , comorbidities.
[2017-02-17] MEDS: Heparin VIAL(*) 5000 UNITS/ML VIAL (FIVE THOUSAND) SUBCUT SCH ×2 (14:24→20:55)
[2017-02-17] MEDS: Atorvastatin* 40 MG TAB PO SCH (17:45)
[2017-02-17] MEDS ORDERED: Ondansetron INJ* 2 MG/ML VIAL ONE (19:57)
[2017-02-17] MEDS: Ondansetron INJ* 2 MG/ML VIAL IV PRN (19:59)
[2017-02-17] MEDS ORDERED: Calcium Carbonate CHEW TAB* 500 MG (TUMS) PO ONE (20:09)
[2017-02-17] MEDS: Docusate CAP* 100 MG PO SCH (20:53)
[2017-02-17] MEDS: OLANzapine TAB*ODT* 10 MG TAB PO SCH (20:53)
[2017-02-17] MEDS: Senna TAB PO SCH (20:54)
[2017-02-18] MEDS: Ondansetron INJ* 2 MG/ML VIAL IV PRN ×4 (02:01→17:35)
[2017-02-18] MEDS: Metoclopramide IV* 5 MG/ML 2 ML VIAL IV SLOW PU PRN ×2 (03:01→13:29)
[2017-02-18] MEDS: Levothyroxine TAB* 100 MCG TAB PO SCH (05:48)
[2017-02-18] MEDS: Heparin VIAL(*) 5000 UNITS/ML VIAL (FIVE THOUSAND) SUBCUT SCH ×2 (05:48→13:29)
[2017-02-18 06:32] LABS: Hematocrit 24 % (35-47)
[2017-02-18 06:40] LABS: EGFR Non-African American 38.5 (>60)
--- NOTE | 2017-02-18 07:43 | PN ---
Subjective Date of Service: 02/18/17 Interval History: Ms. Thao is reported to have had nausea with vomiting this morning with report of black emesis with sediment. She is feeling much better at the time of my examination. She now denies any complaint including chest pain, SOB, nausea, or abdominal pain. She had some discomfort in her left thigh yesterday from what appears to be an old superficial injury. Family History: Unchanged from Admission Social History: Unchanged from Admission Past Medical History: Unchanged from Admission Objective Active Medications: Acetaminophen (Tylenol Tab*) 650 mg PO Q6H PRN Amantadine HCl (Symmetrel Cap*) 100 mg PO DAILY@0800 [facility] Aspirin (Aspirin Low Dose Tab*) 81 mg PO DAILY [facility] Atorvastatin Calcium (Lipitor*) 40 mg PO 1700 [facility] Dextrose (D50w Syringe 50 Ml*) 12.5 gm IV PUSH .FOR FS < 60 - SS PRN Digoxin (Lanoxin Tab*) 0.125 mg PO EVERY OTHER DAY [facility] Docusate Sodium (Colace Cap*) 100 mg PO BEDTIME [facility] Ferrous Sulfate (Ferrous Sulfate Tab*) 325 mg PO QAM [facility] Furosemide (Lasix Iv*) 80 mg IV BID [facility] Heparin Sodium (Porcine) (Heparin Vial(*)) 5,000 units SUBCUT Q8HR [facility] Insulin Glargine (Lantus(*)) 10 units SUBCUT QAM [facility] Insulin Human Lispro (Humalog*) 0 units SUBCUT ACHS [facility] Levothyroxine Sodium (Synthroid Tab*) 100 mcg PO 0600 [facility] Magnesium Oxide (Magox 400 Tab*) 400 mg PO QAM [facility] Metoclopramide HCl (Reglan Iv*) 10 mg IV SLOW PU TID PRN Metolazone (Zaroxolyn Tab*) 5 mg PO DAILY [facility] Metoprolol Succinate (Toprol Xl Tab*) 12.5 mg PO DAILY [facility] Olanzapine (Zyprexa *Odt*) 40 mg PO BEDTIME [facility] Ondansetron HCl (Zofran Inj*) 4 mg IV Q6H PRN Polyethylene Glycol/Electrolytes (Miralax*) 17 gm PO DAILY PRN Senna (Senokot Tab*) 1 tab PO BEDTIME [facility] Spironolactone (Aldactone Tab*) 25 mg PO DAILY [facility] Venlafaxine HCl (Effexor Xr Cap*) 300 mg PO QAM [facility] Vital Signs: Temp Pulse Resp BP Pulse Ox 97.4 F 102 22 108/55 98 02/18/17 02:56 02/18/17 02:56 02/18/17 02:56 02/18/17 02:56 02/18/17 02:56 Oxygen Devices in Use Now: Nasal Cannula, BiPAP Appearance: Female lying in bed in NAD Eyes: No Scleral Icterus Ears/Nose/Mouth/Throat: Mucous Membranes Moist Neck: Trachea Midline Respiratory: Symmetrical Chest Expansion and Respiratory Effort, Clear to Auscultation, - - Diminished Cardiovascular: NL Sounds; No Murmurs; No JVD, No Edema Abdominal: - - Very distended and firm, no tenderness Skin: - - Ecchymoses to right arm and right upper chest, unchanged. Healing wound with associated induration to left medial thigh, unchanged. Ecchymoses to right flank suspected secondary to fall from bed, unchanged. Neurological: Alert and Oriented x 3, NL Muscle Strength and Tone Nutrition: Taking PO's Result Diagrams: 02/18/17 06:06 02/18/17 06:06 Microbiology and Other Data: Microbiology 02/13/17 15:08 Sterile Body Fluid Culture - Preliminary Ascites Fluid No Growth Day 1 Sterile Body Fluid Culture - Preliminary No Growth Day 1 Assess/Plan/Problems-Billing Assessment: Ms. Thao is a 51yo female with a PMH significant for CHF, CKD, DMII, CAD, Breast Cancer, Hypothyroidism, and developmental delay who presents with worsening SOB and ascites suspected to be secondary to CHF but with concern for malignancy now s/p paracentesis with removal of 2.3L, cytology pending. - Patient Problems (1) CHF (congestive heart failure) Comment: - Excellent urine output with increase in lasix, ~ 7L negative. - Appreciate cardiology consultation. Dr. Banuelos interprets the echo to show severe restrictive diastolic dysfunction with moderate to severe reduction in RV function and EF 30%. - Continue lasix to 80mg BID, metolazone, spironolactone, and metoprolol. Not adding at ACEI at this point due to relative hypotension and need for further diuresis. - Continue 1.5 L fluid restriction, I/Os and daily weights. - Dr. Banuelos notes a poor prognosis overall, palliative consult appreciated. Patient understanding of her condition and would consider hospice if necessary, plan to continue treatment for now as she is thus far responding well. (2) Nausea & vomiting Comment: - New nausea with vomiting overnight. - Start protonix given description of dark emesis and concern for GI bleeding. Will send gastric occult blood. Otherwise, continue zofran and add other anti- emetics as needed. (3) FOREST (obstructive sleep apnea) Comment: - Patient tolerated CPAP for 2 hours last night, continue trial. - Cardiology suspects untreated FOREST may be contributing significantly to heart failure. (4) Ascites Comment: - Initial concern for possible malignant ascites due to disproportion with other edema, however at this point, I suspect that it is likely related to CHF with noted severe right heart failure. Also supported by ascitic fluid analysis , based on SAAG < 1.4 and total protein > 4. - Appreciate Surgery performing paracentesis. 2.7L removed, cytology pending. (5) Stage III chronic kidney disease Comment: - Creatinine remains at baseline. - Will continue to monitor due to need for high dose lasix. (6) Iron deficiency anemia Comment: - Chronic anemia at baseline. - Iron, Vit B12, folate WNL. Stool occult blood pending. - Continue iron supplementation. (7) HTN (hypertension) Comment: - SBP remains ~100. - Continue to monitor closely with additional diuretics for CHF. (8) CAD (coronary artery disease) Comment: - Troponin negative at admission. EF 35-40% on Echo. - Stent to her LAD 10/2015 post STEMI. - Hold plavix but continue aspirin in setting of hematoma and hematuria during admission. - Lipids at goal, atorvastatin added per cardiology. (9) Type II diabetes mellitus Comment: - BGs well controlled. - Hold glipizide. Continue lantus 10u and SSI. HbA1c 5.8%. (10) UTI (urinary tract infection) Comment: - Completed 5 day course of bactrim. (11) Gallbladder polyp Comment: - Detected on Gallbladder US from August,. 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 - Patient asymptomatic but severely ill from end stage CHF, surgery not indicated. (12) Hypothyroidism Comment: - TSH 10.91 but T4 normal. - Continue levothyroxine. (13) Falls Comment: - Patient had fall prior to arrival and another witnessed fall during this admission where she slid from the bed on to the floor. - CT abd ordered as patient complaint of R flank pain, shows R flank hematoma only. (14) DVT prophylaxis Comment: - Heparin SQ. (15) Full code status Comment: Status and Disposition: Patient is admitted inpatient. Poor prognosis. Patient interviewed by psych and found to have capacity to make medical decisions at this point. Appreciate support from palliative care and SW. Anticipate discharge to [facility] when medically stable.
[2017-02-18] MEDS: Metoprolol Succinate XL TAB* 25 MG PO SCH (09:37)
[2017-02-18] MEDS: Insulin GLARGINE(*) 1 UNITS UNIT SUBCUT SCH (09:43)
[2017-02-18] MEDS: Insulin LISPRO* 1 UNITS UNIT SUBCUT SCH ×4 (09:43→21:08)
[2017-02-18] MEDS ORDERED: Pantoprazole IV* 40 MG IV SCH (10:00)
--- NOTE | 2017-02-18 12:17 | PN ---
Subjective Date of Service: 02/18/17 - CC: SOB, abdominal distension Interval History: Admission Date: 02/12/17 Today the patient feels feels no better. N/V, dark emesis this AM noted, better now. Left leg pain unchanged. Able to sleep in her bed almost flat. Medications Active Medications: Acetaminophen (Tylenol Tab*) 650 mg PO Q6H PRN PRN Reason: FEVER/PAIN Last Admin: 02/17/17 20:54 Dose: 650 mg Amantadine HCl (Symmetrel Cap*) 100 mg PO DAILY@0800 [facility] Last Admin: 02/17/17 08:55 Dose: 100 mg Aspirin (Aspirin Low Dose Tab*) 81 mg PO DAILY [facility] Last Admin: 02/17/17 09:07 Dose: 81 mg Atorvastatin Calcium (Lipitor*) 40 mg PO 1700 [facility] Last Admin: 02/17/17 17:45 Dose: 40 mg Dextrose (D50w Syringe 50 Ml*) 12.5 gm IV PUSH .FOR FS < 60 - SS PRN PRN Reason: FS < 60 Digoxin (Lanoxin Tab*) 0.125 mg PO EVERY OTHER DAY [facility] Last Admin: 02/17/17 09:04 Dose: 0.125 mg Docusate Sodium (Colace Cap*) 100 mg PO BEDTIME [facility] Last Admin: 02/17/17 20:53 Dose: 100 mg Ferrous Sulfate (Ferrous Sulfate Tab*) 325 mg PO QAM [facility] Furosemide (Lasix Iv*) 80 mg IV BID [facility] Last Admin: 02/17/17 20:49 Dose: 80 mg Heparin Sodium (Porcine) (Heparin Vial(*)) 5,000 units SUBCUT Q8HR [facility] Last Admin: 02/18/17 05:48 Dose: 5,000 units Insulin Glargine (Lantus(*)) 10 units SUBCUT QAM [facility] Last Admin: 02/18/17 09:43 Dose: 10 unit Insulin Human Lispro (Humalog*) 0 units SUBCUT ACHS [facility] PRN Reason: Protocol Last Admin: 02/18/17 09:43 Dose: 6 units Levothyroxine Sodium (Synthroid Tab*) 100 mcg PO 0600 [facility] Last Admin: 02/18/17 05:48 Dose: Not Given Magnesium Oxide (Magox 400 Tab*) 400 mg PO QAM [facility] Last Admin: 02/17/17 09:04 Dose: 400 mg Metoclopramide HCl (Reglan Iv*) 10 mg IV SLOW PU TID PRN PRN Reason: NAUSEA - REFRACTORY Last Admin: 02/18/17 03:01 Dose: 10 mg Metolazone (Zaroxolyn Tab*) 5 mg PO DAILY [facility] Last Admin: 02/17/17 09:05 Dose: 5 mg Metoprolol Succinate (Toprol Xl Tab*) 12.5 mg PO DAILY [facility] Last Admin: 02/18/17 09:37 Dose: 12.5 mg Olanzapine (Zyprexa *Odt*) 40 mg PO BEDTIME [facility] Last Admin: 02/17/17 20:53 Dose: 40 mg Ondansetron HCl (Zofran Inj*) 4 mg IV Q6H PRN PRN Reason: NAUSEA Last Admin: 02/18/17 02:01 Dose: 4 mg Pantoprazole Sodium (Protonix Iv*) 40 mg IV Q12H [facility] Polyethylene Glycol/Electrolytes (Miralax*) 17 gm PO DAILY PRN PRN Reason: CONSTIPATION Last Admin: 02/16/17 12:04 Dose: 17 gm Senna (Senokot Tab*) 1 tab PO BEDTIME [facility] Last Admin: 02/17/17 20:54 Dose: 1 tab Spironolactone (Aldactone Tab*) 25 mg PO DAILY [facility] Last Admin: 02/17/17 09:05 Dose: 25 mg Venlafaxine HCl (Effexor Xr Cap*) 300 mg PO QAM [facility] Last Admin: 02/17/17 09:04 Dose: 300 mg Objective Vital Signs: Temp Pulse Resp BP Pulse Ox 98.7 F 103 18 122/63 98 02/18/17 08:06 02/18/17 08:06 02/18/17 08:06 02/18/17 08:06 02/18/17 08:06 Oxygen Devices in Use Now: Nasal Cannula, BiPAP Appearance: Morbidly obese older middle aged woman lying bed 30degrees, appears chronically ill but comfortable at rest, O2 on. Eyes: No Scleral Icterus, PERRLA Ears/Nose/Mouth/Throat: Clear Oropharnyx Neck: Trachea Midline, - - uncertain jvp Respiratory: Symmetrical Chest Expansion and Respiratory Effort, - - Left lung clear, right lung with rhonci, crackles, diminished breathsounds throughout c/w left. Cardiovascular: RRR, - - distant heart sounds, no murmer no rub Abdominal: - - very distended c/w tense ascites, not tender. Stretch scott noted. Mild discoloration of skin at the site of her thoracentesis. Extremities: No Clubbing, Cyanosis, - - Trace leg edema. LLE medial thigh has a macular lesion, round area of red induration, not hot, not tender to touch today. Skin: No Rash or Ulcers - Ecchymosis pronounced anterior R shoulder. Neurological: Alert and Oriented x 3 Laboratory Results: 02/18/17 06:06 02/18/17 06:06 INR (Anticoag Therapy) 1.23 (0.89-1.11) H 02/12/17 16:55 APTT 33.2 seconds (26.0-36.3) 02/12/17 16:55 Total Bilirubin 1.00 mg/dL (0.2-1.0) 02/14/17 07:37 AST 15 U/L (13-39) 02/14/17 07:37 ALT 9 U/L (7-52) 02/14/17 07:37 Alkaline Phosphatase 120 U/L (34-104) H 02/14/17 07:37 B-Natriuretic Peptide 336 pg/mL (-100) H 02/12/17 16:55 Total Protein 6.9 g/dL (6.4-8.9) 02/14/17 07:37 Albumin 3.5 g/dL (3.2-5.2) 02/14/17 07:37 Globulin 3.4 g/dL (2-4) 02/14/17 07:37 Albumin/Globulin Ratio 1.0 (1-3) 02/14/17 07:37 Triglycerides 57 mg/dL 02/15/17 06:13 Cholesterol 90 mg/dL 02/15/17 06:13 LDL Cholesterol 54 mg/dL 02/15/17 06:13 HDL Cholesterol 25.1 mg/dL 02/15/17 06:13 TSH 10.91 mcIU/mL (0.34-5.60) H 02/12/17 16:55 Laboratory Results WBC 5.2 10^3/ul (3.5-10.8) 02/15/17 06:13 RBC 3.37 10^6/ul (4.0-5.4) L 02/15/17 06:13 Hgb 8.0 g/dl (12.0-16.0) L 02/18/17 06:06 Hct 24 % (35-47) L 02/18/17 06:06 MCV 87 fL (80-97) 02/15/17 06:13 MCH 29 pg (27-31) 02/15/17 06:13 MCHC 33 g/dl (31-36) 02/15/17 06:13 RDW 16 % (10.5-15) H 02/15/17 06:13 Plt Count 119 10^3/ul (150-450) L 02/15/17 06:13 MPV 8 um3 (7.4-10.4) 02/15/17 06:13 Neut % (Auto) 55.1 % (38-83) 02/15/17 06:13 Lymph % (Auto) 28.9 % (25-47) 02/15/17 06:13 [place] % (Auto) 11.9 % (1-9) H 02/15/17 06:13 Eos % (Auto) 3.5 % (0-6) 02/15/17 06:13 Baso % (Auto) 0.6 % (0-2) 02/15/17 06:13 Absolute Neuts (auto) 2.9 10^3/ul (1.5-7.7) 02/15/17 06:13 Absolute Lymphs (auto) 1.5 10^3/ul (1.0-4.8) 02/15/17 06:13 Absolute Monos (auto) 0.6 10^3/ul (0-0.8) 02/15/17 06:13 Absolute Eos (auto) 0.2 10^3/ul (0-0.6) 02/15/17 06:13 Absolute Basos (auto) 0 10^3/ul (0-0.2) 02/15/17 06:13 Absolute Nucleated RBC 0 10^3/ul 02/15/17 06:13 Nucleated RBC % 0.1 02/15/17 06:13 INR (Anticoag Therapy) 1.23 (0.89-1.11) H 02/12/17 16:55 APTT 33.2 seconds (26.0-36.3) 02/12/17 16:55 Patient Temperature Not Reportable 02/16/17 10:35 ABG pH 7.50 (7.35-7.45) H 02/16/17 10:35 ABG pH (Temp Correct) Not Reportable 02/16/17 10:35 ABG pCO2 45 mmHg (35-45) 02/16/17 10:35 ABG pCO2 (Temp Corrct Not Reportable 02/16/17 10:35 ABG pO2 104 mmHg (80-100) H 02/16/17 10:35 ABG pO2 (Temp Correct Not Reportable 02/16/17 10:35 ABG HCO3 33.4 mmol/L (19-31) H 02/16/17 10:35 ABG O2 Saturation 99.5 % (95-98) H 02/16/17 10:35 ABG Base Excess 10.8 (-2.0-2.0) H 02/16/17 10:35 Respiration Rate Not Reportable 02/16/17 10:35 O2 Delivery Device n/c 02/16/17 10:35 Ventilator Type Not Reportable 02/16/17 10:35 Vent Mode Not Reportable 02/16/17 10:35 FiO2 2 02/16/17 10:35 Inspiratory Time Not Reportable 02/16/17 10:35 PEEP Not Reportable 02/16/17 10:35 Pressure Support Not Reportable 02/16/17 10:35 Pressure Control Not Reportable 02/16/17 10:35 EPAP Not Reportable 02/16/17 10:35 IPAP Not Reportable 02/16/17 10:35 BiPAP Not Reportable 02/16/17 10:35 Sodium 138 mmol/L (133-145) 02/18/17 06:06 Potassium 3.9 mmol/L (3.5-5.0) 02/18/17 06:06 Chloride 94 mmol/L (101-111) L 02/18/17 06:06 Carbon Dioxide 35 mmol/L (22-32) H 02/18/17 06:06 Anion Gap 9 mmol/L (2-11) 02/18/17 06:06 BUN 37 mg/dL (6-24) H 02/18/17 06:06 Creatinine 1.44 mg/dL (0.51-0.95) H 02/18/17 06:06 Est GFR ( Amer) 49.6 (>60) 02/18/17 06:06 Est GFR (Non-Af Amer) 38.5 (>60) 02/18/17 06:06 BUN/Creatinine Ratio 25.7 (8-20) H 02/18/17 06:06 Glucose 180 mg/dL (70-100) H 02/18/17 06:06 POC Glucose (mg/dL) 219 mg/dL (70-100) H 02/18/17 08:15 Hemoglobin A1c 5.8 % (4.0-5.6) H 02/12/17 16:55 Lactic Acid 2.0 mmol/L (0.5-2.0) 02/12/17 16:55 Calcium 9.6 mg/dL (8.6-10.3) 02/18/17 06:06 Magnesium 2.0 mg/dL (1.9-2.7) 02/14/17 07:37 Iron 57 ug/dL (50-212) 02/17/17 10:04 TIBC 318 mcg/dL (250-450) 02/17/17 10:04 % Saturation 18 % (15-55) 02/17/17 10:04 Unsat Iron Binding 261 ug/dL 02/17/17 10:04 Ferritin 159.4 ng/mL (11-307) 02/17/17 10:04 Total Bilirubin 1.00 mg/dL (0.2-1.0) 02/14/17 07:37 AST 15 U/L (13-39) 02/14/17 07:37 ALT 9 U/L (7-52) 02/14/17 07:37 Alkaline Phosphatase 120 U/L (34-104) H 02/14/17 07:37 Troponin I 0.03 ng/mL (<0.04) 02/12/17 16:55 C-Reactive Protein 21.89 mg/L (< 5.00) H 02/12/17 16:55 B-Natriuretic Peptide 336 pg/mL (-100) H 02/12/17 16:55 Total Protein 6.9 g/dL (6.4-8.9) 02/14/17 07:37 Albumin 3.5 g/dL (3.2-5.2) 02/14/17 07:37 Globulin 3.4 g/dL (2-4) 02/14/17 07:37 Albumin/Globulin Ratio 1.0 (1-3) 02/14/17 07:37 Triglycerides 57 mg/dL 02/15/17 06:13 Cholesterol 90 mg/dL 02/15/17 06:13 LDL Cholesterol 54 mg/dL 02/15/17 06:13 HDL Cholesterol 25.1 mg/dL 02/15/17 06:13 Lipase 43 U/L (11.0-82.0) 02/12/17 16:55 Vitamin B12 1254 pg/mL (180-914) H 02/17/17 10:04 Folate 6.82 ng/mL (>3.99) 02/17/17 10:04 TSH 10.91 mcIU/mL (0.34-5.60) H 02/12/17 16:55 Thyroxine (T4) 7.43 mcg/mL (6.09-12.23) 02/15/17 06:13 Free T3 2.10 pg/mL (2.5-3.9) L 02/15/17 06:13 Urine Color Yellow 02/12/17 17:29 Urine Appearance Cloudy 02/12/17 17:29 Urine pH 7.0 (5-9) 02/12/17 17:29 Ur Specific [place] 1.009 (1.010-1.030) L 02/12/17 17:29 Urine Protein Negative (Negative) 02/12/17 17:29 Urine Ketones Negative (Negative) 02/12/17 17:29 Urine Blood 3+ (Negative) H 02/12/17 17:29 Urine Nitrate Negative (Negative) 02/12/17 17:29 Urine Bilirubin Negative (Negative) 02/12/17 17:29 Urine Urobilinogen Negative (Negative) 02/12/17 17:29 Ur Leukocyte Esterase 2+ (Negative) H 02/12/17 17:29 Urine WBC (Auto) 3+(>20/hpf) (Absent) H 02/12/17 17:29 Urine RBC (Auto) 2+(6-10/hpf) (Absent) H 02/12/17 17:29 Ur Squamous Epith Cells Present (Absent) H 02/12/17 17:29 Urine Bacteria Absent (Absent) 02/12/17 17:29 Hyaline Casts Present (Absent) H 02/12/17 17:29 Urine Glucose Negative (Negative) 02/12/17 17:29 Fluid Type Peritoneal fluid 02/13/17 15:08 Fluid Source Peritoneal 02/13/17 15:08 Fluid Volume 2000 mL 02/13/17 15:08 Fluid Color Yellow 02/13/17 15:08 Fluid Appearance Clear 02/13/17 15:08 Fluid WBC 115 /mcL (0-922611) 02/13/17 15:08 Fluid RBC 1025 /mcL 02/13/17 15:08 Fluid Tot Cell Count 100 02/13/17 15:08 Fluid Neutrophils Not Reportable 02/13/17 15:08 Fluid Lymphocytes 10 % 02/13/17 15:08 Fluid Monocytes 90 % 02/13/17 15:08 Fluid Cell Count Rvw By 02/13/17 15:08 Fluid Glucose 146 mg/dL 02/13/17 15:08 Fluid Total Protein 4.2 g/dL 02/13/17 15:08 Fluid Albumin 2280 mg/dL 02/13/17 15:08 Fluid LDH 99 U/L 02/13/17 15:08 Fluid Lipase 11 U/L 02/13/17 15:08 Fluid Cholesterol 50 mg/dL 02/13/17 15:08 Fluid Triglycerides 27 mg/dL 02/13/17 15:08 Diagnostic Imaging: TTE 01/2016 (definity used) LVEF 30-35%, Apical infarct, RV size and function reportedly normal, unable to estimate PASP Monitor: NSR 95 bpm. 02/12/2017: US abdomen: Findings suggestive of elevated right atrial pressure with passive congestion, large amount of ascites CT abdomen 02/16/2017: right lower flank hematoma, large amount of ascites increased from 06/16/2016 study, anasarca. Lungs with no pleural effusion noted. Cardiac catheterization 08/31/2015 (Anterior wall STEMI at [facility] right femoral) : Non-dominant RCA no significant disease Lcx no significant disease LM patent Occluded prox-mid LAD s/p KRISTINA/PCI (residual 70% distal disease) LVEF 35-40% EKG Data: ekg on admission very low voltage, old anterior mi/ivcd, likely sinus rhythm given telemetry [facility] [place] [facility] sinus rhythm Assessment/Plan 51yo female with a PMH significant for CHF, CKD, DMII, CAD, STEMI 2015, BiV CM, restrictive filling, Breast Cancer, Hypothyroidism, and developmental delay/ psychiatric hisotry who presents with worsening SOB and ascites suspected to be secondary to CHF with a differential. Emesis, possible hematemisis w/in last 24 hours, with drop in Hct from admission (undergoing evaluation). Dieresing well and BUN/creatinine tolerating. BP tolerating/better. Patient improving slowly. CHF: - Continue lasix from 40 mg IV BID to 80 mg IV bid - Continue metolazone 5 mg PO daily - Continue aldactone 25 mg PO daily - Continue daily BMP, mg, i/o, weights - Continue Toprol. - Can remain off AceI for now due to labile BP and prior acute renal failure CAD: - Continue 40 mg of atorvastatin daily. -aspirin 81 mg PO daily, Toprol as above. -Heart healthy weight loss diet recommended. Anemia and Emesis: Agree with guiacs and PPI. can contribute to CHF. Ascites: Treating as right heart failure, but seems out of proportion to echo findings (echo reviewed personally). The patient remains very high risk overall. She will be difficult to improve and stabilize and is at potential risk for multiple complications due to obesity , comorbidities.
[2017-02-18] MEDS: Spironolactone TAB* 25 MG PO SCH (12:41)
[2017-02-18] MEDS: Furosemide IV* 10 MG/ML 10 ML VIAL (100 MG) IV SCH ×2 (13:28→21:08)
[2017-02-18] MEDS: Amantadine CAP* 100 MG PO SCH (14:31)
[2017-02-18] MEDS: Ferrous Sulfate TAB* 325 MG PO SCH (14:31)
[2017-02-18] MEDS: Aspirin Low Dose CHEW TAB* 81 MG PO SCH (14:31)
[2017-02-18] MEDS: Pantoprazole IV* 80 MG in NS 0.9% 250 ML* 250 ML IVPB SCH (16:18)
[2017-02-18] MEDS: Magnesium Oxide TAB* 400 MG PO SCH (16:32)
[2017-02-18] MEDS: Metolazone TAB* 5 MG PO SCH (16:33)
[2017-02-18] MEDS: Venlafaxine EXT RELEASE CAP* 75 MG PO SCH (16:33)
[2017-02-18] MEDS: Atorvastatin* 40 MG TAB PO SCH (17:12)
[2017-02-18 17:41] LABS: Hematocrit 26 % (35-47); Hemoglobin 8.5 g/dl (12.0-16.0)
[2017-02-18] MEDS: OLANzapine TAB*ODT* 10 MG TAB PO SCH (21:10)
[2017-02-18] MEDS: Senna TAB PO SCH (21:11)
[2017-02-18] MEDS: Docusate CAP* 100 MG PO SCH (21:12)
[2017-02-19] MEDS: Metoclopramide IV* 5 MG/ML 2 ML VIAL IV SLOW PU PRN (03:17)
[2017-02-19] MEDS: Levothyroxine TAB* 100 MCG TAB PO SCH (06:38)
[2017-02-19 07:16] LABS: ABS Basophils 0 10^3/ul (0-0.2); ABS Eosinophils 0.1 10^3/ul (0-0.6); ABS Lymphocytes 1.1 10^3/ul (1.0-4.8); ABS Monocytes 1.2 10^3/ul (0-0.8); ABS Neutrophils 9.1 10^3/ul (1.5-7.7); ABS Nucleated RBC 0 10^3/ul; Eosinophil % 0.6 % (0-6); Hematocrit 23 % (35-47); Hemoglobin 7.6 g/dl (12.0-16.0); Lymphocyte % 9.6 % (25-47); Mean Corpuscular HGB Conc 33 g/dl (31-36); Mean Corpuscular Hemoglobin 29 pg (27-31); Mean Corpuscular Volume 87 fL (80-97); Mean Platelet Volume 8 um3 (7.4-10.4); Nucleated Red Blood Cells % 0; Platelet Count 170 10^3/ul (150-450); Red Blood Count 2.66 10^6/ul (4.0-5.4); Red Cell Distribution Width 16 % (10.5-15); White Blood Count 11.5 10^3/ul (3.5-10.8)
[2017-02-19 07:33] LABS: EGFR Non-African American 45.4 (>60)
[2017-02-19] MEDS: Pantoprazole IV* 80 MG in NS 0.9% 250 ML* 250 ML IVPB SCH (07:34)
[2017-02-19] MEDS: Insulin LISPRO* 1 UNITS UNIT SUBCUT SCH ×4 (08:44→22:37)
[2017-02-19] MEDS: Insulin GLARGINE(*) 1 UNITS UNIT SUBCUT SCH (08:44)
[2017-02-19] MEDS: Digoxin TAB* 0.125 MG PO SCH (08:45)
[2017-02-19] MEDS: Furosemide IV* 10 MG/ML 10 ML VIAL (100 MG) IV SCH ×2 (08:45→21:28)
[2017-02-19] MEDS: Ondansetron INJ* 2 MG/ML VIAL IV PRN (08:45)
[2017-02-19] MEDS: Metoprolol Succinate XL TAB* 25 MG PO SCH (08:51)
[2017-02-19] MEDS: Metolazone TAB* 5 MG PO SCH (08:51)
[2017-02-19] MEDS: Amantadine CAP* 100 MG PO SCH (08:53)
[2017-02-19] MEDS: Venlafaxine EXT RELEASE CAP* 75 MG PO SCH (08:57)
[2017-02-19] MEDS: Ferrous Sulfate TAB* 325 MG PO SCH (08:57)
[2017-02-19] MEDS: Magnesium Oxide TAB* 400 MG PO SCH (08:57)
--- NOTE | 2017-02-19 11:20 | RAD ---
Indication: Evaluate for small bowel obstruction Flat and upright views of the abdomen demonstrates no free air. Air distended stomach is noted. Moderately dilated loops of small bowel in the right mid abdomen are noted. Diffuse groundglass appearance of the abdomen is present suggestive of ascites. IMPRESSION: Dilated stomach and nonspecific distention of small bowel in the right mid abdomen.
[2017-02-19] MEDS: Spironolactone TAB* 25 MG PO SCH (12:22)
[2017-02-19] MEDS ORDERED: Bisacodyl SUPP* 10 MG SUPP PR ONE (12:36)
--- NOTE | 2017-02-19 12:47 | PN ---
Subjective Date of Service: 02/19/17 Interval History: This is a 51 yo female with mild developmental delay and biventricular heart failure with CKD, DM, hypothyroidism, and h/o BCA who presented with c/o SOB and ascites after a fall without LOC. She has undergone paracentesis, cytology is pending but fluid analysis suggestive of a transudate likely due to her heart failure. She has been aggressively diuressed with some positive effect but still has a large amount of ascites. She started vomiting yesterday with gastric contents positive for occult blood and she has been started on a Protonix drip. This am, she continues to vomit intermittently. No gross blood, mostly bilious looking material. Abdominal distention seems worse per primary nurse. She has not had a BM in several days. Objective Active Medications: Acetaminophen (Tylenol Tab*) 650 mg PO Q6H PRN PRN Reason: FEVER/PAIN Last Admin: 02/17/17 20:54 Dose: 650 mg Amantadine HCl (Symmetrel Cap*) 100 mg PO DAILY@0800 [facility] Last Admin: 02/19/17 08:53 Dose: 100 mg Atorvastatin Calcium (Lipitor*) 40 mg PO 1700 [facility] Last Admin: 02/18/17 17:12 Dose: Not Given Bisacodyl (Dulcolax Supp*) 10 mg [place] ONCE ONE Stop: 02/19/17 12:37 Dextrose (D50w Syringe 50 Ml*) 12.5 gm IV PUSH .FOR FS < 60 - SS PRN PRN Reason: FS < 60 Digoxin (Lanoxin Tab*) 0.125 mg PO EVERY OTHER DAY [facility] Last Admin: 02/19/17 08:45 Dose: 0.125 mg Docusate Sodium (Colace Cap*) 100 mg PO BEDTIME [facility] Last Admin: 02/18/17 21:12 Dose: 100 mg Ferrous Sulfate (Ferrous Sulfate Tab*) 325 mg PO QAM [facility] Last Admin: 02/19/17 08:57 Dose: Not Given Furosemide (Lasix Iv*) 80 mg IV BID [facility] Last Admin: 02/19/17 08:45 Dose: 80 mg Pantoprazole Sodium 80 mg/ (Sodium Chloride) 250 mls @ 25 mls/hr IVPB Q10H [facility] Last Admin: 02/19/17 07:34 Dose: 25 mls/hr Insulin Glargine (Lantus(*)) 10 units SUBCUT QAM [facility] Last Admin: 02/19/17 08:44 Dose: 10 unit Insulin Human Lispro (Humalog*) 0 units SUBCUT ACHS [facility] PRN Reason: Protocol Last Admin: 02/19/17 12:19 Dose: 3 units Levothyroxine Sodium (Synthroid Tab*) 100 mcg PO 0600 [facility] Last Admin: 02/19/17 06:38 Dose: 100 mcg Magnesium Oxide (Magox 400 Tab*) 400 mg PO QAM [facility] Last Admin: 02/19/17 08:57 Dose: Not Given Metoclopramide HCl (Reglan Iv*) 10 mg IV SLOW PU TID PRN PRN Reason: NAUSEA - REFRACTORY Last Admin: 02/19/17 03:17 Dose: 10 mg Metolazone (Zaroxolyn Tab*) 5 mg PO DAILY [facility] Last Admin: 02/19/17 08:51 Dose: 5 mg Metoprolol Succinate (Toprol Xl Tab*) 12.5 mg PO DAILY [facility] Last Admin: 02/19/17 08:51 Dose: 12.5 mg Olanzapine (Zyprexa *Odt*) 40 mg PO BEDTIME [facility] Last Admin: 02/18/17 21:10 Dose: 40 mg Ondansetron HCl (Zofran Inj*) 4 mg IV Q4H PRN PRN Reason: NAUSEA Last Admin: 02/19/17 08:45 Dose: 4 mg Polyethylene Glycol/Electrolytes (Miralax*) 17 gm PO DAILY [facility] Senna (Senokot Tab*) 1 tab PO BEDTIME [facility] Last Admin: 02/18/17 21:11 Dose: 1 tab Spironolactone (Aldactone Tab*) 25 mg PO DAILY [facility] Last Admin: 02/19/17 12:22 Dose: 25 mg Venlafaxine HCl (Effexor Xr Cap*) 300 mg PO QAM [facility] Last Admin: 02/19/17 08:57 Dose: Not Given Vital Signs: Temp Pulse Resp BP Pulse Ox 98.0 F 101 18 126/75 100 02/19/17 11:34 02/19/17 11:34 02/19/17 11:34 02/19/17 11:34 02/19/17 11:34 Appearance: Middle aged developmentally delayed female in NAD. Respiratory: Symmetrical Chest Expansion and Respiratory Effort, - - severely diminshed breath sounds at lung bases Cardiovascular: NL Sounds; No Murmurs; No JVD, RRR Abdominal: - - severely distended, hypoactive bowel sounds Extremities: No Edema Skin: No Rash or Ulcers Neurological: Alert and Oriented x 3 Result Diagrams: 02/19/17 05:57 02/19/17 05:57 Microbiology and Other Data: Microbiology 02/13/17 15:08 Sterile Body Fluid Culture - Preliminary Ascites Fluid No Growth Day 1 Sterile Body Fluid Culture - Preliminary No Growth Day 1 Assess/Plan/Problems-Billing Assessment: Ms. Thao is a 51yo female with a PMH significant for CHF, CKD, DMII, CAD, Breast Cancer, Hypothyroidism, and developmental delay who presents with worsening SOB and ascites suspected to be secondary to CHF but with concern for malignancy now s/p paracentesis with removal of 2.3L, cytology pending. - Patient Problems (1) CHF (congestive heart failure) Comment: Acute systolic biventricular failure Good urine output with aggressive diuresis, but still has large ascites Down 11kg since admission Will discuss utility of positive ionotropes in this patient with cardiology if output starts to slow Appreciate cardiology consultation. Dr. Banuelos interprets the echo to show severe restrictive diastolic dysfunction with moderate to severe reduction in RV function and LVEF 30%. Continue lasix to 80mg BID, metolazone, spironolactone, and metoprolol. Not adding at ACEI at this point due to relative hypotension and need for further diuresis. Continue 1.5 L fluid restriction, I/Os and daily weights. Dr. Banuelos notes a poor prognosis overall, palliative consult appreciated. Patient understanding of her condition and would consider hospice if necessary, plan to continue treatment for now as she is thus far responding well. (2) GI bleed Comment: Gastric contents positive for occult blood Transfusing 1U PRBCs Cont protonix drip EGD contraindicated at this time due to acute heart failure (3) Ascites Comment: Likely secondary to heart failure Initial concern for possible malignant ascites due to disproportion with other edema, however fluid appears to be transudative, cytology pending (4) Nausea & vomiting Comment: Gastric contents positive for occult blood KUB shows some non specific distention and she has gone several days without a BM Will trial rectal suppository and see if relieving her constipation helps with the n/v (5) Iron deficiency anemia Comment: Chronic anemia at baseline with acute blood loss secondary to GIB, transfusing 1U PRBCs (6) FOREST (obstructive sleep apnea) Comment: Patient has had little luck with tolerating CPAP during this hospital stay Cardiology suspects untreated FOREST may be contributing significantly to heart failure. (7) Stage III chronic kidney disease Comment: Creatinine remains at baseline. Will continue to monitor (8) Type II diabetes mellitus Comment: BGs well controlled. Holding glipizide. Continue lantus 10u and SSI. HbA1c 5.8%. (9) Gallbladder polyp Comment: Detected on Gallbladder US from August,. 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 Patient asymptomatic but severely ill from end stage CHF, surgery not indicated. (10) UTI (urinary tract infection) Comment: Completed 5 day course of bactrim. (11) CAD (coronary artery disease) Comment: No evidence of ACS EF 35-40% on Echo. Stent to her LAD 10/2015 post STEMI. Holding antiplatelet meds at this time due to GIB (12) Hypothyroidism Comment: TSH 10.91 but T4 normal. Continue levothyroxine. (13) DVT prophylaxis Comment: Holding medical prophylaxis due to GIB (14) Full code status Comment: Appreciate palliative consult and psychiatric evaluation May require further evaluation by DDSO specific stiff straw hat washer to make determination of capacity to further define code status Status and Disposition: Inpatient. Anticipate prolonged hospitalization
[2017-02-19] MEDS: Atorvastatin* 40 MG TAB PO SCH (17:41)
[2017-02-19] MEDS: Docusate CAP* 100 MG PO SCH (21:28)
[2017-02-19] MEDS: OLANzapine TAB*ODT* 10 MG TAB PO SCH (21:29)
[2017-02-19] MEDS: Senna TAB PO SCH (21:29)
--- NOTE | 2017-02-20 00:37 | PN ---
Progress Note - Progress Note Date of Service: 02/20/17 Note: Nursing called reporting asymptomatic tachycardia in the 150s. ECG morphology is unchanged from previous, suspect sinus tachycardia. Will transfer to [address] [place] [address] to allow for IV medication usage.
[2017-02-20] MEDS ORDERED: Metoprolol Tartrate IV* 1 MG/ML 5 ML VIAL IV ONE ×3 (02:00→12:00)
[2017-02-20] MEDS ORDERED: Diltiazem IV* 5 MG/ML 5 ML VIAL (for loading dose/IV Push) (25 MG) IV PUSH ONE (02:00)
[2017-02-20 02:54] LABS: Hematocrit 26 % (35-47); Hemoglobin 8.7 g/dl (12.0-16.0)
[2017-02-20] MEDS: Levothyroxine TAB* 100 MCG TAB PO SCH (05:16)
[2017-02-20] MEDS: Pantoprazole IV* 80 MG in NS 0.9% 250 ML* 250 ML IVPB SCH ×4 (05:26→16:48)
[2017-02-20] MEDS ORDERED: Digoxin IV* 0.5 MG/2 ML AMP (0.25 MG/ML) IV SLOW PU ONE (08:06)
[2017-02-20] MEDS ORDERED: Magnesium Sulfate 2 GM IV* 2 GM/50 ML BAG IVPB ONE (08:06)
--- NOTE | 2017-02-20 08:25 | PN ---
Subjective Date of Service: 02/20/17 Interval History: Patient reports that she is feeling relatively well this am. She was transferred to the telemetry floor overnight when she developed rapid afib. She received 2 doses of IV metoprolol and one IV diltiazem without significant effect. Patient acknowledges that she feels her heart racing but denies CP, SOB , abd pain, n/v. She feels that her abd girth and firmness has improved somewhat. Still no BM. Objective Active Medications: Acetaminophen (Tylenol Tab*) 650 mg PO Q6H PRN PRN Reason: FEVER/PAIN Last Admin: 02/17/17 20:54 Dose: 650 mg Amantadine HCl (Symmetrel Cap*) 100 mg PO DAILY@0800 [facility] Last Admin: 02/19/17 08:53 Dose: 100 mg Atorvastatin Calcium (Lipitor*) 40 mg PO 1700 [facility] Last Admin: 02/19/17 17:41 Dose: 40 mg Dextrose (D50w Syringe 50 Ml*) 12.5 gm IV PUSH .FOR FS < 60 - SS PRN PRN Reason: FS < 60 Digoxin (Lanoxin Tab*) 0.125 mg PO EVERY OTHER DAY [facility] Last Admin: 02/19/17 08:45 Dose: 0.125 mg Docusate Sodium (Colace Cap*) 100 mg PO BEDTIME [facility] Last Admin: 02/19/17 21:28 Dose: 100 mg Ferrous Sulfate (Ferrous Sulfate Tab*) 325 mg PO QAM [facility] Last Admin: 02/19/17 08:57 Dose: Not Given Furosemide (Lasix Iv*) 80 mg IV BID [facility] Last Admin: 02/19/17 21:28 Dose: 80 mg Heparin Sodium (Porcine) (Heparin Flush Picc/Ml/Cvc(*)) 1 - 3 ml FLUSH 0600, 1800 [facility] PRN Reason: Protocol Last Admin: 02/20/17 05:54 Dose: Not Given Pantoprazole Sodium 80 mg/ (Sodium Chloride) 250 mls @ 25 mls/hr IVPB Q10H [facility] Last Admin: 02/20/17 05:26 Dose: 25 mls/hr Magnesium Sulfate (Magnesium Sulfate 2 Gm Iv*) 2 gm in 50 mls @ 50 mls/hr IVPB ONCE ONE Stop: 02/20/17 09:05 Insulin Glargine (Lantus(*)) 10 units SUBCUT QAM [facility] Last Admin: 02/19/17 08:44 Dose: 10 unit Insulin Human Lispro (Humalog*) 0 units SUBCUT ACHS [facility] PRN Reason: Protocol Last Admin: 02/19/17 22:37 Dose: 3 units Levothyroxine Sodium (Synthroid Tab*) 100 mcg PO 0600 [facility] Last Admin: 02/20/17 05:16 Dose: 100 mcg Magnesium Oxide (Magox 400 Tab*) 400 mg PO QAM [facility] Last Admin: 02/19/17 08:57 Dose: Not Given Metoclopramide HCl (Reglan Iv*) 10 mg IV SLOW PU TID PRN PRN Reason: NAUSEA - REFRACTORY Last Admin: 02/19/17 03:17 Dose: 10 mg Metolazone (Zaroxolyn Tab*) 5 mg PO DAILY [facility] Last Admin: 02/19/17 08:51 Dose: 5 mg Metoprolol Succinate (Toprol Xl Tab*) 12.5 mg PO DAILY [facility] Last Admin: 02/19/17 08:51 Dose: 12.5 mg Olanzapine (Zyprexa *Odt*) 40 mg PO BEDTIME [facility] Last Admin: 02/19/17 21:29 Dose: 40 mg Ondansetron HCl (Zofran Inj*) 4 mg IV Q4H PRN PRN Reason: NAUSEA Last Admin: 02/19/17 08:45 Dose: 4 mg Polyethylene Glycol/Electrolytes (Miralax*) 17 gm PO DAILY [facility] Senna (Senokot Tab*) 1 tab PO BEDTIME [facility] Last Admin: 02/19/17 21:29 Dose: 1 tab Spironolactone (Aldactone Tab*) 25 mg PO DAILY [facility] Last Admin: 02/19/17 12:22 Dose: 25 mg Venlafaxine HCl (Effexor Xr Cap*) 300 mg PO QAM [facility] Last Admin: 02/19/17 08:57 Dose: Not Given Vital Signs: Temp Pulse Resp BP Pulse Ox 98.6 F 143 24 118/40 100 02/20/17 07:20 02/20/17 07:20 02/20/17 07:59 02/20/17 07:20 02/20/17 07:20 Oxygen Devices in Use Now: Nasal Cannula Appearance: Middle aged female with mild developmental delay in NAD Respiratory: Symmetrical Chest Expansion and Respiratory Effort, - - crackles at lung bases, upper knight are clear Cardiovascular: NL Sounds; No Murmurs; No JVD, - - tachycardic, relatively regular Extremities: - - trace LE edema Skin: No Rash or Ulcers Neurological: Alert and Oriented x 3 Result Diagrams: 02/20/17 02:45 02/19/17 05:57 Microbiology and Other Data: Microbiology 02/13/17 15:08 Sterile Body Fluid Culture - Preliminary Ascites Fluid No Growth Day 1 Sterile Body Fluid Culture - Preliminary No Growth Day 1 Assess/Plan/Problems-Billing Assessment: Ms. Thao is a 51yo female with a PMH significant for CHF, CKD, DMII, CAD, Breast Cancer, Hypothyroidism, and developmental delay who presents with worsening SOB and ascites suspected to be secondary to CHF but with concern for malignancy now s/p paracentesis with removal of 2.3L, cytology pending. - Patient Problems (1) CHF (congestive heart failure) Comment: Acute systolic biventricular failure Now tachycardic ~140s, obtain EKG to confirm rhythm - asx, slow with AV bre blockers Good urine output with aggressive diuresis, but still has large ascites Down 11kg since admission Will discuss utility of positive ionotropes in this patient with cardiology if output starts to slow Appreciate cardiology consultation. Dr. Banuelos interprets the echo to show severe restrictive diastolic dysfunction with moderate to severe reduction in RV function and LVEF 30%. Continue lasix to 80mg BID, metolazone, spironolactone, and metoprolol. Not adding at ACEI at this point due to relative hypotension and need for further diuresis. Continue 1.5 L fluid restriction, I/Os and daily weights. Dr. Banuelos notes a poor prognosis overall, palliative consult appreciated. Patient understanding of her condition and would consider hospice if necessary, plan to continue treatment for now as she is thus far responding well. (2) GI bleed Comment: Gastric contents positive for occult blood Transfused 1U PRBCs yesterday with good response Cont protonix drip EGD contraindicated at this time due to acute heart failure (3) Ascites Comment: Likely secondary to heart failure Initial concern for possible malignant ascites due to disproportion with other edema, however fluid appears to be transudative, cytology still pending (4) Nausea & vomiting Comment: Gastric contents positive for occult blood KUB from yesterday shows some non specific distention and she has gone several days without a BM She feels better today, still now BM. Will continue with more aggressive bowel regimen (5) Iron deficiency anemia Comment: Chronic anemia at baseline with acute blood loss secondary to GIB Now s/p 1U PRBCs (6) FOREST (obstructive sleep apnea) Comment: Patient has had little luck with tolerating CPAP during this hospital stay Cardiology suspects untreated FOREST may be contributing significantly to heart failure. (7) Stage III chronic kidney disease Comment: Creatinine remains at baseline. Will continue to monitor (8) Type II diabetes mellitus Comment: BGs well controlled. Holding glipizide. Continue lantus 10u and SSI. HbA1c 5.8%. (9) Gallbladder polyp Comment: Detected on Gallbladder US from August,. 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 Patient asymptomatic but severely ill from end stage CHF, surgery not indicated. (10) UTI (urinary tract infection) Comment: Completed 5 day course of bactrim. (11) CAD (coronary artery disease) Comment: No evidence of ACS EF 35-40% on Echo. Stent to her LAD 10/2015 post STEMI. Holding antiplatelet meds at this time due to GIB (12) Hypothyroidism Comment: TSH 10.91 but T4 normal. Continue levothyroxine. 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 Anticipate prolonged hospitalization, continue diuresis
[2017-02-20] MEDS ORDERED: Bisacodyl SUPP* 10 MG SUPP PR ONE (08:31)
[2017-02-20] MEDS: Furosemide IV* 10 MG/ML 10 ML VIAL (100 MG) IV SCH ×2 (09:02→22:01)
[2017-02-20] MEDS: Polyethylene Glycol 3350* 17 GM PACKET PO SCH (09:02)
[2017-02-20] MEDS: Insulin GLARGINE(*) 1 UNITS UNIT SUBCUT SCH (09:02)
[2017-02-20] MEDS: Insulin LISPRO* 1 UNITS UNIT SUBCUT SCH ×4 (09:02→22:01)
[2017-02-20] MEDS: Metolazone TAB* 5 MG PO SCH (09:03)
[2017-02-20] MEDS: Venlafaxine EXT RELEASE CAP* 75 MG PO SCH (09:03)
[2017-02-20] MEDS: Metoprolol Succinate XL TAB* 25 MG PO SCH (09:03)
[2017-02-20] MEDS: Amantadine CAP* 100 MG PO SCH (09:03)
[2017-02-20] MEDS: Magnesium Oxide TAB* 400 MG PO SCH (09:03)
[2017-02-20] MEDS: Spironolactone TAB* 25 MG PO SCH (09:03)
[2017-02-20] MEDS: Ferrous Sulfate TAB* 325 MG PO SCH (09:04)
[2017-02-20] MEDS ORDERED: Diltiazem IV* 5 MG/ML 5 ML VIAL (for loading dose/IV Push) (25 MG) IV SLOW PU ONE (12:15)
[2017-02-20] MEDS: Atorvastatin* 40 MG TAB PO SCH (17:59)
[2017-02-20] MEDS: Docusate CAP* 100 MG PO SCH (21:56)
[2017-02-20] MEDS: Senna TAB PO SCH (21:56)
[2017-02-20] MEDS: OLANzapine TAB*ODT* 10 MG TAB PO SCH (22:01)
[2017-02-21] MEDS: Pantoprazole IV* 80 MG in NS 0.9% 250 ML* 250 ML IVPB SCH ×2 (03:48→18:41)
[2017-02-21] MEDS: Levothyroxine TAB* 100 MCG TAB PO SCH (05:04)
[2017-02-21 05:50] LABS: ABS Basophils 0 10^3/ul (0-0.2); ABS Eosinophils 0.2 10^3/ul (0-0.6); ABS Lymphocytes 1.2 10^3/ul (1.0-4.8); ABS Monocytes 1.1 10^3/ul (0-0.8); ABS Neutrophils 5.6 10^3/ul (1.5-7.7); ABS Nucleated RBC 0.01 10^3/ul; Hematocrit 24 % (35-47); Hemoglobin 7.8 g/dl (12.0-16.0); Lymphocyte % 14.5 % (25-47); Mean Corpuscular HGB Conc 33 g/dl (31-36); Mean Corpuscular Hemoglobin 29 pg (27-31); Mean Corpuscular Volume 87 fL (80-97); Mean Platelet Volume 8 um3 (7.4-10.4); Nucleated Red Blood Cells % 0.1; Platelet Count 203 10^3/ul (150-450); Red Blood Count 2.72 10^6/ul (4.0-5.4); Red Cell Distribution Width 17 % (10.5-15); White Blood Count 8.2 10^3/ul (3.5-10.8)
[2017-02-21 06:06] LABS: EGFR Non-African American 45.4 (>60)
[2017-02-21] MEDS: Insulin LISPRO* 1 UNITS UNIT SUBCUT SCH ×4 (07:35→22:29)
[2017-02-21] MEDS: Polyethylene Glycol 3350* 17 GM PACKET PO SCH (07:37)
[2017-02-21] MEDS: Furosemide IV* 10 MG/ML 10 ML VIAL (100 MG) IV SCH ×2 (07:38→22:29)
[2017-02-21] MEDS: Metolazone TAB* 5 MG PO SCH (07:39)
[2017-02-21] MEDS: Venlafaxine EXT RELEASE CAP* 75 MG PO SCH (07:39)
[2017-02-21] MEDS: Digoxin TAB* 0.125 MG PO SCH (07:40)
[2017-02-21] MEDS: Amantadine CAP* 100 MG PO SCH (07:40)
[2017-02-21] MEDS: Ferrous Sulfate TAB* 325 MG PO SCH (07:40)
[2017-02-21] MEDS: Magnesium Oxide TAB* 400 MG PO SCH (07:40)
[2017-02-21] MEDS: Spironolactone TAB* 25 MG PO SCH (07:40)
[2017-02-21] MEDS: Metoprolol Succinate XL TAB* 25 MG PO SCH (07:40)
[2017-02-21] MEDS: Insulin GLARGINE(*) 1 UNITS UNIT SUBCUT SCH (08:14)
--- NOTE | 2017-02-21 09:28 | PN ---
Subjective Date of Service: 02/21/17 Interval History: Patient reports no new complaints this am. She did have several large BMs overnight. No further vomiting. No c/o abd pain, SOB, CP. Objective Active Medications: Acetaminophen (Tylenol Tab*) 650 mg PO Q6H PRN PRN Reason: FEVER/PAIN Last Admin: 02/17/17 20:54 Dose: 650 mg Amantadine HCl (Symmetrel Cap*) 100 mg PO DAILY@0800 [facility] Last Admin: 02/21/17 07:40 Dose: 100 mg Atorvastatin Calcium (Lipitor*) 40 mg PO 1700 [facility] Last Admin: 02/20/17 17:59 Dose: 40 mg Dextrose (D50w Syringe 50 Ml*) 12.5 gm IV PUSH .FOR FS < 60 - SS PRN PRN Reason: FS < 60 Digoxin (Lanoxin Tab*) 0.125 mg PO EVERY OTHER DAY [facility] Last Admin: 02/21/17 07:40 Dose: 0.125 mg Docusate Sodium (Colace Cap*) 100 mg PO BEDTIME [facility] Last Admin: 02/20/17 21:56 Dose: Not Given Ferrous Sulfate (Ferrous Sulfate Tab*) 325 mg PO QAM [facility] Last Admin: 02/21/17 07:40 Dose: 325 mg Furosemide (Lasix Iv*) 80 mg IV BID [facility] Last Admin: 02/21/17 07:38 Dose: 80 mg Heparin Sodium (Porcine) (Heparin Flush Picc/Ml/Cvc(*)) 1 - 3 ml FLUSH 0600, 1800 [facility] PRN Reason: Protocol Last Admin: 02/21/17 05:44 Dose: Not Given Pantoprazole Sodium 80 mg/ (Sodium Chloride) 250 mls @ 25 mls/hr IVPB Q10H [facility] Last Admin: 02/21/17 03:48 Dose: 25 mls/hr Insulin Glargine (Lantus(*)) 10 units SUBCUT QAM [facility] Last Admin: 02/21/17 08:14 Dose: 10 unit Insulin Human Lispro (Humalog*) 0 units SUBCUT ACHS [facility] PRN Reason: Protocol Last Admin: 02/21/17 07:35 Dose: Not Given Levothyroxine Sodium (Synthroid Tab*) 100 mcg PO 0600 [facility] Last Admin: 02/21/17 05:04 Dose: 100 mcg Magnesium Oxide (Magox 400 Tab*) 400 mg PO QAM [facility] Last Admin: 02/21/17 07:40 Dose: 400 mg Metoclopramide HCl (Reglan Iv*) 10 mg IV SLOW PU TID PRN PRN Reason: NAUSEA - REFRACTORY Last Admin: 02/19/17 03:17 Dose: 10 mg Metolazone (Zaroxolyn Tab*) 5 mg PO DAILY [facility] Last Admin: 02/21/17 07:39 Dose: 5 mg Metoprolol Succinate (Toprol Xl Tab*) 12.5 mg PO DAILY [facility] Last Admin: 02/21/17 07:40 Dose: 12.5 mg Olanzapine (Zyprexa *Odt*) 40 mg PO BEDTIME [facility] Last Admin: 02/20/17 22:01 Dose: 40 mg Ondansetron HCl (Zofran Inj*) 4 mg IV Q4H PRN PRN Reason: NAUSEA Last Admin: 02/19/17 08:45 Dose: 4 mg Polyethylene Glycol/Electrolytes (Miralax*) 17 gm PO DAILY [facility] Last Admin: 02/21/17 07:37 Dose: 17 gm Senna (Senokot Tab*) 1 tab PO BEDTIME [facility] Last Admin: 02/20/17 21:56 Dose: Not Given Spironolactone (Aldactone Tab*) 25 mg PO DAILY [facility] Last Admin: 02/21/17 07:40 Dose: 25 mg Venlafaxine HCl (Effexor Xr Cap*) 300 mg PO QAM [facility] Last Admin: 02/21/17 07:39 Dose: 300 mg Vital Signs: Temp Pulse Resp BP Pulse Ox 98.3 F 100 18 115/54 100 02/21/17 07:35 02/21/17 07:40 02/21/17 07:50 02/21/17 07:35 02/21/17 07:35 Oxygen Devices in Use Now: Nasal Cannula Appearance: Middle aged female with mild developmental delay that appears lethargic this am, but alert and able to participate in basic conversation Respiratory: Symmetrical Chest Expansion and Respiratory Effort, - - limited exam this am, diminished breath sounds at the bases Cardiovascular: RRR Abdominal: - - distended, firm, non-tender, bowel sounds present Extremities: - - trace LE edema Skin: No Rash or Ulcers Neurological: - - alert Result Diagrams: 02/21/17 05:34 02/21/17 06:41 Microbiology and Other Data: Microbiology 02/13/17 15:08 Sterile Body Fluid Culture - Preliminary Ascites Fluid No Growth Day 1 Sterile Body Fluid Culture - Preliminary No Growth Day 1 Assess/Plan/Problems-Billing Assessment: Ms. Thao is a 51yo female with a PMH significant for CHF, CKD, DMII, CAD, Breast Cancer, Hypothyroidism, and developmental delay who presents with worsening SOB and ascites suspected to be secondary to CHF but with concern for malignancy now s/p paracentesis with removal of 2.3L, cytology benign. - Patient Problems (1) CHF (congestive heart failure) Comment: Acute systolic biventricular failure Good urine output with aggressive diuresis, but still has large ascites Down 16kg since admission Will discuss utility of positive ionotropes in this patient with cardiology if output starts to slow Appreciate cardiology consultation. Dr. Banuelos interprets the echo to show severe restrictive diastolic dysfunction with moderate to severe reduction in RV function and LVEF 30%. Continue lasix to 80mg BID, metolazone, spironolactone, and metoprolol. Not adding at ACEI at this point due to relative hypotension and need for further diuresis. Continue 1.5 L fluid restriction, I/Os and daily weights. Dr. Banuelos notes a poor prognosis overall, palliative consult appreciated. Patient understanding of her condition and would consider hospice if necessary, plan to continue treatment for now as she is thus far responding well. (2) GI bleed Comment: Gastric contents positive for occult blood Transfused 1U PRBCs 02/19 with good response Cont protonix drip EGD contraindicated at this time due to acute heart failure (3) SVT (supraventricular tachycardia) Comment: Now resolved (4) Ascites Comment: Likely secondary to heart failure Initial concern for possible malignant ascites due to disproportion with other edema, however fluid appears to be transudative Cytology benign (5) Nausea & vomiting Comment: Improved Still slightly nauseated No further vomiting Constipation relieved (6) Iron deficiency anemia Comment: Chronic anemia at baseline with acute blood loss secondary to GIB Now s/p 1U PRBCs (7) FOREST (obstructive sleep apnea) Comment: Patient has not tolerated CPAP during this hospital stay Cardiology suspects untreated FOREST may be contributing significantly to heart failure. (8) Stage III chronic kidney disease Comment: Creatinine remains at baseline. Will continue to monitor with further diuresis (9) Type II diabetes mellitus Comment: BGs well controlled. Holding glipizide. Continue lantus 10u and SSI. HbA1c 5.8%. (10) Gallbladder polyp Comment: Detected on Gallbladder US from August,. 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 Patient asymptomatic but severely ill from end stage CHF, surgery not indicated. (11) UTI (urinary tract infection) Comment: Completed 5 day course of bactrim. (12) CAD (coronary artery disease) Comment: No evidence of ACS EF 35-40% on Echo. Stent to her LAD 10/2015 post STEMI. Holding antiplatelet meds at this time due to GIB (13) Hypothyroidism Comment: TSH 10.91 but T4 normal. Continue levothyroxine. (14) DVT prophylaxis Comment: Holding medical prophylaxis due to GIB (15) Full code status Comment: Appreciate palliative consult and psychiatric evaluation Determination has been made that patient is competent to make her own medical decisions including advanced directives Will complete MOLST with patient later today when she is more alert Status and Disposition: Inpatient. Anticipate prolonged hospitalization, continue diuresis
[2017-02-21] MEDS ORDERED: Magnesium Sulfate 2 GM IV* 2 GM/50 ML BAG IVPB ONE (17:10)
[2017-02-21] MEDS ORDERED: Metoprolol Tartrate IV* 1 MG/ML 5 ML VIAL IV ONE (17:10)
[2017-02-21] MEDS: Atorvastatin* 40 MG TAB PO SCH (18:05)
[2017-02-21] MEDS: Docusate CAP* 100 MG PO SCH (22:29)
[2017-02-21] MEDS: Senna TAB PO SCH (22:29)
[2017-02-21] MEDS: OLANzapine TAB*ODT* 10 MG TAB PO SCH (22:29)
[2017-02-22] MEDS: Levothyroxine TAB* 100 MCG TAB PO SCH (05:41)
[2017-02-22] MEDS: Pantoprazole IV* 80 MG in NS 0.9% 250 ML* 250 ML IVPB SCH ×2 (06:06→11:32)
[2017-02-22 06:31] LABS: ABS Basophils 0.1 10^3/ul (0-0.2); ABS Eosinophils 0.3 10^3/ul (0-0.6); ABS Lymphocytes 1.4 10^3/ul (1.0-4.8); ABS Monocytes 1.1 10^3/ul (0-0.8); ABS Neutrophils 5.3 10^3/ul (1.5-7.7); ABS Nucleated RBC 0.01 10^3/ul; Eosinophil % 3.5 % (0-6); Hematocrit 24 % (35-47); Hemoglobin 7.9 g/dl (12.0-16.0); Lymphocyte % 16.7 % (25-47); Mean Corpuscular HGB Conc 33 g/dl (31-36); Mean Corpuscular Hemoglobin 29 pg (27-31); Mean Corpuscular Volume 88 fL (80-97); Mean Platelet Volume 8 um3 (7.4-10.4); Nucleated Red Blood Cells % 0.1; Platelet Count 205 10^3/ul (150-450); Red Blood Count 2.75 10^6/ul (4.0-5.4); Red Cell Distribution Width 17 % (10.5-15); White Blood Count 8.1 10^3/ul (3.5-10.8)
[2017-02-22 06:51] LABS: EGFR Non-African American 45.8 (>60)
[2017-02-22] MEDS: Insulin LISPRO* 1 UNITS UNIT SUBCUT SCH ×4 (07:39→22:15)
[2017-02-22] MEDS: Metolazone TAB* 5 MG PO SCH (08:42)
[2017-02-22] MEDS: Venlafaxine EXT RELEASE CAP* 75 MG PO SCH (08:42)
[2017-02-22] MEDS: Ferrous Sulfate TAB* 325 MG PO SCH (08:43)
[2017-02-22] MEDS: KCL 10 MEQ/50 ML IVPREMIX* 10 MEQ/50 ML BAG IV SCH ×3 (08:43→13:52)
[2017-02-22] MEDS: Spironolactone TAB* 25 MG PO SCH (08:43)
[2017-02-22] MEDS: Insulin GLARGINE(*) 1 UNITS UNIT SUBCUT SCH (08:43)
[2017-02-22] MEDS: Magnesium Oxide TAB* 400 MG PO SCH (08:43)
[2017-02-22] MEDS: Furosemide IV* 10 MG/ML 10 ML VIAL (100 MG) IV SCH ×2 (08:43→22:20)
[2017-02-22] MEDS: Metoprolol Succinate XL TAB* 50 MG PO SCH (08:43)
[2017-02-22] MEDS: Polyethylene Glycol 3350* 17 GM PACKET PO SCH (08:44)
[2017-02-22] MEDS: Amantadine CAP* 100 MG PO SCH (10:29)
[2017-02-22] MEDS ORDERED: Alteplase (CATHFLO)* 2 MG/2 ML VIAL IV ONE ×2 (11:53→14:42)
--- NOTE | 2017-02-22 12:11 | PN ---
Subjective Date of Service: 02/22/17 Interval History: Patient offers no new complaints. Still states she's "sleepy", but seems more alert today. No n/v. Appetite seems good. Abd still distended. No c/o CP or SOB. Objective Active Medications: Acetaminophen (Tylenol Tab*) 650 mg PO Q6H PRN PRN Reason: FEVER/PAIN Last Admin: 02/17/17 20:54 Dose: 650 mg Amantadine HCl (Symmetrel Cap*) 100 mg PO DAILY@0800 [facility] Last Admin: 02/22/17 10:29 Dose: 100 mg Atorvastatin Calcium (Lipitor*) 40 mg PO 1700 [facility] Last Admin: 02/21/17 18:05 Dose: 40 mg Dextrose (D50w Syringe 50 Ml*) 12.5 gm IV PUSH .FOR FS < 60 - SS PRN PRN Reason: FS < 60 Digoxin (Lanoxin Tab*) 0.125 mg PO EVERY OTHER DAY [facility] Last Admin: 02/21/17 07:40 Dose: 0.125 mg Docusate Sodium (Colace Cap*) 100 mg PO BEDTIME [facility] Last Admin: 02/21/17 22:29 Dose: 100 mg Ferrous Sulfate (Ferrous Sulfate Tab*) 325 mg PO QAM [facility] Last Admin: 02/22/17 08:43 Dose: 325 mg Furosemide (Lasix Iv*) 80 mg IV BID [facility] Last Admin: 02/22/17 08:43 Dose: 80 mg Heparin Sodium (Porcine) (Heparin Flush Picc/Ml/Cvc(*)) 1 - 3 ml FLUSH 0600, 1800 [facility] PRN Reason: Protocol Last Admin: 02/22/17 05:42 Dose: 1 ml Pantoprazole Sodium 80 mg/ (Sodium Chloride) 250 mls @ 25 mls/hr IVPB Q10H [facility] Insulin Glargine (Lantus(*)) 10 units SUBCUT QAM [facility] Last Admin: 02/22/17 08:43 Dose: 10 unit Insulin Human Lispro (Humalog*) 0 units SUBCUT ACHS [facility] PRN Reason: Protocol Last Admin: 02/22/17 11:55 Dose: Not Given Levothyroxine Sodium (Synthroid Tab*) 100 mcg PO 0600 [facility] Last Admin: 02/22/17 05:41 Dose: 100 mcg Magnesium Oxide (Magox 400 Tab*) 400 mg PO QAM [facility] Last Admin: 02/22/17 08:43 Dose: 400 mg Metoclopramide HCl (Reglan Iv*) 10 mg IV SLOW PU TID PRN PRN Reason: NAUSEA - REFRACTORY Last Admin: 02/19/17 03:17 Dose: 10 mg Metolazone (Zaroxolyn Tab*) 5 mg PO DAILY [facility] Last Admin: 02/22/17 08:42 Dose: 5 mg Metoprolol Succinate (Toprol Xl Tab*) 50 mg PO DAILY [facility] Last Admin: 02/22/17 08:43 Dose: 50 mg Olanzapine (Zyprexa *Odt*) 40 mg PO BEDTIME [facility] Last Admin: 02/21/17 22:29 Dose: 40 mg Ondansetron HCl (Zofran Inj*) 4 mg IV Q4H PRN PRN Reason: NAUSEA Last Admin: 02/19/17 08:45 Dose: 4 mg Polyethylene Glycol/Electrolytes (Miralax*) 17 gm PO DAILY [facility] Last Admin: 02/22/17 08:44 Dose: 17 gm Senna (Senokot Tab*) 1 tab PO BEDTIME [facility] Last Admin: 02/21/17 22:29 Dose: 1 tab Spironolactone (Aldactone Tab*) 25 mg PO DAILY [facility] Last Admin: 02/22/17 08:43 Dose: 25 mg Venlafaxine HCl (Effexor Xr Cap*) 300 mg PO QAM [facility] Last Admin: 02/22/17 08:42 Dose: 300 mg Vital Signs: Temp Pulse Resp BP Pulse Ox 97.4 F 93 16 101/57 98 02/22/17 03:34 02/22/17 03:34 02/22/17 08:00 02/22/17 03:34 02/22/17 03:34 Oxygen Devices in Use Now: Nasal Cannula Appearance: Middle aged female with mild developmental disability in NAD Respiratory: Symmetrical Chest Expansion and Respiratory Effort, Clear to Auscultation Cardiovascular: NL Sounds; No Murmurs; No JVD, RRR Abdominal: - - distended, firm, non-TTP Extremities: - - trace LE edema Skin: No Rash or Ulcers Neurological: Alert and Oriented x 3 Result Diagrams: 02/22/17 06:17 02/22/17 06:17 Microbiology and Other Data: Microbiology 02/13/17 15:08 Sterile Body Fluid Culture - Preliminary Ascites Fluid No Growth Day 1 Sterile Body Fluid Culture - Preliminary No Growth Day 1 Assess/Plan/Problems-Billing Assessment: Ms. Thao is a 51yo female with a PMH significant for CHF, CKD, DMII, CAD, Breast Cancer, Hypothyroidism, and developmental delay who presents with worsening SOB and ascites suspected to be secondary to CHF but with concern for malignancy cytology benign from paracentesis. - Patient Problems (1) CHF (congestive heart failure) Comment: Acute systolic biventricular failure Good urine output with aggressive diuresis, but still has large ascites Down 18kg since admission Will discuss utility of positive ionotropes in this patient with cardiology if output starts to slow Appreciate cardiology consultation. Dr. Banuelos interprets the echo to show severe restrictive diastolic dysfunction with moderate to severe reduction in RV function and LVEF 30%. Continue lasix to 80mg BID, metolazone, spironolactone, and metoprolol. Not adding at ACEI at this point due to relative hypotension and need for further diuresis. Continue 1.5 L fluid restriction, I/Os and daily weights. Dr. Banuelos notes a poor prognosis overall, palliative consult appreciated. Patient understanding of her condition and would consider hospice if necessary, plan to continue treatment for now as she is thus far responding well. (2) GI bleed Comment: Gastric contents positive for occult blood Transfused 1U PRBCs 02/19 with good response Hgb has been stable now for several days, transition to bolus Protonix and stop drip EGD contraindicated at this time due to acute heart failure (3) SVT (supraventricular tachycardia) Comment: Now resolved 2 episodes 02/20 + 02/21 Some initial concern for rapid afib based on telemetry, but EKG appears more c/ w SVT (4) Ascites Comment: Likely secondary to heart failure Initial concern for possible malignant ascites due to disproportion with other edema, however fluid appears to be transudative and cytology benign (5) Nausea & vomiting Comment: Resolved Constipation relieved (6) Iron deficiency anemia Comment: Chronic anemia at baseline with acute blood loss secondary to GIB Now s/p 1U PRBCs (7) FOREST (obstructive sleep apnea) Comment: Patient has not tolerated CPAP during this hospital stay Cardiology suspects untreated FOREST may be contributing significantly to heart failure. (8) Stage III chronic kidney disease Comment: Creatinine remains at baseline. Will continue to monitor with further diuresis (9) Type II diabetes mellitus Comment: BGs well controlled. Holding glipizide. Continue lantus 10u and SSI. HbA1c 5.8%. (10) Gallbladder polyp Comment: Detected on Gallbladder US from August,. 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 Patient asymptomatic but severely ill from end stage CHF, surgery not indicated. (11) UTI (urinary tract infection) Comment: Completed 5 day course of bactrim. (12) CAD (coronary artery disease) Comment: No evidence of ACS EF 35-40% on Echo. Stent to her LAD 10/2015 post STEMI. Holding antiplatelet meds at this time due to GIB (13) Hypothyroidism Comment: TSH 10.91 but T4 normal. Continue levothyroxine. (14) DVT prophylaxis Comment: Holding medical prophylaxis due to GIB (15) Full code status Comment: Appreciate palliative consult and psychiatric evaluation Determination has been made that patient is competent to make her own medical decisions including advanced directives Discussed code status with patient today, she wishes to remain full code at this time. Status and Disposition: Inpatient. Anticipate prolonged hospitalization, continue diuresis
[2017-02-22] MEDS ORDERED: Pantoprazole IV* 80 MG in NS 0.9% 250 ML* 250 ML IVPB SCH (14:00)
[2017-02-22] MEDS: Atorvastatin* 40 MG TAB PO SCH (17:20)
[2017-02-22] MEDS: Senna TAB PO SCH (22:16)
[2017-02-22] MEDS: Docusate CAP* 100 MG PO SCH (22:16)
[2017-02-22] MEDS: Pantoprazole IV* 40 MG IV SCH (22:17)
[2017-02-22] MEDS: OLANzapine TAB*ODT* 10 MG TAB PO SCH (22:22)
[2017-02-23] MEDS: Levothyroxine TAB* 100 MCG TAB PO SCH (05:53)
[2017-02-23] MEDS: Insulin LISPRO* 1 UNITS UNIT SUBCUT SCH ×4 (08:16→20:51)
[2017-02-23 09:50] LABS: EGFR Non-African American 46.7 (>60)
[2017-02-23] MEDS: Polyethylene Glycol 3350* 17 GM PACKET PO SCH (10:34)
[2017-02-23] MEDS: Furosemide IV* 10 MG/ML 10 ML VIAL (100 MG) IV SCH ×2 (10:36→20:57)
[2017-02-23] MEDS: Pantoprazole IV* 40 MG IV SCH ×2 (10:36→20:58)
[2017-02-23] MEDS: Insulin GLARGINE(*) 1 UNITS UNIT SUBCUT SCH (10:36)
[2017-02-23] MEDS: Spironolactone TAB* 25 MG PO SCH (10:37)
[2017-02-23] MEDS: Amantadine CAP* 100 MG PO SCH (10:37)
[2017-02-23] MEDS: Metoprolol Succinate XL TAB* 50 MG PO SCH (10:37)
[2017-02-23] MEDS: Venlafaxine EXT RELEASE CAP* 75 MG PO SCH (10:37)
[2017-02-23] MEDS: Metolazone TAB* 5 MG PO SCH (10:37)
[2017-02-23] MEDS: Digoxin TAB* 0.125 MG PO SCH (10:38)
[2017-02-23] MEDS: Magnesium Oxide TAB* 400 MG PO SCH (10:38)
[2017-02-23] MEDS: Ferrous Sulfate TAB* 325 MG PO SCH (10:39)
--- NOTE | 2017-02-23 11:27 | PN ---
Subjective Date of Service: 02/23/17 Interval History: Patient offers no new complaints. Continues to be quite lethargic and spends most of her time sleeping. No n/v/d. Objective Active Medications: Acetaminophen (Tylenol Tab*) 650 mg PO Q6H PRN PRN Reason: FEVER/PAIN Last Admin: 02/17/17 20:54 Dose: 650 mg Amantadine HCl (Symmetrel Cap*) 100 mg PO DAILY@0800 [facility] Last Admin: 02/23/17 10:37 Dose: 100 mg Atorvastatin Calcium (Lipitor*) 40 mg PO 1700 [facility] Last Admin: 02/22/17 17:20 Dose: 40 mg Dextrose (D50w Syringe 50 Ml*) 12.5 gm IV PUSH .FOR FS < 60 - SS PRN PRN Reason: FS < 60 Digoxin (Lanoxin Tab*) 0.125 mg PO EVERY OTHER DAY [facility] Last Admin: 02/23/17 10:38 Dose: 0.125 mg Docusate Sodium (Colace Cap*) 100 mg PO BEDTIME [facility] Last Admin: 02/22/17 22:16 Dose: 100 mg Ferrous Sulfate ([facility]ous Sulfate Tab*) [facility] Admin: 02/23/17 10:39 Dose: 325 mg Furosemide (Lasix Iv*) 80 mg IV BID [facility] Last Admin: 02/23/17 10:36 Dose: 80 mg Heparin Sodium (Porcine) (Heparin Flush Picc/Ml/Cvc(*)) 1 - 3 ml FLUSH 0600, 1800 [facility] PRN Reason: Protocol Last Admin: 02/23/17 06:29 Dose: Not Given Insulin Glargine (Lantus(*)) [facility] Last Admin: 02/23/17 10:36 Dose: 10 unit Insulin Human Lispro (Humalog*) 0 units SUBCUT ACHS [facility] PRN Reason: Protocol Last Admin: 02/23/17 08:16 Dose: Not Given Levothyroxine Sodium (Synthroid Tab*) 100 mcg PO 0600 [facility] Last Admin: 02/23/17 05:53 Dose: 100 mcg Magnesium Oxide (Magox 400 Tab*) 400 mg PO QAM [facility] Last Admin: 02/23/17 10:38 Dose: 400 mg Metoclopramide HCl (Reglan Iv*) 10 mg IV SLOW PU TID PRN PRN Reason: NAUSEA - REFRACTORY Last Admin: 02/19/17 03:17 Dose: 10 mg Metolazone (Zaroxolyn Tab*) 5 mg PO DAILY [facility] Last Admin: 02/23/17 10:37 Dose: 5 mg Metoprolol Succinate (Toprol Xl Tab*) 50 mg PO DAILY [facility] Last Admin: 02/23/17 10:37 Dose: 50 mg Olanzapine (Zyprexa *Odt*) 40 mg PO BEDTIME [facility] Last Admin: 02/22/17 22:22 Dose: 40 mg Ondansetron HCl (Zofran Inj*) 4 mg IV Q4H PRN PRN Reason: NAUSEA Last Admin: 02/19/17 08:45 Dose: 4 mg Pantoprazole Sodium (Protonix Iv*) 40 mg IV BID [facility] Last Admin: 02/23/17 10:36 Dose: 40 mg Polyethylene Glycol/Electrolytes (Miralax*) 17 gm PO DAILY [facility] Last Admin: 02/23/17 10:34 Dose: 17 gm Senna (Senokot Tab*) 1 tab PO BEDTIME [facility] Last Admin: 02/22/17 22:16 Dose: 1 tab Spironolactone (Aldactone Tab*) 25 mg PO DAILY [facility] Last Admin: 02/23/17 10:37 Dose: 25 mg Venlafaxine HCl (Effexor Xr Cap*) 300 mg PO QAM [facility] Last Admin: 02/23/17 10:37 Dose: 300 mg Vital Signs: Temp Pulse Resp BP Pulse Ox 98.5 F 80 20 106/52 100 02/23/17 07:32 02/23/17 10:38 02/23/17 07:55 02/23/17 07:32 02/23/17 07:32 Oxygen Devices in Use Now: Nasal Cannula Appearance: 51 yo female with mild developmental delay that is in NAD. She is lethargic and only briefly wakes up for exam. Respiratory: Symmetrical Chest Expansion and Respiratory Effort, - - limited exam, but no adventitious sounds Cardiovascular: NL Sounds; No Murmurs; No JVD, RRR Abdominal: NL Sounds; No Tenderness; No Distention Extremities: - - trace LE edema Skin: No Rash or Ulcers Neurological: - - lethargic but arousable Result Diagrams: 02/22/17 06:17 02/23/17 09:28 Microbiology and Other Data: Microbiology 02/13/17 15:08 Sterile Body Fluid Culture - Preliminary Ascites Fluid No Growth Day 1 Sterile Body Fluid Culture - Preliminary No Growth Day 1 Assess/Plan/Problems-Billing Assessment: Ms. Thao is a 51yo female with a PMH significant for CHF, CKD, DMII, CAD, Breast Cancer, Hypothyroidism, and developmental delay who presents with worsening SOB and ascites suspected to be secondary to CHF but with concern for malignancy cytology benign from paracentesis. - Patient Problems (1) CHF (congestive heart failure) Comment: Acute systolic biventricular failure Good urine output with aggressive diuresis, but still has large ascites Down 19kg since admission Will discuss utility of positive ionotropes in this patient with cardiology if output starts to slow Appreciate cardiology consultation. Dr. Banuelos interprets the echo to show severe restrictive diastolic dysfunction with moderate to severe reduction in RV function and LVEF 30%. Continue lasix to 80mg BID, metolazone, spironolactone, and metoprolol. Not adding at ACEI at this point due to relative hypotension and need for further diuresis. Continue 1.5 L fluid restriction, I/Os and daily weights. Dr. Banuelos notes a poor prognosis overall, palliative consult appreciated. Patient understanding of her condition and would consider hospice if necessary, plan to continue treatment for now as she is thus far responding well. (2) GI bleed Comment: Gastric contents positive for occult blood Transfused 1U PRBCs 02/19 with good response Hgb has been stable now for several days, cont IV bolus Protonix EGD contraindicated at this time due to acute heart failure (3) SVT (supraventricular tachycardia) Comment: Now resolved 2 episodes 02/20 + 02/21 Some initial concern for rapid afib based on telemetry, but EKG appears more c/ w SVT (4) Ascites Comment: Likely secondary to heart failure Initial concern for possible malignant ascites due to disproportion with other edema, however fluid appears to be transudative and cytology benign (5) Nausea & vomiting Comment: Resolved Constipation relieved (6) Iron deficiency anemia Comment: Chronic anemia at baseline with acute blood loss secondary to GIB Now s/p 1U PRBCs (7) FOREST (obstructive sleep apnea) Comment: Patient has not tolerated CPAP during this hospital stay Cardiology suspects untreated FOREST may be contributing significantly to heart failure. (8) Stage III chronic kidney disease Comment: Creatinine remains at baseline. Will continue to monitor with further diuresis (9) Type II diabetes mellitus Comment: BGs well controlled. Holding glipizide. Continue lantus 10u and SSI. HbA1c 5.8%. (10) Gallbladder polyp Comment: Detected on Gallbladder US from August,. 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 Patient asymptomatic but severely ill from end stage CHF, surgery not indicated. (11) UTI (urinary tract infection) Comment: Completed 5 day course of bactrim. (12) CAD (coronary artery disease) Comment: No evidence of ACS EF 35-40% on Echo. Stent to her LAD 10/2015 post STEMI. Holding antiplatelet meds at this time due to GIB (13) Hypothyroidism Comment: TSH 10.91 but T4 normal. Continue levothyroxine. (14) DVT prophylaxis Comment: Holding medical prophylaxis due to GIB (15) Full code status Comment: Appreciate palliative consult and psychiatric evaluation Determination has been made that patient is competent to make her own medical decisions including advanced directives Discussed code status with patient today, she wishes to remain full code at this time. Status and Disposition: Inpatient. Anticipate prolonged hospitalization, continue diuresis
[2017-02-23] MEDS: Atorvastatin* 40 MG TAB PO SCH (17:35)
[2017-02-23] MEDS: Senna TAB PO SCH (20:53)
[2017-02-23] MEDS: Docusate CAP* 100 MG PO SCH (20:53)
[2017-02-23] MEDS: OLANzapine TAB*ODT* 10 MG TAB PO SCH (20:56)
[2017-02-24] MEDS: Levothyroxine TAB* 100 MCG TAB PO SCH (06:08)
[2017-02-24 06:14] LABS: EGFR Non-African American 43.4 (>60)
[2017-02-24] MEDS: Pantoprazole IV* 40 MG IV SCH ×2 (08:58→21:52)
[2017-02-24] MEDS: Furosemide IV* 10 MG/ML 10 ML VIAL (100 MG) IV SCH ×2 (08:58→22:10)
[2017-02-24] MEDS: Polyethylene Glycol 3350* 17 GM PACKET PO SCH (08:58)
[2017-02-24] MEDS: Venlafaxine EXT RELEASE CAP* 75 MG PO SCH (08:59)
[2017-02-24] MEDS: Metolazone TAB* 5 MG PO SCH (08:59)
[2017-02-24] MEDS: Magnesium Oxide TAB* 400 MG PO SCH (09:01)
[2017-02-24] MEDS: Spironolactone TAB* 25 MG PO SCH (09:01)
[2017-02-24] MEDS: Ferrous Sulfate TAB* 325 MG PO SCH (09:01)
[2017-02-24] MEDS: Metoprolol Succinate XL TAB* 50 MG PO SCH (09:19)
[2017-02-24] MEDS: Insulin LISPRO* 1 UNITS UNIT SUBCUT SCH ×4 (09:20→22:21)
[2017-02-24] MEDS: Insulin GLARGINE(*) 1 UNITS UNIT SUBCUT SCH (09:22)
[2017-02-24] MEDS: Amantadine CAP* 100 MG PO SCH (09:23)
--- NOTE | 2017-02-24 10:56 | PN ---
Subjective Date of Service: 02/24/17 Interval History: Patient offers no acute complaints. More alert today. She is very happy with her weight loss and states that her abd feels softer today. Objective Active Medications: Acetaminophen (Tylenol Tab*) 650 mg PO Q6H PRN PRN Reason: FEVER/PAIN Last Admin: 02/17/17 20:54 Dose: 650 mg Amantadine HCl (Symmetrel Cap*) 100 mg PO DAILY@0800 [facility] Last Admin: 02/24/17 09:23 Dose: 100 mg Atorvastatin Calcium (Lipitor*) 40 mg PO 1700 [facility] Last Admin: 02/23/17 17:35 Dose: 40 mg Dextrose (D50w Syringe 50 Ml*) 12.5 gm IV PUSH .FOR FS < 60 - SS PRN PRN Reason: FS < 60 Digoxin (Lanoxin Tab*) 0.125 mg PO EVERY OTHER DAY [facility] Last Admin: 02/23/17 10:38 Dose: 0.125 mg Docusate Sodium (Colace Cap*) 100 mg PO BEDTIME [facility] Last Admin: 02/23/17 20:53 Dose: 100 mg Ferrous Sulfate (Ferrous Sulfate Tab*) 325 mg PO QAM [facility] Last Admin: 02/24/17 09:01 Dose: 325 mg Furosemide (Lasix Iv*) 80 mg IV BID [facility] Last Admin: 02/24/17 08:58 Dose: 80 mg Insulin Glargine (Lantus(*)) [facility] Last Admin: 02/24/17 09:22 Dose: 10 unit Insulin Human Lispro (Humalog*) 0 units SUBCUT ACHS [facility] PRN Reason: Protocol Last Admin: 02/24/17 09:20 Dose: 2 units Levothyroxine Sodium (Synthroid Tab*) 100 mcg PO 0600 [facility] Last Admin: 02/24/17 06:08 Dose: 100 mcg Magnesium Oxide (Magox 400 Tab*) 400 mg PO QAM [facility] Last Admin: 02/24/17 09:01 Dose: 400 mg Metoclopramide HCl (Reglan Iv*) 10 mg IV SLOW PU TID PRN PRN Reason: NAUSEA - REFRACTORY Last Admin: 02/19/17 03:17 Dose: 10 mg Metolazone (Zaroxolyn Tab*) 5 mg PO DAILY [facility] Last Admin: 02/24/17 08:59 Dose: 5 mg Metoprolol Succinate (Toprol Xl Tab*) 50 mg PO DAILY [facility] Last Admin: 02/24/17 09:19 Dose: 50 mg Olanzapine (Zyprexa *Odt*) 40 mg PO BEDTIME [facility] Last Admin: 02/23/17 20:56 Dose: 40 mg Ondansetron HCl (Zofran Inj*) 4 mg IV Q4H PRN PRN Reason: NAUSEA Last Admin: 02/19/17 08:45 Dose: 4 mg Pantoprazole Sodium (Protonix Iv*) 40 mg IV BID [facility] Last Admin: 02/24/17 08:58 Dose: 40 mg Polyethylene Glycol/Electrolytes (Miralax*) 17 gm PO DAILY [facility] Last Admin: 02/24/17 08:58 Dose: 17 gm Senna (Senokot Tab*) 1 tab PO BEDTIME [facility] Last Admin: 02/23/17 20:53 Dose: 1 tab Spironolactone (Aldactone Tab*) 25 mg PO DAILY [facility] Last Admin: 02/24/17 09:01 Dose: 25 mg Venlafaxine HCl (Effexor Xr Cap*) 300 mg PO QAM [facility] Last Admin: 02/24/17 08:59 Dose: 300 mg Vital Signs: Temp Pulse Resp BP Pulse Ox 98.1 F 84 20 89/47 99 02/24/17 08:06 02/24/17 08:06 02/24/17 08:06 02/24/17 08:06 02/24/17 08:06 Oxygen Devices in Use Now: None Appearance: 51 yo female with mild cognitive delay. Easily awakened and in NAD Respiratory: Symmetrical Chest Expansion and Respiratory Effort, Clear to Auscultation Cardiovascular: NL Sounds; No Murmurs; No JVD, RRR Abdominal: - - abd slightly smaller, soft, non TTP Extremities: - - lower legs in DENISE wraps Skin: No Rash or Ulcers Neurological: Alert and Oriented x 3 Result Diagrams: 02/22/17 06:17 02/24/17 05:38 Microbiology and Other Data: Microbiology 02/13/17 15:08 Sterile Body Fluid Culture - Preliminary Ascites Fluid No Growth Day 1 Sterile Body Fluid Culture - Preliminary No Growth Day 1 Assess/Plan/Problems-Billing Assessment: Ms. Thao is a 51yo female with a PMH significant for CHF, CKD, DMII, CAD, Breast Cancer, Hypothyroidism, and developmental delay who presents with worsening SOB and ascites suspected to be secondary to CHF but with concern for malignancy cytology benign from paracentesis. - Patient Problems (1) CHF (congestive heart failure) Comment: Acute systolic biventricular failure Good urine output with aggressive diuresis, but still has large ascites Down 21kg since admission Will discuss utility of positive ionotropes in this patient with cardiology if output starts to slow Appreciate cardiology consultation. Dr. Banuelos interprets the echo to show severe restrictive diastolic dysfunction with moderate to severe reduction in RV function and LVEF 30%. Continue lasix to 80mg BID, metolazone, spironolactone, and metoprolol. Not adding at ACEI at this point due to relative hypotension and need for further diuresis. Continue 1.5 L fluid restriction, I/Os and daily weights. Dr. Banuelos notes a poor prognosis overall, palliative consult appreciated. Patient understanding of her condition and would consider hospice if necessary, plan to continue treatment for now as she is thus far responding well. (2) GI bleed Comment: Gastric contents positive for occult blood Transfused 1U PRBCs 02/19 with good response Hgb has been stable now for several days, cont IV bolus Protonix EGD contraindicated at this time due to acute heart failure (3) SVT (supraventricular tachycardia) Comment: Now resolved 2 episodes 02/20 + 02/21 Some initial concern for rapid afib based on telemetry, but EKG appears more c/ w SVT (4) Ascites Comment: Likely secondary to heart failure Initial concern for possible malignant ascites due to disproportion with other edema, however fluid appears to be transudative and cytology benign (5) Nausea & vomiting Comment: Resolved Constipation relieved (6) Iron deficiency anemia Comment: Chronic anemia at baseline with acute blood loss secondary to GIB Now s/p 1U PRBCs (7) FOREST (obstructive sleep apnea) Comment: Patient has not tolerated CPAP during this hospital stay Cardiology suspects untreated FOREST may be contributing significantly to heart failure. (8) Stage III chronic kidney disease Comment: Creatinine remains at baseline. Will continue to monitor with further diuresis (9) Type II diabetes mellitus Comment: BGs well controlled. Holding glipizide. Continue lantus 10u and SSI. HbA1c 5.8%. (10) Gallbladder polyp Comment: Detected on Gallbladder US from August,. 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 Patient asymptomatic but severely ill from end stage CHF, surgery not indicated. (11) UTI (urinary tract infection) Comment: Completed 5 day course of bactrim. (12) CAD (coronary artery disease) Comment: No evidence of ACS EF 35-40% on Echo. Stent to her LAD 10/2015 post STEMI. Holding antiplatelet meds at this time due to GIB (13) Hypothyroidism Comment: TSH 10.91 but T4 normal. Continue levothyroxine. (14) DVT prophylaxis Comment: Holding medical prophylaxis due to GIB (15) Full code status Comment: Appreciate palliative consult and psychiatric evaluation Determination has been made that patient is competent to make her own medical decisions including advanced directives Discussed code status with patient today, she wishes to remain full code at this time. Status and Disposition: Inpatient. Anticipate prolonged hospitalization, continue diuresis
[2017-02-24] MEDS: Atorvastatin* 40 MG TAB PO SCH (16:59)
[2017-02-24] MEDS ORDERED: Metoprolol Tartrate IV* 1 MG/ML 5 ML VIAL IV ONE (17:00)
[2017-02-24] MEDS: Docusate CAP* 100 MG PO SCH (21:51)
[2017-02-24] MEDS: Senna TAB PO SCH (21:51)
[2017-02-24] MEDS: OLANzapine TAB*ODT* 10 MG TAB PO SCH (22:22)
[2017-02-25] MEDS: Levothyroxine TAB* 100 MCG TAB PO SCH (07:26)
[2017-02-25] MEDS: Pantoprazole IV* 40 MG IV SCH ×2 (08:42→21:48)
[2017-02-25] MEDS: Insulin GLARGINE(*) 1 UNITS UNIT SUBCUT SCH (08:42)
[2017-02-25] MEDS: Furosemide IV* 10 MG/ML 10 ML VIAL (100 MG) IV SCH ×2 (08:42→21:48)
[2017-02-25] MEDS: Amantadine CAP* 100 MG PO SCH (08:43)
[2017-02-25] MEDS: Venlafaxine EXT RELEASE CAP* 75 MG PO SCH (08:43)
[2017-02-25] MEDS: Insulin LISPRO* 1 UNITS UNIT SUBCUT SCH ×4 (08:43→22:24)
[2017-02-25] MEDS: Metolazone TAB* 5 MG PO SCH (08:44)
[2017-02-25] MEDS: Ferrous Sulfate TAB* 325 MG PO SCH (08:44)
[2017-02-25] MEDS: Spironolactone TAB* 25 MG PO SCH (08:44)
[2017-02-25] MEDS: Metoprolol Succinate XL TAB* 50 MG PO SCH (08:44)
[2017-02-25] MEDS: Digoxin TAB* 0.125 MG PO SCH (08:44)
[2017-02-25] MEDS: Magnesium Oxide TAB* 400 MG PO SCH (08:44)
[2017-02-25] MEDS: Polyethylene Glycol 3350* 17 GM PACKET PO SCH (08:45)
[2017-02-25 08:56] LABS: Hematocrit 28 % (35-47); Hemoglobin 9.3 g/dl (12.0-16.0)
[2017-02-25 09:04] LABS: EGFR Non-African American 47.6 (>60)
--- NOTE | 2017-02-25 14:09 | PN ---
Subjective Date of Service: 02/25/17 Interval History: Patient offers no new complaints. Continuing to diuress well. No CP, SOB, abd pain, n/v. Objective Active Medications: Acetaminophen (Tylenol Tab*) 650 mg PO Q6H PRN PRN Reason: FEVER/PAIN Last Admin: 02/17/17 20:54 Dose: 650 mg Amantadine HCl (Symmetrel Cap*) 100 mg PO DAILY@0800 [facility] Last Admin: 02/25/17 08:43 Dose: 100 mg Atorvastatin Calcium (Lipitor*) 40 mg PO 1700 [facility] Last Admin: 02/24/17 16:59 Dose: 40 mg Dextrose (D50w Syringe 50 Ml*) 12.5 gm IV PUSH .FOR FS < 60 - SS PRN PRN Reason: FS < 60 Digoxin (Lanoxin Tab*) 0.125 mg PO EVERY OTHER DAY [facility] Last Admin: 02/25/17 08:44 Dose: 0.125 mg Docusate Sodium (Colace Cap*) 100 mg PO BEDTIME [facility] Last Admin: 02/24/17 21:51 Dose: 100 mg Ferrous Sulfate (Ferrous Sulfate Tab*) 325 mg PO QAM [facility] Last Admin: 02/25/17 08:44 Dose: 325 mg Furosemide (Lasix Iv*) 80 mg IV BID [facility] Last Admin: 02/25/17 08:42 Dose: 80 mg Insulin Glargine (Lantus(*)) [facility] Last Admin: 02/25/17 08:42 Dose: 10 unit Insulin Human Lispro (Humalog*) 0 units SUBCUT ACHS [facility] PRN Reason: Protocol Last Admin: 02/25/17 12:34 Dose: 3 units Levothyroxine Sodium (Synthroid Tab*) 100 mcg PO 0600 [facility] Last Admin: 02/25/17 07:26 Dose: 100 mcg Magnesium Oxide (Magox 400 Tab*) 400 mg PO QAM [facility] Last Admin: 02/25/17 08:44 Dose: 400 mg Metoclopramide HCl (Reglan Iv*) 10 mg IV SLOW PU TID PRN PRN Reason: NAUSEA - REFRACTORY Last Admin: 02/19/17 03:17 Dose: 10 mg Metolazone (Zaroxolyn Tab*) 5 mg PO DAILY [facility] Last Admin: 02/25/17 08:44 Dose: 5 mg Metoprolol Succinate (Toprol Xl Tab*) 50 mg PO DAILY [facility] Last Admin: 02/25/17 08:44 Dose: 50 mg Olanzapine (Zyprexa *Odt*) 40 mg PO BEDTIME [facility] Last Admin: 02/24/17 22:22 Dose: 40 mg Ondansetron HCl (Zofran Inj*) 4 mg IV Q4H PRN PRN Reason: NAUSEA Last Admin: 02/19/17 08:45 Dose: 4 mg Pantoprazole Sodium (Protonix Iv*) 40 mg IV BID [facility] Last Admin: 02/25/17 08:42 Dose: 40 mg Polyethylene Glycol/Electrolytes (Miralax*) 17 gm PO DAILY [facility] Last Admin: 02/25/17 08:45 Dose: 17 gm Senna (Senokot Tab*) 1 tab PO BEDTIME [facility] Last Admin: 02/24/17 21:51 Dose: 1 tab Spironolactone (Aldactone Tab*) 25 mg PO DAILY [facility] Last Admin: 02/25/17 08:44 Dose: 25 mg Venlafaxine HCl (Effexor Xr Cap*) 300 mg PO QAM [facility] Last Admin: 02/25/17 08:43 Dose: 300 mg Vital Signs: Temp Pulse Resp BP Pulse Ox 98.6 F 126 16 100/53 98 02/25/17 11:19 02/25/17 11:19 02/25/17 11:19 02/25/17 11:19 02/25/17 11:19 Oxygen Devices in Use Now: None Appearance: 51 yo female with developmental disability in NAD Respiratory: Symmetrical Chest Expansion and Respiratory Effort, Clear to Auscultation Cardiovascular: NL Sounds; No Murmurs; No JVD, RRR Abdominal: NL Sounds; No Tenderness; No Distention Extremities: No Edema Skin: No Rash or Ulcers Neurological: Alert and Oriented x 3 Result Diagrams: 02/25/17 08:37 02/25/17 08:37 Microbiology and Other Data: Microbiology 02/13/17 15:08 Sterile Body Fluid Culture - Preliminary Ascites Fluid No Growth Day 1 Sterile Body Fluid Culture - Preliminary No Growth Day 1 Assess/Plan/Problems-Billing Assessment: Ms. Thao is a 51yo female with a PMH significant for CHF, CKD, DMII, CAD, Breast Cancer, Hypothyroidism, and developmental delay who presents with worsening SOB and ascites suspected to be secondary to CHF but with concern for malignancy cytology benign from paracentesis. - Patient Problems (1) CHF (congestive heart failure) Comment: Acute systolic biventricular failure Good urine output with aggressive diuresis, but still has large ascites Down 23kg since admission Will discuss utility of positive ionotropes in this patient with cardiology if output starts to slow Appreciate cardiology consultation. Dr. Banuelos interprets the echo to show severe restrictive diastolic dysfunction with moderate to severe reduction in RV function and LVEF 30%. Continue lasix to 80mg BID, metolazone, spironolactone, and metoprolol. Not adding at ACEI at this point due to relative hypotension and need for further diuresis. Continue 1.5 L fluid restriction, I/Os and daily weights. Dr. Banuelos notes a poor prognosis overall, palliative consult appreciated. Patient understanding of her condition and would consider hospice if necessary, plan to continue treatment for now as she is thus far responding well. (2) GI bleed Comment: Gastric contents positive for occult blood Transfused 1U PRBCs 02/19 with good response Hgb has been stable now for several days, cont IV bolus Protonix EGD contraindicated at this time due to acute heart failure (3) SVT (supraventricular tachycardia) Comment: Now resolved 2 episodes 02/20 + 02/21 Some initial concern for rapid afib based on telemetry, but EKG appears more c/ w SVT (4) Ascites Comment: Likely secondary to heart failure Initial concern for possible malignant ascites due to disproportion with other edema, however fluid appears to be transudative and cytology benign (5) Nausea & vomiting Comment: Resolved Constipation relieved (6) Iron deficiency anemia Comment: Chronic anemia at baseline with acute blood loss secondary to GIB Now s/p 1U PRBCs (7) FOREST (obstructive sleep apnea) Comment: Patient has not tolerated CPAP during this hospital stay Cardiology suspects untreated FOREST may be contributing significantly to heart failure. (8) Stage III chronic kidney disease Comment: Creatinine remains at baseline. Will continue to monitor with further diuresis (9) Type II diabetes mellitus Comment: BGs well controlled. Holding glipizide. Continue lantus 10u and SSI. HbA1c 5.8%. (10) Gallbladder polyp Comment: Detected on Gallbladder US from August,. 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 Patient asymptomatic but severely ill from end stage CHF, surgery not indicated. (11) UTI (urinary tract infection) Comment: Completed 5 day course of bactrim. (12) CAD (coronary artery disease) Comment: No evidence of ACS EF 35-40% on Echo. Stent to her LAD 10/2015 post STEMI. Holding antiplatelet meds at this time due to GIB (13) Hypothyroidism Comment: TSH 10.91 but T4 normal. Continue levothyroxine. (14) DVT prophylaxis Comment: Holding medical prophylaxis due to GIB (15) Full code status Comment: Appreciate palliative consult and psychiatric evaluation Determination has been made that patient is competent to make her own medical decisions including advanced directives Discussed code status with patient today, she wishes to remain full code at this time. Status and Disposition: Inpatient. Continue diuresis. Anticipate dc in 2-3 days
[2017-02-25] MEDS: Atorvastatin* 40 MG TAB PO SCH (17:36)
[2017-02-25] MEDS: Docusate CAP* 100 MG PO SCH (21:48)
[2017-02-25] MEDS: Senna TAB PO SCH (21:48)
[2017-02-25] MEDS: OLANzapine TAB*ODT* 10 MG TAB PO SCH (21:57)
[2017-02-26 05:57] LABS: EGFR Non-African American 38.8 (>60)
[2017-02-26] MEDS: Levothyroxine TAB* 100 MCG TAB PO SCH (06:38)
[2017-02-26] MEDS: Furosemide IV* 10 MG/ML 10 ML VIAL (100 MG) IV SCH (09:08)
[2017-02-26] MEDS: Insulin LISPRO* 1 UNITS UNIT SUBCUT SCH ×4 (09:08→21:08)
[2017-02-26] MEDS: Insulin GLARGINE(*) 1 UNITS UNIT SUBCUT SCH (09:09)
[2017-02-26] MEDS: Polyethylene Glycol 3350* 17 GM PACKET PO SCH (09:09)
[2017-02-26] MEDS: Pantoprazole IV* 40 MG IV SCH (09:09)
[2017-02-26] MEDS: Magnesium Oxide TAB* 400 MG PO SCH (09:10)
[2017-02-26] MEDS: Ferrous Sulfate TAB* 325 MG PO SCH (09:10)
[2017-02-26] MEDS: Spironolactone TAB* 25 MG PO SCH (09:10)
[2017-02-26] MEDS: Metoprolol Succinate XL TAB* 50 MG PO SCH (09:10)
[2017-02-26] MEDS: Metolazone TAB* 5 MG PO SCH (09:10)
[2017-02-26] MEDS: Amantadine CAP* 100 MG PO SCH (09:10)
[2017-02-26] MEDS: Venlafaxine EXT RELEASE CAP* 75 MG PO SCH (09:10)
[2017-02-26] MEDS ORDERED: Magnesium CITRATE* 300 ML BTL PO ONE (16:54)
[2017-02-26] MEDS ORDERED: Bisacodyl SUPP* 10 MG SUPP PR ONE ×2 (16:54→21:00)
[2017-02-26] MEDS ORDERED: Potassium Chlor TAB* 20 MEQ TAB.ER PO ONE (16:56)
--- NOTE | 2017-02-26 17:25 | PN ---
Subjective Date of Service: 02/26/17 Interval History: Patient seen and examined at bedside. Patient denies SOB. Tachy went up and moving around. Small BM yesterday but none for 3 days. Continues to diurese Family History: Unchanged from Admission Social History: Unchanged from Admission Past Medical History: Unchanged from Admission Objective Active Medications: Acetaminophen (Tylenol Tab*) 650 mg PO Q6H PRN Amantadine HCl (Symmetrel Cap*) 100 mg PO DAILY@0800 [facility] Atorvastatin Calcium (Lipitor*) 40 mg PO 1700 [facility] Digoxin (Lanoxin Tab*) 0.125 mg PO EVERY OTHER DAY [facility] Docusate Sodium (Colace Cap*) 200 mg PO BID [facility] Ferrous Sulfate (Ferrous Sulfate Tab*) 325 mg PO QAM [facility] Insulin Glargine (Lantus(*)) 10 units SUBCUT QAM [facility] Insulin Human Lispro (Humalog*) 0 units SUBCUT ACHS [facility] Levothyroxine Sodium (Synthroid Tab*) 100 mcg PO 0600 [facility] Magnesium Oxide (Magox 400 Tab*) 400 mg PO QAM REPLACED BY [facility] Metoclopramide HCl (Reglan Iv*) 10 mg IV SLOW PU TID PRN Metolazone (Zaroxolyn Tab*) 5 mg PO DAILY REPLACED BY [facility] Metoprolol Succinate (Toprol Xl Tab*) 50 mg PO DAILY [facility] Olanzapine (Zyprexa *Odt*) 40 mg PO BEDTIME [facility] Ondansetron HCl (Zofran Inj*) 4 mg IV Q4H PRN Pantoprazole Sodium (Protonix Iv*) 40 mg IV BID [facility] Polyethylene Glycol/Electrolytes (Miralax*) 17 gm PO DAILY REPLACED BY [facility] Senna (Senokot Tab*) 2 tab PO BEDTIME [facility] Spironolactone (Aldactone Tab*) 25 mg PO DAILY [facility] Torsemide (Demadex*) 40 mg PO 0800,1700 [facility] Venlafaxine HCl (Effexor Xr Cap*) 300 mg PO QAM REPLACED BY [facility] Vital Signs Temp Pulse Resp BP Pulse Ox 98.2 F 81 20 105/71 99 02/26/17 16:31 02/26/17 16:31 02/26/17 16:31 02/26/17 16:31 02/26/17 16:31 Oxygen Devices in Use Now: Nasal Cannula Appearance: sitting up in bed, NAD Eyes: No Scleral Icterus, PERRLA Ears/Nose/Mouth/Throat: NL Teeth, Lips, Gums Neck: NL Appearance and Movements; NL JVP Respiratory: Symmetrical Chest Expansion and Respiratory Effort, Clear to Auscultation Cardiovascular: NL Sounds; No Murmurs; No JVD, RRR Abdominal: NL Sounds; No Tenderness; No Distention Extremities: No Edema Neurological: Alert and Oriented x 3, NL Muscle Strength and Tone Lines/Tubes/Other Access: Clean, Dry and Intact Wade, Clean, Dry and Intact Peripheral IV Nutrition: Taking PO's Result Diagrams: 02/25/17 08:37 02/26/17 05:33 Microbiology and Other Data: . Assess/Plan/Problems-Billing Ms. Thao is a 51yo female with a PMH significant for CHF, CKD, DMII, CAD, Breast Cancer, Hypothyroidism, and developmental delay who presents with worsening SOB and ascites suspected to be secondary to CHF but with concern for malignancy cytology benign from paracentesis. - Patient Problems (1) CHF (congestive heart failure) Comment: Acute systolic biventricular failure. She is down 27kg since admission. Will change to BID PO Demadex. Creatinine holding steady. Echo to show severe restrictive diastolic dysfunction with moderate to severe reduction in RV function and LVEF 30%. Continue demadex 40 BID, metolazone, spironolactone , and metoprolol. Not adding at ACEI at this point due to relative hypotension and need for further diuresis. Continue 1.5 L fluid restriction, I/Os and daily weights. Poor prognosis overall. Patient understanding of her condition and would consider hospice if necessary, plan to continue treatment for now as she is thus far responding well. (2) GI bleed Comment: Gastric contents positive for occult blood. Transfused 1 PRBC 02/19. No EGD at this time d/t acute hear failure. Change to PO protonix. (3) SVT (supraventricular tachycardia) Comment: Now resolved. Continue to maintain electrolytes WNL. Replete Mg and KCl. Discotninue telemetry. (4) Ascites Comment: Likely secondary to heart failure. Initial concern for possible malignant ascites however fluid appears to be transudative and cytology benign (5) Nausea & vomiting Comment: Resolved; Continue aggressive bowel regimen. (6) Iron deficiency anemia Comment: Acute on chronic anemia secondary to upper GI. Continue iron supplementation. (7) FOREST (obstructive sleep apnea) Comment: Patient has not tolerated CPAP during this hospital stay. Would benefit from outpatient sleep study as untreated FOREST can contribute to heart failure. (8) Stage III chronic kidney disease Comment: Creatinine remains at baseline. (9) Type II diabetes mellitus Comment: Blood glucose controlled. Holding glipizide. Continue lantus 10u and SSI. HbA1c 5.8%. (10) Gallbladder polyp Comment: Detected on Gallbladder US from August,. 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 Patient asymptomatic but severely ill from end stage CHF, surgery not indicated. (11) CAD (coronary artery disease) Comment: No evidence of ACS, EF 35-40% on Echo. Stent to her LAD 10/2015 post STEMI. Antiplatelet meds held at this time due to GIB (12) Hypothyroidism Comment: TSH 10.91 but T4 normal. Continue levothyroxine. (13) DVT prophylaxis Comment: SCDs only. Holding medical prophylaxis due to GIB (14) Full code status Comment: Appreciate palliative consult and psychiatric evaluation.Determination has been made that patient is competent to make her own medical decisions including advanced directives Patient wishes to remain full code at this time. Status and Disposition: Inpatient. Continue diuresis. Possible d/c to [facility] in the AM.
[2017-02-26] MEDS: Atorvastatin* 40 MG TAB PO SCH (17:39)
[2017-02-26] MEDS: Torsemide TAB* 20 MG PO SCH (17:39)
[2017-02-26] MEDS ORDERED: Senna TAB PO SCH (21:00)
[2017-02-26] MEDS ORDERED: Torsemide TAB* 20 MG PO SCH ×2 (21:00)
[2017-02-26] MEDS: OLANzapine TAB*ODT* 10 MG TAB PO SCH (21:08)
[2017-02-26] MEDS: CMCS: Pantoprazole TAB (NF) 40 MG TAB PO SCH (21:08)
[2017-02-26] MEDS: Docusate CAP* 100 MG PO SCH (21:08)
[2017-02-27] MEDS: Levothyroxine TAB* 100 MCG TAB PO SCH (05:34)
[2017-02-27 06:44] LABS: EGFR Non-African American 38.8 (>60)
[2017-02-27] MEDS: Insulin LISPRO* 1 UNITS UNIT SUBCUT SCH ×2 (07:52→11:50)
[2017-02-27] MEDS: Polyethylene Glycol 3350* 17 GM PACKET PO SCH (07:57)
[2017-02-27] MEDS: Amantadine CAP* 100 MG PO SCH (07:57)
[2017-02-27] MEDS: Acetaminophen TAB* 325 MG PO PRN (08:03)
[2017-02-27] MEDS: Metolazone TAB* 5 MG PO SCH (08:03)
[2017-02-27] MEDS: Insulin GLARGINE(*) 1 UNITS UNIT SUBCUT SCH (08:07)
[2017-02-27] MEDS: Torsemide TAB* 20 MG PO SCH (08:33)
[2017-02-27] MEDS: Digoxin TAB* 0.125 MG PO SCH (08:33)
[2017-02-27] MEDS: Docusate CAP* 100 MG PO SCH (08:34)
[2017-02-27] MEDS: Magnesium Oxide TAB* 400 MG PO SCH (08:35)
[2017-02-27] MEDS: Metoprolol Succinate XL TAB* 50 MG PO SCH (08:35)
[2017-02-27] MEDS: Ferrous Sulfate TAB* 325 MG PO SCH (08:35)
[2017-02-27] MEDS: CMCS: Pantoprazole TAB (NF) 40 MG TAB PO SCH (08:35)
[2017-02-27] MEDS: Venlafaxine EXT RELEASE CAP* 75 MG PO SCH (08:36)
[2017-02-27] MEDS: Spironolactone TAB* 25 MG PO SCH (08:36)
--- NOTE | 2017-02-27 10:26 | PN ---
Subjective Date of Service: 02/27/17 Interval History: Patient seen and examined at bedside. Patient voided s/p catheter removal. Patient denies pain and remarks that her belly is significantly reduced in size and softer. Denies SOB. Family History: Unchanged from Admission Social History: Unchanged from Admission Past Medical History: Unchanged from Admission Objective Active Medications: Acetaminophen (Tylenol Tab*) 650 mg PO Q6H PRN Amantadine HCl (Symmetrel Cap*) 100 mg PO DAILY@0800 [facility] Atorvastatin Calcium (Lipitor*) 40 mg PO 1700 [facility] Digoxin (Lanoxin Tab*) 0.125 mg PO EVERY OTHER DAY [facility] Docusate Sodium (Colace Cap*) 200 mg PO BID [facility] Ferrous Sulfate (Ferrous Sulfate Tab*) 325 mg PO QAM [facility] Insulin Glargine (Lantus(*)) 10 units SUBCUT QAM [facility] Insulin Human Lispro (Humalog*) 0 units SUBCUT ACHS [facility] Levothyroxine Sodium (Synthroid Tab*) 100 mcg PO 0600 [facility] Magnesium Oxide (Magox 400 Tab*) 400 mg PO QAM [facility] Metoclopramide HCl (Reglan Iv*) 10 mg IV SLOW PU TID PRN Metolazone (Zaroxolyn Tab*) 5 mg PO DAILY [facility] Metoprolol Succinate (Toprol Xl Tab*) 50 mg PO DAILY [facility] Olanzapine (Zyprexa *Odt*) 40 mg PO BEDTIME [facility] Ondansetron HCl (Zofran Inj*) 4 mg IV Q4H PRN Pantoprazole Sodium (Protonix Tab (Nf)) 40 mg PO BID [facility] Polyethylene Glycol/Electrolytes (Miralax*) 17 gm PO DAILY [facility] Senna (Senokot Tab*) 2 tab PO BEDTIME [facility] Spironolactone (Aldactone Tab*) 25 mg PO DAILY [facility] Torsemide (Demadex*) 40 mg PO 0800,1700 [facility] Venlafaxine HCl (Effexor Xr Cap*) 300 mg PO QAM [facility] . Oxygen Devices in Use Now: None, Nasal Cannula Appearance: sitting up in chair, NAD Eyes: No Scleral Icterus Ears/Nose/Mouth/Throat: NL Teeth, Lips, Gums, Mucous Membranes Moist Neck: NL Appearance and Movements; NL JVP Respiratory: Symmetrical Chest Expansion and Respiratory Effort, Clear to Auscultation Cardiovascular: NL Sounds; No Murmurs; No JVD, RRR Abdominal: - - distended; BSx4; softner and NT Extremities: - - 1+ edema Skin: No Rash or Ulcers Neurological: Alert and Oriented x 3, NL Muscle Strength and Tone Lines/Tubes/Other Access: Clean, Dry and Intact Peripheral IV Nutrition: Taking PO's Result Diagrams: 02/25/17 08:37 02/27/17 05:51 Microbiology and Other Data: . Assess/Plan/Problems-Billing Ms. Thao is a 51yo female with a PMH significant for CHF, CKD, DMII, CAD, Breast Cancer, Hypothyroidism, and developmental delay who presents with worsening SOB and ascites suspected to be secondary to CHF but with concern for malignancy cytology benign from paracentesis. - Patient Problems (1) CHF (congestive heart failure) (2) GI bleed (3) SVT (supraventricular tachycardia) (4) Ascites (5) Nausea & vomiting (6) Iron deficiency anemia (7) FOREST (obstructive sleep apnea) (8) Stage III chronic kidney disease (9) Type II diabetes mellitus (10) Gallbladder polyp (11) CAD (coronary artery disease) (12) Hypothyroidism (13) DVT prophylaxis (14) Full code status Status and Disposition: Inpatient. Stable to be discharged to [facility]. See full dictated summary.
[2017-02-27 11:08] VITALS: BP 91/59
--- NOTE | 2017-02-27 12:28 | DS ---
CC: [facility]; Dr. Banuelos * DATE OF ADMISSION: 02/12/2017. DATE OF DISCHARGE: 02/27/2017. PRIMARY CARE PHYSICIAN: [facility]. DIRECTOR BROADCAST: Dr. Banuelos. ATTENDING PHYSICIAN: Dr. Dewey Gonzalez * (report dictated by Jacinda Smith NP). PRIMARY DIAGNOSES: 1. CHF exacerbation. 2. Upper GI bleed. 3. Massive ascites. 4. Supraventricular tachycardia, now resolved. 5. Right flank hematoma, status post fall. SECONDARY DIAGNOSES: 1. Iron deficient anemia. 2. Obstructive sleep apnea. 3. Stage 2 chronic kidney disease. 4. Type 2 diabetes. 5. Coronary artery disease. 6. Hypothyroidism. CONSULTATIONS WHILE IN THE HOSPITAL: Dr. Banuelos, Cardiology; Dr. Jordyn Winters , Palliative Care; Dr. Rai, Psychiatry. PROCEDURES WHILE IN THE HOSPITAL : Paracentesis, 02/12/2017, Dr. Bernstein, please see his dictation for details. STUDIES WHILE IN THE HOSPITAL: 1. 02/12/2017, ultrasound of the abdomen: Bidirectional flow visualized at the hepatic veins as on the prior exam indicating elevated right atrial pressures/passive congestion. Appropriate direction flow documented at the portal vein. Increased echogenicity of the liver consistent with fatty infiltration. No significant change in 1 cm probable gallbladder polyp at the neck of the gallbladder. 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 In absence of cholecystectomy, reassessment with ultrasound in six months time would be suggested. Large ascites. 2. Chest PA and lateral, two views, 02/12/2017: Limited exam due to morbid obesity and suboptimal inspiration or diaphragmatic elevation. Bilateral pulmonary opacities may represent atelectasis; however, inflammatory infiltrates or pulmonary edema is not excluded. 3. Transthoracic echocardiogram, 02/12/2017: Moderately decreased left ventricular systolic function. The estimated ejection fraction is 35 to 40 percent. There is global hypokinesis of the left ventricle with minor regional variation. There is left ventricular septal wall motion abnormality observed, possibly due to the presence of a left bundle branch block. The right ventricular global systolic function is mildly to moderately reduced. The aortic valve leaflets are mildly thickened. There is no evidence of aortic stenosis. There is mild mitral regurgitation. There is mild to moderate tricuspid regurgitation. Unable to estimate the right ventricular systolic pressure. There is no significant pericardial effusion. 4. Chest x-ray, portable, 02/13/2017: Pulmonary vascular congestion and interstitial edema improving compared with the February 12, [address] scan of the abdomen and pelvis, 02/15/2017: Hematoma in the subcutaneous tissues in the right flank region. Large amount of ascites increased from the prior study. Anasarca. MEDICATIONS AT DISCHARGE: New medications: 1. Lipitor 40 mg oral 1700. 2. Digoxin 0.125 mg oral every other day. 3. Colace 200 mg oral twice daily. 4. Zaroxolyn 5 mg oral daily. 5. Toprol XL 50 mg oral daily. 6. Protonix 40 mg oral twice daily. 7. MiraLax 17 gm oral daily. 8. Senna two tablets oral at bedtime. 9. Spironolactone 25 mg oral daily. 10. Demadex 40 mg oral 8:00 a.m. and 1700. The following medications are all medications the patient came in on: 1. Symmetrel 100 mg oral daily. 2. Glipizide 2.5 mg oral daily. 3. Vitamin B12 1000 mcg sublingual daily. 4. Zyprexa 40 mg oral at bedtime. 5. Acetaminophen 1000 mg oral twice daily. 6. Synthroid 100 mcg oral daily. 7. Zyrtec 10 mg oral daily. 8. Lantus 10 units subcu in the morning. 9. Effexor 300 mg oral in the morning. 10. Mag-Ox 400 mg oral in the morning. 11. Potassium Chloride 20 mEq oral twice daily. 12. Senna one tablet oral at bedtime. 13. Iron 325 mg oral in the morning. Discontinued: The patient was instructed to discontinue aspirin, Plavix, and prior Demadex dose. HISTORY OF PRESENT ILLNESS AND HOSPITAL COURSE: Ms. Thao is a 51-year-old female with a history of systolic CHF, coronary artery disease, type 2 diabetes , hyperlipidemia, hypertension, hypothyroidism, and intellectual developmental delay who is a resident of [facility] and presented to the emergency room on after a fall. The patient was found to have significantly increased abdominal girth, as well as increased lower extremity edema and shortness of breath. She was admitted to the telemetry floor for further treatment. In regards to the patient's massive ascites found on admission, the patient was started on diuretics, yet additionally the patient had a paracentesis to rule out any other pathological cause for the ascites, other than worsening heart failure. The patient had 2.3 liters of fluid removed during her paracentesis. Pathology was benign. Subsequently, the patient was placed on aggressive diuretics. She was seen in consultation by Dr. Banuelos on the 16 of February. This was after she had a transthoracic echocardiogram that showed a reduced ejection fraction of 30 percent. Recommendations from Cardiology were to increase Lasix to 80 twice daily, add Spironolactone, statin, as well as Digoxin and continue Metolazone daily. The patient was continued on the diuretic regimen of Aldactone 25, Metolazone 5 daily, and 80 of Lasix twice daily for an additional ten days. With this diuretic regimen, the patient has lost almost 60 pounds from her admission weight. She has been able to be weaned off her oxygen and her lower extremity edema has significantly decreased. In addition, her abdomen is significantly softer. Subsequently, she was transitioned to Torsemide 40 mg twice daily which is increased from her 20 mg twice daily dose that she was on on admission. With these diuretic doses , her creatinine has remained stable, around 1.4, which appears to be her baseline. She continues on a fluid restriction as well. Her weight on the day of discharge is 241 pounds. This would be an ideal weight for her and if she gains or loses 3 pounds, her primary care provider should be notified. Electrolytes have remained within normal limits with magnesium 2 as well as potassium of 3.6. During her hospitalization, she dropped her hemoglobin. She was found to have positive blood on gastric contents as well as a hematoma after a fall. At this time, aspirin and Plavix were discontinued and DVT prophylaxis was switched to SCD's only. She received a unit of blood and her hemoglobin has remained stable. On the 25 of February, it was 9.3 and stable. EGD was not indicated given her current heart failure exacerbation. She may have this as an outpatient. She will need to address with the production manufacturing worker the resumption of aspirin and Plavix after this bleeding episode. She had an isolated episode of SVT and magnesium was repleted. Daily magnesium and potassium will be continued at discharge. For her hypothyroidism, Synthroid was continued and TSH was elevated, but T4 was normal. Blood sugars were controlled with Lantus and sliding scale Glipizide will be restarted on discharge. On 02/27/2017, vitals were as follows: Temperature 98.3, heart rate 71, respiratory rate 18, blood pressure 91/59. At this point, the patient was stable for discharge. DISCHARGE PLAN: The patient is discharged on a heart-healthy diet with a 1.5 liter fluid restriction. The patient should be seen by the physician covering at [facility] within four to seven days. She has a follow-up appointment with Dr. Banuelos on March 08 at 12:45 p.m. The following is a list of things that must be followed up on with Ms. Thao: 1. The patient should have a basic metabolic panel in three days and subsequently on a weekly basis. This is to assess her electrolytes as well as her kidney function as she is still on a significant dose of Metolazone, Torsemide and Spironolactone. 2. The patient's aspirin and Plavix are currently being held. The patient has a history of a stent in the past and resumption of this will need to be addressed with her production manufacturing worker. 3. She did have an upper GI bleed while she was here. She is stable. She will need to have an upper endoscopy. 4. The patient should return to the hospital if she experiences any worsening shortness of breath or significant weight gain. I have reviewed all of these instructions with the patient. She is agreeable with her discharge today. This is a summarized report of a complex medical history and hospital stay. For more details, please see the entire medical record. Time for this discharge was 60 minutes and 5 minutes were spent with the patient discussing medications, discharge and follow-up instructions. CONDITION ON DISCHARGE: Stable. JACINDA SMITH NP [id number]/[facility] #: [id number] AZEEM
== END 2017-02-27 13:17 | DRG 292 ==
LOC: ED 14:07 → MED 19:37 → MEDTELE 02-20 00:56
PROVIDERS: ADMIT Hospitalist; ATTEND Internal Medicine
PROC: 0W9G3ZZ Drainage of Peritoneal Cavity, Percutaneous Approach (ICD-10-PCS; principal; 2017-02-13 13:00)
PROC: 5A09457 Assistance with Respiratory Ventilation, 24-96 Consecutive Hours, Continuous Positive Airway Pressure (ICD-10-PCS; 2017-02-17)
PROC: 30233N1 Transfusion of Nonautologous Red Blood Cells into Peripheral Vein, Percutaneous Approach (ICD-10-PCS; 2017-02-19)
DX: I11.0 Hypertensive heart disease with heart failure (principal); R18.8 Other ascites; I47.2 Ventricular tachycardia; E11.22 Type 2 diabetes mellitus with diabetic chronic kidney disease; N18.3 Chronic kidney disease, stage 3 (moderate); E66.01 Morbid (severe) obesity due to excess calories; I08.1 Rheumatic disorders of both mitral and tricuspid valves; K92.2 Gastrointestinal hemorrhage, unspecified; N39.0 Urinary tract infection, site not specified; E03.9 Hypothyroidism, unspecified; D50.9 Iron deficiency anemia, unspecified; E78.5 Hyperlipidemia, unspecified; I50.23 Acute on chronic systolic (congestive) heart failure; I25.10 Atherosclerotic heart disease of native coronary artery without angina pectoris; F81.9 Developmental disorder of scholastic skills, unspecified; M17.0 Bilateral primary osteoarthritis of knee; F79 Unspecified intellectual disabilities; F41.9 Anxiety disorder, unspecified; F32.9 Major depressive disorder, single episode, unspecified; I13.0 Hypertensive heart and chronic kidney disease with heart failure and stage 1 through stage 4 chronic kidney disease, or unspecified chronic kidney disease; W19.XXXA Unspecified fall, initial encounter; K82.8 Other specified diseases of gallbladder; K82.4 Cholesterolosis of gallbladder; G47.33 Obstructive sleep apnea (adult) (pediatric); R11.2 Nausea with vomiting, unspecified; I25.5 Ischemic cardiomyopathy; S30.1XXA Contusion of abdominal wall, initial encounter; Z85.3 Personal history of malignant neoplasm of breast; Z83.3 Family history of diabetes mellitus; Z82.0 Family history of epilepsy and other diseases of the nervous system; Z91.048 Other nonmedicinal substance allergy status; Z68.37 Body mass index [BMI] 37.0-37.9, adult; Y92.9 Unspecified place or not applicable; Z95.5 Presence of coronary angioplasty implant and graft; Z23 Encounter for immunization; Z79.4 Long term (current) use of insulin
CPT/HCPCS: 36415; 36600; 71010; 71020; 74000; 74176; 76705; 80048; 80053; 80061; 81003; 81015; 82042; 82271; 82272; 82607; 82728; 82746; 82803; 82945; 83036; 83540; 83550; 83605; 83615; 83690; 83735; 83880; 84157; 84311; 84436; 84443; 84478; 84481; 84484; 85014; 85018; 85025; 85610; 85730; 86140; 86850; 86900; 86901; 86922; 87040; 87077; 87086; 87186; 87641; 88112; 88305; 88341; 88342; 88360; 89051; 90686; 93005; 93306; 94660; 94762; A9270-GY; C8929; J1160; J1644; J1940; J2405; J2765; J2997; J3370; J3475; J3480; J3490; P9040

== ENCOUNTER → 2017-07-05 06:56 | Day surgery (SDC) | payer MEDICARE, MEDICAID ==
[~2017-07-05 06:56] MED LIST changes: -Iodixanol* (CONTRAST) 320 MG/ML 100 ML SDV IV ONE; +Lidocain 1% EPI 1:100,000 * 30 ML MDV ONE; +Lidocaine 1% INJ* 10 MG/ML 30 ML SDV ONE; -NS 0.9% 1000 ML* 1,000 ML IV SCH
--- NOTE | 2017-07-05 22:16 | OP ---
CC: [facility] * DATE OF OPERATION: 07/05/17 - SDS DATE OF : 67 SURGEON: Nuno Pena MD VACUUM APPLICATOR OPERATOR: None. ANESTHESIOLOGIST: None. PRE-OP DIAGNOSIS: Ascites. POST-OP DIAGNOSIS: Ascites. OPERATIVE PROCEDURE: Sono-guided paracentesis. DESCRIPTION OF PROCEDURE: The patient was supine in the procedure room. Bedside ultrasonography was carried out and large pocket of fluid was identified in the left upper quadrant and this area was then marked and prepped with antiseptic and draped in sterile fashion. Local infiltrative anesthesia was administered and skinny needle identified fluid. The paracentesis catheter was then inserted and suction bottle was used to extract 8 L of fluid. She tolerated this very well. No complications. The catheter was removed. Bandage was placed. She was discharged with instructions and will be happy to see her back in the future should the need arise. [id number]/[facility] #: [id number] MTDD
== END | disposition home or self-care (01) ==
LOC: OR 06:56
PROVIDERS: ATTEND Surgery
DX: R18.8 Other ascites (principal); I50.9 Heart failure, unspecified; E11.9 Type 2 diabetes mellitus without complications; Z79.4 Long term (current) use of insulin
CPT/HCPCS: 49082

== ENCOUNTER 2019-11-06 15:37 | Inpatient (IN) ==
[2019-11-06 16:32] LABS: ABS Eosinophils 0.2 10^3/ul (0-0.6); ABS Lymphocytes 3.4 10^3/ul (1.0-4.8); ABS Monocytes 1.3 10^3/ul (0-0.8); ABS Neutrophils 10.8 10^3/ul (1.5-7.7); Hematocrit 36 % (35-47); Hemoglobin 12.1 g/dL (12.0-16.0); Lymphocyte % 21.5 %; Mean Corpuscular HGB Conc 34 g/dL (31-36); Mean Corpuscular Hemoglobin 28 pg (27-31); Mean Corpuscular Volume 82 fL (80-97); Mean Platelet Volume 8.7 fL (7.4-10.4); Platelet Count 296 10^3/uL (150-450); Red Blood Count 4.39 10^6 /uL (3.70-4.87); Red Cell Distribution Width 17 % (10-15); White Blood Count 15.7 10^3/uL (3.5-10.8)
[2019-11-06 17:19] LABS: Troponin I 0.05 ng/mL (<0.03)
[2019-11-06 17:20] LABS: Albumin 4.4 g/dL (3.2-5.2); Anion Gap 16 mmol/L (2-11); CO2 Carbon Dioxide 20 mmol/L (22-32); Calcium 9.5 mg/dL (8.6-10.3); Chloride 102 mmol/L (101-111); Potassium 3.7 mmol/L (3.5-5.0); Sodium 138 mmol/L (135-145)
[2019-11-06 17:26] LABS: ALT 143 U/L (7-52); AST 79 U/L (13-39); Albumin/Globulin Ratio 1.3 (1-3); Alkaline Phosphatase 97 U/L (34-104); BUN/Creatinine Ratio 24.6 (8-20); Blood Urea Nitrogen 43 mg/dL (6-24); C Reactive Protein 37.65 mg/L (<8.01); Creatine Kinase 383 U/L (10-223); EGFR African American 36.8 (>60); EGFR Non-African American 30.4 (>60); Globulin 3.3 g/dL (2-4); Total Protein 7.7 g/dL (6.4-8.9)
[2019-11-06] MEDS ORDERED: Heparin - STEMI 5,000 UNITS/ML 1 ml VIAL IV ONE (17:45)
[2019-11-06] MEDS ORDERED: Heparin DRIP 25,000 UNITS BAG 25,000 UNITS/500 ML BAG IV SCH ×2 (17:45→19:00)
[2019-11-06] MEDS ORDERED: Heparin 5000 UNITS/ML 1 mL VIAL IV SCH (18:00)
[2019-11-06 18:06] LABS: Glucose 47 mg/dL (70-100)
[2019-11-06] MEDS ORDERED: Dextrose 50% Syringe 50 ml 25 GM/50 ML SYRINGE ONE (18:07)
[2019-11-06] MEDS ORDERED: Dextrose 50% Syringe 50 ml 25 GM/50 ML SYRINGE IV PUSH PRN ×3 (18:10→20:45)
[2019-11-06] MEDS ORDERED: Adenosine 3 MG/ML 2 ml VIAL (6 mg) ONE ×2 (18:13→18:15)
[2019-11-06] MEDS ORDERED: Adenosine 3 MG/ML 2 ml VIAL (6 mg) IV PUSH ONE (18:40)
[2019-11-06 19:42] LABS: Blood Urea Nitrogen 43 mg/dL (6-24); EGFR African American 36.3 (>60)
[2019-11-06] MEDS ORDERED: Iodixanol (CONTRAST) 320 MG/ML 100 ML SDV IV ONE (20:26)
[2019-11-06 20:48] LABS: Glucose 60 mg/dL (70-100)
[2019-11-06] MEDS ORDERED: Dextrose 50% Syringe 50 ml 25 GM/50 ML SYRINGE IV PUSH ONE (20:50)
[2019-11-06] MEDS ORDERED: LORazepam 2 mg VIAL 1 ml IV PUSH ONE (21:19)
[2019-11-06] MEDS ORDERED: Lorazepam PYXIS KEY PRN (21:19)
[2019-11-06 21:24] LABS: Troponin I 0.05 ng/mL (<0.03)
[2019-11-06 21:50] LABS: INR 1.74 (0.82-1.09)
[2019-11-06 21:52] LABS: Activated Partial Thrombo Time 138.5 seconds (26.0-38.0)
[2019-11-06 23:10] LABS: Amylase 26 U/L (29-103)
[2019-11-06 23:15] LABS: Lipase 71 U/L (11.0-82.0)
[2019-11-06] MEDS: Potassium Chlor 20 meq TAB.ER PO SCH (23:25)
[2019-11-06 23:26] LABS: Digoxin 0.7 ng/ml (0.8-2.0)
[2019-11-07] LABS: TSH Ultra Thyroid Stim Horm 4.07 mcIU/mL (0.34-5.60)
[2019-11-07 00:01] LABS: Urine Appearance Cloudy; Urine Bilirubin Negative (Negative); Urine Blood 2+ (Negative); Urine Color Yellow; Urine Glucose Negative (Negative); Urine Ketones Negative (Negative); Urine Nitrite Negative (Negative); Urine Protein Negative (Negative); Urine Urobilinogen Negative (Negative)
[2019-11-07 00:03] LABS: Urine Bacteria Absent (Absent); Urine Red Blood Cell Trace(0-2/hpf) (Absent); Urine White Blood Cell Trace(0-5/hpf) (Absent)
[2019-11-07 05:44] LABS: INR 1.49 (0.82-1.09)
[2019-11-07 06:07] LABS: Anion Gap 12 mmol/L (2-11); CO2 Carbon Dioxide 18 mmol/L (22-32); Calcium 8.7 mg/dL (8.6-10.3); Chloride 104 mmol/L (101-111); Magnesium 2.1 mg/dL (1.9-2.7); Potassium 4.6 mmol/L (3.5-5.0); Sodium 134 mmol/L (135-145)
[2019-11-07 06:13] LABS: ALT 226 U/L (7-52); AST 137 U/L (13-39); Albumin/Globulin Ratio 1.4 (1-3); Alkaline Phosphatase 101 U/L (34-104); Blood Urea Nitrogen 44 mg/dL (6-24); EGFR African American 34.9 (>60); EGFR Non-African American 28.9 (>60); Globulin 2.8 g/dL (2-4); Glucose 103 mg/dL (70-100); Total Protein 6.8 g/dL (6.4-8.9)
[2019-11-07 06:19] LABS: ABS Basophils 0.1 10^3/ul (0-0.2); ABS Eosinophils 0.2 10^3/ul (0-0.6); ABS Lymphocytes 3.6 10^3/ul (1.0-4.8); ABS Monocytes 1.5 10^3/ul (0-0.8); ABS Neutrophils 10.8 10^3/ul (1.5-7.7); Eosinophil % 1.1 %; Hematocrit 36 % (35-47); Hemoglobin 11.9 g/dL (12.0-16.0); Mean Corpuscular HGB Conc 33 g/dL (31-36); Mean Corpuscular Hemoglobin 28 pg (27-31); Mean Corpuscular Volume 85 fL (80-97); Nucleated Red Blood Cells % 0.1; Platelet Count Platelets clumped. 10^3/uL (150-450); Red Blood Count 4.26 10^6 /uL (3.70-4.87); Red Cell Distribution Width 16 % (10-15); White Blood Count 16.1 10^3/uL (3.5-10.8)
[2019-11-07] MEDS: Senna TAB 8.6 mg TAB PO SCH (08:40)
[2019-11-07] MEDS: Aspirin EC 81 mg TAB.EC (enteric coated) PO SCH (08:43)
[2019-11-07] MEDS: Venlafaxine XR 75 mg PO SCH (08:43)
[2019-11-07] MEDS: Potassium Chlor 20 meq TAB.ER PO SCH (08:43)
[2019-11-07] MEDS: Enoxaparin 40 MG/0.4 ML SYR SUBCUT SCH (08:44)
[2019-11-07] MEDS ORDERED: Cholecalciferol (VIT D3) 1,000 unit TAB PO SCH (09:00)
[2019-11-07] MEDS ORDERED: SENNA DOCUSATE SODIUM PO SCH (09:00)
[2019-11-07] MEDS ORDERED: Enoxaparin 30 MG/0.3 ML SYR SUBCUT SCH (09:00)
[2019-11-07] MEDS ORDERED: Perflutren Lipid Microsphere 3 ML VIAL ONE (11:46)
[2019-11-07] MEDS ORDERED: Furosemide 40 mg/4 ml IV VIAL IV ONE (15:15)
[2019-11-07] MEDS ORDERED: Digoxin IV 0.5 MG/2 ML AMP (0.25 MG/ML) IV SLOW PU ONE (15:35)
[2019-11-07] MEDS ORDERED: Furosemide 20 mg/2 ml IV VIAL IV ONE (15:36)
[2019-11-07 15:53] LABS: Troponin I 0.05 ng/mL (<0.03)
[2019-11-07 16:02] LABS: Total Iron Binding Capacity 335 mcg/dL (250-450); Transferrin 239 mg/dL (203-362)
[2019-11-07 16:34] LABS: Ferritin 180.3 ng/mL (11-307)
[2019-11-07 16:41] LABS: Vitamin D Total 25(OH) 47.6 ng/mL (20-50)
[2019-11-07 17:23] LABS: Body Fluid Source Pleural Fluid
[2019-11-07 18:17] LABS: Body Fluid Mono 34 %; Body Fluid Other Cells 23
[2019-11-08] MEDS ORDERED: Metoprolol Tartrate 5 mg VIAL 5 ml VIAL (1 mg/ml) IV ONE ×3 (02:39→03:42)
[2019-11-08] MEDS ORDERED: Metoprolol Tartrate 5 mg VIAL 5 ml VIAL (1 mg/ml) ONE (02:39)
[2019-11-08 04:18] LABS: Hematocrit 37 % (35-47); Hemoglobin 11.7 g/dL (12.0-16.0); Mean Corpuscular HGB Conc 32 g/dL (31-36); Mean Corpuscular Hemoglobin 27 pg (27-31); Mean Corpuscular Volume 85 fL (80-97); Mean Platelet Volume 9.1 fL (7.4-10.4); Platelet Count 258 10^3/uL (150-450); Red Blood Count 4.32 10^6 /uL (3.70-4.87); Red Cell Distribution Width 17 % (10-15); White Blood Count 15.7 10^3/uL (3.5-10.8)
[2019-11-08] MEDS ORDERED: Adenosine 3 MG/ML 2 ml VIAL (6 mg) IV PUSH ONE ×2 (04:24→05:43)
[2019-11-08 04:26] LABS: Albumin 3.8 g/dL (3.2-5.2); Anion Gap 12 mmol/L (2-11); CO2 Carbon Dioxide 17 mmol/L (22-32); Calcium 8.6 mg/dL (8.6-10.3); Chloride 102 mmol/L (101-111); Indirect Bilirubin 0.6 mg/dL (0.3-1.0); Magnesium 2.1 mg/dL (1.9-2.7); Potassium 4.9 mmol/L (3.5-5.0); Sodium 131 mmol/L (135-145)
[2019-11-08] MEDS ORDERED: Adenosine 3 MG/ML 2 ml VIAL (6 mg) ONE ×2 (04:30→05:43)
[2019-11-08 04:32] LABS: AST 412 U/L (13-39); Albumin/Globulin Ratio 1.5 (1-3); Alkaline Phosphatase 101 U/L (34-104); BUN/Creatinine Ratio 26.9 (8-20); Blood Urea Nitrogen 54 mg/dL (6-24); EGFR African American 31.4 (>60); EGFR Non-African American 25.9 (>60); Globulin 2.6 g/dL (2-4); Glucose 148 mg/dL (70-100); Total Protein 6.4 g/dL (6.4-8.9)
[2019-11-08] MEDS: Enoxaparin 40 MG/0.4 ML SYR SUBCUT SCH (08:24)
[2019-11-08] MEDS: Aspirin EC 81 mg TAB.EC (enteric coated) PO SCH (08:24)
[2019-11-08] MEDS: Senna TAB 8.6 mg TAB PO SCH (08:24)
[2019-11-08] MEDS: Venlafaxine XR 75 mg PO SCH (08:24)
[2019-11-08 08:36] LABS: C Reactive Protein 54.91 mg/L (<8.01)
[2019-11-08 08:48] LABS: ALT 594 U/L (7-52)
[2019-11-08 08:56] LABS: ABS Eosinophils 0.2 10^3/ul (0-0.6); ABS Lymphocytes 3.7 10^3/ul (1.0-4.8); ABS Monocytes 1.8 10^3/ul (0-0.8); ABS Neutrophils 9.9 10^3/ul (1.5-7.7); Lymphocyte % 23.6 %
[2019-11-08] MEDS ORDERED: Amiodarone IV 150 mg/3 ml VIAL SLOW PUSH ONE (10:17)
[2019-11-08] MEDS ORDERED: Amiodarone 360 MG IVPREMIX 360 MG/200 ML BAG IV ONE (11:19)
[2019-11-08] MEDS: Nitroglycerin 0.2 mg/hr PATCH (5 mg) TRANSDERM SCH (13:05)
[2019-11-08] MEDS: cefTRIAXone 2 GM ADDV.VIAL 2 GM in NS 0.9% 100 ml BAG 100 ML IV SCH (13:06)
[2019-11-08 13:37] LABS: Troponin I 0.04 ng/mL (<0.03)
[2019-11-08 18:15] LABS: % Iron Saturation 15 % (15-55); Digoxin 1.4 ng/ml (0.8-2.0); Iron 45 ug/dL (50-212); Total Iron Binding Capacity 294 mcg/dL (250-450); Transferrin 210 mg/dL (203-362); Unsaturated Iron Binding < 279 ug/dL
[2019-11-08 18:34] LABS: Ferritin 675.5 ng/mL (11-307)
[2019-11-08] MEDS: Nitro Patch/OINT Remove PATCH PATCH OFF SCH (21:04)
[2019-11-09 03:48] LABS: ABS Basophils 0.1 10^3/ul (0-0.2); ABS Eosinophils 0.1 10^3/ul (0-0.6); ABS Lymphocytes 1.7 10^3/ul (1.0-4.8); Eosinophil % 1.1 %; Hematocrit 35 % (35-47); Hemoglobin 11.4 g/dL (12.0-16.0); Lymphocyte % 14.4 %; Mean Corpuscular HGB Conc 32 g/dL (31-36); Mean Corpuscular Hemoglobin 28 pg (27-31); Mean Corpuscular Volume 85 fL (80-97); Mean Platelet Volume 9.5 fL (7.4-10.4); Nucleated Red Blood Cells % 0.1; Platelet Count 248 10^3/uL (150-450); Red Blood Count 4.14 10^6 /uL (3.70-4.87); Red Cell Distribution Width 17 % (10-15); White Blood Count 12.1 10^3/uL (3.5-10.8)
[2019-11-09 04:07] LABS: Albumin 3.6 g/dL (3.2-5.2); Albumin/Globulin Ratio 1.3 (1-3); Alkaline Phosphatase 96 U/L (34-104); BUN/Creatinine Ratio 31.6 (8-20); Blood Urea Nitrogen 66 mg/dL (6-24); CO2 Carbon Dioxide 23 mmol/L (22-32); Calcium 8.6 mg/dL (8.6-10.3); Chloride 100 mmol/L (101-111); EGFR Non-African American 24.8 (>60); Globulin 2.8 g/dL (2-4); Glucose 225 mg/dL (70-100); Magnesium 2.2 mg/dL (1.9-2.7); Sodium 131 mmol/L (135-145); Total Protein 6.4 g/dL (6.4-8.9)
[2019-11-09 04:28] LABS: Anion Gap 8 mmol/L (2-11)
[2019-11-09 04:36] LABS: Hepatitis B Surface Antigen Nonreactive (Nonreactive)
[2019-11-09 04:41] LABS: Hepatitis A Ab IgM Negative (Negative); Hepatitis B Core IgM Nonreactive (Nonreactive)
[2019-11-09 04:53] LABS: Hepatitis C Antibody Negative (Negative)
[2019-11-09 05:17] LABS: ALT 889 U/L (7-52)
[2019-11-09 05:54] LABS: Potassium Redraw 4.4 mmol/L (3.5-5.0)
[2019-11-09] MEDS: Aspirin EC 81 mg TAB.EC (enteric coated) PO SCH (09:02)
[2019-11-09] MEDS: Enoxaparin 40 MG/0.4 ML SYR SUBCUT SCH (09:02)
[2019-11-09] MEDS: Senna TAB 8.6 mg TAB PO SCH (09:02)
[2019-11-09] MEDS: Nitroglycerin 0.2 mg/hr PATCH (5 mg) TRANSDERM SCH (09:06)
[2019-11-09] MEDS: cefTRIAXone 2 GM ADDV.VIAL 2 GM in NS 0.9% 100 ml BAG 100 ML IV SCH (12:12)
[2019-11-09] MEDS ORDERED: Iron Dextran 25 MG in NS 0.9% 50 ML 50 ML IVPB ONE (12:30)
[2019-11-09 12:35] LABS: Digoxin 1.6 ng/ml (0.8-2.0)
[2019-11-09] MEDS ORDERED: IRON DEXTRAN IVPB ONE (14:00)
[2019-11-09] MEDS ORDERED: NS 0.9% IVPB ONE (14:00)
[2019-11-09] MEDS: Nitro Patch/OINT Remove PATCH PATCH OFF SCH (20:20)
[2019-11-10 07:04] LABS: ABS Basophils 0.1 10^3/ul (0-0.2); ABS Eosinophils 0.2 10^3/ul (0-0.6); ABS Lymphocytes 2.4 10^3/ul (1.0-4.8); ABS Neutrophils 5.7 10^3/ul (1.5-7.7); Eosinophil % 2.4 %; Hematocrit 32 % (35-47); Hemoglobin 10.9 g/dL (12.0-16.0); Lymphocyte % 25.7 %; Mean Corpuscular HGB Conc 34 g/dL (31-36); Mean Corpuscular Hemoglobin 28 pg (27-31); Mean Corpuscular Volume 84 fL (80-97); Mean Platelet Volume 8.7 fL (7.4-10.4); Nucleated Red Blood Cells % 0.1; Platelet Count 194 10^3/uL (150-450); Red Blood Count 3.85 10^6 /uL (3.70-4.87); Red Cell Distribution Width 17 % (10-15); White Blood Count 9.4 10^3/uL (3.5-10.8)
[2019-11-10 07:25] LABS: Albumin 3.5 g/dL (3.2-5.2); Albumin/Globulin Ratio 1.3 (1-3); BUN/Creatinine Ratio 34.5 (8-20); Calcium 8.7 mg/dL (8.6-10.3); EGFR African American 36.3 (>60); Globulin 2.8 g/dL (2-4); Magnesium 2.3 mg/dL (1.9-2.7); Potassium 3.9 mmol/L (3.5-5.0); Total Bilirubin 0.7 mg/dL (0.2-1.0); Total Protein 6.3 g/dL (6.4-8.9)
[2019-11-10] MEDS: Enoxaparin 40 MG/0.4 ML SYR SUBCUT SCH (08:35)
[2019-11-10] MEDS: Venlafaxine XR 75 mg PO SCH ×2 (09:57→10:01)
[2019-11-10] MEDS: Senna TAB 8.6 mg TAB PO SCH (09:57)
[2019-11-10] MEDS: Aspirin EC 81 mg TAB.EC (enteric coated) PO SCH (09:59)
[2019-11-10] MEDS: Nitroglycerin 0.2 mg/hr PATCH (5 mg) TRANSDERM SCH (10:02)
[2019-11-10 11:22] LABS: Lactate Dehydrogenase, BF 111 U/L
[2019-11-10 11:23] LABS: Albumin, BF 1.5 g/dL; Fluid Type, Albumin PLEURAL FLUID; Fluid Type, Protein, Total PLEURAL
[2019-11-10] MEDS: cefTRIAXone 2 GM ADDV.VIAL 2 GM in NS 0.9% 100 ml BAG 100 ML IV SCH (13:17)
[2019-11-10] MEDS: Nitro Patch/OINT Remove PATCH PATCH OFF SCH (20:58)
[2019-11-11 08:20] LABS: ABS Eosinophils 0.2 10^3/ul (0-0.6); ABS Lymphocytes 2.4 10^3/ul (1.0-4.8); ABS Monocytes 0.7 10^3/ul (0-0.8); ABS Neutrophils 4.1 10^3/ul (1.5-7.7); Eosinophil % 2.5 %; Hematocrit 33 % (35-47); Hemoglobin 10.8 g/dL (12.0-16.0); Lymphocyte % 32.2 %; Mean Corpuscular HGB Conc 33 g/dL (31-36); Mean Corpuscular Hemoglobin 28 pg (27-31); Mean Corpuscular Volume 84 fL (80-97); Mean Platelet Volume 8.6 fL (7.4-10.4); Nucleated Red Blood Cells % 0.1; Platelet Count 189 10^3/uL (150-450); Red Blood Count 3.91 10^6 /uL (3.70-4.87); Red Cell Distribution Width 17 % (10-15); White Blood Count 7.3 10^3/uL (3.5-10.8)
[2019-11-11] MEDS: Senna TAB 8.6 mg TAB PO SCH (08:32)
[2019-11-11] MEDS: Venlafaxine XR 75 mg PO SCH (08:33)
[2019-11-11] MEDS: Aspirin EC 81 mg TAB.EC (enteric coated) PO SCH (08:33)
[2019-11-11] MEDS: Nitroglycerin 0.2 mg/hr PATCH (5 mg) TRANSDERM SCH (08:33)
[2019-11-11 08:34] LABS: BUN/Creatinine Ratio 33.3 (8-20); Calcium 8.5 mg/dL (8.6-10.3); EGFR African American 46.1 (>60); EGFR Non-African American 38.1 (>60); Potassium 3.8 mmol/L (3.5-5.0)
[2019-11-11] MEDS: Enoxaparin 40 MG/0.4 ML SYR SUBCUT SCH (08:35)
[2019-11-11] MEDS: cefTRIAXone 2 GM ADDV.VIAL 2 GM in NS 0.9% 100 ml BAG 100 ML IV SCH (12:26)
[2019-11-11] MEDS: Nitro Patch/OINT Remove PATCH PATCH OFF SCH (21:11)
[2019-11-12] MEDS: Enoxaparin 40 MG/0.4 ML SYR SUBCUT SCH (08:22)
[2019-11-12] MEDS: Nitroglycerin 0.2 mg/hr PATCH (5 mg) TRANSDERM SCH (08:23)
[2019-11-12] MEDS: Venlafaxine XR 75 mg PO SCH (08:23)
[2019-11-12] MEDS: Aspirin EC 81 mg TAB.EC (enteric coated) PO SCH (08:24)
[2019-11-12] MEDS: Senna TAB 8.6 mg TAB PO SCH (08:25)
[2019-11-12 12:42] LABS: Smooth Muscle Antibody Negative (Negative)
[2019-11-12] MEDS: cefTRIAXone 2 GM ADDV.VIAL 2 GM in NS 0.9% 100 ml BAG 100 ML IV SCH (12:43)
[2019-11-12 15:58] LABS: Liver/Kidney Microsomes Ab <5.0 U
[2019-11-12 16:45] LABS: ALT 293 U/L (7-52); AST 43 U/L (13-39)
[2019-11-12] MEDS: Nitro Patch/OINT Remove PATCH PATCH OFF SCH (21:14)
[2019-11-13 07:56] VITALS: BP 142/73
[2019-11-13] MEDS: Senna TAB 8.6 mg TAB PO SCH (09:15)
[2019-11-13] MEDS: Nitroglycerin 0.2 mg/hr PATCH (5 mg) TRANSDERM SCH (09:16)
[2019-11-13] MEDS: Venlafaxine XR 75 mg PO SCH (09:17)
[2019-11-13] MEDS: Aspirin EC 81 mg TAB.EC (enteric coated) PO SCH (09:18)
[2019-11-13] MEDS: Enoxaparin 40 MG/0.4 ML SYR SUBCUT SCH (09:19)
== END 2019-11-13 12:22 | DRG 291 ==
LOC: ED 15:37 → ICU 20:08 → MEDTELE 11-09 14:24
PROVIDERS: ADMIT Physician Assistant; ATTEND Internal Medicine

== ENCOUNTER 2022-02-22 11:33 | Inpatient (IN) ==
[2022-02-22] MEDS ORDERED: Dextrose 50% Syringe 50 ml 25 GM/50 ML SYRINGE IV PUSH PRN (13:58)
[2022-02-22] MEDS ORDERED: Albuterol/Ipratropium NEB.SOL (2.5/0.5 MG) 3 ML NEB.SOLN INH PRN (14:06)
[2022-02-22 14:54] LABS: PCO2 Arterial 29 mmHg (35-45); PO2 Arterial 117 mmHg (80-100)
[2022-02-22 14:56] LABS: ABS Lymphocytes 0.5 10^3/ul (1.0-4.8); ABS Monocytes 0.3 10^3/ul (0-0.8); ABS Neutrophils 9.5 10^3/ul (1.5-7.7); Hematocrit 30 % (35-47); Hemoglobin 9.9 g/dL (12.0-16.0); Lymphocyte % 5.2 %; Mean Corpuscular HGB Conc 33 g/dL (31-36); Mean Corpuscular Hemoglobin 27 pg (27-31); Mean Corpuscular Volume 84 fL (80-97); Mean Platelet Volume 9.6 fL (7.4-10.4); Platelet Count 134 10^3/uL (150-450); Red Blood Count 3.62 10^6 /uL (3.70-4.87); Red Cell Distribution Width 15 % (10-15); White Blood Count 10.4 10^3/uL (3.5-10.8)
[2022-02-22 15:16] LABS: Albumin 2.6 g/dL (3.2-5.2); Albumin/Globulin Ratio 1.2 (1-3); Digoxin 0.6 ng/ml (0.8-2.0); Direct Bilirubin 0.3 mg/dL (0.03-0.18); Globulin 2.2 g/dL (2-4); Indirect Bilirubin 0.3 mg/dL (0.3-1.0); Potassium 4.7 mmol/L (3.5-5.0); Total Bilirubin 0.6 mg/dL (0.2-1.0); Total Protein 4.8 g/dL (6.4-8.9); eGFR CKD-EPI 10.4 (>60)
[2022-02-22 15:28] LABS: Free T3 2.4 pg/mL (2.5-3.9)
[2022-02-22 15:32] LABS: Free T4 1.13 ng/dL (0.61-1.12)
[2022-02-22 15:34] LABS: TSH Ultra Thyroid Stim Horm 3.72 mcIU/mL (0.34-5.60)
[2022-02-22] MEDS ORDERED: Piperacillin/Tazobac ADVAN 3.375 GM in NS 0.9% 100 ml BAG 100 ML IV ONE (17:30)
[2022-02-22 17:59] LABS: Urine Appearance Turbid; Urine Bilirubin Negative (Negative); Urine Blood 3+ (Negative); Urine Color Amber; Urine Glucose Negative (Negative); Urine Ketones Negative (Negative); Urine Nitrite Negative (Negative); Urine Protein 2+(100 mg/dL) (Negative); Urine Specific Gravity 1.018 (1.002-1.030); Urine Urobilinogen Negative (Negative)
[2022-02-22] MEDS ORDERED: Zosyn per Pharmacy NOTE FOLLOW UP SCH (18:00)
[2022-02-22 18:10] LABS: Urine Bacteria 1+ (Absent); Urine Red Blood Cell 3+(>10/hpf) (Absent); Urine White Blood Cell 1+(6-10/hpf) (Absent)
[2022-02-22 18:11] LABS: Magnesium 1.6 mg/dL (1.9-2.7); Phosphorus 3.4 mg/dL (2.5-5.0)
[2022-02-22] MEDS ORDERED: Enoxaparin 40 MG/0.4 ML SYR SUBCUT SCH (21:00)
[2022-02-22] MEDS ORDERED: Enoxaparin 30 MG/0.3 ML SYR SUBCUT SCH (21:00)
[2022-02-22] MEDS: ZOSYN 3.375 GM Q12H per EXTENDED INFUSION IV SCH (21:24)
[2022-02-22] MEDS ORDERED: D5W 1000 ml BAG 1,000 ML IV SCH (22:00)
[2022-02-22] MEDS: Acetaminophen IV 1 GM/100ML 1,000 MG/100 ML BAG IV PRN (23:07)
[2022-02-22] MEDS ORDERED: Bumetanide IV 0.25 MG/ML 4 ml VIAL (1 mg) SLOW PUSH ONE (23:14)
[2022-02-22 23:34] LABS: PCO2 Arterial 27 mmHg (35-45); PO2 Arterial 61 mmHg (80-100)
[2022-02-22 23:51] LABS: Hematocrit 31 % (35-47); Hemoglobin 9.8 g/dL (12.0-16.0); Mean Corpuscular HGB Conc 32 g/dL (31-36); Mean Corpuscular Hemoglobin 27 pg (27-31); Mean Corpuscular Volume 84 fL (80-97); Mean Platelet Volume 9.9 fL (7.4-10.4); Platelet Count 143 10^3/uL (150-450); Red Blood Count 3.66 10^6 /uL (3.70-4.87); Red Cell Distribution Width 15 % (10-15)
[2022-02-23 00:32] LABS: Albumin 2.6 g/dL (3.2-5.2); Calcium 7.2 mg/dL (8.6-10.3); Magnesium 1.5 mg/dL (1.9-2.7); Total Bilirubin 0.5 mg/dL (0.2-1.0)
[2022-02-23] MEDS ORDERED: Magnesium Sulfate IV 3 GM in NS 0.9% 100 ml BAG 100 ML IVPB ONE (00:35)
[2022-02-23 00:38] LABS: Globulin 2.6 g/dL (2-4); Total Protein 5.2 g/dL (6.4-8.9); eGFR CKD-EPI 9.4 (>60)
[2022-02-23 00:41] LABS: Potassium 5.1 mmol/L (3.5-5.0)
[2022-02-23] MEDS ORDERED: Norepinephrine 16MCG/ML BAGD5W 4,000 MCG/250 ML BAG IV SCH ×2 (02:00→02:50)
[2022-02-23 02:42] LABS: ABS Lymphocytes 0.5 10^3/ul (1.0-4.8); ABS Monocytes 0.3 10^3/ul (0-0.8); ABS Neutrophils 8.2 10^3/ul (1.5-7.7); Eosinophil % 0.1 %; Lymphocyte % 5.4 %
[2022-02-23 04:17] LABS: Hematocrit 30 % (35-47); Hemoglobin 9.3 g/dL (12.0-16.0); Mean Corpuscular HGB Conc 32 g/dL (31-36); Mean Corpuscular Hemoglobin 27 pg (27-31); Mean Corpuscular Volume 85 fL (80-97); Mean Platelet Volume 9.7 fL (7.4-10.4); Platelet Count 134 10^3/uL (150-450); Red Blood Count 3.47 10^6 /uL (3.70-4.87); Red Cell Distribution Width 16 % (10-15); White Blood Count 9.1 10^3/uL (3.5-10.8)
[2022-02-23 04:54] LABS: Albumin 2.3 g/dL (3.2-5.2); Calcium 6.6 mg/dL (8.6-10.3); Total Bilirubin 0.6 mg/dL (0.2-1.0)
[2022-02-23 05:00] LABS: Globulin 2.2 g/dL (2-4); Total Protein 4.5 g/dL (6.4-8.9); eGFR CKD-EPI 10.2 (>60)
[2022-02-23 05:14] LABS: Potassium 4.7 mmol/L (3.5-5.0)
[2022-02-23 07:34] LABS: ABS Eosinophils 0.1 10^3/ul (0-0.6); ABS Lymphocytes 0.5 10^3/ul (1.0-4.8); ABS Monocytes 0.3 10^3/ul (0-0.8); ABS Neutrophils 8.3 10^3/ul (1.5-7.7); Eosinophil % 0.9 %; Lymphocyte % 5.1 %; Nucleated Red Blood Cells % 0.1
[2022-02-23] MEDS: D5W 1000 ml BAG 1,000 ML IV SCH ×2 (08:49→14:00)
[2022-02-23] MEDS ORDERED: Aspirin EC 81 mg TAB.EC (enteric coated) PO SCH (09:00)
[2022-02-23] MEDS ORDERED: VENLAFAXINE 75 MG PO SCH (09:00)
[2022-02-23 09:02] LABS: Urine Creatinine Concentration 39.16 mg/dL
[2022-02-23] MEDS: ZOSYN 3.375 GM Q12H per EXTENDED INFUSION IV SCH ×2 (09:38→21:25)
[2022-02-23 09:40] LABS: Magnesium 2.1 mg/dL (1.9-2.7)
[2022-02-23 11:02] LABS: Platelet Count 134 10^3/ul (150-450)
[2022-02-23] MEDS: Albuterol/Ipratropium NEB.SOL (2.5/0.5 MG) 3 ML NEB.SOLN INH SCH ×4 (11:13→23:02)
[2022-02-23 11:28] LABS: Activated Partial Thrombo Time 29.2 seconds (26.0-38.0); INR 0.94 (0.89-1.11)
[2022-02-23 11:36] LABS: Schistocytes PRESENT
[2022-02-23 11:48] LABS: Corrected Retic Count 0.3 % (0.5-1.5); Hematocrit for Retic CNT 31 % (35-47); Immature Retic Fraction 0.26; RBC Retic Count 3.61 10^6/uL (3.70-4.87)
[2022-02-23] MEDS: Acetaminophen IV 1 GM/100ML 1,000 MG/100 ML BAG IV PRN (13:37)
[2022-02-23] MEDS: Azithromycin 500 mg/250 ml NS 500 MG/250 ML BAG IVPB SCH (14:55)
[2022-02-23] MEDS: Heparin 5000 UNITS/ML 1 mL VIAL SUBCUT SCH ×2 (15:01→22:29)
[2022-02-23] MEDS: Latanoprost 0.005% 2.5 ml BTL BOTH EYES SCH (19:57)
[2022-02-24] MEDS: Acetaminophen IV 1 GM/100ML 1,000 MG/100 ML BAG IV PRN (00:19)
[2022-02-24 04:31] LABS: Hematocrit 27 % (35-47); Hemoglobin 8.8 g/dL (12.0-16.0); Mean Corpuscular HGB Conc 33 g/dL (31-36); Mean Corpuscular Hemoglobin 27 pg (27-31); Mean Corpuscular Volume 83 fL (80-97); Mean Platelet Volume 9.7 fL (7.4-10.4); Platelet Count 131 10^3/uL (150-450); Red Blood Count 3.27 10^6 /uL (3.70-4.87); Red Cell Distribution Width 16 % (10-15); White Blood Count 9.8 10^3/uL (3.5-10.8)
[2022-02-24 05:10] LABS: Calcium 6.7 mg/dL (8.6-10.3); Magnesium 2.1 mg/dL (1.9-2.7); Potassium 4.1 mmol/L (3.5-5.0); eGFR CKD-EPI 9.3 (>60)
[2022-02-24 05:16] LABS: ABS Lymphocytes 0.3 10^3/ul (1.0-4.8); ABS Monocytes 0.3 10^3/ul (0-0.8); ABS Neutrophils 9.2 10^3/ul (1.5-7.7); Eosinophil % 0.2 %; Lymphocyte % 3.6 %
[2022-02-24] MEDS: Albuterol/Ipratropium NEB.SOL (2.5/0.5 MG) 3 ML NEB.SOLN INH SCH ×6 (05:59→22:59)
[2022-02-24] MEDS: Heparin 5000 UNITS/ML 1 mL VIAL SUBCUT SCH ×3 (06:00→23:01)
[2022-02-24] MEDS ORDERED: Levothyroxine 100 MCG/5 ML VIAL IV SCH (06:00)
[2022-02-24] MEDS ORDERED: Perflutren Lipid Microsphere 3 ML VIAL ONE (08:34)
[2022-02-24] MEDS: ZOSYN 3.375 GM Q12H per EXTENDED INFUSION IV SCH ×2 (08:57→23:09)
[2022-02-24] MEDS: Senna TAB 8.6 mg TAB PO SCH (08:57)
[2022-02-24] MEDS: D5W 1000 ml BAG 1,000 ML IV SCH (08:58)
[2022-02-24] MEDS ORDERED: Bumetanide IV 10 MG in Premix IV 0 ML IV SCH (10:00)
[2022-02-24] MEDS: Azithromycin 500 mg/250 ml NS 500 MG/250 ML BAG IVPB SCH (15:10)
[2022-02-24 15:53] LABS: Calcium 7.1 mg/dL (8.6-10.3); Potassium 4.2 mmol/L (3.5-5.0); eGFR CKD-EPI 9.1 (>60)
[2022-02-24] MEDS ORDERED: Rocuronium 50 mg VIAL 10 mg/ml 5 ml VIAL (50 mg) ONE ×2 (17:40→19:10)
[2022-02-24] MEDS ORDERED: Succinylcholine 200 mg VIAL 20 mg/ml 10 ml VIAL (200 mg) ONE (19:10)
[2022-02-24] MEDS ORDERED: Morphine 2 MG/ML SYRINGE IV ONE (19:32)
[2022-02-24] MEDS ORDERED: Morphine 2 MG/ML SYRINGE ONE (19:34)
[2022-02-24] MEDS ORDERED: Propofol 10 mg/ml 100 ML BTL 100 ML ONE (19:41)
[2022-02-24] MEDS ORDERED: Etomidate 40 mg/20 ml (2 MG/ML) 20 ml VIAL (40 mg) ONE (19:46)
[2022-02-24] MEDS ORDERED: Propofol 10 MG/ML 20 ML BTL ONE (19:46)
[2022-02-24] MEDS ORDERED: fentaNYL 250 mcg/5 ml 50 MCG/ML 5 ml VIAL (250 MCG) ONE (19:46)
[2022-02-24] MEDS: Propofol 10 mg/ml 100 ML BTL 100 ML IV SCH ×2 (20:08→23:33)
[2022-02-24] MEDS ORDERED: LORazepam 2 mg VIAL 1 ml ONE (20:21)
[2022-02-24] MEDS ORDERED: Lorazepam PYXIS KEY ONE ×2 (20:21→20:25)
[2022-02-24] MEDS: Midazolam 2 mg/2 ml VIAL 1 mg/ml 2 ml VIAL (2 mg) IV SLOW PU PRN (20:29)
[2022-02-24 21:25] LABS: PCO2 Arterial 34 mmHg (35-45); PO2 Arterial 98 mmHg (80-100)
[2022-02-24] MEDS: Chlorhexidine MOUTHWASH 0.12% 15 ML UDC SWISH SPIT SCH (23:01)
[2022-02-24] MEDS: Latanoprost 0.005% 2.5 ml BTL BOTH EYES SCH (23:09)
[2022-02-25] MEDS: OLANZapine 10 mg TAB*ODT FEED TUBE SCH ×2 (02:49→22:12)
[2022-02-25] MEDS: Chlorhexidine MOUTHWASH 0.12% 15 ML UDC SWISH SPIT SCH ×6 (02:58→22:11)
[2022-02-25] MEDS: Norepinephrine 16MCG/ML BAGD5W 4,000 MCG/250 ML BAG IV ONE ×2 (03:08→03:16)
[2022-02-25] MEDS: Norepinephrine 16MCG/ML BAG NS 4,000 MCG/250 ML BAG IV SCH ×2 (03:15→12:31)
[2022-02-25] MEDS: Albuterol/Ipratropium NEB.SOL (2.5/0.5 MG) 3 ML NEB.SOLN INH SCH ×6 (03:24→23:30)
[2022-02-25] MEDS: Propofol 10 mg/ml 100 ML BTL 100 ML IV SCH ×5 (04:03→22:08)
[2022-02-25 05:39] LABS: ABS Lymphocytes 0.7 10^3/ul (1.0-4.8); ABS Monocytes 0.5 10^3/ul (0-0.8); ABS Neutrophils 10.9 10^3/ul (1.5-7.7); Hematocrit 27 % (35-47); Hemoglobin 8.8 g/dL (12.0-16.0); Mean Corpuscular HGB Conc 32 g/dL (31-36); Mean Corpuscular Hemoglobin 27 pg (27-31); Mean Corpuscular Volume 83 fL (80-97); Mean Platelet Volume 9.7 fL (7.4-10.4); Platelet Count 162 10^3/uL (150-450); Red Blood Count 3.29 10^6 /uL (3.70-4.87); Red Cell Distribution Width 16 % (10-15)
[2022-02-25 05:40] LABS: Eosinophil % 0.1 %; Lymphocyte % 5.8 %
[2022-02-25] MEDS: Heparin 5000 UNITS/ML 1 mL VIAL SUBCUT SCH ×3 (05:42→22:12)
[2022-02-25] MEDS: Levothyroxine 100 MCG/5 ML VIAL IV SCH (06:29)
[2022-02-25] MEDS: Nystatin TOP POWDER 15 GM BTL TOPICAL SCH ×3 (06:30→22:11)
[2022-02-25 06:41] LABS: Calcium 7.5 mg/dL (8.6-10.3); Magnesium 2.3 mg/dL (1.9-2.7); Potassium 4.2 mmol/L (3.5-5.0)
[2022-02-25] MEDS: fentaNYL 100 mcg/2 ml 50 MCG/ML VIAL IV SLOW PU PRN ×3 (07:28→20:41)
[2022-02-25] MEDS: ZOSYN 3.375 GM Q12H per EXTENDED INFUSION IV SCH ×2 (09:13→22:11)
[2022-02-25] MEDS: Pantoprazole VIAL 40 MG VIAL IV SCH (09:13)
[2022-02-25] MEDS: Senna TAB 8.6 mg TAB PO SCH (09:45)
[2022-02-25 12:58] LABS: PCO2 Arterial 31 mmHg (35-45); PO2 Arterial 104 mmHg (80-100)
[2022-02-25] MEDS: Azithromycin 500 mg/250 ml NS 500 MG/250 ML BAG IVPB SCH (15:20)
[2022-02-25] MEDS: Latanoprost 0.005% 2.5 ml BTL BOTH EYES SCH (21:00)
[2022-02-25] MEDS: Saline FLUSH-CENTRAL 10 ML SYRINGE CENT\\PICC SCH (22:12)
[2022-02-26] MEDS: Propofol 10 mg/ml 100 ML BTL 100 ML IV SCH ×6 (00:40→22:06)
[2022-02-26] MEDS: Norepinephrine 16MCG/ML BAG NS 4,000 MCG/250 ML BAG IV SCH ×3 (00:46→15:05)
[2022-02-26] MEDS: Midazolam 2 mg/2 ml VIAL 1 mg/ml 2 ml VIAL (2 mg) IV SLOW PU PRN (02:27)
[2022-02-26] MEDS: Chlorhexidine MOUTHWASH 0.12% 15 ML UDC SWISH SPIT SCH ×6 (02:30→20:59)
[2022-02-26] MEDS: fentaNYL 100 mcg/2 ml 50 MCG/ML VIAL IV SLOW PU PRN ×3 (03:16→08:13)
[2022-02-26] MEDS: Albuterol/Ipratropium NEB.SOL (2.5/0.5 MG) 3 ML NEB.SOLN INH SCH ×6 (03:20→23:14)
[2022-02-26 04:44] LABS: Hematocrit 27 % (35-47); Hemoglobin 8.7 g/dL (12.0-16.0); Mean Corpuscular HGB Conc 33 g/dL (31-36); Mean Corpuscular Hemoglobin 27 pg (27-31); Mean Corpuscular Volume 83 fL (80-97); Mean Platelet Volume 9.5 fL (7.4-10.4); Platelet Count 186 10^3/uL (150-450); Red Blood Count 3.21 10^6 /uL (3.70-4.87); Red Cell Distribution Width 16 % (10-15); White Blood Count 11.9 10^3/uL (3.5-10.8)
[2022-02-26 05:20] LABS: Calcium 7.3 mg/dL (8.6-10.3); Magnesium 2.3 mg/dL (1.9-2.7); Phosphorus 5.7 mg/dL (2.5-5.0); eGFR CKD-EPI 9.6 (>60)
[2022-02-26 05:30] LABS: ABS Eosinophils 0.1 10^3/ul (0-0.6); ABS Lymphocytes 0.9 10^3/ul (1.0-4.8); ABS Monocytes 0.4 10^3/ul (0-0.8); ABS Neutrophils 10.3 10^3/ul (1.5-7.7); Eosinophil % 1.1 %; Lymphocyte % 7.5 %
[2022-02-26] MEDS: Heparin 5000 UNITS/ML 1 mL VIAL SUBCUT SCH (05:32)
[2022-02-26] MEDS: Levothyroxine 100 MCG/5 ML VIAL IV SCH (05:33)
[2022-02-26] MEDS ORDERED: Norepinephrine 16MCG/ML BAGD5W 0 MCG/0 ML BAG IV ONE (07:39)
[2022-02-26] MEDS: Pantoprazole VIAL 40 MG VIAL IV SCH (07:44)
[2022-02-26] MEDS: Saline FLUSH-CENTRAL 10 ML SYRINGE CENT\\PICC SCH ×2 (07:44→21:51)
[2022-02-26] MEDS: Nystatin TOP POWDER 15 GM BTL TOPICAL SCH ×2 (07:44→20:55)
[2022-02-26] MEDS: methylPREDNISolone SOD SUCC 40 mg/ml 1 ml VIAL IV SCH ×2 (08:13→17:19)
[2022-02-26] MEDS ORDERED: Bumetanide IV 0.25 MG/ML 4 ml VIAL (1 mg) SLOW PUSH ONE (08:18)
[2022-02-26] MEDS ORDERED: fentaNYL INFUSION 50 mcg/mL VL 2,500 MCG/50 ML VIAL IV SCH (09:00)
[2022-02-26] MEDS: ZOSYN 3.375 GM Q12H per EXTENDED INFUSION IV SCH ×2 (09:11→20:56)
[2022-02-26 09:36] LABS: PCO2 Arterial 37 mmHg (35-45); PO2 Arterial 78 mmHg (80-100)
[2022-02-26] MEDS ORDERED: Acetylcysteine INH SOL (RT) 200 MG/ML 4 ML VIAL INH ONE (11:10)
[2022-02-26] MEDS: Heparin DRIP 25,000 UNITS BAG 25,000 UNITS/500 ML BAG IV SCH (12:14)
[2022-02-26 12:25] LABS: ADAMTS13 Activity Assay 60 % (>/=70)
[2022-02-26] MEDS: Azithromycin 500 mg/250 ml NS 500 MG/250 ML BAG IVPB SCH (16:06)
[2022-02-26 18:41] LABS: Glucose Confirmatory 401 mg/dL (70-100)
[2022-02-26] MEDS: OLANZapine 10 mg TAB*ODT FEED TUBE SCH (20:56)
[2022-02-26] MEDS: Latanoprost 0.005% 2.5 ml BTL BOTH EYES SCH (20:56)
[2022-02-27 00:12] LABS: Hematocrit 28 % (35-47); Hemoglobin 9.1 g/dL (12.0-16.0); Mean Corpuscular HGB Conc 33 g/dL (31-36); Mean Corpuscular Hemoglobin 27 pg (27-31); Mean Corpuscular Volume 84 fL (80-97); Mean Platelet Volume 9.8 fL (7.4-10.4); Platelet Count 215 10^3/uL (150-450); Red Blood Count 3.33 10^6 /uL (3.70-4.87); Red Cell Distribution Width 16 % (10-15); White Blood Count 8.1 10^3/uL (3.5-10.8)
[2022-02-27 00:18] LABS: ABS Lymphocytes 0.5 10^3/ul (1.0-4.8); ABS Monocytes 0.3 10^3/ul (0-0.8); ABS Neutrophils 7.4 10^3/ul (1.5-7.7); Eosinophil % 0.1 %; Lymphocyte % 5.9 %; Nucleated Red Blood Cells % 0.1
[2022-02-27] MEDS: Chlorhexidine MOUTHWASH 0.12% 15 ML UDC SWISH SPIT SCH ×6 (00:55→20:47)
[2022-02-27] MEDS: methylPREDNISolone SOD SUCC 40 mg/ml 1 ml VIAL IV SCH ×2 (00:55→08:02)
[2022-02-27 01:07] LABS: Potassium 4.3 mmol/L (3.5-5.0)
[2022-02-27 01:08] LABS: Calcium 7.5 mg/dL (8.6-10.3); Magnesium 2.5 mg/dL (1.9-2.7)
[2022-02-27] MEDS: Propofol 10 mg/ml 100 ML BTL 100 ML IV SCH ×7 (02:03→22:29)
[2022-02-27] MEDS: Albuterol/Ipratropium NEB.SOL (2.5/0.5 MG) 3 ML NEB.SOLN INH SCH ×2 (03:03→07:00)
[2022-02-27] MEDS: Levothyroxine 100 MCG/5 ML VIAL IV SCH (05:42)
[2022-02-27] MEDS: Heparin DRIP 25,000 UNITS BAG 25,000 UNITS/500 ML BAG IV SCH (06:36)
[2022-02-27 06:48] LABS: Hematocrit 28 % (35-47); Hemoglobin 9.1 g/dL (12.0-16.0); Mean Corpuscular HGB Conc 32 g/dL (31-36); Mean Corpuscular Hemoglobin 27 pg (27-31); Mean Corpuscular Volume 84 fL (80-97); Mean Platelet Volume 9.8 fL (7.4-10.4); Platelet Count 235 10^3/uL (150-450); Red Blood Count 3.34 10^6 /uL (3.70-4.87); Red Cell Distribution Width 17 % (10-15); White Blood Count 8.6 10^3/uL (3.5-10.8)
[2022-02-27] MEDS ORDERED: Albuterol/Ipratropium NEB.SOL (2.5/0.5 MG) 3 ML NEB.SOLN INH PRN (07:08)
[2022-02-27 07:17] LABS: Calcium 7.6 mg/dL (8.6-10.3); Magnesium 2.5 mg/dL (1.9-2.7); Phosphorus 8.6 mg/dL (2.5-5.0); Potassium 4.4 mmol/L (3.5-5.0); eGFR CKD-EPI 10.2 (>60)
[2022-02-27] MEDS: Norepinephrine 16MCG/ML BAG NS 4,000 MCG/250 ML BAG IV SCH (07:32)
[2022-02-27 07:39] LABS: ABS Lymphocytes 0.6 10^3/ul (1.0-4.8); ABS Monocytes 0.4 10^3/ul (0-0.8); ABS Neutrophils 7.5 10^3/ul (1.5-7.7); Eosinophil % 0.1 %; Lymphocyte % 6.8 %
[2022-02-27] MEDS: Nystatin TOP POWDER 15 GM BTL TOPICAL SCH ×2 (08:02→20:47)
[2022-02-27] MEDS: ZOSYN 3.375 GM Q12H per EXTENDED INFUSION IV SCH (08:02)
[2022-02-27] MEDS: Pantoprazole VIAL 40 MG VIAL IV SCH (08:02)
[2022-02-27] MEDS: Saline FLUSH-CENTRAL 10 ML SYRINGE CENT\\PICC SCH ×2 (08:16→20:48)
[2022-02-27] MEDS ORDERED: Bumetanide IV 0.25 MG/ML 4 ml VIAL (1 mg) SLOW PUSH ONE ×2 (09:03→13:16)
[2022-02-27 09:29] LABS: PCO2 Arterial 40 mmHg (35-45); PO2 Arterial 73 mmHg (80-100)
[2022-02-27 12:26] LABS: Glucose Confirmatory 468 mg/dL (70-100)
[2022-02-27] MEDS: Azithromycin 500 mg/250 ml NS 500 MG/250 ML BAG IVPB SCH (14:37)
[2022-02-27] MEDS: Midazolam 2 mg/2 ml VIAL 1 mg/ml 2 ml VIAL (2 mg) IV SLOW PU PRN (15:07)
[2022-02-27] MEDS ORDERED: Bumetanide IV 0.25 MG/ML 10 ml VIAL (2.5 mg) SLOW PUSH ONE (15:13)
[2022-02-27] MEDS: fentaNYL 100 mcg/2 ml 50 MCG/ML VIAL IV SLOW PU PRN (15:15)
[2022-02-27] MEDS ORDERED: Sodium Bicarbonate 8.4% SYR 50 ml SYRINGE IV ONE (15:33)
[2022-02-27 15:56] LABS: PCO2 Arterial 46 mmHg (35-45)
[2022-02-27 16:04] LABS: PO2 Arterial < 38 mmHg (80-100)
[2022-02-27] MEDS ORDERED: Dextrose 50% Syringe 50 ml 25 GM/50 ML SYRINGE IV PUSH PRN (19:07)
[2022-02-27 19:36] LABS: PCO2 Arterial 38 mmHg (35-45); PO2 Arterial 96 mmHg (80-100)
[2022-02-27 20:26] LABS: Glucose Confirmatory 494 mg/dL (70-100)
[2022-02-27] MEDS: Latanoprost 0.005% 2.5 ml BTL BOTH EYES SCH (20:47)
[2022-02-27] MEDS: OLANZapine 10 mg TAB*ODT FEED TUBE SCH (20:48)
[2022-02-27 21:36] LABS: Glucose Confirmatory 488 mg/dL (70-100)
[2022-02-27] MEDS: Insulin Infusion 100unit/100mL 100 UNIT/100 ML BAG IV SCH (21:51)
[2022-02-27 22:46] LABS: Glucose Confirmatory 478 mg/dL (70-100)
[2022-02-27 23:37] LABS: Glucose Confirmatory 468 mg/dL (70-100)
[2022-02-28] MEDS: Heparin DRIP 25,000 UNITS BAG 25,000 UNITS/500 ML BAG IV SCH (00:13)
[2022-02-28 00:29] LABS: Glucose Confirmatory 445 mg/dL (70-100)
[2022-02-28 01:17] LABS: Calcium 7.5 mg/dL (8.6-10.3); Potassium 3.9 mmol/L (3.5-5.0)
[2022-02-28 01:23] LABS: eGFR CKD-EPI 10.5 (>60)
[2022-02-28 01:32] LABS: Glucose Confirmatory 401 mg/dL (70-100)
[2022-02-28] MEDS: Propofol 10 mg/ml 100 ML BTL 100 ML IV SCH ×4 (02:12→12:42)
[2022-02-28] MEDS: Chlorhexidine MOUTHWASH 0.12% 15 ML UDC SWISH SPIT SCH ×4 (02:40→13:57)
[2022-02-28 04:28] LABS: Calcium 7.1 mg/dL (8.6-10.3); Potassium 3.5 mmol/L (3.5-5.0)
[2022-02-28 04:30] LABS: Hematocrit 27 % (35-47); Hemoglobin 8.6 g/dL (12.0-16.0); Mean Corpuscular HGB Conc 32 g/dL (31-36); Mean Corpuscular Hemoglobin 26 pg (27-31); Mean Corpuscular Volume 84 fL (80-97); Mean Platelet Volume 9.3 fL (7.4-10.4); Platelet Count 358 10^3/uL (150-450); Red Blood Count 3.26 10^6 /uL (3.70-4.87); Red Cell Distribution Width 16 % (10-15); White Blood Count 18.5 10^3/uL (3.5-10.8)
[2022-02-28 04:34] LABS: eGFR CKD-EPI 10.6 (>60)
[2022-02-28 05:07] LABS: Magnesium 2.4 mg/dL (1.9-2.7)
[2022-02-28 05:13] LABS: Phosphorus 8.7 mg/dL (2.5-5.0)
[2022-02-28] MEDS: Levothyroxine 100 MCG/5 ML VIAL IV SCH (05:20)
[2022-02-28] MEDS: Norepinephrine 16MCG/ML BAG NS 4,000 MCG/250 ML BAG IV SCH ×2 (07:11→14:25)
[2022-02-28 07:34] LABS: ABS Basophils 0.1 10^3/ul (0-0.2); ABS Lymphocytes 1.4 10^3/ul (1.0-4.8); ABS Monocytes 0.7 10^3/ul (0-0.8); ABS Neutrophils 16.3 10^3/ul (1.5-7.7); Eosinophil % 0.3 %; Lymphocyte % 7.7 %; Nucleated Red Blood Cells % 0.1
[2022-02-28] MEDS: Pantoprazole VIAL 40 MG VIAL IV SCH (07:42)
[2022-02-28] MEDS: Saline FLUSH-CENTRAL 10 ML SYRINGE CENT\\PICC SCH (07:57)
[2022-02-28] MEDS: Nystatin TOP POWDER 15 GM BTL TOPICAL SCH (07:57)
[2022-02-28] MEDS ORDERED: KCL 20 MEQ/100 ML IVPREMIX 20 MEQ/100 ML BAG IV ONE (08:11)
[2022-02-28 09:58] LABS: Calcium 7.4 mg/dL (8.6-10.3); Potassium 3.3 mmol/L (3.5-5.0)
[2022-02-28] MEDS: Insulin Infusion 100unit/100mL 100 UNIT/100 ML BAG IV SCH (10:02)
[2022-02-28 10:04] LABS: eGFR CKD-EPI 10.5 (>60)
[2022-02-28] MEDS: KCL 20 MEQ/100 ML IVPREMIX 20 MEQ/100 ML BAG IV SCH ×2 (10:31→12:46)
[2022-02-28 11:51] LABS: Urine Appearance Cloudy; Urine Color Yellow
[2022-02-28 11:52] LABS: Urine Bilirubin Negative (Negative); Urine Blood Trace (Intact) (Negative); Urine Glucose Negative (Negative); Urine Ketones Negative (Negative); Urine Nitrite Negative (Negative); Urine Protein 1+ (30 mg/dL) (Negative); Urine Specific Gravity 1.025 (1.005-1.030); Urine Urobilinogen 0.2 (Negative) (Negative)
[2022-02-28 12:00] LABS: Urine Bacteria Absent (Absent); Urine Red Blood Cell 3+(>10/hpf) (Absent); Urine Squamous Epithelial Cell Present (Absent); Urine White Blood Cell 3+(>20/hpf) (Absent)
[2022-02-28] MEDS ORDERED: Atropine 1% (ORAL/SL) 15 ML BTL SL PRN (14:26)
[2022-02-28] MEDS ORDERED: Scopolamine 1 mg/72hr PATCH TRANSDERM SCH (15:00)
[2022-02-28] MEDS ORDERED: Lorazepam PYXIS KEY ONE ×2 (15:01→17:14)
[2022-02-28] MEDS: Morphine 2 MG/ML SYRINGE IV PRN ×2 (15:06→16:24)
[2022-02-28] MEDS: LORazepam 2 mg VIAL 1 ml IV PUSH PRN ×2 (15:06→17:21)
[2022-02-28 16:08] LABS: Fungitell Qualitative Result Negative (Negative); Fungitell Quantitative Value 57 pg/mL (<60 pg/mL)
[2022-02-28 16:43] VITALS: BP 88/53
[2022-02-28] MEDS ORDERED: LORazepam 2 mg VIAL 1 ml IV PUSH PRN (17:19)
[2022-02-28] MEDS ORDERED: Morphine 10 MG/ML VIAL (1 ml) IV ONE (17:33)
== END 2022-02-28 18:20 | disposition expired | DRG 871 ==
LOC: ICU 13:34
PROVIDERS: ADMIT Internal Medicine Critical Care Medicine; ATTEND Internal Medicine Critical Care Medicine